=== PATIENT | male | born 1960 | race Caucasian/White ===

== ENCOUNTER 2016-07-03 12:21 | Emergency (ER) | payer OTHER ==
[~2016-07-03] VITALS: Ht 175.3 cm; Wt 82.0 kg
[~2016-07-03 12:21] MED LIST: ALBU0.08 NEB; AMLO10 PO; ASPI1TAB69 PO; LEVA750T PO; PRED20 PO; SPIRCAP INH; SYMB160A INH; TRAZ50TA12 PO; XANA1TAB2 PO
[2016-07-03 12:31] VITALS: BP 126/66; PULSE 60; RESP 16; TEMP 98.2; O2SAT 98
--- NOTE | 2016-07-03 12:59 | PD ---
HPI . Chest pain Chief Complaint: Chest Pain Time Seen by Provider: 12:42 Travel History International Travel<30 days: No Contact w/Intl Traveler<30days: No Traveled to known affect area: No History of Present Illness HPI Patient presents with chest pain for a couple days and shortness of breath for about a day. He states that he has taken his routine medications for same but nothing else. He denies fever. He denies sputum production. Respirations and movement make it worse. PFSH Past Medical History Hx Anticoagulant Therapy: Yes (81 mg asa daily) Arthritis: No Asthma: Yes Autoimmune Disease: No Blood Disorders: No Anxiety: Yes Depression: No Heart Rhythm Problems: Yes Cancer: No Cardiac Catheterization: Yes (2006) Cardiovascular Problems: Yes (htn) High Cholesterol: No Chemotherapy: No Chest Pain: Yes Congestive Heart Failure: No COPD: Yes Cerebrovascular Accident: No Diabetes: No Diminished Hearing: No Diverticulitis: Yes Endocrine: No GERD: Yes Glaucoma: No Genitourinary: No Headaches: No Hepatitis: Yes (C) Hiatal Hernia: No Hypertension: Yes Immune Disorder: No Kidney Stones: No Musculoskeletal: No Neurologic: Yes (TIA) Psychiatric: No Reproductive: No Respiratory: Yes (copd) Immunizations Current: Yes Migraines: No Myocardial Infarction: No Radiation Therapy: No Renal Failure: No Seizures: No Sickle Cell Disease: No Sleep Apnea: Yes Thyroid Disease: No Ulcer: Yes (STOMACH) ?: Not Past Surgical History Abdominal Surgery: Yes (HERNIA REPAIR, COLOSTOMY, AND COLOSTOMY REVERSAL) AICD: No Appendectomy: No Arteriovenous Shunt: No Cardiac Surgery: Yes (HEART CATH ) Cholecystectomy: No Ear Surgery: No Endocrine Surgery: No Eye Surgery: No Genitourinary Surgery: No Gynecologic Surgery: No Insulin Pump: No Joint Replacement: No Oral Surgery: Yes (ABCESS TOOTH REMOVED) Pacemaker: No Thoracic Surgery: No Other Surgery: Yes (ABSCESS RIGHT ELBOW, MOUTH) Social History Alcohol Use: Yes (occ) Tobacco Use: Yes (2 CIGARETTES PER WEEK) Substance Use: No Allergies-Medications (Allergen,Severity, Reaction): Coded Allergies: Codeine (Verified Allergy, Severe, RASH,MIGRAINE, 07/03/16) Toradol (Verified Adverse Reaction, Severe, HEADACHE, 07/03/16) *MDRO Multi-Drug Resistant Organism (Verified Adverse Reaction, Unknown, ) 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 Reported Meds & Prescriptions Reported Meds & Active Scripts Active Prednisone 20 Mg Tab 40 Mg PO DAILY 5 Days Levaquin (Levofloxacin) 750 Mg Tab 750 Mg PO DAILY Norvasc (Amlodipine Besylate) 10 Mg Tab 10 Mg PO DAILY 30 Days Reported Albuterol Neb (Albuterol Sulfate) 2.5 Mg/3 Ml Neb 2.5 Mg NEB Q4HR NEB While awake Spiriva Handihaler (Tiotropium Inh) 18 Mcg Cap 18 Mcg INH DAILY 1 capsule = 18 mcg Trazodone (Trazodone HCl) 50 Mg Tab 50 Mg PO HS Symbicort Inh (Budesonide/Formoterol Fumarate) 160-4.5 Mcg/Act Aero 2 Puff INH Q12HR Aspirin 81 Mg Tabdr 81 Mg PO DAILY Xanax (Alprazolam) 1 Mg Tab 1 Mg PO TID PRN Review of Systems Except as stated in HPI: all other systems reviewed are Neg General / Constitutional: No: Fever, Chills Cardiovascular: Positive: Chest Pain or Discomfort Respiratory: Positive: Shortness of Breath Gastrointestinal: No: Nausea Musculoskeletal: Positive: Pain (he reports leg pain.) Physical Exam Narrative GENERAL: Thin man who appears stable. SKIN: Warm and dry. HEAD: Atraumatic. Normocephalic. EYES: Pupils equal and round. ENT: No nasal bleeding or discharge. Mucous membranes pink and moist. NECK: Trachea midline. Neck is supple. CARDIOVASCULAR: Regular rate and rhythm. Heart sounds are normal. RESPIRATORY: No accessory muscle use. Lungs are clear with full air movement throughout. Chest wall is diffusely tender to palpation. GASTROINTESTINAL: Abdomen soft, non-tender, nondistended. MUSCULOSKELETAL: No obvious deformities. No edema. NEUROLOGICAL: Awake and alert. No obvious cranial nerve deficits. Motor grossly within normal limits. Normal speech. PSYCHIATRIC: Appropriate mood and affect; insight and judgment normal. Data Data Last Documented VS Vital Signs Date Time Temp Pulse Resp B/P Pulse Ox O2 Delivery O2 Flow Rate FiO2 07/03/16 12:31 98.2 60 16 126/66 98 Orders Ckmb (Isoenzyme) Profile (07/03/16 12:48) Complete Blood Count With Diff (07/03/16 12:48) Comprehensive Metabolic Panel (07/03/16 12:48) D-Dimer (07/03/16 12:48) Magnesium (Mg) (07/03/16 12:48) Troponin I (07/03/16 12:48) Chest, Single Ap (07/03/16 12:48) Ecg Monitoring (07/03/16 12:48) Bilateral Bp Monitoring (07/03/16 12:48) Iv Access Insert/Monitor (07/03/16 12:48) Oximetry (07/03/16 12:48) Oxygen Administration (07/03/16 12:48) Aspirin Chew (Aspirin Chew) (07/03/16 13:00) Morphine Inj (Morphine Inj) (07/03/16 13:00) Sodium Chloride 0.9% Flush (Ns Flush) (07/03/16 13:00) CKMB (07/03/16 13:05) CKMB% (07/03/16 13:05) Labs Laboratory Tests Test 07/03/16 13:05 White Blood Count 5.3 TH/MM3 Red Blood Count 4.32 MIL/MM3 Hemoglobin 13.3 GM/DL Hematocrit 40.1 % Mean Corpuscular Volume 92.9 FL Mean Corpuscular Hemoglobin 30.8 PG Mean Corpuscular Hemoglobin 33.1 % Concent Red Cell Distribution Width 14.8 % Platelet Count 129 TH/MM3 Mean Platelet Volume 6.8 FL Neutrophils (%) (Auto) 46.3 % Lymphocytes (%) (Auto) 33.5 % Monocytes (%) (Auto) 17.2 % Eosinophils (%) (Auto) 2.0 % Basophils (%) (Auto) 1.0 % Neutrophils # (Auto) 2.5 TH/MM3 Lymphocytes # (Auto) 1.8 TH/MM3 Monocytes # (Auto) 0.9 TH/MM3 Eosinophils # (Auto) 0.1 TH/MM3 Basophils # (Auto) 0.1 TH/MM3 CBC Comment DIFF FINAL Differential Comment D-Dimer Quantitative (PE/DVT) 0.30 MG/L FEU Sodium Level 142 MEQ/L Potassium Level 3.8 MEQ/L Chloride Level 111 MEQ/L Carbon Dioxide Level 22.8 MEQ/L Anion Gap 8 MEQ/L Blood Urea Nitrogen 22 MG/DL Creatinine 0.94 MG/DL Estimat Glomerular Filtration 83 ML/MIN Rate Random Glucose 105 MG/DL Calcium Level 8.1 MG/DL Magnesium Level 1.9 MG/DL Total Bilirubin 0.8 MG/DL Aspartate Amino Transf 171 U/L (AST/SGOT) Alanine Aminotransferase 107 U/L (ALT/SGPT) Alkaline Phosphatase 74 U/L Total Creatine Kinase 267 U/L Creatine Kinase MB 3.3 NG/ML Troponin I LESS THAN 0.02 NG/ML Total Protein 6.0 GM/DL Albumin 2.8 GM/DL MDM Medical Decision Making Medical Screen Exam Complete: Yes Emergency Medical Condition: Yes Medical Record Reviewed: Yes (records reviewed. He has a history of COPD, hypertension, respiratory failure, hepatitis C and sciatica.) Interpretation(s) EKG shows sinus bradycardia with no acute ischemic change. Differential Diagnosis Differential diagnosis of chest pain includes but is not limited to musculoskeletal pain, pulmonary embolism, acute coronary syndrome, pneumonia, pleurisy. Narrative Course This is a patient who has a history of COPD, respiratory failure, hypertension, hepatitis C and sciatica presents with at least a 2 day history of chest pain. He has chest wall pain by exam. CBC is normal. D-dimer is normal. Chemistries are remarkable for some elevated LFTs. His troponin and CK-MB are normal. Chest x-ray is negative to the radiologist's interpretation. Chest x-ray was independently viewed by me. Patient is now resting comfortably. He appears to be stable for discharge. Diagnosis Primary Impression: Atypical chest pain Patient Instructions: Chest Pain (ED), General Instructions, Narcotic given in the ED Scripts Prednisone (48) 10 mg tab Dose Pack 10 Mg Dspk10 Mg PO DIRECTED #1 DSPK Ref 0 Prov:Kira Castro MD 07/03/16 Tramadol 50 Mg Tab50 Mg PO Q4H PRN (PAIN) #15 TAB Ref 0 Prov:Kira Castro MD 07/03/16 Disposition: 01 DISCHARGE HOME Condition: Stable Kira Castro MD Jul 03, 2016 12:59
[2016-07-03] MEDS ORDERED: SODIUM CHLORIDE 0.9% FLUSH 5 ML FLUSH IVF PRN (13:00)
[2016-07-03] MEDS ORDERED: MORPHINE SULFATE 4 MG/ML INJ IV PUSH ONE (13:00)
[2016-07-03] MEDS ORDERED: ASPIRIN 81 MG CHEW TAB PO ONE (13:00)
[2016-07-03 13:17] LABS: AUTOMATED NEUTROPHIL # 2.5 TH/MM3 (1.8-7.7); BASOPHIL # 0.1 TH/MM3 (0-0.2); EOSINOPHIL # 0.1 TH/MM3 (0-0.4); HEMATOCRIT 40.1 % (39.0-51.0); HEMO FLAGS DIFF FINAL; LYMPH % 33.5 % (9.0-44.0); LYMPHOCYTE # 1.8 TH/MM3 (1.0-4.8); MEAN CELL VOLUME 92.9 FL (80.0-100.0); MEAN CORPUSCULAR HEMOGLOBIN 30.8 PG (27.0-34.0); MEAN CORPUSCULAR HGB CONC 33.1 % (32.0-36.0); MONO % 17.2 % (0.0-8.0); NEUT % 46.3 % (16.0-70.0); PLATELET COUNT 129 TH/MM3 (150-450); RED BLOOD COUNT 4.32 MIL/MM3 (4.50-5.90); RED CELL DISTRIBUTION WIDTH 14.8 % (11.6-17.2); WHITE BLOOD COUNT 5.3 TH/MM3 (4.0-11.0)
--- NOTE | 2016-07-03 13:27 | RADRPT ---
EXAM DATE/TIME: 07/03/2016 13:15 [facility] COMPARISON: CT PULMONARY ANGIOGRAM, August 08, 2015, 20:43. INDICATIONS : Chest pain. MEDICAL HISTORY : Hypertension. Chronic obstructive pulmonary disease. Emphysema. SURGICAL HISTORY : Heart cath. ENCOUNTER: Initial ACUITY: 1 day PAIN SCORE: 7/10 LOCATION: chest FINDINGS: A single view of the chest demonstrates the lungs to be symmetrically aerated without evidence of mas s, infiltrate or effusion. The cardiomediastinal contours are unremarkable. Osseous structures demo nstrate a left scapular dense exostosis. This is stable. CONCLUSION: No acute disease. Blaise Greene MD on July 03, 2016 at 13:25 Board Certified Radiologist. This report was verified electronically.
[2016-07-03 13:30] VITALS: O2SAT 97
[2016-07-03 13:39] LABS: ALT (GPT) 107 U/L (12-78); ANION GAP 8 MEQ/L (5-15); AST (GOT) 171 U/L (15-37); BICARBONATE 22.8 MEQ/L (21.0-32.0); BLOOD UREA NITROGEN 22 MG/DL (7-18); CHLORIDE 111 MEQ/L (98-107); GLOMERULAR FILTRATION RATE 83 ML/MIN (>89); MAGNESIUM 1.9 MG/DL (1.5-2.5); POTASSIUM 3.8 MEQ/L (3.5-5.1); SODIUM (NA) 142 MEQ/L (136-145)
[2016-07-03 13:43] LABS: ALKALINE PHOSPHATASE 74 U/L (45-117); CREATINE KINASE 267 U/L (39-308); TOTAL BILIRUBIN ADULT 0.8 MG/DL (0.2-1.0)
[2016-07-03 13:56] LABS: CKMB 3.3 NG/ML (0.5-3.6)
[2016-07-03] MEDS ORDERED: PRED10PA2 PO (14:06)
[2016-07-03] MEDS ORDERED: TRAM50TA PO (14:06)
--- NOTE | 2016-07-04 18:20 | EKG ---
Date Performed: 07/03/2016 Time Performed: 12:36:57 PTAGE: 55 years EKG: SINUS BRADYCARDIA SEPTAL MYOCARDIAL INFARCTION Since previous tracing, no significant sr e noted ABNORMAL ECG PREVIOUS TRACING 05/31/16 @ 05.50.42 DOCTOR: Ros Grant Interpretating Date/Time 07/04/2016 18:18:39
== END 2016-07-03 15:27 | disposition home or self-care (01) ==
LOC: NEPE 12:21
DX: R07.89 Other chest pain (principal); R00.1 Bradycardia, unspecified
CPT/HCPCS: 71010; 80053; 82550; 82552; 83735; 84484; 85025; 85379; 93005

== ENCOUNTER 2016-10-03 10:45 | Observation (INO) | payer OTHER ==
[~2016-10-03] VITALS: Ht 177.8 cm; Wt 80.0 kg
[2016-10-03] VITALS (11 sets, daily range): BP systolic 144–175; BP diastolic 80–98; PULSE 74–100; RESP 16–20; TEMP 97.8–98.1; O2SAT 92–96
[~2016-10-03 10:45] MED LIST changes: -LEVA750T PO; +PRED10PA2 PO; -PRED20 PO; +TRAM50TA PO
[2016-10-03] MEDS: RESP: ALBUTEROL 2.5 MG/IPRATROPIUM 0.5 MG NEB (SCH) INH ×2 (11:13→17:26)
[2016-10-03] MEDS ORDERED: SODIUM CHLORIDE 0.9% FLUSH 10 ML FLUSH IVF PRN (11:15)
--- NOTE | 2016-10-03 11:29 | PD ---
HPI Chief Complaint: Chest Pain Time Seen by Provider: 11:00 Travel History International Travel<30 days: No Contact w/Intl Traveler<30days: No Traveled to known affect area: No History of Present Illness HPI Patient is a 55-year-old male presenting to the emergency department for evaluation of chest pain and shortness of breath. Patient states his symptoms started 2 days ago. He states his chest pain is substernal and pressure-like in nature. He states his pain is 7 out of 10, he denies any radiation. He reports bilateral lower extremity edema, nausea, a dull headache. Patient states that he walked to the [employer] to get lunch when he called 911 due to the shortness of breath and chest pain. Reports a history of hypertension, COPD emphysema, sciatica. PFSH Past Medical History Hx Anticoagulant Therapy: Yes (81 mg asa daily) Arthritis: No Autoimmune Disease: No Blood Disorders: No Anxiety: Yes Depression: No Heart Rhythm Problems: Yes Cancer: No Cardiac Catheterization: Yes (2006) High Cholesterol: No Chemotherapy: No Chest Pain: Yes Congestive Heart Failure: No COPD: Yes (emphysema) Cerebrovascular Accident: No Diabetes: No Diminished Hearing: No Diverticulitis: Yes Endocrine: No GERD: Yes Glaucoma: No Genitourinary: No Headaches: No Hepatitis: Yes (C) Hiatal Hernia: No Heparin Induced Thrombocytopen: No Hypertension: Yes Immune Disorder: No Implanted Vascular Access Dvce: No Kidney Stones: No Musculoskeletal: No Neurologic: Yes (TIA) Psychiatric: No Reproductive: No Respiratory: Yes (copd) Immunizations Current: Yes Migraines: No Myocardial Infarction: No Radiation Therapy: No Renal Failure: No Seizures: No Sickle Cell Disease: No Sleep Apnea: Yes Thyroid Disease: No Ulcer: Yes (STOMACH) Past Surgical History Abdominal Surgery: Yes (HERNIA REPAIR, COLOSTOMY, AND COLOSTOMY REVERSAL) Cardiac Surgery: Yes (HEART CATH ) Oral Surgery: Yes (ABCESS TOOTH REMOVED) Other Surgery: Yes (ABSCESS RIGHT ELBOW, MOUTH) Family History Family Myocardial Infarction: Yes Social History Alcohol Use: Yes (occ) Tobacco Use: No Substance Use: No Allergies-Medications (Allergen,Severity, Reaction): Coded Allergies: Codeine (Verified Allergy, Severe, RASH,MIGRAINE, 10/03/16) Toradol (Verified Adverse Reaction, Severe, HEADACHE, 10/03/16) *MDRO Multi-Drug Resistant Organism (Verified Adverse Reaction, Unknown, ) 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 Reported Meds & Prescriptions Reported Meds & Active Scripts Active Norvasc (Amlodipine Besylate) 10 Mg Tab 10 Mg PO DAILY 30 Days Reported Albuterol Neb (Albuterol Sulfate) 2.5 Mg/3 Ml Neb 2.5 Mg NEB Q4HR NEB While awake Spiriva Handihaler (Tiotropium Inh) 18 Mcg Cap 18 Mcg INH DAILY 1 capsule = 18 mcg Symbicort Inh (Budesonide/Formoterol Fumarate) 160-4.5 Mcg/Act Aero 2 Puff INH Q12HR Aspirin 81 Mg Tabdr 81 Mg PO DAILY Xanax (Alprazolam) 1 Mg Tab 1 Mg PO TID PRN Review of Systems Except as stated in HPI: all other systems reviewed are Neg General / Constitutional: No: Fever, Chills HENT: Positive: Headaches, No: Lightheadedness Cardiovascular: Positive: Chest Pain or Discomfort, Tachycardia, Dyspnea on exertion, Edema Respiratory: Positive: Shortness of Breath, Wheezing, No: Cough Gastrointestinal: Positive: Nausea, No: Vomiting, Diarrhea, Abdominal Pain Genitourinary: No: Dysuria Musculoskeletal: No: Myalgias Neurologic: No: Weakness, Dizziness, Syncope, Focal Abnormalities Physical Exam Narrative GENERAL: Well-developed, well-nourished, male. Appears older than stated age, resting comfortably in no acute distress. SKIN: Focused skin assessment warm/dry. HEAD: Atraumatic. Normocephalic. EYES: Pupils equal and round. No scleral icterus. No injection or drainage. ENT: No nasal bleeding or discharge. Mucous membranes pink and moist. NECK: Trachea midline. No JVD. CARDIOVASCULAR: Tachycardiac. No murmur appreciated. RESPIRATORY: No accessory muscle use. Diminished in bases, scattered expiratory wheezing. GASTROINTESTINAL: Abdomen soft, non-tender, nondistended. Hepatic and splenic margins not palpable. MUSCULOSKELETAL: No obvious deformities. No clubbing. No cyanosis. Trace peripheral edema, positive pedal pulses, brisk less than 3 second capillary refill. NEUROLOGICAL: Awake and alert. No obvious cranial nerve deficits. Motor grossly within normal limits. Normal speech. PSYCHIATRIC: Appropriate mood and affect; insight and judgment normal. Data Data Last Documented VS Vital Signs Date Time Temp Pulse Resp B/P Pulse Ox O2 Delivery O2 Flow Rate FiO2 4/3/17 14:37 97 20 155/81 94 Nasal Cannula 2 10/03/16 11:01 98.1 Orders Complete Blood Count With Diff (10/03/16 11:04) Comprehensive Metabolic Panel (10/03/16 11:04) B-Type Natriuretic Peptide (10/03/16 11:04) Act Partial Throm Time (Ptt) (10/03/16 11:04) Prothrombin Time / Inr (Pt) (10/03/16 11:04) Magnesium (Mg) (10/03/16 11:04) Ckmb (Isoenzyme) Profile (10/03/16 11:04) Troponin I (10/03/16 11:04) Iv Access Insert/Monitor (10/03/16 11:04) Electrocardiogram (10/03/16 11:04) Ecg Monitoring (10/03/16 11:04) Oximetry (10/03/16 11:04) Oxygen Administration (10/03/16 11:04) Chest, Pa & Lat (10/03/16 11:04) Sodium Chloride 0.9% Flush (Ns Flush) (10/03/16 11:15) Albuterol-Ipratropium Neb (Duoneb Neb) (10/03/16 11:15) CKMB (10/03/16 12:35) CKMB% (10/03/16 12:35) Methylprednisolone So Succ Inj (Solumedr (10/03/16 13:45) Ct Pulmonary Angiogram (10/03/16 ) Iohexol 350 Inj (Omnipaque 350 Inj) (10/03/16 16:21) Admit Order (Ed Use Only) (10/03/16 16:30) Labs Laboratory Tests Test 10/03/16 12:35 White Blood Count 6.5 TH/MM3 Red Blood Count 4.78 MIL/MM3 Hemoglobin 14.6 GM/DL Hematocrit 42.8 % Mean Corpuscular Volume 89.4 FL Mean Corpuscular Hemoglobin 30.6 PG Mean Corpuscular Hemoglobin 34.3 % Concent Red Cell Distribution Width 14.5 % Platelet Count 146 TH/MM3 Mean Platelet Volume 7.0 FL Neutrophils (%) (Auto) 62.2 % Lymphocytes (%) (Auto) 24.0 % Monocytes (%) (Auto) 12.3 % Eosinophils (%) (Auto) 0.9 % Basophils (%) (Auto) 0.6 % Neutrophils # (Auto) 4.0 TH/MM3 Lymphocytes # (Auto) 1.6 TH/MM3 Monocytes # (Auto) 0.8 TH/MM3 Eosinophils # (Auto) 0.1 TH/MM3 Basophils # (Auto) 0.0 TH/MM3 CBC Comment DIFF FINAL Differential Comment Prothrombin Time 11.8 SEC Prothromb Time International 1.1 RATIO Ratio Activated Partial 29.3 SEC Thromboplast Time Sodium Level 141 MEQ/L Potassium Level 3.7 MEQ/L Chloride Level 107 MEQ/L Carbon Dioxide Level 24.9 MEQ/L Anion Gap 9 MEQ/L Blood Urea Nitrogen 12 MG/DL Creatinine 0.65 MG/DL Estimat Glomerular Filtration 127 ML/MIN Rate Random Glucose 89 MG/DL Calcium Level 8.6 MG/DL Magnesium Level 1.8 MG/DL Total Bilirubin 0.6 MG/DL Aspartate Amino Transf 136 U/L (AST/SGOT) Alanine Aminotransferase 92 U/L (ALT/SGPT) Alkaline Phosphatase 63 U/L Total Creatine Kinase 229 U/L Creatine Kinase MB 7.3 NG/ML Troponin I 0.02 NG/ML B-Type Natriuretic Peptide 71 PG/ML Total Protein 6.9 GM/DL Albumin 2.9 GM/DL MDM Medical Decision Making Medical Screen Exam Complete: Yes Emergency Medical Condition: Yes Interpretation(s) Laboratory Tests Test 10/03/16 12:35 White Blood Count 6.5 TH/MM3 Red Blood Count 4.78 MIL/MM3 Hemoglobin 14.6 GM/DL Hematocrit 42.8 % Mean Corpuscular Volume 89.4 FL Mean Corpuscular Hemoglobin 30.6 PG Mean Corpuscular Hemoglobin 34.3 % Concent Red Cell Distribution Width 14.5 % Platelet Count 146 TH/MM3 Mean Platelet Volume 7.0 FL Neutrophils (%) (Auto) 62.2 % Lymphocytes (%) (Auto) 24.0 % Monocytes (%) (Auto) 12.3 % Eosinophils (%) (Auto) 0.9 % Basophils (%) (Auto) 0.6 % Neutrophils # (Auto) 4.0 TH/MM3 Lymphocytes # (Auto) 1.6 TH/MM3 Monocytes # (Auto) 0.8 TH/MM3 Eosinophils # (Auto) 0.1 TH/MM3 Basophils # (Auto) 0.0 TH/MM3 CBC Comment DIFF FINAL Differential Comment Prothrombin Time 11.8 SEC Prothromb Time International 1.1 RATIO Ratio Activated Partial 29.3 SEC Thromboplast Time Sodium Level 141 MEQ/L Potassium Level 3.7 MEQ/L Chloride Level 107 MEQ/L Carbon Dioxide Level 24.9 MEQ/L Anion Gap 9 MEQ/L Blood Urea Nitrogen 12 MG/DL Creatinine 0.65 MG/DL Estimat Glomerular Filtration 127 ML/MIN Rate Random Glucose 89 MG/DL Calcium Level 8.6 MG/DL Magnesium Level 1.8 MG/DL Total Bilirubin 0.6 MG/DL Aspartate Amino Transf 136 U/L (AST/SGOT) Alanine Aminotransferase 92 U/L (ALT/SGPT) Alkaline Phosphatase 63 U/L Total Creatine Kinase 229 U/L Creatine Kinase MB 7.3 NG/ML Troponin I 0.02 NG/ML B-Type Natriuretic Peptide 71 PG/ML Total Protein 6.9 GM/DL Albumin 2.9 GM/DL Last Impressions Chest X-Ray 10/03/16 1104 Signed Impressions: Service Date/Time: Monday, October 03, 2016 12:09 - CONCLUSION: 1. No acute findings. 2. Stable calcification within the left scapula. Manuel Estrada MD CT Angiography 10/03/16 0000 Signed Impressions: Service Date/Time: Monday, October 03, 2016 15:59 - CONCLUSION: 1. No pulmonary embolus identified. 2. Emphysematous bleb in the medial aspect of the left upper lobe. 3. Single punctate atherosclerotic plaque in the LAD. 4. Small hiatal hernia. Manuel Estrada MD Vital Signs Date Time Temp Pulse Resp B/P Pulse Ox O2 Delivery O2 Flow Rate FiO2 10/03/16 11:01 98.1 95 20 144/97 95 Differential Diagnosis COPD exacerbation versus CHF versus AMI versus PE versus pneumonia versus other Narrative Course Patient is a 55-year-old male presenting to the emergency department for evaluation of 2 days of shortness of breath and chest pain. Patient placed on telemetry monitoring, continuous pulse oximetry. IV access initiated by EMS. Patient's vital signs are stable blood glucose 74, 162mg of aspirin given en route. Labs, EKG and imaging ordered and pending Duonebs x 3, solu-medrol 125mg IV X 1 dose given. EKG shows sinus rhythm, indeterminate axis. Stable when compared to prior from July 2016 CT pulmonary injury from is negative for embolus, shows emphysematous bleb in the medial aspect of the left upper lobe. CBC is unremarkable BNP 71 Chemistry with no acute issue. Coags unremarkable. Discussed with Dr. Prado who accepted admission for observation. Diagnosis Primary Impression: COPD with exacerbation Additional Impression: Atypical chest pain Admitting Information Admitting Physician Requests: Observation Condition: Stable Brianna Hays Oct 03, 2016 11:29
--- NOTE | 2016-10-03 12:24 | RADRPT ---
EXAM DATE/TIME: 10/03/2016 12:09 [facility] COMPARISON: CHEST SINGLE AP, July 03, 2016, 13:15. INDICATIONS : Short of breath. MEDICAL HISTORY : Hypertension. Chronic obstructive pulmonary disease. Emphysema. Hep C SURGICAL HISTORY : Heart Cath. ENCOUNTER: Initial ACUITY: 1 day PAIN SCORE: 0/10 LOCATION: Bilateral chest FINDINGS: The lungs are clear. The heart is normal in size. The osseous structures demonstrate a 1.7 x 1.1 cm c alcification which is within the scapula. CONCLUSION: 1. No acute findings. 2. Stable calcification within the left scapula. Manuel Estrada MD on October 03, 2016 at 12:21 Board Certified Radiologist. This report was verified electronically.
[2016-10-03 12:57] LABS: BASOPHIL % 0.6 % (0.0-2.0); EOSINOPHIL # 0.1 TH/MM3 (0-0.4); EOSINOPHIL % 0.9 % (0.0-4.0); HEMATOCRIT 42.8 % (39.0-51.0); LYMPHOCYTE # 1.6 TH/MM3 (1.0-4.8); MEAN CELL VOLUME 89.4 FL (80.0-100.0); MEAN CORPUSCULAR HEMOGLOBIN 30.6 PG (27.0-34.0); MEAN CORPUSCULAR HGB CONC 34.3 % (32.0-36.0); MONO % 12.3 % (0.0-8.0); NEUT % 62.2 % (16.0-70.0); PLATELET COUNT 146 TH/MM3 (150-450); RED BLOOD COUNT 4.78 MIL/MM3 (4.50-5.90); RED CELL DISTRIBUTION WIDTH 14.5 % (11.6-17.2); WHITE BLOOD COUNT 6.5 TH/MM3 (4.0-11.0)
[2016-10-03 12:58] LABS: HEMO FLAGS DIFF FINAL
[2016-10-03 13:07] LABS: APTT (PATIENT) 29.3 SEC (24.3-30.1); INTERNATIONAL NORMALIZED RATIO 1.1 RATIO; PROTHROMBIN TIME - PATIENT 11.8 SEC (9.8-11.6)
[2016-10-03 13:16] LABS: ANION GAP 9 MEQ/L (5-15); AST (GOT) 136 U/L (15-37); BICARBONATE 24.9 MEQ/L (21.0-32.0); BLOOD UREA NITROGEN 12 MG/DL (7-18); CHLORIDE 107 MEQ/L (98-107); GLOMERULAR FILTRATION RATE 127 ML/MIN (>89); MAGNESIUM 1.8 MG/DL (1.5-2.5); POTASSIUM 3.7 MEQ/L (3.5-5.1); SODIUM (NA) 141 MEQ/L (136-145)
[2016-10-03 13:21] LABS: ALKALINE PHOSPHATASE 63 U/L (45-117); ALT (GPT) 92 U/L (12-78); CREATINE KINASE 229 U/L (39-308); TOTAL BILIRUBIN ADULT 0.6 MG/DL (0.2-1.0)
[2016-10-03 13:33] LABS: CKMB 7.3 NG/ML (0.5-3.6)
[2016-10-03] MEDS ORDERED: methylPREDNISolone SOD SUCC 125 MG/2 ML VIAL IV PUSH ONE (13:45)
[2016-10-03] MEDS ORDERED: IOHEXOL 350 MG/ML 10 ML VIAL (for RAD DIAG) IV ONE (16:21)
--- NOTE | 2016-10-03 16:39 | RADRPT ---
EXAM DATE/TIME: 10/03/2016 15:59 [facility] COMPARISON: CT PULMONARY ANGIOGRAM, August 08, 2015, 20:43. INDICATIONS : Left sided chest pain and shortness of breath for two days. IV CONTRAST: 70 cc Omnipaque 350 (iohexol) IV RADIATION DOSE: 23.28 CTDIvol (mGy) MEDICAL HISTORY : Hypertension. Chronic obstructive pulmonary disease. SURGICAL HISTORY : cardiac catheterization ENCOUNTER: Initial ACUITY: 2 days PAIN SCALE: 7/10 LOCATION: Left chest TECHNIQUE: Volumetric scanning of the chest was performed using a pulmonary embolism protocol MIP images were re constructed. Using automated exposure control and adjustment of the mA and/or kV according to patien t size, radiation dose was kept as low as reasonably achievable to obtain optimal diagnostic quality images. FINDINGS: PULMONARY ARTERIES: No filling defects are seen in the pulmonary arteries through the segmental level. LUNGS: No pneumothorax is identified. There is a large emphysematous bleb seen medially in the left upper lo be this is unchanged from previous. PLEURAE: There is no pleural thickening or pleural effusion. MEDIASTINUM: There is good visualization of the great vessels of the middle mediastinum. No evidence of mediastin al or hilar adenopathy/mass. There is a punctate atherosclerotic plaque seen within the LAD. MUSCULOSKELETAL: Within normal limits for patient age. MISCELLANEOUS: The visualized upper abdominal organs demonstrate no acute abnormality. CONCLUSION: 1. No pulmonary embolus identified. 2. Emphysematous bleb in the medial aspect of the left upper lobe. 3. Single punctate atherosclerotic plaque in the LAD. 4. Small hiatal hernia. Manuel Estrada MD on October 03, 2016 at 16:36 Board Certified Radiologist. This report was verified electronically.
[2016-10-03] MEDS ORDERED: RESP: ALBUTEROL 2.5 MG/3 ML NEB (PRN) INH (17:00)
[2016-10-03] MEDS ORDERED: MORPHINE SULFATE 4 MG/ML INJ IV PRN ×2 (17:00→20:00)
[2016-10-03] MEDS: LEVOFLOXACIN 500 MG PREMIX INJ 100 ML IV SCH (17:30)
[2016-10-03] MEDS: HEPARIN SODIUM - SQ 10,000 UNITS/ML VIAL SQ SCH (17:30)
--- NOTE | 2016-10-03 18:25 | HHI.HP ---
[facility] Physician Unknown Admission Diagnosis ATYPICAL CHEST PAIN/COPD EXACERBATION Diagnoses: Chief Complaint: Chest pain Travel History International Travel<30 Days: No Contact w/Intl Traveler <30 Da: No Traveled to Known Affected Are: No History of Present Illness 55 years old male with history of COPD presented with chest retrosternal about 8 out of 10, accompanied with worsening short of breath, he feels little nauseous, the pain went to his left arm. He stated the last for 10 seconds but it comes and goes. He also reported worsening greenish phlegm with cough. He denied fever or chills abdominal pain diarrhea or constipation dysuria urgency frequency, in ED patient was given breathing treatment, cardiac enzymes sent, CT of the chest has been done and ruled out PE. But showed severe emphysema with apical bleb Review of Systems All 10 systems reviewed and was positive for what is mentioned in history of present illness otherwise negative Past Family Social History Past Medical History COPD HTN anxiety hepatitis C GERD TIA H/O diverticulosis status post partial colectomy and colostomy as per the patient Past Surgical History Hernia repair Colostomy placement and reversal Cardiac catheterization in 2006 Dental extractions I&D of an abscess at the right elbow Allergies: Coded Allergies: Codeine (Verified Allergy, Severe, RASH,MIGRAINE, 10/03/16) Toradol (Verified Adverse Reaction, Severe, HEADACHE, 10/03/16) *MDRO Multi-Drug Resistant Organism (Verified Adverse Reaction, Unknown, ) 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 Family History Father had cirrhosis, mother [place] in her 30 Social History Still smoke a pack a day for over 30 years, denies alcohol or illicit drug abuse however he stated he drank 4 beers yesterday while he was watching sports but he usually doesn't Physical Exam Vital Signs Vital Signs Date Time Temp Pulse Resp B/P Pulse Ox O2 Delivery O2 Flow Rate FiO2 10/03/16 17:27 87 20 153/98 92 Room Air 10/03/16 16:42 88 20 175/88 95 Room Air 10/03/16 14:37 97 20 155/81 94 Nasal Cannula 2 10/03/16 12:46 96 Room Air 10/03/16 12:37 96 20 156/85 94 Room Air 10/03/16 11:01 98.1 95 20 144/97 95 Physical Exam GENERAL: This is a well-nourished, well-developed patient, in no apparent distress. SKIN: No rashes, warm and dry HEAD: Atraumatic. Normocephalic. EYES: Pupils equal round and reactive. Extraocular motions intact. No scleral icterus. ENT: Nose without bleeding, or drainage, Airway patent. NECK: Trachea midline. Supple CARDIOVASCULAR: Regular rate and rhythm without murmurs, gallops, or rubs. RESPIRATORY: Relatively diminished air entry with bilateral wheezes GASTROINTESTINAL: Abdomen soft, non-tender, nondistended. Positive bowel sounds MUSCULOSKELETAL: Extremities without clubbing, cyanosis, or edema. Pedal pulses appreciated NEUROLOGICAL: Awake and alert. Moves all extremity. Normal speech.no focal neurological deficit Laboratory Laboratory Tests Test 10/03/16 12:35 White Blood Count 6.5 Red Blood Count 4.78 Hemoglobin 14.6 Hematocrit 42.8 Mean Corpuscular Volume 89.4 Mean Corpuscular Hemoglobin 30.6 Mean Corpuscular Hemoglobin 34.3 Concent Red Cell Distribution Width 14.5 Platelet Count 146 Mean Platelet Volume 7.0 Neutrophils (%) (Auto) 62.2 Lymphocytes (%) (Auto) 24.0 Monocytes (%) (Auto) 12.3 Eosinophils (%) (Auto) 0.9 Basophils (%) (Auto) 0.6 Neutrophils # (Auto) 4.0 Lymphocytes # (Auto) 1.6 Monocytes # (Auto) 0.8 Eosinophils # (Auto) 0.1 Basophils # (Auto) 0.0 CBC Comment DIFF FINAL Differential Comment Prothrombin Time 11.8 Prothromb Time International 1.1 Ratio Activated Partial 29.3 Thromboplast Time Sodium Level 141 Potassium Level 3.7 Chloride Level 107 Carbon Dioxide Level 24.9 Anion Gap 9 Blood Urea Nitrogen 12 Creatinine 0.65 Estimat Glomerular Filtration 127 Rate Random Glucose 89 Calcium Level 8.6 Magnesium Level 1.8 Total Bilirubin 0.6 Aspartate Amino Transf 136 (AST/SGOT) Alanine Aminotransferase 92 (ALT/SGPT) Alkaline Phosphatase 63 Total Creatine Kinase 229 Creatine Kinase MB 7.3 Troponin I 0.02 B-Type Natriuretic Peptide 71 Total Protein 6.9 Albumin 2.9 Result Diagram: 10/03/16 1235 10/03/16 1235 Imaging Last Impressions Chest X-Ray 10/03/16 1104 Signed Impressions: Service Date/Time: Monday, October 03, 2016 12:09 - CONCLUSION: 1. No acute findings. 2. Stable calcification within the left scapula. Manuel Estrada MD CT Angiography 10/03/16 0000 Signed Impressions: Service Date/Time: Monday, October 03, 2016 15:59 - CONCLUSION: 1. No pulmonary embolus identified. 2. Emphysematous bleb in the medial aspect of the left upper lobe. 3. Single punctate atherosclerotic plaque in the LAD. 4. Small hiatal hernia. Manuel Estrada MD EKG sinus rhythm no ST changes Assessment and Plan Assessment and Plan 55 years old with history of COPD came with Atypical chest pain rule out ACS EKG personally reviewed by me sinus no significant ST changes Cardiac enzymes cycled first set CK 229 CK-MB 7.3 troponin 0.02 Aspirin given and morphine iv for pain Acute respiratory distress with Worsening cough and greenish phlegm production rule out COPD exacerbation: O2, DuoNeb scheduled and when necessary, started Levaquin, Solu-Medrol Uncontrolled hypertension Resume amlodipine, Vasotec as needed Monitor blood pressure Thrombocytopenia: Mostly due to alcoholism, monitor CBC History of hepatitis C: No acute issue, follow as an outpatient H/O partial colectomy and reversed colostomy in the past DVT prophylaxis With heparin and SCD, start Lovenox full dose if troponins start to increase Discussed Condition With Patient in ED physician Abdullahi Prado MD Oct 03, 2016 18:25
[2016-10-03] MEDS: NITROGLYCERIN 0.4 MG SL 25 TABS/BTL SL PRN ×2 (18:33→18:43)
[2016-10-03 18:54] LABS: CREATINE KINASE 123 U/L (39-308)
[2016-10-03] MEDS: ENALAPRILAT 1.25 MG/ML VIAL IV PUSH PRN (19:09)
[2016-10-03] MEDS: BUDESONIDE-FORMOTEROL 160/4.5 MCG INHALER INH SCH (21:32)
[2016-10-03] MEDS: MORPHINE SULFATE 4 MG/ML INJ IV PUSH PRN (22:26)
[2016-10-03] MEDS: methylPREDNISolone SOD SUCC 125 MG/2 ML VIAL IVP SCH (22:27)
[2016-10-04] VITALS (13 sets, daily range): BP systolic 136–188; BP diastolic 76–103; PULSE 75–103; RESP 18–22; TEMP 97.6–98.1; O2SAT 95–97
[2016-10-04 00:52] LABS: CREATINE KINASE 97 U/L (39-308)
[2016-10-04] MEDS: HEPARIN SODIUM - SQ 10,000 UNITS/ML VIAL SQ SCH ×3 (01:36→18:17)
[2016-10-04] MEDS: RESP: ALBUTEROL 2.5 MG/IPRATROPIUM 0.5 MG NEB (SCH) INH ×4 (03:48→22:00)
[2016-10-04 05:36] LABS: HDL CHOLESTEROL 29.8 MG/DL (40.0-60.0)
[2016-10-04] MEDS: methylPREDNISolone SOD SUCC 125 MG/2 ML VIAL IVP SCH ×3 (06:33→22:31)
[2016-10-04] MEDS: BUDESONIDE-FORMOTEROL 160/4.5 MCG INHALER INH SCH ×2 (08:30→22:31)
[2016-10-04] MEDS: ASPIRIN 325 MG TAB PO SCH (08:30)
[2016-10-04] MEDS: TIOTROPIUM BROMIDE 18 MCG INH INH SCH (08:31)
[2016-10-04] MEDS ORDERED: ASPIRIN EC 81 MG TABEC PO SCH (09:00)
[2016-10-04] MEDS ORDERED: INFLUENZA VIRUS VACCINE (QUADRIVALENT) 0.5 ML SYR IM ONE (10:00)
[2016-10-04] MEDS: ENALAPRILAT 1.25 MG/ML VIAL IV PUSH PRN (10:22)
[2016-10-04] MEDS: MORPHINE SULFATE 4 MG/ML INJ IV PUSH PRN ×3 (10:29→22:32)
--- NOTE | 2016-10-04 10:43 | EKG ---
Date Performed: 10/03/2016 Time Performed: 18:05:33 PTAGE: 55 years EKG: Sinus rhythm BORDERLINE LEFT AXIS DEVIATION BORDERLINE ECG Compared to prior tracing no significant change PREVIOUS TRACING : 10/03/2016 11.29 DOCTOR: Ros Grant Interpretating Date/Time 10/04/2016 10:36:45
--- NOTE | 2016-10-04 10:43 | EKG ---
Date Performed: 10/03/2016 Time Performed: 11:29:50 PTAGE: 55 years EKG: Sinus rhythm INDETERMINATE AXIS ATYPICAL ECG Compared to prior tracing no significant change PREVIOUS TRACING DOCTOR: Ros Grant Interpretating Date/Time 10/04/2016 10:36:37
[2016-10-04] MEDS ORDERED: ENALAPRILAT 1.25 MG/ML VIAL IV PUSH PRN (11:30)
[2016-10-04] MEDS ORDERED: LISINOPRIL 5 MG TAB PO SCH (12:00)
[2016-10-04 12:02] LABS: ANION GAP 10 MEQ/L (5-15); AST (GOT) 90 U/L (15-37); BICARBONATE 23.7 MEQ/L (21.0-32.0); BLOOD UREA NITROGEN 17 MG/DL (7-18); CHLORIDE 108 MEQ/L (98-107); GLOMERULAR FILTRATION RATE 87 ML/MIN (>89); POTASSIUM 3.6 MEQ/L (3.5-5.1); SODIUM (NA) 142 MEQ/L (136-145)
[2016-10-04 12:09] LABS: ALKALINE PHOSPHATASE 57 U/L (45-117); ALT (GPT) 82 U/L (12-78); TOTAL BILIRUBIN ADULT 0.3 MG/DL (0.2-1.0)
--- NOTE | 2016-10-04 15:51 | HHI.PR ---
Subjective Remarks Patient still feeling some chest tightness most likely is due to the OPD exacerbation, reported still coughing some greenish phlegm His cardiac enzyme came back 3 sets negative no EKG changes Continue COPD exacerbation management Objective Vitals Vital Signs Date Time Temp Pulse Resp B/P Pulse Ox O2 Delivery O2 Flow Rate FiO2 10/04/16 15:15 97.8 103 18 153/90 96 10/04/16 13:42 166/84 10/04/16 12:05 97.6 98 18 157/88 96 10/04/16 11:46 157/76 10/04/16 10:34 16 10/04/16 10:11 188/88 10/04/16 09:41 97 Nasal Cannula 2.00 10/04/16 08:14 97.8 75 20 153/103 96 10/04/16 04:17 97.6 95 20 164/83 95 10/04/16 03:54 95 Nasal Cannula 2.00 10/04/16 00:09 98.0 99 20 156/87 95 10/03/16 23:00 98 10/03/16 20:50 97.8 92 20 173/98 96 10/03/16 20:32 74 16 151/80 96 Nasal Cannula 2 10/03/16 20:00 76 16 156/81 96 Nasal Cannula 2 10/03/16 18:33 97 20 161/90 93 Room Air 10/03/16 18:10 100 20 167/90 93 Nasal Cannula 2 10/03/16 17:27 87 20 153/98 92 Room Air 10/03/16 16:42 88 20 175/88 95 Room Air I/O 10/03/16 10/03/16 10/03/16 10/04/16 10/04/16 10/04/16 07:00 15:00 23:00 07:00 15:00 23:00 Intake Total 1200 ml Output Total 1050 ml Balance 150 ml Intake Oral 1200 ml Output Urine Total 1050 ml Result Diagram: 10/03/16 1235 10/04/16 1131 Objective Remarks GENERAL: This is a well-nourished, well-developed patient, in no apparent distress. CARDIOVASCULAR: Regular rate and rhythm without murmurs, gallops, or rubs. RESPIRATORY: Diffuse expiratory wheezes, diminish breath sounds bilaterally. GASTROINTESTINAL: Abdomen soft, non-tender,nondistended. Normal active bowel sounds MUSCULOSKELETAL: Extremities without clubbing, cyanosis, or edema. NEURO: Alert & Oriented x4 to person, place, time, situation. Moves all ext x4 A/P Assessment and Plan 55 years old with history of COPD came with Atypical chest pain unlikely ACS EKG personally reviewed by me sinus no significant ST changes Cardiac enzymes cycled 3 sets negative Aspirin given and morphine iv for pain FLP showed LDL 62 HDL 29.8, with his increased liver enzyme I don't see need to start statin at this point, consider niacin acid to improve HDL COPD exacerbation with Acute respiratory distress with Worsening cough and greenish phlegm production O2, DuoNeb scheduled and when necessary, started Levaquin, Solu-Medrol iv Uncontrolled hypertension Added lisinopril 5 mg this a.m., blood pressure improved from systolic 180- 150, I will increase it to 10 mg tomorrow Resume amlodipine, Vasotec as needed Monitor blood pressure Increased transaminases seems to be chronic mostly due to hep C +/- alcoholic hepatitis Improved since yesterday ALT over AST is 90/82 ff up as an outpatient Thrombocytopenia: Mostly due to alcoholism, monitor CBC History of hepatitis C: No acute issue, follow as an outpatient H/O partial colectomy and reversed colostomy in the past DVT prophylaxis With heparin and SCD, start Lovenox full dose if troponins start to increase Abdullahi Prado MD Oct 04, 2016 15:51
[2016-10-04] MEDS: LEVOFLOXACIN 500 MG PREMIX INJ 100 ML IV SCH (18:17)
[2016-10-05] VITALS (10 sets, daily range): BP systolic 127–149; BP diastolic 64–86; PULSE 82–97; RESP 16–18; TEMP 97.8–98.6; O2SAT 94–97
[2016-10-05] MEDS: HEPARIN SODIUM - SQ 10,000 UNITS/ML VIAL SQ SCH ×3 (02:54→16:22)
[2016-10-05 04:55] LABS: AUTOMATED NEUTROPHIL # 10.1 TH/MM3 (1.8-7.7); BASOPHIL % 0.1 % (0.0-2.0); HEMATOCRIT 42.2 % (39.0-51.0); HEMO FLAGS DIFF FINAL; LYMPHOCYTE # 0.7 TH/MM3 (1.0-4.8); MEAN CELL VOLUME 89.1 FL (80.0-100.0); MEAN CORPUSCULAR HGB CONC 32.5 % (32.0-36.0); NEUT % 89.9 % (16.0-70.0); PLATELET COUNT 149 TH/MM3 (150-450); RED BLOOD COUNT 4.73 MIL/MM3 (4.50-5.90); RED CELL DISTRIBUTION WIDTH 14.5 % (11.6-17.2); WHITE BLOOD COUNT 11.2 TH/MM3 (4.0-11.0)
[2016-10-05] MEDS: RESP: ALBUTEROL 2.5 MG/IPRATROPIUM 0.5 MG NEB (SCH) INH ×4 (05:05→20:17)
[2016-10-05] MEDS: methylPREDNISolone SOD SUCC 125 MG/2 ML VIAL IVP SCH ×3 (06:12→21:17)
[2016-10-05] MEDS: MORPHINE SULFATE 4 MG/ML INJ IV PUSH PRN ×4 (06:42→21:18)
[2016-10-05] MEDS: TIOTROPIUM BROMIDE 18 MCG INH INH SCH (09:00)
[2016-10-05] MEDS: BUDESONIDE-FORMOTEROL 160/4.5 MCG INHALER INH SCH ×2 (09:27→21:16)
[2016-10-05] MEDS: LISINOPRIL 5 MG TAB PO SCH (09:27)
[2016-10-05] MEDS: ASPIRIN 325 MG TAB PO SCH (09:27)
--- NOTE | 2016-10-05 13:24 | HHI.PR ---
Subjective Remarks Follow up on COPD exacerbation, and atypical chest pain rule out ACS Patient still feeling slightly tight in his chest, cardiac enzymes negative, he is on COPD exacerbation management Hopefully can be going home tomorrow if feeling better He is afebrile, "it is just start breaking loose now " Objective Vitals Vital Signs Date Time Temp Pulse Resp B/P Pulse Ox O2 Delivery O2 Flow Rate FiO2 10/05/16 11:41 16 10/05/16 10:56 97.8 94 16 137/81 95 10/05/16 08:55 98.1 82 16 141/86 96 10/05/16 08:48 94 10/05/16 05:35 94 10/05/16 05:07 95 Nasal Cannula 2.00 10/05/16 03:38 98.6 85 18 149/79 97 10/04/16 23:14 97.7 100 20 136/79 95 10/04/16 19:54 20 10/04/16 19:42 98.1 85 22 147/88 95 10/04/16 15:15 97.8 103 18 153/90 96 10/04/16 15:00 102 10/04/16 13:42 166/84 Result Diagram: 10/05/16 0430 10/04/16 1131 Objective Remarks GENERAL: This is a well-nourished, well-developed patient, in no apparent distress. CARDIOVASCULAR: Regular rate and rhythm without murmurs, gallops, or rubs. RESPIRATORY: Diffuse expiratory wheezes, diminish breath sounds bilaterally. GASTROINTESTINAL: Abdomen soft, non-tender,nondistended. Normal active bowel sounds MUSCULOSKELETAL: Extremities without clubbing, cyanosis, or edema. NEURO: Alert & Oriented x4 to person, place, time, situation. Moves all ext x4 A/P Assessment and Plan 55 years old with history of COPD came with Atypical chest pain unlikely ACS EKG personally reviewed by me sinus no significant ST changes Cardiac enzymes cycled 3 sets negative Aspirin given and morphine iv for pain FLP showed LDL 62 HDL 29.8, with his increased liver enzyme I don't see need to start statin at this point, consider niacin acid to improve HDL COPD exacerbation with Acute respiratory distress with Worsening cough and greenish phlegm production O2, DuoNeb scheduled and when necessary, started Levaquin, Solu-Medrol iv Uncontrolled hypertension Added lisinopril 5 mg this a.m., blood pressure improved from systolic 180- 150, I will increase it to 10 mg tomorrow Resume amlodipine, Vasotec as needed Monitor blood pressure Hyperglycemia possibly steroid induced 286 at 11 this morning, will check A1c, will initiate every before meals at bedtime Accu-Chek and ISS Increased transaminases seems to be chronic mostly due to hep C +/- alcoholic hepatitis Improved since yesterday ALT over AST is 90/82 ff up as an outpatient Thrombocytopenia: Mostly due to alcoholism, monitor CBC History of hepatitis C: No acute issue, follow as an outpatient H/O partial colectomy and reversed colostomy in the past DVT prophylaxis With heparin and SCD, start Lovenox full dose if troponins start to increase Abdullahi Prado MD Oct 05, 2016 13:24
[2016-10-05] MEDS ORDERED: GLUCAGON 1 MG/ML VIAL OTHER PRN (13:30)
[2016-10-05] MEDS ORDERED: DEXTROSE 50% IN WATER 50 ML VIAL(D50) IV PUSH PRN (13:30)
[2016-10-05] MEDS: INSULIN NovoLIN REGULAR SUPPLEMENTAL SCALE SQ SCH ×2 (16:00→21:17)
[2016-10-05] MEDS: LEVOFLOXACIN 500 MG PREMIX INJ 100 ML IV SCH (16:21)
[2016-10-05 16:47] LABS: HEMOGLOBIN A1a 0.9 %; HEMOGLOBIN A1b 1.7 %; HEMOGLOBIN Ao 84.3 %; HEMOGLOBIN LA1C 2.9 %; HEMOGLOBIN P3 4.5 %
[2016-10-06] VITALS (8 sets, daily range): BP systolic 120–171; BP diastolic 59–94; PULSE 78–101; RESP 18–22; TEMP 97.6–98.8; O2SAT 94–97
[2016-10-06] MEDS: HEPARIN SODIUM - SQ 10,000 UNITS/ML VIAL SQ SCH ×3 (02:03→17:53)
[2016-10-06] MEDS: MORPHINE SULFATE 4 MG/ML INJ IV PUSH PRN (02:03)
[2016-10-06] MEDS: RESP: ALBUTEROL 2.5 MG/IPRATROPIUM 0.5 MG NEB (SCH) INH ×4 (02:42→20:10)
[2016-10-06] MEDS: methylPREDNISolone SOD SUCC 125 MG/2 ML VIAL IVP SCH ×2 (05:54→19:18)
[2016-10-06] MEDS: INSULIN NovoLIN REGULAR SUPPLEMENTAL SCALE SQ SCH ×4 (05:54→21:00)
[2016-10-06] MEDS: ASPIRIN 325 MG TAB PO SCH (09:58)
[2016-10-06] MEDS: LISINOPRIL 5 MG TAB PO SCH (09:59)
--- NOTE | 2016-10-06 10:42 | HHI.PR ---
Subjective Remarks Follow-up for COPD exacerbation. The patient is complaining of tight breathing. He has been able to ambulate to the restroom, but states the shortness of breath is worse when he walks. He does have nebulizers and inhalers at home. He does follow with a coal tram driver, Dr. Rizo. Objective Vitals Vital Signs Date Time Temp Pulse Resp B/P Pulse Ox O2 Delivery O2 Flow Rate FiO2 10/06/16 08:39 95 21 10/06/16 07:23 97.6 91 22 138/90 94 10/06/16 04:00 98.5 90 20 131/88 97 10/06/16 03:20 20 10/06/16 00:00 98.2 90 20 137/80 95 10/05/16 20:17 96 Nasal Cannula 2.00 10/05/16 19:54 98.4 97 18 127/64 94 10/05/16 15:34 97.9 96 18 144/76 95 10/05/16 15:00 89 10/05/16 10:56 97.8 94 16 137/81 95 Result Diagram: 10/05/16 0430 10/04/16 1131 Imaging Last Impressions Chest X-Ray 10/03/16 1104 Signed Impressions: Service Date/Time: Monday, October 03, 2016 12:09 - CONCLUSION: 1. No acute findings. 2. Stable calcification within the left scapula. Manuel Estrada MD CT Angiography 10/03/16 0000 Signed Impressions: Service Date/Time: Monday, October 03, 2016 15:59 - CONCLUSION: 1. No pulmonary embolus identified. 2. Emphysematous bleb in the medial aspect of the left upper lobe. 3. Single punctate atherosclerotic plaque in the LAD. 4. Small hiatal hernia. Manuel Estrada MD Objective Remarks GENERAL: Well-developed well-nourished. In no acute distress. SKIN: Warm and dry. No lesions noted. HEENT: Normocephalic. Pupils equal and round. Mucous membranes pink and moist. CARDIOVASCULAR: Regular rate and rhythm. No murmur appreciated. RESPIRATORY: No accessory muscle use. Diffuse wheezing. GASTROINTESTINAL: Abdomen soft, non-tender, nondistended. Bowel sounds x4. MUSCULOSKELETAL: No obvious deformities. No clubbing or cyanosis. No edema. NEUROLOGICAL: Awake and alert. No focal neurological deficits. Moves upper and lower extremities spontaneously. Normal speech. PSYCHIATRIC: Appropriate mood and affect; insight and judgment normal. A/P Assessment and Plan 55 years old with history of COPD came with Atypical chest pain, ruled out ACS protocol EKG with sinus rhythm, no significant ST changes Cardiac enzymes cycled, 3 sets negative Aspirin FLP showed LDL 62 HDL 29.8. Liver enzymes are slightly elevated. However, this is not a contraindication to start statin. Niacin does improve HDL without any clinical benefits. Thus, Statin would still be preferable. Will discuss with patient. COPD exacerbation with Acute respiratory distress O2 as needed DuoNeb scheduled and when necessary Started Levaquin Solu-Medrol IV, taper to oral prednisone Hypertension - better controlled now Started on lisinopril, dose titrated to 10 mg daily Continue amlodipine Vasotec as needed Monitor blood pressure Hyperglycemia secondary to steroids Hyperglycemia on steroids, check hemoglobin A1c which is 5.4 Accu-Chek and ISS Increased transaminases, likely from chronic hep C +/- alcoholic hepatitis Trending down ff up as an outpatient H/O partial colectomy and reversed colostomy in the past DVT prophylaxis With heparin and SCD. Written by Mirza Rodriguez, acting as scribe for Dr. Aragon on 10/06/16 at 10:41. All or portions of this note were transcribed by BRITTANY Simms. I, Dr. Alonso Aragon personally performed the history, physical exam, and medical decision making; and confirmed the accuracy of the information in the transcribed note. Authenticated by Dr. Alonso Aragon on 10/06/16 at 23:37. Discharge Planning Slowly improving, hopefully discharge tomorrow Mirza Rodriguez Oct 06, 2016 10:41 Carli Aragon DO Oct 06, 2016 23:38
[2016-10-06] MEDS: BUDESONIDE-FORMOTEROL 160/4.5 MCG INHALER INH SCH ×2 (10:52→21:00)
[2016-10-06] MEDS: TIOTROPIUM BROMIDE 18 MCG INH INH SCH (10:52)
[2016-10-06] MEDS: LEVOFLOXACIN 500 MG PREMIX INJ 100 ML IV SCH ×2 (17:53→18:00)
[2016-10-06] MEDS ORDERED: OXYC-433 PO (19:47)
[2016-10-06] MEDS: oxyCODONE/ACETAMINOPHEN 10 MG/325 MG TAB PO PRN (22:46)
[2016-10-07] MEDS: oxyCODONE/ACETAMINOPHEN 10 MG/325 MG TAB PO PRN ×3 (03:11→10:38)
[2016-10-07] MEDS: HEPARIN SODIUM - SQ 10,000 UNITS/ML VIAL SQ SCH ×2 (03:11→10:00)
[2016-10-07] MEDS: RESP: ALBUTEROL 2.5 MG/IPRATROPIUM 0.5 MG NEB (SCH) INH ×2 (03:14→09:55)
[2016-10-07 03:57] VITALS: BP_SYST 161; BP_DIAS 79; BP_DIAS 99; PULSE 89; RESP 21; TEMP 98.8; O2SAT 98
[2016-10-07] MEDS: INSULIN NovoLIN REGULAR SUPPLEMENTAL SCALE SQ SCH (07:00)
[2016-10-07] MEDS: methylPREDNISolone SOD SUCC 125 MG/2 ML VIAL IVP SCH (07:12)
--- NOTE | 2016-10-07 07:57 | HHI.PR ---
Subjective Remarks Follow up for COPD exacerbation. The patient reports feeling better today, shortness of breath improving. No fevers overnight. His rn women services is Dr. Rizo, recommended outpatient f/up within a week, patient verbalizes understanding. Objective Vitals Vital Signs Date Time Temp Pulse Resp B/P Pulse Ox O2 Delivery O2 Flow Rate FiO2 10/07/16 05:33 20 10/07/16 03:57 98.8 89 21 161/79 98 10/06/16 22:59 98.4 83 18 171/94 10/06/16 20:15 96 10/06/16 19:24 98.8 78 18 156/91 10/06/16 11:47 97.6 101 20 120/59 94 10/06/16 08:39 95 21 Result Diagram: 10/05/16 0430 10/04/16 1131 Imaging Last Impressions Chest X-Ray 10/03/16 1104 Signed Impressions: Service Date/Time: Monday, October 03, 2016 12:09 - CONCLUSION: 1. No acute findings. 2. Stable calcification within the left scapula. Manuel Estrada MD CT Angiography 10/03/16 0000 Signed Impressions: Service Date/Time: Monday, October 03, 2016 15:59 - CONCLUSION: 1. No pulmonary embolus identified. 2. Emphysematous bleb in the medial aspect of the left upper lobe. 3. Single punctate atherosclerotic plaque in the LAD. 4. Small hiatal hernia. Manuel Estrada MD Objective Remarks GENERAL: Well-nourished, well-developed patient in [facility]. SKIN: Warm and dry. No rash. HEENT: Normocephalic. Atraumatic. Pupils equal and round. No scleral icterus. No injection or drainage. Mucous membranes pink and moist. NECK: Supple. Trachea midline. CARDIOVASCULAR: Regular rate and rhythm. S1, S2 noted. No murmur appreciated. RESPIRATORY: No accessory muscle use. Clear to auscultation. Breath sounds equal bilaterally. GASTROINTESTINAL: Abdomen soft, non-tender, nondistended. Normoactive bowel sounds x4. MUSCULOSKELETAL: No obvious deformities. Extremities without clubbing, cyanosis , or edema. NEUROLOGICAL: Awake and alert. No obvious cranial nerve deficits. Motor grossly within normal limits. Moves all extremities spontaneously. Normal speech. PSYCHIATRIC: Appropriate mood and affect; insight and judgment normal. Medications and IVs Current Medications Medications (Trade) Dose Ordered Sig/Sylvie Route Start Time Stop Time Status Last Admin Sodium Chloride 2 ml 2 ml UNSCH PRN IVF 10/03/16 11:15 10/03/16 12:49 (Levaquin 500 Mg Premix Inj) 100 ml @ 100 mls/hr Q24H IV 10/03/16 18:00 10/06/16 18:00 (Norvasc) 10 mg DAILY PO 10/04/16 09:00 10/06/16 09:58 (Symbicort 160-4.5 Inh) 2 puff Q12HR INH 10/03/16 21:00 10/06/16 21:00 (Spiriva Inh) 18 mcg DAILY INH 10/04/16 09:00 10/06/16 10:52 (Aspirin) 325 mg DAILY PO 10/04/16 09:00 10/06/16 09:58 (Nitrostat Sl) 0.4 mg Q5M PRN SL 10/03/16 17:00 10/03/16 18:43 (Heparin Inj) 5,000 units Q8H SQ 10/03/16 18:00 10/07/16 03:11 (Vasotec Inj) 1.25 mg Q6H PRN IV PUSH 10/04/16 11:30 (Prinivil) 10 mg DAILY PO 10/05/16 09:00 10/06/16 09:59 (D50w (Vial) Inj) 25 ml UNSCH PRN IV PUSH 10/05/16 13:30 (Glucagon Inj) 1 mg UNSCH PRN OTHER 10/05/16 13:30 (SoluMEDROL INJ) 40 mg Q12H IVP 10/06/16 19:00 10/07/16 07:12 (Percocet 10-325 Mg) 1 tab Q4H PRN PO 10/06/16 22:30 10/07/16 07:12 A/P Assessment and Plan 55 years old with history of COPD came with Atypical chest pain, ruled out ACS protocol ACS ruled out with negative serial cardiac enzymes x3 and EKG with no acute ischemic changes Continue Aspirin FLP showed LDL 62 HDL 29.8. No hx of diabetes. Hold off on statin at this time. Patient instructed to take fish oil. COPD exacerbation with Acute respiratory distress O2 as needed DuoNeb scheduled and when necessary Continue patient's Symbicort, Spiriva Started Levaquin Solu-Medrol IV, taper to oral prednisone 20mg bid x3days at discharge home O2 walk test performed, patient passed, O2 sat only dropped to 96%, no O2 needed at discharge outpatient f/up with patient's rn women services Dr. Rizo Hypertension - better controlled now Started on lisinopril, dose titrated to 10 mg daily Continue amlodipine Vasotec as needed Monitor blood pressure Hyperglycemia secondary to steroids Hyperglycemia on steroids, check hemoglobin A1c which is 5.4 Accu-Chek and ISS Increased transaminases, likely from chronic hep C +/- alcoholic hepatitis Trending down ff up as an outpatient H/O partial colectomy and reversed colostomy in the past DVT prophylaxis With heparin and SCD. Written by Grazyna Bonilla, acting as scribe for Dr. Aragon on 10/07/16 at 10:10 All or portions of this note were transcribed by scribe BRITTANY Guido. I , Dr. Alonso Aragon personally performed the history, physical exam, and medical decision making; and confirmed the accuracy of the information in the transcribed note. Authenticated by Dr. Alonso Aragon on 10/07/16 at 23:53. Discharge Planning See discharge summary. Discharge patient to home Condition on discharge: Improved Heart Healthy Diet as tolerated Ad Marly activity Rx written: Prednisone taper, Levaquin Follow-up with primary care physician and rn women services Grazyna Pal PA-C Oct 07, 2016 07:57 Carli Aragon DO Oct 07, 2016 23:54
[2016-10-07 08:24] VITALS: BP 128/85; PULSE 92; RESP 18; TEMP 96.7; O2SAT 93
[2016-10-07] MEDS: BUDESONIDE-FORMOTEROL 160/4.5 MCG INHALER INH SCH (09:00)
[2016-10-07] MEDS: TIOTROPIUM BROMIDE 18 MCG INH INH SCH (09:00)
[2016-10-07 09:56] VITALS: O2SAT 96
[2016-10-07] MEDS ORDERED: LISI-519 PO (10:16)
[2016-10-07] MEDS ORDERED: PRED20 PO (10:16)
[2016-10-07] MEDS ORDERED: LEVA750T PO (10:16)
[2016-10-07] MEDS: ASPIRIN 325 MG TAB PO SCH (10:38)
[2016-10-07] MEDS: LISINOPRIL 5 MG TAB PO SCH (10:38)
--- NOTE | 2016-10-07 10:48 | HHI.DS ---
Discharge Summary Admission Date Oct 03, 2016 at 4:32 pm Discharge Date: Oct 07, 2016 Admitting Diagnosis ATYPICAL CHEST PAIN/COPD EXACERBATION (1) Atypical chest pain ICD Code: R07.89 Diagnosis: Principal (2) Acute exacerbation of chronic obstructive pulmonary disease (COPD) ICD Code: J44.1 Diagnosis: Principal (3) HTN (hypertension) ICD Code: I10 Diagnosis: Secondary Procedures None. Brief History - From Admission 55 years old male with history of COPD presented with chest retrosternal about 8 out of 10, accompanied with worsening short of breath, he feels little nauseous, the pain went to his left arm. He stated the last for 10 seconds but it comes and goes. He also reported worsening greenish phlegm with cough. He denied fever or chills abdominal pain diarrhea or constipation dysuria urgency frequency, in ED patient was given breathing treatment, cardiac enzymes sent, CT of the chest has been done and ruled out PE. But showed severe emphysema with apical bleb CBC/BMP: 10/05/16 0430 10/04/16 1131 Significant Findings Laboratory Tests Test 10/04/16 10/05/16 11:31 04:30 Chloride Level 108 MEQ/L (98-107) Estimat Glomerular Filtration 87 ML/MIN (>89) Rate Random Glucose 286 MG/DL (74-106) Calcium Level 8.4 MG/DL (8.5-10.1) Aspartate Amino Transf 90 U/L (15-37) (AST/SGOT) Alanine Aminotransferase 82 U/L (12-78) (ALT/SGPT) Albumin 2.6 GM/DL (3.4-5.0) White Blood Count 11.2 TH/MM3 (4.0-11.0) Platelet Count 149 TH/MM3 (150-450) Neutrophils (%) (Auto) 89.9 % (16.0-70.0) Lymphocytes (%) (Auto) 6.0 % (9.0-44.0) Neutrophils # (Auto) 10.1 TH/MM3 (1.8-7.7) Lymphocytes # (Auto) 0.7 TH/MM3 (1.0-4.8) Imaging Last Impressions Chest X-Ray 10/03/16 1104 Signed Impressions: Service Date/Time: Monday, October 03, 2016 12:09 - CONCLUSION: 1. No acute findings. 2. Stable calcification within the left scapula. Manuel Estrada MD CT Angiography 10/03/16 0000 Signed Impressions: Service Date/Time: Monday, October 03, 2016 15:59 - CONCLUSION: 1. No pulmonary embolus identified. 2. Emphysematous bleb in the medial aspect of the left upper lobe. 3. Single punctate atherosclerotic plaque in the LAD. 4. Small hiatal hernia. Manuel Estrada MD PE at Discharge GENERAL: Well-nourished, well-developed patient in NAD. SKIN: Warm and dry. No rash. HEENT: Normocephalic. Atraumatic. Pupils equal and round. No scleral icterus. No injection or drainage. Mucous membranes pink and moist. NECK: Supple. Trachea midline. CARDIOVASCULAR: Regular rate and rhythm. S1, S2 noted. No murmur appreciated. RESPIRATORY: No accessory muscle use. Clear to auscultation. Breath sounds equal bilaterally. GASTROINTESTINAL: Abdomen soft, non-tender, nondistended. Normoactive bowel sounds x4. MUSCULOSKELETAL: No obvious deformities. Extremities without clubbing, cyanosis , or edema. NEUROLOGICAL: Awake and alert. No obvious cranial nerve deficits. Motor grossly within normal limits. Moves all extremities spontaneously. Normal speech. PSYCHIATRIC: Appropriate mood and affect; insight and judgment normal. Hospital Course 55 years old with history of COPD came with Atypical chest pain, ruled out ACS protocol ACS ruled out with negative serial cardiac enzymes x3 and EKG with no acute ischemic changes Continue Aspirin FLP showed LDL 62 HDL 29.8. No hx of diabetes. Hold off on statin at this time. Patient instructed to take fish oil. 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 Rizo Hypertension - better controlled now Started on lisinopril, dose titrated to 10 mg daily Continue patient's amlodipine Vasotec as needed Monitor blood pressure outpatient f/up with PCP Hyperglycemia secondary to steroids Hyperglycemia on steroids, check hemoglobin A1c which is 5.4 Accu-Chek and ISS Increased transaminases, likely from chronic hep C +/- alcoholic hepatitis Trending down ff up as an outpatient H/O partial colectomy and reversed colostomy in the past DVT prophylaxis With heparin and SCD. Written by Grazyna Bonilla, acting as scribe for Dr. Aragon on 10/07/16 at 10:10 All or portions of this note were transcribed by BRITTANY Rey. I , Dr. Alonso Aragon personally performed the history, physical exam, and medical decision making; and confirmed the accuracy of the information in the transcribed note. Authenticated by Dr. Alonso Aragon on 10/08/16 at 00:07. Pt Condition on Discharge: Stable Discharge Disposition: Discharge Home Discharge Time: <= 30 minutes Discharge Instructions DIET: Follow Instructions for: Heart Healthy Diet Activities you can perform: Regular-No Restrictions Follow up Referrals: PCP Follow-up - 2-3 Days with Elise New Medications: Aspirin DR (Ecotrin Low Strength) 81 Mg Tabdr 81 MG PO DAILY Prevent Blood Clot #30 Ref 0 TAB Levofloxacin (Levaquin) 750 Mg Tab 750 MG PO DAILY Infection #5 Ref 0 TAB Prednisone (Prednisone) 20 Mg Tab 20 MG PO BID COPD #6 Ref 0 TAB Lisinopril (Lisinopril) 5 Mg Tab 10 MG PO DAILY Blood Pressure Management #30 TAB Continued Medications: Albuterol Neb (Albuterol Neb) 2.5 Mg/3 Ml Neb 2.5 MG NEB Q4HR NEB While awake Breathing Treatment #60 Ref 0 NEBULE Alprazolam (Xanax) 1 Mg Tab 1 MG PO TID PRN ANXIETY Ref 0 TAB Amlodipine (Norvasc) 10 Mg Tab 10 MG PO DAILY Blood Pressure Management Days 30 TAB Budesonide-Formoterol Inh (Symbicort Inh) 160-4.5 Mcg/Act Aero 2 PUFF INH Q12HR #1 Ref 0 INHALER Oxycodone-Acetaminophen (Oxycodone-Acetaminophen) 10-325 mg Tab 1 TAB PO Q4H PRN PAIN Ref 0 TAB Tiotropium Inh (Spiriva Handihaler) 18 Mcg Cap 18 MCG INH DAILY 1 capsule = 18 mcg COPD #30 Ref 0 CAP Grazyna Bonilla PA-C Oct 07, 2016 10:48 Carli Aragon DO Oct 08, 2016 00:08
[2016-10-07] MEDS ORDERED: ASPI-147 PO (10:49)
== END 2016-10-07 12:25 | disposition home or self-care (01) ==
LOC: NEPA 10:45 → NEDA 16:32 → NEPGCP 20:41
PROVIDERS: ADMIT Hospitalist; ATTEND Hospitalist
DX: R07.89 Other chest pain (principal); J44.1 Chronic obstructive pulmonary disease with (acute) exacerbation; I10 Essential (primary) hypertension; F41.9 Anxiety disorder, unspecified; T38.0X5A Adverse effect of glucocorticoids and synthetic analogues, initial encounter; R73.9 Hyperglycemia, unspecified; K21.9 Gastro-esophageal reflux disease without esophagitis; R74.0 Nonspecific elevation of levels of transaminase and lactic acid dehydrogenase [LDH]; D69.6 Thrombocytopenia, unspecified; B19.20 Unspecified viral hepatitis C without hepatic coma; F10.20 Alcohol dependence, uncomplicated; F17.200 Nicotine dependence, unspecified, uncomplicated; Z90.49 Acquired absence of other specified parts of digestive tract; Z79.51 Long term (current) use of inhaled steroids; Z86.73 Personal history of transient ischemic attack (TIA), and cerebral infarction without residual deficits; Z88.5 Allergy status to narcotic agent; Z88.8 Allergy status to other drugs, medicaments and biological substances
CPT/HCPCS: 71020; 71275; 80053; 80061; 82550; 82552; 82948; 83036; 83735; 83880; 84484; 85025; 85610; 85730; 87641; 93005; 94150; 94620; 94640; 94664; 96374; 99285; G0378; J1644; J1956; J2270; J2930; Q9967

== ENCOUNTER 2016-12-18 18:21 | Emergency (ER) | payer OTHER ==
[~2016-12-18] VITALS: Ht 177.8 cm; Wt 77.0 kg
[~2016-12-18 18:21] MED LIST changes: +ASPI-147 PO; -ASPI1TAB69 PO; +LEVA750T PO; +LISI-519 PO; +OXYC-433 PO; -PRED10PA2 PO; +PRED20 PO; -TRAM50TA PO; -TRAZ50TA12 PO
[2016-12-18 18:23] VITALS: BP 157/113; PULSE 152; RESP 36; TEMP 97.5; O2SAT 95
[2016-12-18 18:41] VITALS: RESP 24; O2SAT 96
--- NOTE | 2016-12-18 18:43 | PD ---
HPI Chief Complaint: Chest Pain Time Seen by Provider: 18:29 Travel History International Travel<30 days: No Contact w/Intl Traveler<30days: No Traveled to known affect area: No History of Present Illness HPI 56-year-old male history of COPD emphysema presents to the emergency room for evaluation of shortness of breath due to COPD exacerbation. Shortness of breath is worse with exertion. Patient states the symptoms have been ongoing for 2 days. He called his billet driller, Dr. Pryor, 2 days ago who recommended he tried home remedies prior to coming but after 2 days of failed outpatient therapy, he needed to come today. He is prescribed albuterol rescue inhaler, nebulizer treatments, and Symbicort. Last use his inhaler 2 hours prior to arrival. States he has been doing his nebulizers 3 or 4 times per day without any relief in symptoms. Patient reports 5/10 chest pain in the same location that it always is when he has a COPD exacerbation. Denies productive cough, fever, and chills. PFSH Past Medical History Hx Anticoagulant Therapy: Yes (81 mg asa daily) Arthritis: No Asthma: Yes Autoimmune Disease: No Blood Disorders: No Anxiety: Yes Depression: No Heart Rhythm Problems: Yes Cancer: No Cardiac Catheterization: Yes (2006) Cardiovascular Problems: Yes (htn) High Cholesterol: No Chemotherapy: No Chest Pain: Yes Congestive Heart Failure: Yes COPD: Yes (emphysema) Cerebrovascular Accident: No Coronary Artery Disease: No Diabetes: No Diminished Hearing: No Diverticulitis: Yes Endocrine: No Gastrointestinal Disorders: Yes (HERNIA REPAIR) GERD: Yes Glaucoma: No Genitourinary: No Headaches: No Hepatitis: Yes (C) Hiatal Hernia: No Heparin Induced Thrombocytopen: No Hypertension: Yes Immune Disorder: No Implanted Vascular Access Dvce: No Kidney Stones: No Musculoskeletal: No Neurologic: Yes (TIA) Psychiatric: No Reproductive: No Respiratory: Yes (COPD) Immunizations Current: Yes Migraines: No Myocardial Infarction: No Radiation Therapy: No Renal Failure: No Seizures: No Sickle Cell Disease: No Sleep Apnea: Yes Thyroid Disease: No Ulcer: Yes (STOMACH) Past Surgical History Abdominal Surgery: Yes (HERNIA REPAIR, COLOSTOMY, AND COLOSTOMY REVERSAL) Cardiac Surgery: Yes (HEART CATH ') Oral Surgery: Yes (ABCESS TOOTH REMOVED) Other Surgery: Yes (ABSCESS RIGHT ELBOW, MOUTH) Family History Family Myocardial Infarction: Yes Social History Alcohol Use: Yes (occ) Tobacco Use: No Substance Use: No Allergies-Medications (Allergen,Severity, Reaction): Coded Allergies: Codeine (Verified Allergy, Severe, RASH,MIGRAINE, 12/18/16) Toradol (Verified Adverse Reaction, Severe, HEADACHE, 12/18/16) *MDRO Multi-Drug Resistant Organism (Verified Adverse Reaction, Unknown, ) MRSA (sputum) - 11/09/14 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 POSITIVE - 10/07/2016 Reported Meds & Prescriptions Reported Meds & Active Scripts Active Prednisone 20 Mg Tab 40 Mg PO DAILY Take 40 mg (2 tablets) daily for 5 days Ecotrin Low Strength (Aspirin) 81 Mg Tabdr 81 Mg PO DAILY Prednisone 20 Mg Tab 20 Mg PO BID Levaquin (Levofloxacin) 750 Mg Tab 750 Mg PO DAILY Lisinopril 5 Mg Tab 10 Mg PO DAILY Norvasc (Amlodipine Besylate) 10 Mg Tab 10 Mg PO DAILY 30 Days Reported Oxycodone-Acetaminophen 10-325 mg Tab 1 Tab PO Q4H PRN Albuterol Neb (Albuterol Sulfate) 2.5 Mg/3 Ml Neb 2.5 Mg NEB Q4HR NEB While awake Spiriva Handihaler (Tiotropium Inh) 18 Mcg Cap 18 Mcg INH DAILY 1 capsule = 18 mcg Symbicort Inh (Budesonide/Formoterol Fumarate) 160-4.5 Mcg/Act Aero 2 Puff INH Q12HR Xanax (Alprazolam) 1 Mg Tab 1 Mg PO TID PRN Review of Systems Except as stated in HPI: all other systems reviewed are Neg Physical Exam Narrative GENERAL: Well-nourished, thin male in no acute distress. Afebrile. Ambulatory. SKIN: Focused skin assessment warm/dry. HEAD: Normocephalic. EYES: No scleral icterus. No injection or drainage. NECK: Supple, trachea midline. No JVD or lymphadenopathy. CARDIOVASCULAR: Mildly tachycardic. Regular rhythm without murmurs, gallops, or rubs. RESPIRATORY: Barrel chest. Breath sounds equal bilaterally. Intercostal retractions and accessory muscle use. Lungs sounds are distant. Scattered wheezes throughout. NEUROLOGICAL: Awake and alert. Cranial nerves II through XII intact. Motor and sensory grossly within normal limits. Five out of 5 muscle strength in all muscle groups. Normal speech. Data Data Last Documented VS Vital Signs Date Time Temp Pulse Resp B/P Pulse Ox O2 Delivery O2 Flow Rate FiO2 12/18/16 19:15 94 Nasal Cannula 2.00 12/18/16 19:09 91 24 151/93 12/18/16 18:23 97.5 Orders Complete Blood Count With Diff (12/18/16 18:37) Basic Metabolic Panel (Bmp) (12/18/16 18:37) Iv Access Insert/Monitor (12/18/16 18:37) Chest, Single Ap (12/18/16 18:37) Sodium Chloride 0.9% Flush (Ns Flush) (12/18/16 18:45) Methylprednisolone So Succ Inj (Solumedr (12/18/16 18:45) Albuterol-Ipratropium Neb (Duoneb Neb) (12/18/16 18:45) Magnesium Sulfate 1 Gm Premix (Magnesium (12/18/16 18:45) Electrocardiogram (12/18/16 18:37) Ecg Monitoring (12/18/16 18:37) Oximetry (12/18/16 18:37) Oxygen Administration (12/18/16 18:37) Hydromorphone Pf Inj (Dilaudid Pf Inj) (12/18/16 19:30) Labs Laboratory Tests Test 12/18/16 18:40 White Blood Count 9.4 TH/MM3 Red Blood Count 5.28 MIL/MM3 Hemoglobin 15.4 GM/DL Hematocrit 47.2 % Mean Corpuscular Volume 89.5 FL Mean Corpuscular Hemoglobin 29.1 PG Mean Corpuscular Hemoglobin 32.5 % Concent Red Cell Distribution Width 15.0 % Platelet Count 289 TH/MM3 Mean Platelet Volume 6.5 FL Neutrophils (%) (Auto) 53.3 % Lymphocytes (%) (Auto) 33.1 % Monocytes (%) (Auto) 10.1 % Eosinophils (%) (Auto) 2.7 % Basophils (%) (Auto) 0.8 % Neutrophils # (Auto) 5.0 TH/MM3 Lymphocytes # (Auto) 3.1 TH/MM3 Monocytes # (Auto) 1.0 TH/MM3 Eosinophils # (Auto) 0.2 TH/MM3 Basophils # (Auto) 0.1 TH/MM3 CBC Comment DIFF FINAL Differential Comment Sodium Level 138 MEQ/L Potassium Level 4.3 MEQ/L Chloride Level 104 MEQ/L Carbon Dioxide Level 24.0 MEQ/L Anion Gap 10 MEQ/L Blood Urea Nitrogen 16 MG/DL Creatinine 0.89 MG/DL Estimat Glomerular Filtration 88 ML/MIN Rate Random Glucose 106 MG/DL Calcium Level 8.9 MG/DL [facility] Medical Decision Making Medical Screen Exam Complete: Yes Emergency Medical Condition: Yes Medical Record Reviewed: Yes Differential Diagnosis COPD exacerbation, respiratory failure, atypical chest pain Narrative Course 56-year-old male with history of COPD presents to the emergency room for evaluation of increasing shortness of breath due to COPD exacerbation for the past 2 days. He has associated chest pain that he states is typical of exacerbation. Patient's billet driller is Dr. Rizo. Upon arrival, patient is extremely tachypneic and tachycardic with accessory muscle use. EKG shows sinus tachycardia at a rate of 107, no ST changes; signed off by my attending physician. CBC and BMP are unremarkable. Chest x-ray is unremarkable. After 3 DuoNeb, 125 IV Solu-Medrol, and 1 g magnesium, patient feels moderate improvement in shortness of breath. States his tonsils anxious with his chest pain. He was given 0.5 mg Dilaudid and reports extreme improvement in symptoms. Pulse ox has stayed approximately 94% on room air throughout the visit which is normal for patient. Patient was walked around the ED and his saturation dropped to 92% but immediately came back up after sitting down. Patient feels comfortable going home. He was discharged with prednisone and refill of his albuterol inhaler. Told to follow up with his billet driller or return forcing symptoms. Patient put with his primary care physician in 2 days. Diagnosis Primary Impression: COPD with exacerbation Referrals: Primary Care Physician Patient Instructions: COPD (Chronic Obstructive Pulmonary Disease) (ED), General Instructions Additional Instructions: Rest and drink plenty of fluids. Continue using inhalers and breathing treatments as directed, as needed for symptoms. Take prednisone as directed, until gone. Follow-up with a primary care physician and billet driller. Return to the emergency room for worsening symptoms. Med/Other Pt SpecificInfo: Prescription(s) given Scripts Prednisone 20 Mg Tab40 Mg PO DAILY #10 TAB Ref 0 Take 40 mg (2 tablets) daily for 5 days Prov:Dakota Sotelo MD 12/18/16 Disposition: 01 DISCHARGE HOME Condition: Stable Georgia Espinal Dec 18, 2016 18:43
[2016-12-18] MEDS ORDERED: SODIUM CHLORIDE 0.9% FLUSH 10 ML FLUSH IVF PRN (18:45)
[2016-12-18] MEDS ORDERED: MAGNESIUM SULFATE 1 GM PREMIX 100 ML IV ONE (18:45)
[2016-12-18] MEDS ORDERED: methylPREDNISolone SOD SUCC 125 MG/2 ML VIAL IVP ONE (18:45)
[2016-12-18 19:07] LABS: BASOPHIL # 0.1 TH/MM3 (0-0.2); BASOPHIL % 0.8 % (0.0-2.0); EOSINOPHIL # 0.2 TH/MM3 (0-0.4); EOSINOPHIL % 2.7 % (0.0-4.0); HEMATOCRIT 47.2 % (39.0-51.0); HEMO FLAGS DIFF FINAL; LYMPH % 33.1 % (9.0-44.0); LYMPHOCYTE # 3.1 TH/MM3 (1.0-4.8); MEAN CELL VOLUME 89.5 FL (80.0-100.0); MEAN CORPUSCULAR HEMOGLOBIN 29.1 PG (27.0-34.0); MEAN CORPUSCULAR HGB CONC 32.5 % (32.0-36.0); MONO % 10.1 % (0.0-8.0); NEUT % 53.3 % (16.0-70.0); PLATELET COUNT 289 TH/MM3 (150-450); RED BLOOD COUNT 5.28 MIL/MM3 (4.50-5.90); WHITE BLOOD COUNT 9.4 TH/MM3 (4.0-11.0)
[2016-12-18 19:09] VITALS: BP 151/93; PULSE 91; RESP 24; O2SAT 95
--- NOTE | 2016-12-18 19:10 | RADRPT ---
EXAM DATE/TIME: 12/18/2016 18:45 [facility] COMPARISON: CT PULMONARY ANGIOGRAM, October 03, 2016, 15:59. CHEST SINGLE AP, July 03, 2016, 13:15. INDICATIONS : Short of breath. MEDICAL HISTORY : Hypertension. Chronic obstructive pulmonary disease. Emphysema. Hep C SURGICAL HISTORY : None. ENCOUNTER: Initial ACUITY: 1 day PAIN SCORE: 0/10 LOCATION: Bilateral chest FINDINGS: 2 AP views of the chest demonstrate a normal-sized cardiac silhouette. No effusion, consolidation, or pneumothorax is visualized. The there is stable there is sclerosis overlying the left scapula. Bones and soft tissues demonstrate no acute finding. CONCLUSION: No acute cardiopulmonary abnormality is identified. Shorty Novak MD on December 18, 2016 at 19:07 Board Certified Radiologist. This report was verified electronically.
[2016-12-18 19:15] VITALS: O2SAT 94
[2016-12-18 19:15] LABS: POTASSIUM 4.3 MEQ/L (3.5-5.1)
[2016-12-18] MEDS: RESP: ALBUTEROL 2.5 MG/IPRATROPIUM 0.5 MG NEB (SCH) INH (19:15)
[2016-12-18] MEDS ORDERED: HYDROmorphone HCL PF 1 MG/ML VIAL IV PUSH ONE (19:30)
[2016-12-18] MEDS ORDERED: PRED20 PO (20:38)
[2016-12-18 20:51] VITALS: BP 173/104; PULSE 103; RESP 24; O2SAT 92
[2016-12-18] MEDS ORDERED: VENTAER INH (21:04)
--- NOTE | 2016-12-19 15:34 | EKG ---
Date Performed: 12/18/2016 Time Performed: 18:35:25 PTAGE: 56 years EKG: SINUS TACHYCARDIA RIGHT ATRIAL ENLARGEMENT LEFT ATRIAL ENLARGEMENT When compared to previou s tracing, sinus rate is faster. ABNORMAL ECG PREVIOUS TRACING : 10/03/2016 18.05 DOCTOR: Lloyd Decker Interpretating Date/Time 12/19/2016 15:32:28
== END 2016-12-18 21:18 | disposition home or self-care (01) ==
LOC: NEPC 18:21
DX: J44.1 Chronic obstructive pulmonary disease with (acute) exacerbation (principal); J45.909 Unspecified asthma, uncomplicated; F41.9 Anxiety disorder, unspecified; I10 Essential (primary) hypertension; I50.9 Heart failure, unspecified; J43.9 Emphysema, unspecified; R06.82 Tachypnea, not elsewhere classified; R00.0 Tachycardia, unspecified; R07.9 Chest pain, unspecified; Z86.19 Personal history of other infectious and parasitic diseases; Z86.73 Personal history of transient ischemic attack (TIA), and cerebral infarction without residual deficits; Z79.82 Long term (current) use of aspirin
CPT/HCPCS: 71010; 80048; 85025; 93005; 94640; 94664; 96365; 96375; 99285; J1170; J2930; J3475

== ENCOUNTER 2016-12-20 18:24 | Inpatient (IN) | payer OTHER, MEDICARE ==
[~2016-12-20] VITALS: Ht 175.3 cm; Wt 72.2 kg
[~2016-12-20 18:24] MED LIST changes: +VENTAER INH
[2016-12-20] MEDS ORDERED: SODIUM CHLOR 0.9% 1000 ML INJ 1,000 ML IV ONE (19:28)
--- NOTE | 2016-12-20 19:37 | PD ---
HPI Chief Complaint: Abdominal Pain Time Seen by Provider: 19:26 Travel History International Travel<30 days: No Contact w/Intl Traveler<30days: No Traveled to known affect area: No History of Present Illness HPI 56-year-old male with history of COPD, hypertension, multiple medical issues, presents to the ER because of 3 days history of 8 out of 10 lower abdominal pains and 7 out 10 chest pains, similar to his previous complaints. He has been here recently for atypical chest pains as well. He states that he just does not feel well in general. He denies any nausea, vomiting, or any other symptoms. He has several spots on his arms and neck that are skin abrasions with surrounding cellulitis, for which she has been getting Keflex. He denies any fevers, coughing, or new symptoms. Modifying Factors: None Associated Signs & Symptoms: Chest pains, abdominal pains, not feeling well Risk Factors: Recent antibiotic for skin infection PFSH Past Medical History Hx Anticoagulant Therapy: Yes (81 mg asa daily) Arthritis: No Asthma: Yes Autoimmune Disease: No Blood Disorders: No Anxiety: Yes Depression: No Heart Rhythm Problems: Yes Cancer: No Cardiac Catheterization: Yes (2006) Cardiovascular Problems: Yes (htn) High Cholesterol: No Chemotherapy: No Chest Pain: Yes Congestive Heart Failure: Yes COPD: Yes (emphysema) Cerebrovascular Accident: No Coronary Artery Disease: No Diabetes: No Diminished Hearing: No Diverticulitis: Yes Endocrine: No Gastrointestinal Disorders: Yes (HERNIA REPAIR) GERD: Yes Glaucoma: No Genitourinary: No Headaches: No Hepatitis: Yes (C) Hiatal Hernia: No Heparin Induced Thrombocytopen: No Hypertension: Yes Immune Disorder: No Implanted Vascular Access Dvce: No Kidney Stones: No Musculoskeletal: No Neurologic: Yes (TIA) Psychiatric: No Reproductive: No Respiratory: Yes (COPD) Immunizations Current: Yes Migraines: No Myocardial Infarction: Yes (hx mini strokes per [place] "[id number]?") Radiation Therapy: No Renal Failure: No Seizures: No Sickle Cell Disease: No Sleep Apnea: Yes Thyroid Disease: No Ulcer: Yes (STOMACH) Tetanus Vaccination: > 5 Years Influenza Vaccination: Yes Past Surgical History Abdominal Surgery: Yes (HERNIA REPAIR, COLOSTOMY, AND COLOSTOMY REVERSAL) Cardiac Surgery: Yes (HEART CATH ) Neurologic Surgery: No Oral Surgery: Yes (ABCESS TOOTH REMOVED) Other Surgery: Yes (ABSCESS RIGHT ELBOW, MOUTH) Family History Family Myocardial Infarction: Yes Social History Alcohol Use: Yes (NOT FOR PAST YR) Tobacco Use: No Substance Use: No Allergies-Medications (Allergen,Severity, Reaction): Coded Allergies: Codeine (Verified Allergy, Severe, RASH,MIGRAINE, 12/18/16) Toradol (Verified Adverse Reaction, Severe, HEADACHE, 12/18/16) *MDRO Multi-Drug Resistant Organism (Verified Adverse Reaction, Unknown, ) MRSA (sputum) - 11/09/14 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 POSITIVE - 10/07/2016 Reported Meds & Prescriptions Reported Meds & Active Scripts Active Ventolin Hfa 18 GM Inh (Albuterol Sulfate) 90 Mcg/Act Aer 2 Puff INH Q6H PRN Prednisone 20 Mg Tab 40 Mg PO DAILY Take 40 mg (2 tablets) daily for 5 days Ecotrin Low Strength (Aspirin) 81 Mg Tabdr 81 Mg PO DAILY Prednisone 20 Mg Tab 20 Mg PO BID Lisinopril 5 Mg Tab 10 Mg PO DAILY Norvasc (Amlodipine Besylate) 10 Mg Tab 10 Mg PO DAILY 30 Days Reported Oxycodone-Acetaminophen 10-325 mg Tab 1 Tab PO Q4H PRN Albuterol Neb (Albuterol Sulfate) 2.5 Mg/3 Ml Neb 2.5 Mg NEB Q4HR NEB While awake Spiriva Handihaler (Tiotropium Inh) 18 Mcg Cap 18 Mcg INH DAILY 1 capsule = 18 mcg Symbicort Inh (Budesonide/Formoterol Fumarate) 160-4.5 Mcg/Act Aero 2 Puff INH Q12HR Xanax (Alprazolam) 1 Mg Tab 1 Mg PO TID PRN Review of Systems Except as stated in HPI: all other systems reviewed are Neg Physical Exam Narrative GENERAL: Well-developed middle age white male patient currently in mild distress. Awake and oriented 3. SKIN: Focused skin assessment warm/dry. HEAD: Atraumatic. Normocephalic. EYES: Pupils equal and round. No scleral icterus. No injection or drainage. ENT: No nasal bleeding or discharge. Mucous membranes pink and moist. NECK: Trachea midline. No JVD. CARDIOVASCULAR: Regular rate and rhythm. No murmur appreciated. RESPIRATORY: No accessory muscle use. Clear to auscultation. Breath sounds equal bilaterally. GASTROINTESTINAL: Abdomen soft, mild lower abdominal tenderness without guarding or rebound, nondistended. Hepatic and splenic margins not palpable. MUSCULOSKELETAL: No obvious deformities. No clubbing. No cyanosis. No edema. NEUROLOGICAL: Awake and alert. No obvious cranial nerve deficits. Motor grossly within normal limits. Normal speech. PSYCHIATRIC: Appropriate mood and affect; insight and judgment normal. Data Data Last Documented VS Vital Signs Date Time Temp Pulse Resp B/P Pulse Ox O2 Delivery O2 Flow Rate FiO2 12/20/16 20:39 96 Room Air Orders Complete Blood Count With Diff (12/20/16:28) Comprehensive Metabolic Panel (12/20/16:28) Lactic Acid Sepsis Protocol (12/20/16:28) Magnesium (Mg) (12/20/16:) Lipase (12/20/16:) Ckmb (Isoenzyme) Profile (12/20/16:28) Troponin I (12/20/16:) Urinalysis - C+S If Indicated (12/20/16:) Influenzae A/B Antigen (12/20/16:28) Blood Culture (12/20/16:28) Chest, Single Ap (12/20/16:28) Blood Glucose (12/20/16:28) Ecg Monitoring (12/20/16:28) Iv Access Insert/Monitor (12/20/16:) Oximetry (12/20/16:28) Oxygen Administration (12/20/16:28) Sodium Chlor 0.9% 1000 Ml Inj (Ns 1000 M (12/20/16 19:28) Electrocardiogram (12/20/16 19:37) CKMB (12/20/16 21:28) CKMB% (12/20/16 21:28) Ct Abd/Pel W/O Iv Contrast (12/20/16 22:39) Calcium Gluconate Inj (Calcium Gluconate (12/20/16 23:00) Dextrose 50% In [place] (Vial) Inj (D50w (Vi (12/20/16 23:00) Insulin Human Regular Inj (Novolin R Inj (12/20/16 23:00) Admit Order (Ed Use Only) (12/20/16 23:05) Labs Laboratory Tests Test 12/20/16 12/20/16 12/20/16 20:14 21:28 22:28 White Blood Count 11.6 TH/MM3 Red Blood Count 5.21 MIL/MM3 Hemoglobin 15.3 GM/DL Hematocrit 47.2 % Mean Corpuscular Volume 90.6 FL Mean Corpuscular Hemoglobin 29.4 PG Mean Corpuscular Hemoglobin 32.5 % Concent Red Cell Distribution Width 16.1 % Platelet Count 240 TH/MM3 Mean Platelet Volume 7.1 FL Neutrophils (%) (Auto) 73.8 % Lymphocytes (%) (Auto) 15.9 % Monocytes (%) (Auto) 9.5 % Eosinophils (%) (Auto) 0.2 % Basophils (%) (Auto) 0.6 % Neutrophils # (Auto) 8.6 TH/MM3 Lymphocytes # (Auto) 1.9 TH/MM3 Monocytes # (Auto) 1.1 TH/MM3 Eosinophils # (Auto) 0.0 TH/MM3 Basophils # (Auto) 0.1 TH/MM3 CBC Comment DIFF FINAL Differential Comment Sodium Level 139 MEQ/L Potassium Level 6.4 MEQ/L Chloride Level 104 MEQ/L Carbon Dioxide Level 15.8 MEQ/L Anion Gap 19 MEQ/L Blood Urea Nitrogen 63 MG/DL Creatinine 5.57 MG/DL Estimat Glomerular Filtration 11 ML/MIN Rate Random Glucose 85 MG/DL Lactic Acid Level 0.6 mmol/L Calcium Level 6.8 MG/DL Protein Corrected Calcium 7.2 MG/DL Magnesium Level 2.1 MG/DL Total Bilirubin 0.8 MG/DL Aspartate Amino Transf 64 U/L (AST/SGOT) Alanine Aminotransferase 48 U/L (ALT/SGPT) Alkaline Phosphatase 45 U/L Total Creatine Kinase 106 U/L Creatine Kinase MB 1.9 NG/ML Troponin I LESS THAN 0.02 NG/ML Total Protein 6.3 GM/DL Albumin 2.5 GM/DL Lipase 108 U/L Urine Color YELLOW Urine Turbidity CLEAR Urine pH 6.5 Urine Specific [place] 1.008 Urine Protein 300 mg/dL Urine Glucose (UA) NEG mg/dL Urine Ketones NEG mg/dL Urine Occult Blood NEG Urine Nitrite NEG Urine Bilirubin NEG Urine Urobilinogen LESS THAN 2.0 MG/DL Urine Leukocyte Esterase NEG Urine RBC 1 /hpf Urine WBC 4 /hpf Urine Hyaline Casts 1 /lpf Urine Mucus FEW /lpf Microscopic Urinalysis Comment CULT NOT INDICATED MDM Medical Decision Making Medical Screen Exam Complete: Yes Emergency Medical Condition: Yes Medical Record Reviewed: Yes Interpretation(s) Last 24 hours Impressions Abdomen/Pelvis CT 12/20/169 Signed Impressions: Service Date/Time: Tuesday, December 20, 2016 22:53 - CONCLUSION: No evidence of an acute abnormality. Sigmoid colon diverticulosis without diverticulitis and previous hernia repairs are again noted. Shorty Felder MD Chest X-Ray 12/20/161927 Signed Impressions: Service Date/Time: Tuesday, December 20, 2016 20:12 - CONCLUSION: 1. No acute findings. Stable scarring left lung base. Stefano Mansfield MD Laboratory Tests Test 12/20/16 12/20/16 12/20/16 20:14 21:28 22:28 White Blood Count 11.6 TH/MM3 (4.0-11.0) Neutrophils (%) (Auto) 73.8 % (16.0-70.0) Monocytes (%) (Auto) 9.5 % (0.0-8.0) Neutrophils # (Auto) 8.6 TH/MM3 (1.8-7.7) Monocytes # (Auto) 1.1 TH/MM3 (0-0.9) Potassium Level 6.4 MEQ/L (3.5-5.1) Carbon Dioxide Level 15.8 MEQ/L (21.0-32.0) Anion Gap 19 MEQ/L (5-15) Blood Urea Nitrogen 63 MG/DL (7-18) Creatinine 5.57 MG/DL (0.60-1.30) Estimat Glomerular Filtration 11 ML/MIN (>89) Rate Calcium Level 6.8 MG/DL (8.5-10.1) Protein Corrected Calcium 7.2 MG/DL (8.5-10.1) Aspartate Amino Transf 64 U/L (15-37) (AST/SGOT) Troponin I LESS THAN 0.02 NG/ML (0.02-0.05) Total Protein 6.3 GM/DL (6.4-8.2) Albumin 2.5 GM/DL (3.4-5.0) Urine Protein 300 mg/dL (NEG-TRACE) Urine Mucus FEW /lpf (OCC) Last 24 hours Impressions Chest X-Ray 12/20/161927 Signed Impressions: Service Date/Time: Tuesday, December 20, 2016 20:12 - CONCLUSION: 1. No acute findings. Stable scarring left lung base. Stefano Mansfield MD Differential Diagnosis Abdominal pains, chest pains, not feeling welldehydration versus antibiotic side effects versus metabolic issues versus gastroenteritis versus pancreatitis versus ACS Narrative Course Lab work shows significant acute renal failure with hypocalcemia and hyperkalemia. I do not see significant EKG changes or dysrhythmias at this point. Cardiac enzymes are negative. CAT scan did not show any signs of acute intra-abdominal processes. At this point, patient had been given IV fluids, IV calcium gluconate, and insulin and glucose for hyper kalemia. My plan would be to admit the patient for further treatment. Case was discussed with Dr. Berger for admission. Diagnosis Primary Impression: Atypical chest pain Additional Impressions: Hypocalcemia Acute renal failure Hyperkalemia Admitting Information Admitting Physician Requests: Admit Anne Marie Bellamy MD Dec 20, 2016 19:37
[2016-12-20 20:39] VITALS: O2SAT 97
--- NOTE | 2016-12-20 20:50 | RADRPT ---
EXAM DATE/TIME: 12/20/2016 20:12 [facility] COMPARISON: No previous studies available for comparison. INDICATIONS : Vomiting. Chest pain. MEDICAL HISTORY : Hypertension. Chronic obstructive pulmonary disease. Emphysema. Hep C. SURGICAL HISTORY : None. ENCOUNTER: Initial ACUITY: 1 day PAIN SCORE: 5/10 LOCATION: Bilateral chest FINDINGS: A single view of the chest demonstrates the lungs to be symmetrically aerated without evidence of mas s, infiltrate or effusion. Bony protuberance noted left scapula stable since 2013. Stable scarring le ft costophrenic angle. The cardiomediastinal contours are unremarkable. Osseous structures are intac t. CONCLUSION: 1. No acute findings. Stable scarring left lung base. Stefano Mansfield MD on December 20, 2016 at 20:46 Board Certified Radiologist. This report was verified electronically.
[2016-12-20 21:57] LABS: AUTOMATED NEUTROPHIL # 8.6 TH/MM3 (1.8-7.7); BASOPHIL # 0.1 TH/MM3 (0-0.2); BASOPHIL % 0.6 % (0.0-2.0); EOSINOPHIL % 0.2 % (0.0-4.0); HEMATOCRIT 47.2 % (39.0-51.0); HEMO FLAGS DIFF FINAL; LYMPH % 15.9 % (9.0-44.0); LYMPHOCYTE # 1.9 TH/MM3 (1.0-4.8); MEAN CELL VOLUME 90.6 FL (80.0-100.0); MEAN CORPUSCULAR HEMOGLOBIN 29.4 PG (27.0-34.0); MEAN CORPUSCULAR HGB CONC 32.5 % (32.0-36.0); MONO % 9.5 % (0.0-8.0); NEUT % 73.8 % (16.0-70.0); PLATELET COUNT 240 TH/MM3 (150-450); RED BLOOD COUNT 5.21 MIL/MM3 (4.50-5.90); RED CELL DISTRIBUTION WIDTH 16.1 % (11.6-17.2); WHITE BLOOD COUNT 11.6 TH/MM3 (4.0-11.0)
[2016-12-20 22:08] LABS: ANION GAP 19 MEQ/L (5-15); AST (GOT) 64 U/L (15-37); BICARBONATE 15.8 MEQ/L (21.0-32.0); BLOOD UREA NITROGEN 63 MG/DL (7-18); CHLORIDE 104 MEQ/L (98-107); GLOMERULAR FILTRATION RATE 11 ML/MIN (>89); MAGNESIUM 2.1 MG/DL (1.5-2.5); SODIUM (NA) 139 MEQ/L (136-145)
[2016-12-20 22:20] LABS: ALKALINE PHOSPHATASE 45 U/L (45-117); ALT (GPT) 48 U/L (12-78); CREATINE KINASE 106 U/L (39-308); TOTAL BILIRUBIN ADULT 0.8 MG/DL (0.2-1.0)
[2016-12-20 22:22] LABS: CALCIUM-PROTEIN CORRECTED 7.2 MG/DL (8.5-10.1); POTASSIUM 6.4 MEQ/L (3.5-5.1)
[2016-12-20 22:39] LABS: CKMB 1.9 NG/ML (0.5-3.6)
[2016-12-20 22:56] LABS: BLOOD, URINE NEG (NEG); GLUCOSE,URINE NEG (NEG); HYALINE CAST, URINE 1 /lpf (RARE); KETONE, URINE NEG (NEG); MUCUS URINE FEW /lpf (OCC); NITRITE,URINE NEG (NEG); PH, URINE 6.5 (5.0-8.5); URINE COLOR YELLOW (YELLW/STRAW)
[2016-12-20 22:59] LABS: COMMENT (UR) CULT NOT INDICATED; CULTURE IF INDICATED CULT NOT INDICATED
[2016-12-20] MEDS ORDERED: DEXTROSE 50% IN WATER 50 ML VIAL(D50) IV PUSH ONE (23:00)
[2016-12-20] MEDS ORDERED: CALCIUM GLUCONATE INJ 2 GM in SODIUM CHLORIDE 0.9% INJ 100 ML IV ONE (23:00)
[2016-12-20] MEDS ORDERED: INSULIN HUMAN REGULAR 1,000 UNITS/10 ML VIAL IV PUSH ONE (23:00)
[2016-12-20] MEDS ORDERED: SODIUM CHLORIDE 0.9% FLUSH 10 ML FLUSH IV FLUSH PRN (23:15)
[2016-12-20] MEDS ORDERED: NALOXONE HCL 0.4 MG/ML AMP IV PRN (23:15)
[2016-12-20] MEDS ORDERED: SODIUM POLYSTYRENE SULFONATE SUSP 15 GM/60 ML CUP PO ONE (23:15)
--- NOTE | 2016-12-20 23:16 | RADRPT ---
EXAM DATE/TIME: 12/20/2016 22:53 [facility] COMPARISON: CT ABDOMEN & PELVIS W CONTRAST, November 20, 2014, 18:09. INDICATIONS : Abdomen pain. ORAL CONTRAST: No oral contrast ingested. RADIATION DOSE: 7.20 CTDIvol (mGy) MEDICAL HISTORY : Cardiovascular disease. Hypertension. Diverticulitis.COPD GERD Hep C Diabetes SURGICAL HISTORY : Colostomy. Umbilical hernia repair. ENCOUNTER: Initial ACUITY: 1 day PAIN SCALE: 8/10 LOCATION: abdomen TECHNIQUE: Volumetric scanning of the abdomen and pelvis was performed. Using automated exposure control and ad justment of the mA and/or kV according to patient size, radiation dose was kept as low as reasonably achievable to obtain optimal diagnostic quality images. FINDINGS: LOWER LUNGS: The visualized lower lungs are clear. LIVER: Homogeneous density without lesion. There is no dilation of the biliary tree. No calcified gallston es. SPLEEN: Normal size without lesion. PANCREAS: Within normal limits. KIDNEYS: Normal in size and shape. There is no mass, stone, or hydronephrosis. ADRENAL GLANDS: Within normal limits. VASCULAR: There is no aortic aneurysm. BOWEL/MESENTERY: There is diverticulosis of the sigmoid colon without evidence of acute inflammatory changes. No obstr uction. The appendix is well-visualized, normal. ABDOMINAL WALL: Previous ventral hernia repair with mesh. No recurrent abdominal wall defect demonstrated. RETROPERITONEUM: There is no lymphadenopathy. BLADDER: No wall thickening or mass. REPRODUCTIVE: Within normal limits. INGUINAL: Mild, chronic and most likely postsurgical scarring seen at the entrance of the right inguinal canal. No acute inguinal abnormality demonstrated. MUSCULOSKELETAL: No acute bony abnormality demonstrated. CONCLUSION: No evidence of an acute abnormality. Sigmoid colon diverticulosis without diverticulitis and previous hernia repairs are again noted. Shorty Felder MD on December 20, 2016 at 23:11 Board Certified Radiologist. This report was verified electronically.
[2016-12-21] VITALS (8 sets, daily range): BP systolic 140–195; BP diastolic 75–95; PULSE 68–80; RESP 17–22; TEMP 96.7–97.5; O2SAT 95–97
[2016-12-21] MEDS: SODIUM CHLOR 0.9% 1000 ML INJ 1,000 ML IV SCH ×3 (00:06→19:04)
--- NOTE | 2016-12-21 00:35 | HHI.HP ---
HPI Service [facility] Primary [facility] Physician Devin Pryor MD Admission Diagnosis acute renal failure/hypocalcemia/hyperkalemia Diagnoses: Chief Complaint: abdominal pain, Travel History International Travel<30 Days: No Contact w/Intl Traveler <30 Da: No Traveled to Known Affected Are: No Sepsis Criteria Septic Shock Criteria: Unresponsive to 30ml/kg fluid bolus History of Present Illness Patient is somewhat of a poor historian. Patient is quite angry at the time of arrival to his room. He states that he has been in pain. He reports again because of the abdominal pain which started Monday. He states he also felt sickish which he meant his nausea. No vomiting. When asked where the pain is, he mostly pointed to his bladder area. He then goes on and talked about having had previous colon surgery with colostomy and reversal of colostomy. Stated this was a couple of years ago. It was done in our hospital. also complained of shortness of breath. He states this is because of his COPD. However denies any urinary burning or pain on urination. Denies any decreased urination or frequency in urination. Denies any blood in his stool or in his urine. Denies fever. Denies diarrhea. Next an exam patient states that he came to the hospital on Monday, about 2 days ago. Stated he was prescribed some antibiotics for his skin lesion on his lower extremity and on his forehead. He attributed this to sunburns because he was at a [employer] activity volunteering recently. He reports he has been on lisinopril for at least a year. He does not remember the name of the antibiotic. However review of medical records reveals that this is a cephalosporin. Patient also reports of not eating all day long because of nausea. He reports of cramping all over as well. Review of Systems Except as stated in HPI: all other systems reviewed are Neg Past Family Social History Past Medical History Hypertension Hyperlipidemia CAD CVA/TIA COPD Anxiety Hepatitis C GERD History of diverticulosis status post partial colectomy and colostomy as per patient Past Surgical History Per EMR: Hernia repair Colostomy placement and reversal Cardiac catheterization in 2006 Dental extractions I&D of an abscess at the right elbow Allergies: Coded Allergies: Codeine (Verified Allergy, Severe, RASH,MIGRAINE, 12/18/16) Toradol (Verified Adverse Reaction, Severe, HEADACHE, 12/18/16) *MDRO Multi-Drug Resistant Organism (Verified Adverse Reaction, Unknown, ) MRSA (sputum) - 11/09/14 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 POSITIVE - 10/07/2016 Family History brother- maybe prostate cancer Social History quit smoking about a year used to smoke about 30yrs quit drinking about a year ago drugs long time ago Physical Exam Vital Signs Vital Signs Date Time Temp Pulse Resp B/P Pulse Ox O2 Delivery O2 Flow Rate FiO2 12/20/16 20:39 96 Room Air 12/20/16 20:39 97 Room Air Physical Exam GENERAL: This is a well-nourished, well-developed patient, in no apparent distress. Is complaining of pain. Quite talkative. Poor historian. SKIN: Some old healed skin lesions are more suggestive of sun damage. HEAD: Atraumatic. Normocephalic. No temporal or scalp tenderness. EYES: No scleral icterus. No injection or drainage. ENT: Nose without bleeding, purulent drainage or septal hematoma.. Airway patent. NECK: Trachea midline. No JVD CARDIOVASCULAR: Regular rate and rhythm without murmurs, gallops, or rubs. RESPIRATORY: Clear to auscultation. Breath sounds equal bilaterally. No wheezes , rales, or rhonchi. GASTROINTESTINAL: Abdomen soft, non-tender, nondistended. No guarding. MUSCULOSKELETAL: Extremities without clubbing, cyanosis, or edema. No calf tenderness. NEUROLOGICAL: Awake and alert. Motor and sensory grossly within normal limits. Normal speech. Laboratory Laboratory Tests Test 12/20/16 12/20/16 12/20/16 20:14 21:28 22:28 White Blood Count 11.6 Red Blood Count 5.21 Hemoglobin 15.3 Hematocrit 47.2 Mean Corpuscular Volume 90.6 Mean Corpuscular Hemoglobin 29.4 Mean Corpuscular Hemoglobin 32.5 Concent Red Cell Distribution Width 16.1 Platelet Count 240 Mean Platelet Volume 7.1 Neutrophils (%) (Auto) 73.8 Lymphocytes (%) (Auto) 15.9 Monocytes (%) (Auto) 9.5 Eosinophils (%) (Auto) 0.2 Basophils (%) (Auto) 0.6 Neutrophils # (Auto) 8.6 Lymphocytes # (Auto) 1.9 Monocytes # (Auto) 1.1 Eosinophils # (Auto) 0.0 Basophils # (Auto) 0.1 CBC Comment DIFF FINAL Differential Comment Sodium Level 139 Potassium Level 6.4 Chloride Level 104 Carbon Dioxide Level 15.8 Anion Gap 19 Blood Urea Nitrogen 63 Creatinine 5.57 Estimat Glomerular Filtration 11 Rate Random Glucose 85 Lactic Acid Level 0.6 Calcium Level 6.8 Protein Corrected Calcium 7.2 Magnesium Level 2.1 Total Bilirubin 0.8 Aspartate Amino Transf 64 (AST/SGOT) Alanine Aminotransferase 48 (ALT/SGPT) Alkaline Phosphatase 45 Total Creatine Kinase 106 Creatine Kinase MB 1.9 Troponin I LESS THAN 0.02 Total Protein 6.3 Albumin 2.5 Lipase 108 Urine Color YELLOW Urine Turbidity CLEAR Urine pH 6.5 Urine Specific [place] 1.008 Urine Protein 300 Urine Glucose (UA) NEG Urine Ketones NEG Urine Occult Blood NEG Urine Nitrite NEG Urine Bilirubin NEG Urine Urobilinogen LESS THAN 2.0 Urine Leukocyte Esterase NEG Urine RBC 1 Urine WBC 4 Urine Hyaline Casts 1 Urine Mucus FEW Microscopic Urinalysis Comment CULT NOT INDICATED Date/Time Procedure Status Source Growth 12/20/16 20:21 Influenza Types A,B Antigen ([facility]) - Final Complete Nasal Washing NEGATIVE FOR FLU A AND B ANTIGEN.... 12/20/16 20:20 Aerobic Blood Culture Received Blood Peripheral Pending 12/20/16 20:20 Anaerobic Blood Culture Received Blood Peripheral Pending Result Diagram: 12/20/16201312/20/162127 Imaging Last 48 hours Impressions Abdomen/Pelvis CT 12/20/162238 Signed Impressions: Service Date/Time: Tuesday, December 20, 2016 22:53 - CONCLUSION: No evidence of an acute abnormality. Sigmoid colon diverticulosis without diverticulitis and previous hernia repairs are again noted. Shorty Felder MD Chest X-Ray 12/20/16 192 Signed Impressions: Service Date/Time: Tuesday, December 20, 2016 20:12 - CONCLUSION: 1. No acute findings. Stable scarring left lung base. Stefano Mansfield MD Assessment and Plan Assessment and Plan Impression: Abdominal painon exam, it seems to be more of suprapubic pain. Hyperkalemia Acute renal failure Hypocalcemia Plan: Serial abdominal exams. Lactate was within normal limits. However CT abdomen and pelvis was done without IV contrast due to acute renal failure. It seems to me that patient's pain is more of a cystitis/bladder pain. Therefore would obtain ultrasound of bladder/prostate. UA is negative. kayexylate/ calcium gluconate/ insulin/ dextrose repeat labs ct abdomen and pelvis reviewed personally- no acute findings though without iv contrast hold nephrotoxic meds nephrology consult DVT prophylaxis with heparin GI prophylaxis with pantoprazole Discussed Condition With patient, ER MD, nursing staff Physician Certification 2 Midnight Certification Type: Admission for Inpatient Services Order for Inpatient Services The services are ordered in accordance with Medicare regulations or non- Medicare payer requirements, as applicable. In the case of services not specified as inpatient-only, they are appropriately provided as inpatient services in accordance with the 2-midnight benchmark. Estimated LOS (days): 2 days is the estimated time the patient will need to remain in the hospital, assuming treatment plan goals are met and no additional complications. Post-Hospital Plan: Home Jackie Berger MD Dec 21, 2016 00:35
[2016-12-21] MEDS: HYDROmorphone HCL PF 1 MG/ML VIAL IV PUSH PRN ×6 (00:42→23:08)
[2016-12-21 01:28] LABS: BICARBONATE 20.1 MEQ/L (21.0-32.0); POTASSIUM 3.9 MEQ/L (3.5-5.1)
[2016-12-21] MEDS ORDERED: MISCELLANEOUS NURSING INFORMATION PRN (02:30)
[2016-12-21 03:42] LABS: AUTOMATED NEUTROPHIL # 7.6 TH/MM3 (1.8-7.7); BASOPHIL # 0.1 TH/MM3 (0-0.2); BASOPHIL % 0.6 % (0.0-2.0); EOSINOPHIL % 0.2 % (0.0-4.0); HEMATOCRIT 41.1 % (39.0-51.0); HEMO FLAGS DIFF FINAL; LYMPH % 14.2 % (9.0-44.0); LYMPHOCYTE # 1.5 TH/MM3 (1.0-4.8); MEAN CELL VOLUME 88.3 FL (80.0-100.0); MEAN CORPUSCULAR HEMOGLOBIN 29.4 PG (27.0-34.0); MEAN CORPUSCULAR HGB CONC 33.3 % (32.0-36.0); MONO % 10.6 % (0.0-8.0); NEUT % 74.4 % (16.0-70.0); PLATELET COUNT 194 TH/MM3 (150-450); RED BLOOD COUNT 4.65 MIL/MM3 (4.50-5.90); WHITE BLOOD COUNT 10.3 TH/MM3 (4.0-11.0)
[2016-12-21 04:05] LABS: ANION GAP 15 MEQ/L (5-15); BLOOD UREA NITROGEN 70 MG/DL (7-18); CHLORIDE 105 MEQ/L (98-107); GLOMERULAR FILTRATION RATE 9 ML/MIN (>89); SODIUM (NA) 140 MEQ/L (136-145)
[2016-12-21 04:14] LABS: CREATINE KINASE 52 U/L (39-308)
[2016-12-21] MEDS: HEPARIN SODIUM - SQ 10,000 UNITS/ML VIAL SQ SCH ×3 (05:18→20:52)
--- NOTE | 2016-12-21 06:44 | EKG ---
Date Performed: 12/20/2016 Time Performed: 20:28:22 PTAGE: 56 years EKG: Sinus rhythm WITH OCCASIONAL SUPRAVENTRICULAR PREMATURE COMPLEXES BORDERLINE ECG NO PREVIOUS TRACING DOCTOR: Martin Rios Interpretating Date/Time 12/21/2016 06:44:02
--- NOTE | 2016-12-21 07:39 | HHI.PR ---
Subjective Remarks resting comfortably with no acute distress. has some lower abdominal/suprapubic pain. afebrile. Objective Vitals Vital Signs Date Time Temp Pulse Resp B/P Pulse Ox O2 Delivery O2 Flow Rate FiO2 12/21/16 05:57 16 12/21/16 04:00 97.0 75 18 176/89 97 12/21/16 03:03 80 12/21/16 01:21 97.1 80 18 178/89 96 12/20/16 20:39 96 Room Air 12/20/16 20:39 97 Room Air I/O 12/20/16 12/20/16 12/20/16 12/21/16 12/21/16 12/21/16 07:00 15:00 23:00 07:00 15:00 23:00 Intake Total 1000 ml 240 ml Balance 1000 ml 240 ml Intake Oral 240 ml IV Total 1000 ml # Voids 1 # Bowel Movements 1 Result Diagram: 12/21/16 0325 12/21/16 0325 Imaging Last Impressions Abdomen/Pelvis CT 12/20/169 Signed Impressions: Service Date/Time: Tuesday, December 20, 2016 22:53 - CONCLUSION: No evidence of an acute abnormality. Sigmoid colon diverticulosis without diverticulitis and previous hernia repairs are again noted. Shorty Felder MD Chest X-Ray 12/20/168 Signed Impressions: Service Date/Time: Tuesday, December 20, 2016 20:12 - CONCLUSION: 1. No acute findings. Stable scarring left lung base. Stefano Mansfield MD Objective Remarks GENERAL: This is a well-nourished, well-developed patient, in no apparent distress. CARDIOVASCULAR: Regular rate and regular rhythm without murmurs, gallops, or rubs. RESPIRATORY: Clear to auscultation. Breath sounds equal bilaterally. No wheezes , rales, or rhonchi. GASTROINTESTINAL: Abdomen soft, mild suprapubic tenderness, nondistended. Normal, active bowel sounds MUSCULOSKELETAL: Extremities without clubbing, cyanosis, or edema. NEURO: Alert & Oriented x4 to person, place, time, situation. Moves all ext x4 Procedures none Medications and IVs Current Medications Sodium Chloride 1,000 ml @ 1,000 mls/hr Q1H ONCE IV Last administered on t 20:40; Start 12/20/16 at 19:28; Stop 12/20/16 at 20:27; Status DC Calcium Gluconate/ Sodium Chloride (Calcium Gluconate Inj/NS Inj) 120 ml @ 120 mls/hr ONCE ONCE IV Last administered on 12/21/16 00:05; Start 12/20/16 at 23 :00; Stop 12/20/16 at 23:59; Status DC Dextrose (D50w (Vial) Inj) 50 ml ONCE ONCE IV PUSH Last administered on 00:04; Start 12/20/16 at 23:00; Stop 12/20/16 at 23:01; Status DC Insulin Human Regular 4 units 4 units ONCE ONCE IV PUSH Last administered on 00:56; Start 12/20/16 at 23:00; Stop 12/20/16 at 23:01; Status DC Sodium Chloride (NS 1000 ml Inj) 1,000 ml @ 100 mls/hr Q10H IV Last administered on 12/21/16 00:06; Start 12/20/16 at 23:04 Sodium Chloride (NS Flush) 2 ml UNSCH PRN IV FLUSH FLUSH AFTER USING IV ACCESS ; Start 12/20/16 at 23:15 Sodium Chloride (NS Flush) 2 ml BID IV FLUSH ; Start 12/21/16 at 09:00 Naloxone HCl (Narcan Inj) 0.4 mg UNSCH PRN IV SEE LABEL COMMENTS; Start at 23:15 Sodium Polystyrene Sulfonate (Kayexalate Liq) 30 gm ONCE ONCE PO Last administered on 12/21/16 00:36; Start 12/20/16 at 23:15; Stop 12/20/16 at 23:16 ; Status DC Hydromorphone HCl (Dilaudid Pf Inj) 0.2 mg Q4H PRN IV PUSH pain >5 Last administered on 12/21/16 05:19; Start 12/21/16 at 00:30 Pneumococcal Polyvalent Vaccine (Pneumovax-23 Inj) 25 mcg ONCE ONCE IM ; Start 12/22/16 at 10:00; Stop 12/22/16 at 10:01 Miscellaneous Information FLU VACCINE OUT... UNSCH PRN .XX FLU SEASON OVER; Start 12/21/16 at 02:30 Heparin Sodium (Porcine) (Heparin Inj) 5,000 units Q8HR SQ Last administered on 12/21/16t 05:18; Start 12/21/16 at 06:00 Alprazolam (Xanax) 1 mg TID PRN PO ANXIETY; Start 12/21/16 at 05:00 Amlodipine Besylate (Norvasc) 10 mg DAILY PO ; Start 12/21/16 at 09:00 Aspirin (Ecotrin Ec) 81 mg DAILY PO ; Start 12/21/16 at 09:00 Budesonide/ Formoterol Fumarate (Symbicort 160-4.5 Inh) 2 puff Q12HR INH ; Start 12/21/16 at 09:00 Tiotropium Kenna (Spiriva Inh) 18 mcg DAILY INH ; Start 12/21/16 at 09:00 Albuterol/ Ipratropium (Duoneb Neb) 1 ampule Q4HR NEB PRN NEB wheezing; Start 12/21/16 at 05:00 A/P Assessment and Plan A/P - acute kidney injury continue with IV fluid and monitor the renal function closely- US of the kidneys- nephrology consulted -hyperkalemia- resolved after calcium,Kayexalate and insulin -hypocalcemia- improved -hypertension; continue amlodipine- lisinopril on hold due to kidney injury and hyperkalemia continue to monitor BP and adjust the regimen as needed -COPD with no exacerbation; continue symbicort and spiriva- neb treatment as needed DVT prophylaxis with heparin Stefani Alvares MD Dec 21, 2016 07:39
[2016-12-21] MEDS ORDERED: cloNIDine HCL 0.1 MG TAB PO PRN (08:00)
[2016-12-21] MEDS: ASPIRIN EC 81 MG TABEC PO SCH (08:38)
[2016-12-21] MEDS: SODIUM CHLORIDE 0.9% FLUSH 10 ML FLUSH IV FLUSH SCH ×2 (08:46→20:52)
[2016-12-21] MEDS: BUDESONIDE-FORMOTEROL 160/4.5 MCG INHALER INH SCH ×2 (09:00→20:52)
--- NOTE | 2016-12-21 10:21 | RADRPT ---
EXAM DATE/TIME: 12/21/2016 08:35 [facility] COMPARISON: CT ABDOMEN & PELVIS W/O CONTRAST, December 20, 2016, 22:53. INDICATIONS : Renal failure. MEDICAL HISTORY : Myocardial infarction. Congestive heart failure. Chronic obstructive pulmonary disease. Hypertension. Emphysema. Sleep apnea. Ulcer. Diverticulitis. Hepatitis C. Measles. MRSA. SURGICAL HISTORY : Cardiac cath. Hernia repair. Colostomy. Colostomy reversal. ENCOUNTER: Initial ACUITY: 1 day PAIN SCORE: 1/10 LOCATION: Bilateral flank MEASUREMENTS: RIGHT KIDNEY: 13.4 x 6.0 x 6.6 cm LEFT KIDNEY: 12.7 x 7.0 x 5.9 cm FINDINGS: RIGHT KIDNEY: Renal cortex is normal in thickness and echotexture. No hydronephrosis, stone, or mass. There is tr micah perinephric fluid seen along the inferior pole of the right kidney similar to previous CT exam. T his finding is very nonspecific. LEFT KIDNEY: Renal cortex is normal in thickness and echotexture. No hydronephrosis, stone, or mass. BLADDER: Within normal limits given the degree of distension. CONCLUSION: 1. No evidence for renal calculi or obstructive uropathy as questioned. 2. Very nonspecific trace perinephric fluid on the right. Bebo Smiley MD on December 21, 2016 at 10:16 Board Certified Radiologist. This report was verified electronically.
[2016-12-21 10:27] LABS: CREATINE KINASE 39 U/L (39-308)
--- NOTE | 2016-12-21 11:57 | EKG ---
Date Performed: 12/21/2016 Time Performed: 09:15:49 PTAGE: 56 years EKG: Sinus rhythm NORMAL ECG PREVIOUS TRACING : 12/20/2016 20.28 No significant change from previous tracing noted. DOCTOR: Martin Rios Interpretating Date/Time 12/21/2016 11:55:43
[2016-12-21] MEDS: TIOTROPIUM BROMIDE 18 MCG INH INH SCH (13:59)
[2016-12-21] MEDS: ALPRAZolam 1 MG TAB PO PRN (16:44)
--- NOTE | 2016-12-21 17:44 | PD.CONS ---
HPI Service Nephrology Consult Requested By Dr. Berger Reason for Consult [facility] Primary Care Physician Devin Pryor MD History of Present Illness The patient is a 56 yo [place] male with medical hx of HTN, COPD, CAD s/p cath in 2006, remote hx of HCV, TIA, and diverticulitis who presented to this facility today with 3 day h/o abdominal pain, nausea, and general complaint of not feeling well. Was seen in ED on 12/18 for COPD exacerbation. Has been seen within the past week by his PCP at [facility] for skin rash that he says is from bug bites. Has culture of bites taken and was given Cipro 500mg BID as well as a shot of Toradol and Decadron at their office. We were consulted for ARF. ED labs from 12/18 showed a normal SCr of 0.89, but when he arrived 12/20 SCr was 5.57 and worsened to 6.32 at consult. He was treated in ED for hyperkalemia. Reports he has had little UOP in the past few days. Denies any urological hx. Denies any NSAIDs by mouth. No recent vomiting or diarrhea. Denies any illcit drug use. (Marlene Velazquez) Review of Systems Constitutional: COMPLAINS OF: Fatigue, Weight loss, Change in appetite Gastrointestinal: COMPLAINS OF: Nausea (Marlene Velazquez) Past Family Social History Allergies: Coded Allergies: Codeine (Verified Allergy, Severe, RASH,MIGRAINE, 12/18/16) Toradol (Verified Adverse Reaction, Severe, HEADACHE, 12/18/16) *MDRO Multi-Drug Resistant Organism (Verified Adverse Reaction, Unknown, ) MRSA (sputum) - 11/09/14 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 POSITIVE - 10/07/2016 Past Medical History HTN COPD CAD HCV TIA Past Surgical History Hernia repair Hx of colostomy from what appears to be diverticulitis with subsequent reversal Reported Medications Reported Meds & Active Scripts Active Ventolin Hfa 18 GM Inh (Albuterol Sulfate) 90 Mcg/Act Aer 2 Puff INH Q6H PRN Prednisone 20 Mg Tab 40 Mg PO DAILY Take 40 mg (2 tablets) daily for 5 days Ecotrin Low Strength (Aspirin) 81 Mg Tabdr 81 Mg PO DAILY Prednisone 20 Mg Tab 20 Mg PO BID Lisinopril 5 Mg Tab 10 Mg PO DAILY Norvasc (Amlodipine Besylate) 10 Mg Tab 10 Mg PO DAILY 30 Days Reported Oxycodone-Acetaminophen 10-325 mg Tab 1 Tab PO Q4H PRN Albuterol Neb (Albuterol Sulfate) 2.5 Mg/3 Ml Neb 2.5 Mg NEB Q4HR NEB While awake Spiriva Handihaler (Tiotropium Inh) 18 Mcg Cap 18 Mcg INH DAILY 1 capsule = 18 mcg Symbicort Inh (Budesonide/Formoterol Fumarate) 160-4.5 Mcg/Act Aero 2 Puff INH Q12HR Xanax (Alprazolam) 1 Mg Tab 1 Mg PO TID PRN Active Ordered Medications Current Medications Medications (Trade) Dose Ordered Sig/Sylvie Route Start Time Stop Time Status Last Admin (NS 1000 ml Inj) 1,000 ml @ 100 mls/hr Q10H IV 12/20/16 23:04 12/21/16 15:28 (NS Flush) 2 ml UNSCH PRN IV FLUSH 12/20/16 23:15 (NS Flush) 2 ml BID IV FLUSH 12/21/16 09:00 (Narcan Inj) 0.4 mg UNSCH PRN IV 12/20/16 23:15 (Dilaudid Pf Inj) 0.2 mg Q4H PRN IV PUSH 12/21/16 00:30 12/21/16 14:00 (Pneumovax-23 Inj) 25 mcg ONCE ONCE IM 12/22/16 10:00 12/22/16 10:01 Miscellaneous Information FLU VACCINE OUT... UNSCH PRN .XX 12/21/16 02:30 (Heparin Inj) 5,000 units Q8HR SQ 12/21/16 06:00 12/21/16 13:59 (Xanax) 1 mg TID PRN PO 12/21/16 05:00 12/21/16 16:44 (Norvasc) 10 mg DAILY PO 12/21/16 09:00 12/21/16 08:38 (Ecotrin Ec) 81 mg DAILY PO 12/21/16 09:00 12/21/16 08:38 (Symbicort 160-4.5 Inh) 2 puff Q12HR INH 12/21/16 09:00 (Spiriva Inh) 18 mcg DAILY INH 12/21/16 09:00 12/21/16 13:59 (Catapres) 0.1 mg Q8HR PRN PO 12/21/16 08:00 Family History CAD Social History Lives at a facility Denies any current tobacco or EtOH use, but says he did in the past. Denies any illicits (Marlene Velazquez) Physical Exam Vital Signs Vital Signs Date Time Temp Pulse Resp B/P Pulse Ox O2 Delivery O2 Flow Rate FiO2 12/21/16 12:00 97.2 68 20 158/88 96 12/21/16 08:00 97.0 75 20 170/88 96 12/21/16 05:57 16 12/21/16 04:00 97.0 75 18 176/89 97 12/21/16 03:03 80 12/21/16 01:21 97.1 80 18 178/89 96 12/20/16 20:39 96 Room Air 12/20/16 20:39 97 Room Air Physical Exam GENERAL: NAD. SKIN: Multiple bites present on arms and legs with blood present on sheets. None noted to be discharging. Generally appears unkempt HEAD: Atraumatic. Normocephalic. EYES: Pupils equal and round. No scleral icterus. No injection or drainage. ENT: No nasal bleeding or discharge. Mucous membranes pink and moist. NECK: Trachea midline. No JVD. CARDIOVASCULAR: Regular rate and rhythm. RESPIRATORY: No accessory muscle use. Clear to auscultation. Breath sounds equal bilaterally. GASTROINTESTINAL: Abdomen soft, non-tender, nondistended. Hepatic and splenic margins not palpable. MUSCULOSKELETAL: Extremities without clubbing, cyanosis, or edema. No obvious deformities. NEUROLOGICAL: Awake and alert. No obvious cranial nerve deficits. Normal speech. PSYCHIATRIC: Appropriate mood and affect; insight and judgment normal. Laboratory Laboratory Tests Test 12/20/16 12/20/16 12/20/16 12/21/16 20:14 21:28 22:28 00:52 White Blood Count 11.6 Red Blood Count 5.21 Hemoglobin 15.3 Hematocrit 47.2 Mean Corpuscular Volume 90.6 Mean Corpuscular Hemoglobin 29.4 Mean Corpuscular Hemoglobin 32.5 Concent Red Cell Distribution Width 16.1 Platelet Count 240 Mean Platelet Volume 7.1 Neutrophils (%) (Auto) 73.8 Lymphocytes (%) (Auto) 15.9 Monocytes (%) (Auto) 9.5 Eosinophils (%) (Auto) 0.2 Basophils (%) (Auto) 0.6 Neutrophils # (Auto) 8.6 Lymphocytes # (Auto) 1.9 Monocytes # (Auto) 1.1 Eosinophils # (Auto) 0.0 Basophils # (Auto) 0.1 CBC Comment DIFF FINAL Differential Comment Sodium Level 139 138 Potassium Level 6.4 3.9 Chloride Level 104 103 Carbon Dioxide Level 15.8 20.1 Anion Gap 19 15 Blood Urea Nitrogen 63 69 Creatinine 5.57 5.86 Estimat Glomerular Filtration 11 10 Rate Random Glucose 85 167 Lactic Acid Level 0.6 Calcium Level 6.8 9.1 Protein Corrected Calcium 7.2 Magnesium Level 2.1 Total Bilirubin 0.8 Aspartate Amino Transf 64 (AST/SGOT) Alanine Aminotransferase 48 (ALT/SGPT) Alkaline Phosphatase 45 Total Creatine Kinase 106 Creatine Kinase MB 1.9 Troponin I LESS THAN 0.02 Total Protein 6.3 Albumin 2.5 Lipase 108 Urine Color YELLOW Urine Turbidity CLEAR Urine pH 6.5 Urine Specific [place] 1.008 Urine Protein 300 Urine Glucose (UA) NEG Urine Ketones NEG Urine Occult Blood NEG Urine Nitrite NEG Urine Bilirubin NEG Urine Urobilinogen LESS THAN 2.0 Urine Leukocyte Esterase NEG Urine RBC 1 Urine WBC 4 Urine Hyaline Casts 1 Urine Mucus FEW Microscopic Urinalysis Comment CULT NOT INDICATED Test 12/21/16 12/21/16 03:25 09:40 White Blood Count 10.3 Red Blood Count 4.65 Hemoglobin 13.7 Hematocrit 41.1 Mean Corpuscular Volume 88.3 Mean Corpuscular Hemoglobin 29.4 Mean Corpuscular Hemoglobin 33.3 Concent Red Cell Distribution Width 15.0 Platelet Count 194 Mean Platelet Volume 6.5 Neutrophils (%) (Auto) 74.4 Lymphocytes (%) (Auto) 14.2 Monocytes (%) (Auto) 10.6 Eosinophils (%) (Auto) 0.2 Basophils (%) (Auto) 0.6 Neutrophils # (Auto) 7.6 Lymphocytes # (Auto) 1.5 Monocytes # (Auto) 1.1 Eosinophils # (Auto) 0.0 Basophils # (Auto) 0.1 CBC Comment DIFF FINAL Differential Comment Sodium Level 140 Potassium Level 4.0 Chloride Level 105 Carbon Dioxide Level 20.0 Anion Gap 15 Blood Urea Nitrogen 70 Creatinine 6.32 Estimat Glomerular Filtration 9 Rate Random Glucose 115 Calcium Level 8.0 Total Creatine Kinase 52 39 Troponin I LESS THAN 0.02 LESS THAN 0.02 Date/Time Procedure Status Source Growth 12/20/16 20:21 Influenza Types A,B Antigen ([facility]) - Final Complete Nasal Washing NEGATIVE FOR FLU A AND B ANTIGEN.... 12/20/16 20:20 Aerobic Blood Culture - Preliminary Resulted Blood Peripheral NO GROWTH IN 1 DAY 12/20/16 20:20 Anaerobic Blood Culture - Preliminary Resulted Blood Peripheral NO GROWTH IN 1 DAY (Marlene Velazquez) Result Diagram: 12/21/16 0325 12/21/16 0325 Imaging Last Impressions Renal Ultrasound 12/21/16 0000 Signed Impressions: Service Date/Time: Wednesday, December 21, 2016 08:35 - CONCLUSION: 1. No evidence for renal calculi or obstructive uropathy as questioned. 2. Very nonspecific trace perinephric fluid on the right. Bebo Smiley MD Abdomen/Pelvis CT 12/20/169 Signed Impressions: Service Date/Time: Tuesday, December 20, 2016 22:53 - CONCLUSION: No evidence of an acute abnormality. Sigmoid colon diverticulosis without diverticulitis and previous hernia repairs are again noted. Shorty Felder MD Chest X-Ray 12/20/168 Signed Impressions: Service Date/Time: Tuesday, December 20, 2016 20:12 - CONCLUSION: 1. No acute findings. Stable scarring left lung base. Stefano Mansfield MD (Marlene Velazquez) Assessment and Plan Problem List: (1) Acute renal failure Plan: Etiology not entirely clear. Labs from 12/18 showed a SCr of 0.89 and came in on 12/21 with SCr of 5.57. Contacted his GP office who confirmed that on 12/15 he was started on Cipro 500mg BID for skin lesions and given IM Toradol and Decadron. Potentially sustained kidney injury from medication? Will screen for possible interstitial nephritis as well as other potential causes of renal failure. Renal US was unremarkable To continue on IVF, but change to 1/2 NS with bicarb added as he is mildly acidotic. Hyperkalemia corrected. Monitor I&O. Currently oliguric. Advised the patient the severity of his renal impairment. May require dialytic intervention within the next day or so if azotemia should worsen. Will follow. Medications should be adjusted for the patient's renal decline. Avoid nephrotoxic medications such as iodinated contrast and NSAIDs. Avoid gadolinium. (2) HTN (hypertension) Plan: ACEi held. Continue on Amlodipine Will adjust if needed (3) Hepatitis C Plan: UA showed proteinuria. Pt states he was treated Will repeat hepatitis panel and check cryoglobulin (4) MRSA (methicillin resistant staph aureus) culture positive Plan: As reported by GP office, skin lesions cultured as MRSA On contact precautions. Likely will need ID consultation BCx pending (Marlene Velazquez) Assessment and Plan The exam, history, and the medical decision-making described in the above note were completed with the assistance of the PAUlysses. I reviewed and agree with the findings presented. I attest that I had a [id number] encounter with the patient on the same day, and personally performed and documented my assessment and findings in the medical record. (Aldair Shields MD) Marlene Velazquez Dec 21, 2016 17:44 Aldair Shields MD Dec 21, 2016 19:02
[2016-12-21] MEDS: SODIUM BICARBONATE 8.4% INJ 75 MEQ in SODIUM CHLOR 0.45% 1000 ML INJ 1,000 ML IV SCH (20:50)
[2016-12-22] VITALS (9 sets, daily range): BP systolic 135–183; BP diastolic 67–103; PULSE 71–96; RESP 18; TEMP 96.7–97.8; O2SAT 93–98
[2016-12-22] MEDS: ALPRAZolam 1 MG TAB PO PRN ×3 (00:21→17:46)
[2016-12-22] MEDS: HYDROmorphone HCL PF 1 MG/ML VIAL IV PUSH PRN ×4 (05:02→19:26)
[2016-12-22] MEDS: SODIUM BICARBONATE 8.4% INJ 75 MEQ in SODIUM CHLOR 0.45% 1000 ML INJ 1,000 ML IV SCH ×2 (05:02→22:13)
[2016-12-22] MEDS: HEPARIN SODIUM - SQ 10,000 UNITS/ML VIAL SQ SCH ×3 (05:02→21:23)
[2016-12-22] MEDS: SODIUM CHLOR 0.9% 1000 ML INJ 1,000 ML IV SCH ×2 (05:03→15:04)
[2016-12-22 08:00] LABS: HEMATOCRIT 43.5 % (39.0-51.0); MEAN CELL VOLUME 87.6 FL (80.0-100.0); MEAN CORPUSCULAR HEMOGLOBIN 29.3 PG (27.0-34.0); MEAN CORPUSCULAR HGB CONC 33.4 % (32.0-36.0); PLATELET COUNT 194 TH/MM3 (150-450); RED BLOOD COUNT 4.97 MIL/MM3 (4.50-5.90); RED CELL DISTRIBUTION WIDTH 15.3 % (11.6-17.2); REVIEW FLAG FINAL; WHITE BLOOD COUNT 9.1 TH/MM3 (4.0-11.0)
[2016-12-22 08:34] LABS: BICARBONATE 18.3 MEQ/L (21.0-32.0); POTASSIUM 4.2 MEQ/L (3.5-5.1)
[2016-12-22 08:38] LABS: CALCIUM-PROTEIN CORRECTED 7.7 MG/DL (8.5-10.1)
[2016-12-22] MEDS: ASPIRIN EC 81 MG TABEC PO SCH (08:54)
[2016-12-22] MEDS: SODIUM CHLORIDE 0.9% FLUSH 10 ML FLUSH IV FLUSH SCH ×2 (08:55→21:00)
[2016-12-22] MEDS: BUDESONIDE-FORMOTEROL 160/4.5 MCG INHALER INH SCH ×2 (08:55→21:18)
[2016-12-22] MEDS: TIOTROPIUM BROMIDE 18 MCG INH INH SCH (08:55)
--- NOTE | 2016-12-22 09:36 | HHI.PR ---
Subjective Remarks The pt was having continued abdominal pain, but he says he's less nauseous. He says the Dilaudid is working. He said that he has been urinating less and less. He has been constipated for a couple of days. He believes he took some supplements that may have contributed to his kidney condition, including antibiotics. Objective Vitals Vital Signs Date Time Temp Pulse Resp B/P Pulse Ox O2 Delivery O2 Flow Rate FiO2 12/22/16 08:22 96.7 77 18 177/102 98 179/100 12/22/16 05:05 97.8 71 18 183/90 96 12/22/16 00:00 96.9 77 18 135/67 94 12/21/16 20:00 96.7 78 17 140/75 95 12/21/16 18:39 155/95 12/21/16 16:00 97.5 70 22 195/89 96 12/21/16 12:00 97.2 68 20 158/88 96 I/O 12/21/16 12/21/16 12/21/16 12/22/16 12/22/16 12/22/16 07:00 15:00 23:00 07:00 15:00 23:00 Intake Total 240 ml 907 ml 960 ml Output Total 175 ml 275 ml Balance 240 ml 732 ml 685 ml Intake Oral 240 ml 960 ml IV Total 907 ml Output Urine Total 175 ml 275 ml # Voids 1 2 # Bowel Movements 1 Result Diagram: 12/22/16 0618 12/22/16 0618 Imaging Last Impressions Renal Ultrasound 12/21/16 0000 Signed Impressions: Service Date/Time: Wednesday, December 21, 2016 08:35 - CONCLUSION: 1. No evidence for renal calculi or obstructive uropathy as questioned. 2. Very nonspecific trace perinephric fluid on the right. Bebo Smiley MD Abdomen/Pelvis CT 12/20/169 Signed Impressions: Service Date/Time: Tuesday, December 20, 2016 22:53 - CONCLUSION: No evidence of an acute abnormality. Sigmoid colon diverticulosis without diverticulitis and previous hernia repairs are again noted. Shorty Felder MD Chest X-Ray 12/20/16 1928 Signed Impressions: Service Date/Time: [place], December 20, 2016 20:12 - CONCLUSION: 1. No acute findings. Stable scarring left lung base. Stefano Mansfield MD Objective Remarks GENERAL: This is a well-nourished, well-developed patient, in no apparent distress. SKIN: Lesions on arms. CARDIOVASCULAR: Regular rate and regular rhythm without murmurs, gallops, or rubs. RESPIRATORY: Mild wheezing appreciated. GASTROINTESTINAL: Abdomen soft, mild diffuse tenderness, nondistended. + bowel sounds. MUSCULOSKELETAL: Extremities without clubbing, cyanosis, or edema. NEURO: Alert & Oriented x4 to person, place, time, situation. Moves all ext x4. PSYCH: Mood and affect appropriate. Procedures none Medications and IVs Current Medications Medications (Trade) Dose Ordered Sig/Sylvie Route Start Time Stop Time Status Last Admin (NS 1000 ml Inj) 1,000 ml @ 100 mls/hr Q10H IV 12/20/16 23:04 12/21/16 15:28 (NS Flush) 2 ml UNSCH PRN IV FLUSH 12/20/16 23:15 (NS Flush) 2 ml BID IV FLUSH 12/21/16 09:00 (Narcan Inj) 0.4 mg UNSCH PRN IV 12/20/16 23:15 (Pneumovax-23 Inj) 25 mcg ONCE ONCE IM 12/22/16 10:00 12/22/16 10:01 Miscellaneous Information FLU VACCINE OUT... UNSCH PRN .XX 12/21/16 02:30 (Heparin Inj) 5,000 units Q8HR SQ 12/21/16 06:00 12/22/16 05:02 (Xanax) 1 mg TID PRN PO 12/21/16 05:00 12/22/16 08:55 (Norvasc) 10 mg DAILY PO 12/21/16 09:00 12/22/16 08:55 (Ecotrin Ec) 81 mg DAILY PO 12/21/16 09:00 12/22/16 08:54 (Symbicort 160-4.5 Inh) 2 puff Q12HR INH 12/21/16 09:00 12/22/16 08:55 (Spiriva Inh) 18 mcg DAILY INH 12/21/16 09:00 12/22/16 08:55 Clonidine 0.1 mg 0.1 mg Q8HR PRN PO 12/21/16 08:00 (Sodium Bicarbonate 8.4% Inj//2 NS 1000 ml Inj) 1,075 ml @ 100 mls/hr [id number] IV 12/21/16 17:45 12/22/16 05:02 (Dilaudid Pf Inj) 0.5 mg Q4H PRN IV PUSH 12/22/16 00:30 12/22/16 05:02 A/P Assessment and Plan Acute renal failure Nephrology consult appreciated. Pt is becoming oliguric. Proteinuria noted on UA. Renal US unremarkable. Creatinine continues to get worse. - continue with IVFs. - avoid nephrotoxic agents. - further care per nephrology. Work-up in process. Hyperkalemia Resolved after calcium, Kayexalate and insulin. - continue to monitor. Hypertension Blood pressure fluctuates. - continue amlodipine. Lisinopril on hold due to kidney injury and hyperkalemia. - continue to monitor BP and adjust the regimen as needed. Clonidine as needed. COPD With no exacerbation. - continue Symbicort and Spiriva. - neb treatment as needed. Hypoglycemia Likely s/t decreased PO intake. - encourage PO intake. - follow glucose. DVT prophylaxis with heparin Discharge Planning Awaiting clinical improvement Vamsi Ferro DO Dec 22, 2016 09:36
[2016-12-22] MEDS ORDERED: cloNIDine HCL 0.1 MG TAB PO SCH (09:45)
[2016-12-22] MEDS ORDERED: PNEUMOCOCCAL POLYVALENT INJ 25 MCG/0.5 ML SYR IM ONE (10:00)
[2016-12-22] MEDS ORDERED: ALUMINUM/MAGNESIUM/SIMETH 30 ML CUP PO ONE (10:00)
[2016-12-22] MEDS: ONDANSETRON HCL 4 MG/2 ML VIAL IV PUSH PRN (10:52)
[2016-12-22 11:16] LABS: KAPPA LAMBDA RATIO 1.51 (1.57-3.93)
--- NOTE | 2016-12-22 17:17 | HHI.NPPN ---
Subjective History of Present Illness The patient is a 56 yo [place] male with medical hx of HTN, COPD, CAD s/p cath in 2006, remote hx of HCV, TIA, and diverticulitis who presented to this facility today with 3 day h/o abdominal pain, nausea, and general complaint of not feeling well. Was seen in ED on 12/18 for COPD exacerbation. Has been seen within the past week by his PCP at [facility] for skin rash that he says is from bug bites. Has culture of bites taken and was given Cipro 500mg BID as well as a shot of Toradol and Decadron at their office. We were consulted for ARF. ED labs from 12/18 showed a normal SCr of 0.89, but when he arrived 12/20 SCr was 5.57 and worsened to 6.32 at consult. He was treated in ED for hyperkalemia. Reports he has had little UOP in the past few days. Denies any urological hx. Denies any NSAIDs by mouth. No recent vomiting or diarrhea. Denies any illcit drug use. Interval History The patient presently has no verbal complaints and specifically denying any uremic symptoms. Objective Data Data 12/21/16 12/22/16 19:00 07:00 Intake Total 1867 ml Output Total 450 ml Balance 1417 ml Intake Oral 960 ml IV Total 907 ml Output Urine Total 450 ml # Voids 2 Vital Signs Date Time Temp Pulse Resp B/P Pulse Ox O2 Delivery O2 Flow Rate FiO2 12/22/16 12:43 96.9 92 18 148/90 98 12/22/16 10:48 97.2 82 18 158/88 93 12/22/16 08:35 77 12/22/16 08:22 96.7 77 18 177/102 98 179/100 12/22/16 05:05 97.8 71 18 183/90 96 12/22/16 00:00 96.9 77 18 135/67 94 12/21/16 20:00 96.7 78 17 140/75 95 12/21/16 18:39 155/95 -: 12/22/16 0618 12/22/16 0618 Medication Review Current Medications Sodium Chloride 1,000 ml @ 1,000 mls/hr Q1H ONCE IV Last administered on t 20:40; Start 12/20/16 at 19:28; Stop 12/21/16 at 17:47; Status DC Calcium Gluconate/ Sodium Chloride (Calcium Gluconate Inj/NS Inj) 120 ml @ 120 mls/hr ONCE ONCE IV Last administered on 12/21/16 00:05; Start 12/20/16 at 23 :00; Stop 12/20/16 at 23:59; Status DC Dextrose (D50w (Vial) Inj) 50 ml ONCE ONCE IV PUSH Last administered on 00:04; Start 12/20/16 at 23:00; Stop 12/20/16 at 23:01; Status DC Insulin Human Regular 4 units 4 units ONCE ONCE IV PUSH Last administered on 00:56; Start 12/20/16 at 23:00; Stop 12/20/16 at 23:01; Status DC Sodium Chloride (NS 1000 ml Inj) 1,000 ml @ 100 mls/hr Q10H IV Last administered on 12/21/16 15:28; Start 12/20/16 at 23:04 Sodium Chloride (NS Flush) 2 ml UNSCH PRN IV FLUSH FLUSH AFTER USING IV ACCESS ; Start 12/20/16 at 23:15 Sodium Chloride (NS Flush) 2 ml BID IV FLUSH ; Start 12/21/16 at 09:00 Naloxone HCl (Narcan Inj) 0.4 mg UNSCH PRN IV SEE LABEL COMMENTS; Start at 23:15 Sodium Polystyrene Sulfonate (Kayexalate Liq) 30 gm ONCE ONCE PO Last administered on 12/21/16 00:36; Start 12/20/16 at 23:15; Stop 12/20/16 at 23:16 ; Status DC Hydromorphone HCl (Dilaudid Pf Inj) 0.2 mg Q4H PRN IV PUSH pain >5 Last administered on 12/21/16 19:25; Start 12/21/16 at 00:30; Stop 12/21/16 at 22:55 ; Status DC Pneumococcal Polyvalent Vaccine (Pneumovax-23 Inj) 25 mcg ONCE ONCE IM ; Start 12/22/16 at 10:00; Stop 12/22/16 at 10:01; Status DC Miscellaneous Information FLU VACCINE OUT... UNSCH PRN .XX FLU SEASON OVER; Start 12/21/16 at 02:30 Heparin Sodium (Porcine) (Heparin Inj) 5,000 units Q8HR SQ Last administered on 12/22/16 14:58; Start 12/21/16 at 06:00 Alprazolam (Xanax) 1 mg TID PRN PO ANXIETY Last administered on 12/22/16 08:55 ; Start 12/21/16 at 05:00 Amlodipine Besylate (Norvasc) 10 mg DAILY PO Last administered on 12/22/16 08: 55; Start 12/21/16 at 09:00 Aspirin (Ecotrin Ec) 81 mg DAILY PO Last administered on 12/22/16 08:54; Start 12/21/16 at 09:00 Budesonide/ Formoterol Fumarate (Symbicort 160-4.5 Inh) 2 puff Q12HR INH Last administered on 12/22/16 08:55; Start 12/21/16 at 09:00 Tiotropium Valmora (Spiriva Inh) 18 mcg DAILY INH Last administered on 08:55; Start 12/21/16 at 09:00 Albuterol/ Ipratropium (Duoneb Neb) 1 ampule Q4HR NEB PRN NEB wheezing; Start 12/21/16 at 05:00 Clonidine 0.1 mg 0.1 mg Q8H PRN PO SBP> OR = 180, DBP> OR = 100; Start at 08:00 Sodium Bicarbonate/ Sodium Chloride (Sodium Bicarbonate 8.4% Inj/1/2 NS 1000 ml Inj) 1,075 ml @ 100 mls/hr [id number] IV Last administered on 12/22/16 05:02; Start 12/21/16 at 17:45 Hydromorphone HCl (Dilaudid Pf Inj) 0.5 mg Q4H PRN IV PUSH pain >5 Last administered on 12/22/16 14:58; Start 12/22/16 at 00:30 Clonidine (Catapres) 0.1 mg Q12HR PO ; Start 12/22/16 at 09:45; Stop 12/22/16 at 10:04; Status DC Al Hydrox/Mg Hydrox/Simethicone (Mag-Al Plus Susp Liq) 30 ml ONCE ONCE PO Last administered on 12/22/16 10:55; Start 6/22/17 at 10:00; Stop 12/22/16 at 10:01; Status DC Al Hydrox/Mg Hydrox/Simethicone (Mag-Al Plus Susp Liq) 30 ml Q6H PRN PO abdominal pain; Start 12/22/16 at 16:00 Ondansetron HCl (Zofran Inj) 4 mg Q8H PRN IV PUSH NAUSEA Last administered on t 10:52; Start 12/22/16 at 10:30 Physical Exam General Appearance: No Acute Distress, Comfortable, Pale Eyes Eye Exam: Sclera White Pulmonary Resp Exam: Clear Bilaterally, Breath Sounds Equal, No Distress Cardiology CV Exam: Regular, Normal Sinus Rhythm Gastrointestinal/Abdomen GI Exam: Soft, Non-Tender, No Hepatosplenomegaly Integumentary Skin Exam: Clear, Warm, Dry Neurologic Neuro Exam: Alert, Awake Assessment/Plan Discussed Condition With: Patient Problem List: (1) Acute renal failure Plan: Patient's azotemia continues to worsen. Etiology of acute renal insufficiency uncertain. Given the rapidity ATN is consideration although interstitial nephritis has to be considered. Patient does have a positive hepatitis C antibody but given the rapidity of renal dysfunction a glomerulonephritis related to hepatitis C is a lesser consideration presently. In view of positive hepatitis C antibody will order a hepatitis C PCR and repeat LFTs. Patient does have a slight elevation of his lambda light chain level and a slightly depressed kappa/lambda light chain ratio. We'll check serum immunofixation. Continue bicarbonate replacement. The patient was advised of the severity of his renal insufficiency and the likelihood that we may require dialytic support tomorrow. Technical aspects regarding dialysis were reviewed with him including potential benefits versus risks. Patient is agreeable if we have to proceed. Medications should be adjusted for the patient's renal decline. Avoid nephrotoxic medications such as iodinated contrast and NSAIDs. Avoid gadolinium. (2) HTN (hypertension) Plan: ACEi held. Continue on Amlodipine Will adjust if needed (3) Hepatitis C Plan: Awake regular level. Check hepatitis C PCR. (4) MRSA (methicillin resistant staph aureus) culture positive Plan: As reported by GP office, skin lesions cultured as MRSA On contact precautions. Likely will need ID consultation BCx pending Aldair Shields MD Dec 22, 2016 17:17
[2016-12-22 22:23] LABS: TOTAL PROTEIN SPE 6.5 GM/DL (6.0-7.6)
[2016-12-22 22:30] LABS: ALBUMIN SPE 2.94 GM/DL (3.50-5.00)
[2016-12-22 22:31] LABS: ALPHA 1 GLOBULIN 0.33 GM/DL (0.11-0.29); ALPHA 2 GLOBULIN 0.96 GM/DL (0.22-1.00); BETA GLOBULINS (SPE) 0.67 GM/DL (0.53-1.03)
[2016-12-23] VITALS (8 sets, daily range): BP systolic 137–166; BP diastolic 75–108; PULSE 79–104; RESP 17–18; TEMP 96.4–97.8; O2SAT 90–97
[2016-12-23] MEDS: ONDANSETRON HCL 4 MG/2 ML VIAL IV PUSH PRN (00:03)
[2016-12-23] MEDS: HYDROmorphone HCL PF 1 MG/ML VIAL IV PUSH PRN ×5 (00:04→22:21)
[2016-12-23] MEDS: SODIUM CHLOR 0.9% 1000 ML INJ 1,000 ML IV SCH ×2 (01:04→11:04)
[2016-12-23] MEDS: ALPRAZolam 1 MG TAB PO PRN ×3 (01:47→20:48)
[2016-12-23] MEDS: HEPARIN SODIUM - SQ 10,000 UNITS/ML VIAL SQ SCH ×3 (06:04→22:21)
[2016-12-23 07:03] LABS: INTERNATIONAL NORMALIZED RATIO 1.2 RATIO; PROTHROMBIN TIME - PATIENT 13.4 SEC (9.8-11.6)
[2016-12-23 07:42] LABS: INDIRECT BILIRUBIN 0.2 MG/DL (0.0-0.8); MAGNESIUM 2.2 MG/DL (1.5-2.5); POTASSIUM 4.7 MEQ/L (3.5-5.1); TOTAL BILIRUBIN ADULT 0.5 MG/DL (0.2-1.0)
[2016-12-23 08:17] LABS: CALCIUM-PROTEIN CORRECTED 8.1 MG/DL (8.5-10.1)
[2016-12-23] MEDS: SODIUM CHLORIDE 0.9% FLUSH 10 ML FLUSH IV FLUSH SCH ×2 (08:33→20:38)
[2016-12-23] MEDS: ASPIRIN EC 81 MG TABEC PO SCH (08:33)
[2016-12-23] MEDS: BUDESONIDE-FORMOTEROL 160/4.5 MCG INHALER INH SCH ×2 (08:34→20:38)
[2016-12-23] MEDS: TIOTROPIUM BROMIDE 18 MCG INH INH SCH (08:34)
[2016-12-23] MEDS: SODIUM BICARBONATE 8.4% INJ 75 MEQ in SODIUM CHLOR 0.45% 1000 ML INJ 1,000 ML IV SCH ×2 (08:37→23:30)
[2016-12-23] MEDS ORDERED: SODIUM CHLOR 0.9% 1000 ML INJ 1,000 ML IV PRN ×3 (09:27)
--- NOTE | 2016-12-23 09:27 | HHI.NPPN ---
Subjective History of Present Illness The patient is a 56 yo [place] male with medical hx of HTN, COPD, CAD s/p cath in 2006, remote hx of HCV, TIA, and diverticulitis who presented to this facility today with 3 day h/o abdominal pain, nausea, and general complaint of not feeling well. Was seen in ED on 12/18 for COPD exacerbation. Has been seen within the past week by his PCP at [facility] for skin rash that he says is from bug bites. Has culture of bites taken and was given Cipro 500mg BID as well as a shot of Toradol and Decadron at their office. We were consulted for ARF. ED labs from 12/18 showed a normal SCr of 0.89, but when he arrived 12/20 SCr was 5.57 and worsened to 6.32 at consult. He was treated in ED for hyperkalemia. Reports he has had little UOP in the past few days. Denies any urological hx. Denies any NSAIDs by mouth. No recent vomiting or diarrhea. Denies any illcit drug use. Interval History Pt resting comfortably. Says he is actually feeling somewhat better. No nausea. (Marlene Velazquez) Objective Data Data 12/22/16 12/23/16 19:00 07:00 Intake Total 1451 ml 1988 ml Output Total 450 ml 100 ml Balance 1001 ml 1888 ml Intake Oral 560 ml IV Total 891 ml 1988 ml Output Urine Total 450 ml 100 ml Vital Signs Date Time Temp Pulse Resp B/P Pulse Ox O2 Delivery O2 Flow Rate FiO2 12/23/16 08:00 96.4 80 18 166/108 92 12/23/16 04:49 20 12/23/16 04:00 97.3 87 18 152/84 97 12/23/16 00:00 97.8 95 17 137/75 93 12/22/16 21:00 88 12/22/16 20:00 97.8 89 18 146/91 93 12/22/16 16:45 97.4 96 18 166/103 96 12/22/16 12:43 96.9 92 18 148/90 98 12/22/16 10:48 97.2 82 18 158/88 93 (Marlene Velazquez) -: 12/22/16 0618 12/23/16 0557 Medication Review Current Medications Medications (Trade) Dose Ordered Sig/Sylvie Route Start Time Stop Time Status Last Admin (NS 1000 ml Inj) 1,000 ml @ 100 mls/hr Q10H IV 12/20/16 23:04 12/21/16 15:28 (NS Flush) 2 ml UNSCH PRN IV FLUSH 12/20/16 23:15 (NS Flush) 2 ml BID IV FLUSH 12/21/16 09:00 12/23/16 08:33 (Narcan Inj) 0.4 mg UNSCH PRN IV 12/20/16 23:15 Miscellaneous Information FLU VACCINE OUT... UNSCH PRN .XX 12/21/16 02:30 (Heparin Inj) 5,000 units Q8HR SQ 12/21/16 06:00 12/23/16 06:04 (Xanax) 1 mg TID PRN PO 12/21/16 05:00 12/23/16 01:47 (Norvasc) 10 mg DAILY PO 12/21/16 09:00 12/23/16 08:33 (Ecotrin Ec) 81 mg DAILY PO 12/21/16 09:00 12/23/16 08:33 (Symbicort 160-4.5 Inh) 2 puff Q12HR INH 12/21/16 09:00 12/23/16 08:34 (Spiriva Inh) 18 mcg DAILY INH 12/21/16 09:00 12/23/16 08:34 Clonidine 0.1 mg 0.1 mg Q8H PRN PO 12/21/16 08:00 (Sodium Bicarbonate 8.4% Inj/1/2 NS 1000 ml Inj) 1,075 ml @ 100 mls/hr [id number] IV 12/21/16 17:45 12/23/16 08:37 (Dilaudid Pf Inj) 0.5 mg Q4H PRN IV PUSH 12/22/16 00:30 12/23/16 08:38 (Mag-Al Plus Susp Liq) 30 ml Q6H PRN PO 12/22/16 16:00 (Zofran Inj) 4 mg Q8H PRN IV PUSH 12/22/16 10:30 12/23/16 00:03 (Marlene Velazquez) Physical Exam General Appearance: No Acute Distress, Comfortable, Pale (Marlene Velazquez) Eyes Eye Exam: Sclera White (Marlene Velazquez) Pulmonary Resp Exam: Clear Bilaterally, Breath Sounds Equal, No Distress (Marlene Velazquez) Cardiology CV Exam: Regular, Normal Sinus Rhythm (Marlene Velazquez) Gastrointestinal/Abdomen GI Exam: Soft, Non-Tender, No Hepatosplenomegaly (Marlene Velazquez) Integumentary Skin Exam: Clear, Warm, Dry (Marlene Velazquez) Extremeties Extremities Exam: No Edema (Marlene Velazquez) Neurologic Neuro Exam: Alert, Awake (Marlene Velazquez) Assessment/Plan Discussed Condition With: Patient Problem List: (1) Acute renal failure Plan: Patient's azotemia continues to worsen. Etiology of acute renal insufficiency uncertain. Given the rapidity ATN is consideration although interstitial nephritis is on the differential as well. Patient does have a positive hepatitis C antibody but given the rapidity of renal dysfunction a glomerulonephritis related to hepatitis C is a lesser consideration presently---pending PCR Patient does have a slight elevation of his lambda light chain level and a slightly depressed kappa/lambda light chain ratio. SPEP and AZALEA are pending. Given his azotemia, we will plan for dialytic intervention today. Consult placed to IR for VasCath placement. aircraft designer notified. Will plan for first session today with subsequent session tomorrow He has been counselled about the need for dialysis, VasCath placement, as well as procedure of dialysis. He has been made aware of both the benefits and the risks including infection, cardiac arrhythmia, bleeding, hypotension, and . Has verbally agreed to proceed. Hopefully, he will make renal recovery in the future, but this remains to be seen as discussed with the patient. Medications should be adjusted for the patient's renal decline. Avoid nephrotoxic medications such as iodinated contrast and NSAIDs. Avoid gadolinium. (2) HTN (hypertension) Plan: ACEi held. Continue on Amlodipine Will adjust if needed (3) Hepatitis C Plan: Awake regular level. Check hepatitis C PCR. (4) MRSA (methicillin resistant staph aureus) culture positive Plan: As reported by GP office, skin lesions cultured as MRSA On contact precautions. Likely will need ID consultation BCx pending (Marlene Velazquez) Plan The exam, history, and the medical decision-making described in the above note were completed with the assistance of the PA-Bridgett. I reviewed and agree with the findings presented. (Aldair Shields MD) Marlene Velazuqez Dec 23, 2016 09:27 Aldair Shields MD Dec 23, 2016 17:47
[2016-12-23] MEDS ORDERED: cloNIDine HCL 0.1 MG TAB PO PRN (09:30)
[2016-12-23] MEDS ORDERED: ACETAMINOPHEN 325 MG TAB PO PRN (09:30)
[2016-12-23] MEDS ORDERED: HEPARIN SODIUM - IV 10,000 UNITS/10 ML VIAL IVF PRN (09:30)
[2016-12-23] MEDS ORDERED: MANNITOL 12.5 GM/50 ML VIAL IV PRN (09:30)
[2016-12-23] MEDS ORDERED: ALBUMIN HUMAN 25% 25 GM/100 ML BAGP IV PRN (09:30)
[2016-12-23] MEDS ORDERED: NITROGLYCERIN 0.4 MG SL 25 TABS/BTL SL PRN (09:30)
[2016-12-23] MEDS ORDERED: SODIUM CHLORIDE 0.9% FLUSH 10 ML FLUSH IV FLUSH PRN (09:30)
[2016-12-23] MEDS ORDERED: GELATIN 12 MM/7 MM FOAM TOP PRN (09:30)
[2016-12-23] MEDS ORDERED: ONDANSETRON HCL 4 MG/2 ML VIAL IV PRN (09:30)
[2016-12-23] MEDS ORDERED: traMADol HCL 50 MG TAB PO PRN (10:15)
--- NOTE | 2016-12-23 10:30 | HHI.PR ---
Subjective Remarks The patient understood that he was going for dialysis today. He said he believes he is urinating more than he was yesterday. He denies any pain on urination. He does continue to complain of abdominal pain. He endorses several days of constipation. He says he is breathing at baseline. He requested increased pain medications. Objective Vitals Vital Signs Date Time Temp Pulse Resp B/P Pulse Ox O2 Delivery O2 Flow Rate FiO2 12/23/16 08:00 96.4 80 18 166/108 92 12/23/16 04:49 20 12/23/16 04:00 97.3 87 18 152/84 97 12/23/16 00:00 97.8 95 17 137/75 93 12/22/16 21:00 88 12/22/16 20:00 97.8 89 18 146/91 93 12/22/16 16:45 97.4 96 18 166/103 96 12/22/16 12:43 96.9 92 18 148/90 98 12/22/16 10:48 97.2 82 18 158/88 93 I/O 12/22/16 12/22/16 12/22/16 12/23/16 12/23/16 12/23/16 07:00 15:00 23:00 07:00 15:00 23:00 Intake Total 1451 ml 1200 ml 788 ml Output Total 450 ml 100 ml 90 ml Balance 1001 ml 1200 ml 688 ml -90 ml Intake Oral 560 ml IV Total 891 ml 1200 ml 788 ml Output Urine Total 450 ml 100 ml 90 ml Result Diagram: 12/22/16 0618 12/23/16 0557 Imaging Last Impressions Renal Ultrasound 12/21/16 0000 Signed Impressions: Service Date/Time: Wednesday, December 21, 2016 08:35 - CONCLUSION: 1. No evidence for renal calculi or obstructive uropathy as questioned. 2. Very nonspecific trace perinephric fluid on the right. Bebo Smiley MD Abdomen/Pelvis CT [id number]/20/[id number] Signed Impressions: Service Date/Time: Tuesday, December 20, 2016 22:53 - CONCLUSION: No evidence of an acute abnormality. Sigmoid colon diverticulosis without diverticulitis and previous hernia repairs are again noted. Shorty Felder MD Chest X-Ray 12/20/[id number] Signed Impressions: Service Date/Time: Tuesday, December 20, 2016 20:12 - CONCLUSION: 1. No acute findings. Stable scarring left lung base. Stefano Mansfield MD Objective Remarks GENERAL: This is a well-nourished, well-developed patient, in no apparent distress. SKIN: Lesions on arms. CARDIOVASCULAR: Regular rate and regular rhythm without murmurs, gallops, or rubs. RESPIRATORY: Moderate wheezing appreciated. GASTROINTESTINAL: Abdomen soft, mild diffuse tenderness, slightly distended. + bowel sounds. MUSCULOSKELETAL: Extremities without clubbing, cyanosis, or edema. NEURO: Alert & Oriented x4 to person, place, time, situation. Moves all ext x4. PSYCH: Mood and affect appropriate. Procedures none Medications and IVs Current Medications Medications (Trade) Dose Ordered Sig/Sylvie Route Start Time Stop Time Status Last Admin (NS 1000 ml Inj) 1,000 ml @ 100 mls/hr Q10H IV 12/20/16 23:04 12/21/16 15:28 (NS Flush) 2 ml UNSCH PRN IV FLUSH 12/20/16 23:15 (NS Flush) 2 ml BID IV FLUSH 12/21/16 09:00 12/23/16 08:33 (Narcan Inj) 0.4 mg UNSCH PRN IV 12/20/16 23:15 Miscellaneous Information FLU VACCINE OUT... UNSCH PRN .XX 12/21/16 02:30 (Heparin Inj) 5,000 units Q8HR SQ 12/21/16 06:00 12/23/16 06:04 (Xanax) 1 mg TID PRN PO 12/21/16 05:00 12/23/16 01:47 (Norvasc) 10 mg DAILY PO 12/21/16 09:00 12/23/16 08:33 (Ecotrin Ec) 81 mg DAILY PO 12/21/16 09:00 12/23/16 08:33 (Symbicort 160-4.5 Inh) 2 puff Q12HR INH 12/21/16 09:00 12/23/16 08:34 (Spiriva Inh) 18 mcg DAILY INH 12/21/16 09:00 12/23/16 08:34 Clonidine 0.1 mg 0.1 mg Q8H PRN PO 12/21/16 08:00 (Sodium Bicarbonate 8.4% Inj/1/2 NS 1000 ml Inj) 1,075 ml @ 100 mls/hr [id number] IV 12/21/16 17:45 12/23/16 08:37 (Dilaudid Pf Inj) 0.5 mg Q4H PRN IV PUSH 12/22/16 00:30 12/23/16 08:38 (Mag-Al Plus Susp Liq) 30 ml Q6H PRN PO 12/22/16 16:00 Ondansetron HCl 4 mg 4 mg Q8H PRN IV PUSH 12/22/16 10:30 12/23/16 00:03 (NS 1000 ml Inj) 1,000 ml @ 0 mls/hr Q0M PRN IV 12/23/16 09:27 Heparin Sodium (Porcine) 8000 units 8,000 units UNSCH PRN IVF 12/23/16 09:30 Sodium Chloride 1,000 ml @ 200 mls/hr Q5H PRN IV 12/23/16 09:27 (NS 1000 ml Inj) 1,000 ml @ 0 mls/hr Q0M PRN IV 12/23/16 09:27 (Mannitol Inj) 12.5 gm UNSCH PRN IV 12/23/16 09:30 (Albumin 25% Inj) 25 gm UNSCH PRN IV 12/23/16 09:30 (NS Flush) 5 ml UNSCH PRN IV FLUSH 12/23/16 09:30 (Heparin Inj) UNSCH PRN .XX 12/23/16 09:30 (Gentamicin (Dialysis) Inj) 20 mg UNSCH PRN IV 12/23/16 09:30 (Zofran Inj) 4 mg UNSCH PRN IV 12/23/16 09:30 (Tylenol) 650 mg UNSCH PRN PO 12/23/16 09:30 (Benadryl) 25 mg UNSCH PRN PO 12/23/16 09:30 (Nitrostat Sl) 0.4 mg UNSCH PRN SL 12/23/16 09:30 (Catapres) 0.1 mg UNSCH PRN PO 12/23/16 09:30 (Gelfoam 12 Mm/7 Mm Top) 1 foam UNSCH PRN TOP 12/23/16 09:30 (Ultram) 50 mg Q4H PRN PO 12/23/16 10:15 UNV A/P Assessment and Plan Acute renal failure/ Severe Uremia Nephrology consult appreciated. Pt is becoming oliguric. Proteinuria noted on UA. Renal US unremarkable. Creatinine continues to get worse. - continue with IVFs. - avoid nephrotoxic agents. - further care per nephrology. Work-up in process. Dialysis to start 12/23/16. Abdominal pain Possibly secondary to constipation. CT of the abdomen was unremarkable. AST is elevated, lipase not elevated. - Start bowel regimen. - Maalox as needed. - Pain control with IV Dilaudid and Tramadol. - Trend LFTs. - Consult GI if persists. Hyperkalemia Resolved after calcium, Kayexalate and insulin. - continue to monitor. Hypertension Blood pressure fluctuates. - continue amlodipine. Lisinopril on hold due to kidney injury and hyperkalemia. - continue to monitor BP and adjust the regimen as needed. Would add hydralazine if blood pressure remains elevated. - Clonidine as needed. COPD Breathing at baseline. - continue Symbicort and Spiriva. - neb treatment as needed. Hypoglycemia Likely s/t decreased PO intake. - encourage PO intake. - follow glucose. DVT prophylaxis with heparin Discharge Planning Awaiting clinical improvement Vamsi Ferro DO Dec 23, 2016 10:30
[2016-12-23] MEDS: SENNOSIDES 8.6 MG TAB PO SCH (11:00)
[2016-12-23] MEDS ORDERED: POLYETHYLENE GLYCOL 17 GM PKG PO ONE (11:00)
[2016-12-23] MEDS ORDERED: IODIXANOL 320 MG/ML 50 ML VIAL (for RAD SPEC) ONE (11:00)
--- NOTE | 2016-12-23 11:14 | PD.RAD ---
Post Procedure Progress Note Pre Procedure Diagnosis: (1) Acute renal failure Post Procedure Diagnosis: (1) Acute renal failure Procedure Date: Dec 23, 2016 Supervising Radiologist: Manuel Estrada Anesthesia: Local Plan of Activity Patient to Unit: ROPU Patient Condition: Fair Additional Comments: Right IJ vascath placed without difficulty Catheter in good position OK for use See PACS Report for procedural detail/treatment Manuel Estrada MD Dec 23, 2016 11:14
[2016-12-23] MEDS ORDERED: SODIUM CHLORIDE 0.9% FLUSH 10 ML FLUSH IVF PRN (11:15)
[2016-12-23] MEDS ORDERED: HEPARIN SODIUM - IV 2,000 UNITS/2 ML VIAL IV FLUSH PRN (11:15)
[2016-12-23] MEDS: diphenhydrAMINE HCL 25 MG CAP PO PRN ×2 (13:27→22:21)
[2016-12-23] MEDS: GENTAMICIN SULFATE (DIALYSIS USE ONLY) 20 MG/2 ML VIAL IV PRN (13:36)
[2016-12-23] MEDS: HEPARIN SODIUM - IV 10,000 UNITS/10 ML VIAL PRN (13:37)
--- NOTE | 2016-12-23 14:21 | RADRPT ---
EXAM DATE/TIME: 12/23/2016 10:42 [place] COMPARISON: No previous studies available for comparison. INDICATIONS : Patient with acute renal failure in need of temporary dialysis catheter placement. MEDICAL HISTORY : Hypertension Hyperlipidemia CAD CVA/TIA COPD Anxiety Hepatitis C GERD History of diverticulosis SURGICAL HISTORY : partial colectomy and colostomy Hernia repair Colostomy reversal Cardiac catheterization in 2006 Dental extractions I&D of an abscess at the right elbow ENCOUNTER: Initial ACUITY: 1 day PAIN SCORE: 8/10 LOCATION: abdomenand back of legs FLUORO TIME: 3.3 minutes IMAGE SERIES: 1 CONTRAST: 3 cc Visipaque (iodixanol) ACCESS: Right internal jugular vein DEVICE(S): 1.) 14 Mongolian dual lumen 20 cm Schon catheter PROCEDURE : 1. Ultrasound guided venipuncture. 2. Fluoroscopic guidance. 3. Central line placement. The risks, benefits and alternatives to the procedure were explained and verbal and written consent w as obtained. The site was prepped in sterile fashion. Full sterile technique was used, including ca p, mask, sterile gloves and gown and a large sterile sheet. Hand hygiene and 2% chlorhexidine prep w as utilized per protocol for cutaneous antisepsis with appropriate dry time for site. The skin and subcutaneous tissues were infiltrated with local anesthetic solution. A suitable site a carolann the right internal jugular vein was selected with ultrasound and fluoroscopic guidance. A small incision was made. The vein was accessed under direct ultrasound visualization using the micropunct ure technique. The micropuncture wire could not be advanced into the central venous system. A small injection of contrast confirmed tortuosity of the distal jugular vein. The micropuncture set was exch anged for a 0.035 Glidewire wire. This was easily advanced into the superior vena cava. The tract was dilated. The catheter was advanced into position under direct fluoroscopic visualization. The cath eter was fixed in place with suture and a sterile dressing was applied. The patient tolerated the procedure well and there were no complications. CONCLUSION: Uncomplicated vas catheter hemodialysis catheter placement. Manuel Estrada MD on December 23, 2016 at 14:18 Board Certified Radiologist. This report was verified electronically.
[2016-12-23] MEDS: ALUMINUM/MAGNESIUM/SIMETH 30 ML CUP PO PRN ×2 (14:36→22:21)
[2016-12-23] MEDS: traMADol HCL 50 MG TAB PO PRN ×2 (14:36→20:39)
[2016-12-23] MEDS: DOCUSATE SODIUM 100 MG CAP PO SCH ×2 (14:36→20:38)
[2016-12-23 15:48] LABS: ANA SCREEN NEG (NEG)
[2016-12-24] VITALS (8 sets, daily range): BP systolic 134–175; BP diastolic 74–98; PULSE 66–106; RESP 16–20; TEMP 96–98.7; O2SAT 92–97
[2016-12-24] MEDS: diphenhydrAMINE HCL 25 MG CAP PO PRN ×2 (01:16→14:03)
[2016-12-24] MEDS: SODIUM BICARBONATE 8.4% INJ 75 MEQ in SODIUM CHLOR 0.45% 1000 ML INJ 1,000 ML IV SCH (01:17)
[2016-12-24] MEDS: HYDROmorphone HCL PF 1 MG/ML VIAL IV PUSH PRN ×5 (02:19→23:23)
[2016-12-24 03:51] LABS: KAPPA/LAMBDA FREE 1.34 (0.26-1.65)
[2016-12-24] MEDS: HEPARIN SODIUM - SQ 10,000 UNITS/ML VIAL SQ SCH ×3 (05:44→22:14)
[2016-12-24 07:20] LABS: HEMATOCRIT 38.6 % (39.0-51.0); MEAN CELL VOLUME 87.6 FL (80.0-100.0); MEAN CORPUSCULAR HEMOGLOBIN 29.6 PG (27.0-34.0); MEAN CORPUSCULAR HGB CONC 33.7 % (32.0-36.0); PLATELET COUNT 170 TH/MM3 (150-450); RED BLOOD COUNT 4.41 MIL/MM3 (4.50-5.90); RED CELL DISTRIBUTION WIDTH 15.1 % (11.6-17.2); REVIEW FLAG FINAL; WHITE BLOOD COUNT 8.2 TH/MM3 (4.0-11.0)
[2016-12-24 07:52] LABS: BICARBONATE 29.7 MEQ/L (21.0-32.0); INDIRECT BILIRUBIN 0.5 MG/DL (0.0-0.8); MAGNESIUM 2.1 MG/DL (1.5-2.5); POTASSIUM 5.6 MEQ/L (3.5-5.1); TOTAL BILIRUBIN ADULT 0.6 MG/DL (0.2-1.0)
[2016-12-24] MEDS: GENTAMICIN SULFATE (DIALYSIS USE ONLY) 20 MG/2 ML VIAL IV PRN (08:41)
[2016-12-24] MEDS: HEPARIN SODIUM - IV 10,000 UNITS/10 ML VIAL PRN (08:41)
[2016-12-24] MEDS: SENNOSIDES 8.6 MG TAB PO SCH (09:00)
--- NOTE | 2016-12-24 11:15 | HHI.NPPN ---
Subjective History of Present Illness The patient is a 56 yo [place] male with medical hx of HTN, COPD, CAD s/p cath in 2006, remote hx of HCV, TIA, and diverticulitis who presented to this facility today with 3 day h/o abdominal pain, nausea, and general complaint of not feeling well. Was seen in ED on 12/18 for COPD exacerbation. Has been seen within the past week by his PCP at [facility] for skin rash that he says is from bug bites. Has culture of bites taken and was given Cipro 500mg BID as well as a shot of Toradol and Decadron at their office. We were consulted for ARF. ED labs from 12/18 showed a normal SCr of 0.89, but when he arrived 12/20 SCr was 5.57 and worsened to 6.32 at consult. He was treated in ED for hyperkalemia. Reports he has had little UOP in the past few days. Denies any urological hx. Denies any NSAIDs by mouth. No recent vomiting or diarrhea. Denies any illcit drug use. Interval History Pt seen during 2nd HD today 1st HD 12/23 Tolerating well thus far. No improvement in UOP as per patient (Marlene Velazquez) Objective Data Data 12/23/16 12/24/16 19:00 07:00 Intake Total 874 ml 1734 ml Output Total 1090 ml Balance -216 ml 1734 ml Intake Oral 480 ml 960 ml IV Total 394 ml 774 ml Output Urine Total 90 ml Hemodialysis 1000 ml # Voids 2 4 # Bowel Movements 1 Vital Signs Date Time Temp Pulse Resp B/P Pulse Ox O2 Delivery O2 Flow Rate FiO2 12/24/16 04:00 96.0 78 18 163/93 94 12/24/16 02:59 18 12/24/16 00:00 97.3 78 18 157/97 93 12/23/16 23:52 19 12/23/16 21:00 81 12/23/16 20:45 21 12/23/16 20:00 97.7 83 18 163/96 94 12/23/16 17:00 97.3 104 18 156/91 90 12/23/16 14:57 97 (Marlene Velazquez) -: 12/24/16 0616 12/24/16 0616 Imaging Last Impressions Catheter Placement X-Ray 12/23/16 0000 Signed Impressions: Service Date/Time: Friday, December 23, 2016 10:42 - CONCLUSION: Uncomplicated vas catheter hemodialysis catheter placement. Manuel Estrada MD Renal Ultrasound 12/21/16 0000 Signed Impressions: Service Date/Time: Wednesday, December 21, 2016 08:35 - CONCLUSION: 1. No evidence for renal calculi or obstructive uropathy as questioned. 2. Very nonspecific trace perinephric fluid on the right. Bebo Smiley MD Abdomen/Pelvis CT 12/20/169 Signed Impressions: Service Date/Time: Tuesday, December 20, 2016 22:53 - CONCLUSION: No evidence of an acute abnormality. Sigmoid colon diverticulosis without diverticulitis and previous hernia repairs are again noted. Shorty Felder MD Chest X-Ray 12/20/161927 Signed Impressions: Service Date/Time: Tuesday, December 20, 2016 20:12 - CONCLUSION: 1. No acute findings. Stable scarring left lung base. Stefano Mansfield MD Medication Review Current Medications Medications (Trade) Dose Ordered Sig/Sylvie Route Start Time Stop Time Status Last Admin (NS 1000 ml Inj) 1,000 ml @ 100 mls/hr Q10H IV 12/20/16 23:04 12/21/16 15:28 (NS Flush) 2 ml UNSCH PRN IV FLUSH 12/20/16 23:15 (NS Flush) 2 ml BID IV FLUSH 12/21/16 09:00 12/23/16 20:38 (Narcan Inj) 0.4 mg UNSCH PRN IV 12/20/16 23:15 Miscellaneous Information FLU VACCINE OUT... UNSCH PRN .XX 12/21/16 02:30 (Heparin Inj) 5,000 units Q8HR SQ 12/21/16 06:00 12/24/16 05:44 (Xanax) 1 mg TID PRN PO 12/21/16 05:00 12/23/16 20:48 (Norvasc) 10 mg DAILY PO 12/21/16 09:00 12/23/16 08:33 (Ecotrin Ec) 81 mg DAILY PO 12/21/16 09:00 12/23/16 08:33 (Symbicort 160-4.5 Inh) 2 puff Q12HR INH 12/21/16 09:00 12/23/16 20:38 (Spiriva Inh) 18 mcg DAILY INH 12/21/16 09:00 12/23/16 08:34 Clonidine 0.1 mg 0.1 mg Q8H PRN PO 12/21/16 08:00 (Sodium Bicarbonate 8.4% Inj//2 NS 1000 ml Inj) 1,075 ml @ 100 mls/hr [id number] IV 12/21/16 17:45 12/23/16 23:30 (Dilaudid Pf Inj) 0.5 mg Q4H PRN IV PUSH 12/22/16 00:30 12/24/16 06:56 (Mag-Al Plus Susp Liq) 30 ml Q6H PRN PO 12/22/16 16:00 12/23/16 22:21 Ondansetron HCl 4 mg 4 mg Q8H PRN IV PUSH 12/22/16 10:30 12/23/16 00:03 (NS 1000 ml Inj) 1,000 ml @ 0 mls/hr Q0M PRN IV 12/23/16 09:27 12/24/16 08:40 Heparin Sodium (Porcine) 8000 units 8,000 units UNSCH PRN IVF 12/23/16 09:30 Sodium Chloride 1,000 ml @ 200 mls/hr Q5H PRN IV 12/23/16 09:27 (NS 1000 ml Inj) 1,000 ml @ 0 mls/hr Q0M PRN IV 12/23/16 09:27 (Mannitol Inj) 12.5 gm UNSCH PRN IV 12/23/16 09:30 (Albumin 25% Inj) 25 gm UNSCH PRN IV 12/23/16 09:30 (NS Flush) 5 ml UNSCH PRN IV FLUSH 12/23/16 09:30 (Heparin Inj) UNSCH PRN .XX 12/23/16 09:30 12/24/16 08:41 (Gentamicin (Dialysis) Inj) 20 mg UNSCH PRN IV 12/23/16 09:30 12/24/16 08:41 (Zofran Inj) 4 mg UNSCH PRN IV 12/23/16 09:30 (Tylenol) 650 mg UNSCH PRN PO 12/23/16 09:30 (Benadryl) 25 mg UNSCH PRN PO 12/23/16 09:30 12/24/16 01:16 (Nitrostat Sl) 0.4 mg UNSCH PRN SL 12/23/16 09:30 (Catapres) 0.1 mg UNSCH PRN PO 12/23/16 09:30 (Gelfoam 12 Mm/7 Mm Top) 1 foam UNSCH PRN TOP 12/23/16 09:30 (Colace) 100 mg BID PO 12/23/16 11:00 12/23/16 14:36 (Senokot) 17.2 mg DAILY PO 12/23/16 11:00 (Ultram) 50 mg BID PRN PO 12/23/16 10:24 12/23/16 20:39 (NS Flush) UNSCH PRN IVF 12/23/16 11:15 (Heparin Inj) UNSCH PRN IV FLUSH 12/23/16 11:15 (Marlene Velazquez) Physical Exam General Appearance: No Acute Distress, Comfortable (Marlene Velazquez) Eyes Eye Exam: Sclera White (Marlene Velazquez) Pulmonary Resp Exam: Clear Bilaterally, Breath Sounds Equal, No Distress (Marlene Velazquez) Cardiology CV Exam: Regular, Normal Sinus Rhythm (Marlene Velazquez) Gastrointestinal/Abdomen GI Exam: Soft, Non-Tender, No Hepatosplenomegaly (Marlene Velazquez) Integumentary Skin Exam: Warm, Dry Skin Remarks Multiple bug bites on skin (Marlene Velazquez) Extremeties Extremities Exam: No Edema (Marlene Velazquez) Neurologic Neuro Exam: Alert, Awake (Marlene Velazquez) Psychiatric Psych Exam: Appropriate Responses (Marlene Velazquez) Assessment/Plan Discussed Condition With: Patient Problem List: (1) Acute renal failure Plan: Etiology of acute renal insufficiency uncertain. Given the rapidity ATN is consideration although interstitial nephritis is on the differential as well. Patient does have a positive hepatitis C antibody but given the rapidity of renal dysfunction a glomerulonephritis related to hepatitis C is a lesser consideration presently---pending PCR Patient does have a slight elevation of his lambda light chain level and a slightly depressed kappa/lambda light chain ratio. SPEP and AZALEA are pending. Seen during 2nd HD today. Access working well. Tolerating sessions. Await final results of screening tests. Will continue on HD MWF for the present monitoring for signs of renal recovery. Low K+ diet ordered. Monitor PO4 for the present and consider binder if remains elevated >5.5 Medications should be adjusted for the patient's renal decline. Avoid nephrotoxic medications such as iodinated contrast and NSAIDs. Avoid gadolinium. (2) HTN (hypertension) Plan: ACEi held. Continue on Amlodipine Add Metoprolol 25mg BID (3) Hepatitis C Plan: Awake regular level. Check hepatitis C PCR. (4) MRSA (methicillin resistant staph aureus) culture positive Plan: As reported by GP office, skin lesions cultured as MRSA On contact precautions. Likely will need ID consultation BCx pending (Marlene Velazquez) Plan The exam, history, and the medical decision-making described in the above note were completed with the assistance of the PA-Bridgett. I reviewed and agree with the findings presented. I attest that I had a [id number] encounter with the patient on the same day, and personally performed and documented my assessment and findings in the medical record. (Aldair Shields MD) Marlene Velazquez Dec 24, 2016 11:15 Aldair Shields MD Dec 24, 2016 20:25
[2016-12-24] MEDS: traMADol HCL 50 MG TAB PO PRN (12:48)
[2016-12-24] MEDS: ASPIRIN EC 81 MG TABEC PO SCH (12:48)
[2016-12-24] MEDS: TIOTROPIUM BROMIDE 18 MCG INH INH SCH (12:51)
[2016-12-24] MEDS: BUDESONIDE-FORMOTEROL 160/4.5 MCG INHALER INH SCH ×2 (12:52→21:00)
[2016-12-24] MEDS: DOCUSATE SODIUM 100 MG CAP PO SCH ×2 (12:53→22:13)
[2016-12-24] MEDS: SODIUM CHLORIDE 0.9% FLUSH 10 ML FLUSH IV FLUSH SCH ×2 (14:04→22:14)
--- NOTE | 2016-12-24 16:23 | HHI.PR ---
Subjective Remarks The patient said that his dialysis session was longer today. He said he requested Benadryl for his itchy skin. He also requested pain medications. He also mentioned that he had increased shortness of breath. No other acute concerns. Discussed with nursing. Objective Vitals Vital Signs Date Time Temp Pulse Resp B/P Pulse Ox O2 Delivery O2 Flow Rate FiO2 12/24/16 12:00 97.5 98 18 149/92 97 12/24/16 04:00 96.0 78 18 163/93 94 12/24/16 02:59 18 12/24/16 00:00 97.3 78 18 157/97 93 12/23/16 23:52 19 12/23/16 21:00 81 12/23/16 20:45 21 12/23/16 20:00 97.7 83 18 163/96 94 12/23/16 17:00 97.3 104 18 156/91 90 I/O 12/23/16 12/23/16 12/23/16 12/24/16 12/24/16 12/24/16 07:00 15:00 23:00 07:00 15:00 23:00 Intake Total 788 ml 874 ml 1254 ml 480 ml Output Total 100 ml 1090 ml 1300 ml Balance 688 ml -216 ml 1254 ml 480 ml -1300 ml Intake Oral 480 ml 480 ml 480 ml IV Total 788 ml 394 ml 774 ml Output Urine Total 100 ml 90 ml Hemodialysis 1000 ml 1300 ml # Voids 2 2 2 # Bowel Movements 1 Result Diagram: 12/24/16 0616 12/24/16 0616 Imaging Last Impressions Catheter Placement X-Ray 12/23/16 0000 Signed Impressions: Service Date/Time: Friday, December 23, 2016 10:42 - CONCLUSION: Uncomplicated vas catheter hemodialysis catheter placement. Manuel Estrada MD Renal Ultrasound 12/21/16 0000 Signed Impressions: Service Date/Time: Wednesday, December 21, 2016 08:35 - CONCLUSION: 1. No evidence for renal calculi or obstructive uropathy as questioned. 2. Very nonspecific trace perinephric fluid on the right. Bebo Smiley MD Abdomen/Pelvis CT 12/20/16 2239 Signed Impressions: Service Date/Time: Tuesday, December 20, 2016 22:53 - CONCLUSION: No evidence of an acute abnormality. Sigmoid colon diverticulosis without diverticulitis and previous hernia repairs are again noted. Shorty Felder MD Chest X-Ray 12/20/161927 Signed Impressions: Service Date/Time: Tuesday, December 20, 2016 20:12 - CONCLUSION: 1. No acute findings. Stable scarring left lung base. Stefano Mansfield MD Objective Remarks GENERAL: This is a well-nourished, well-developed patient, in no apparent distress. SKIN: Lesions on arms. CARDIOVASCULAR: Regular rate and regular rhythm without murmurs, gallops, or rubs. RESPIRATORY: Moderate wheezing appreciated. GASTROINTESTINAL: Abdomen soft, mild diffuse tenderness, slightly distended. + bowel sounds. MUSCULOSKELETAL: Extremities without clubbing, cyanosis, or edema. NEURO: Alert & Oriented x4 to person, place, time, situation. Moves all ext x4. PSYCH: Mood and affect appropriate. Procedures none Medications and IVs Current Medications Medications (Trade) Dose Ordered Sig/Sylvie Route Start Time Stop Time Status Last Admin (NS Flush) 2 ml UNSCH PRN IV FLUSH 12/20/16 23:15 (NS Flush) 2 ml BID IV FLUSH 12/21/16 09:00 12/24/16 14:04 (Narcan Inj) 0.4 mg UNSCH PRN IV 12/20/16 23:15 Miscellaneous Information FLU VACCINE OUT... UNSCH PRN .XX 12/21/16 02:30 (Heparin Inj) 5,000 units Q8HR SQ 12/21/16 06:00 12/24/16 14:03 (Xanax) 1 mg TID PRN PO 12/21/16 05:00 12/23/16 20:48 (Norvasc) 10 mg DAILY PO 12/21/16 09:00 12/24/16 12:48 (Ecotrin Ec) 81 mg DAILY PO 12/21/16 09:00 12/24/16 12:48 (Symbicort 160-4.5 Inh) 2 puff Q12HR INH 12/21/16 09:00 12/24/16 12:52 (Spiriva Inh) 18 mcg DAILY INH 12/21/16 09:00 12/24/16 12:51 (Catapres) 0.1 mg Q8H PRN PO 12/21/16 08:00 (Dilaudid Pf Inj) 0.5 mg Q4H PRN IV PUSH 12/22/16 00:30 12/24/16 14:04 (Mag-Al Plus Susp Liq) 30 ml Q6H PRN PO 12/22/16 16:00 12/23/16 22:21 Ondansetron HCl 4 mg 4 mg Q8H PRN IV PUSH 12/22/16 10:30 12/23/16 00:03 (NS 1000 ml Inj) 1,000 ml @ 0 mls/hr Q0M PRN IV 12/23/16 09:27 12/24/16 08:40 Heparin Sodium (Porcine) 8000 units 8,000 units UNSCH PRN IVF 12/23/16 09:30 Sodium Chloride 1,000 ml @ 200 mls/hr Q5H PRN IV 12/23/16 09:27 (NS 1000 ml Inj) 1,000 ml @ 0 mls/hr Q0M PRN IV 12/23/16 09:27 (Mannitol Inj) 12.5 gm UNSCH PRN IV 12/23/16 09:30 (Albumin 25% Inj) 25 gm UNSCH PRN IV 12/23/16 09:30 (NS Flush) 5 ml UNSCH PRN IV FLUSH 12/23/16 09:30 (Heparin Inj) UNSCH PRN .XX 12/23/16 09:30 12/24/16 08:41 (Gentamicin (Dialysis) Inj) 20 mg UNSCH PRN IV 12/23/16 09:30 12/24/16 08:41 (Zofran Inj) 4 mg UNSCH PRN IV 12/23/16 09:30 (Tylenol) 650 mg UNSCH PRN PO 12/23/16 09:30 (Benadryl) 25 mg UNSCH PRN PO 12/23/16 09:30 12/24/16 14:03 (Nitrostat Sl) 0.4 mg UNSCH PRN SL 12/23/16 09:30 (Catapres) 0.1 mg UNSCH PRN PO 12/23/16 09:30 (Gelfoam 12 Mm/7 Mm Top) 1 foam UNSCH PRN TOP 12/23/16 09:30 (Colace) 100 mg BID PO 12/23/16 11:00 12/24/16 12:53 (Senokot) 17.2 mg DAILY PO 12/23/16 11:00 12/24/16 09:00 (Ultram) 50 mg BID PRN PO 12/23/16 10:24 12/24/16 12:48 (NS Flush) UNSCH PRN IVF 12/23/16 11:15 (Heparin Inj) UNSCH PRN IV FLUSH 12/23/16 11:15 (Lopressor) 25 mg Q12HR PO 12/24/16 21:00 A/P Assessment and Plan Acute renal failure/ Severe Uremia Nephrology consult appreciated. Pt is becoming oliguric. Proteinuria noted on UA. Renal US unremarkable. Creatinine continues to get worse. Dialysis started per nephrology. - dialysis per nephrology. - avoid nephrotoxic agents. Abdominal pain Possibly secondary to constipation. CT of the abdomen was unremarkable. AST is elevated, lipase not elevated. Seems improved. - Started bowel regimen. - Maalox as needed. - Pain control with IV Dilaudid and Tramadol. - Trend LFTs. - Consult GI if persists. Hyperkalemia Resolved after calcium, Kayexalate and insulin. - continue to monitor. - dialysis per nephrology. Hypertension Blood pressure fluctuates. - continue amlodipine. Lisinopril on hold due to kidney injury and hyperkalemia. Lopressor added. - continue to monitor BP and adjust the regimen as needed. Would add hydralazine if blood pressure remains elevated. - Clonidine as needed. COPD Breathing more labored. - continue Symbicort and Spiriva. - neb treatment as needed. - start prednisone. - CXR. Hypoglycemia Likely s/t decreased PO intake. - encourage PO intake. - follow glucose. DVT prophylaxis with heparin Discharge Planning Awaiting clinical improvement Vamsi Ferro DO Dec 24, 2016 16:23
--- NOTE | 2016-12-24 17:11 | RADRPT ---
EXAM DATE/TIME: 12/24/2016 16:44 [place] COMPARISON: CT PULMONARY ANGIOGRAM, October 03, 2016, 15:59. CHEST SINGLE AP, December 20, 2016, 20:12. INDICATIONS : Wheezing and shortness of breath. MEDICAL HISTORY : Hepatitis C. Hypertension. Chronic obstructive pulmonary disease. Emphysema. SURGICAL HISTORY : None. ENCOUNTER: Subsequent ACUITY: 1 week PAIN SCORE: 0/10 LOCATION: chest FINDINGS: There is a right internal jugular central line in place with the tip overlying the upper right atrium . The heart size is normal. There is increased density at the right base. The left lung is clear. The re is a persistent 1.8 cm dense mass seen in the left scapula. CONCLUSION: Right base atelectasis or consolidation. Shorty Rizzo MD on December 24, 2016 at 17:07 Board Certified Radiologist. This report was verified electronically.
[2016-12-24] MEDS: predniSONE 20 MG TAB PO SCH (19:29)
[2016-12-24] MEDS: CLINDAMYCIN 150 MG CAP PO SCH ×2 (19:29→22:14)
[2016-12-24] MEDS: LACTOBACILLUS ACIDOPHILUS TAB PO SCH (19:29)
[2016-12-24] MEDS: RESP: ALBUTEROL 2.5 MG/IPRATROPIUM 0.5 MG NEB (PRN) NEB (20:46)
[2016-12-24] MEDS: RESP: ALBUTEROL 2.5 MG/3 ML NEB (SCH) NEB (22:00)
[2016-12-24] MEDS: METOPROLOL TARTRATE 25 MG TAB PO SCH (22:13)
[2016-12-24] MEDS: AZITHROMYCIN INJ 500 MG in SODIUM CHLOR 0.9% 250 ML INJ 250 ML IV SCH (22:14)
[2016-12-24] MEDS: ALPRAZolam 1 MG TAB PO PRN (22:18)
[2016-12-25] VITALS (9 sets, daily range): BP systolic 118–158; BP diastolic 73–94; PULSE 70–82; RESP 18–20; TEMP 96.3–97.7; O2SAT 93–99
[2016-12-25] MEDS: diphenhydrAMINE HCL 25 MG CAP PO PRN (03:14)
[2016-12-25] MEDS: HYDROmorphone HCL PF 1 MG/ML VIAL IV PUSH PRN ×5 (03:14→21:11)
[2016-12-25] MEDS: RESP: ALBUTEROL 2.5 MG/3 ML NEB (SCH) NEB ×4 (03:32→20:07)
[2016-12-25 03:52] LABS: MYELOPEROXIDASE LESS THAN 1.0 AI (<1.0); PROTEINASE-3 LESS THAN 1.0 AI (<1.0)
[2016-12-25 04:08] LABS: BICARBONATE 30.7 MEQ/L (21.0-32.0); POTASSIUM 5.6 MEQ/L (3.5-5.1)
[2016-12-25] MEDS ORDERED: SODIUM POLYSTYRENE SULFONATE SUSP 15 GM/60 ML CUP PO ONE (04:45)
[2016-12-25] MEDS: CLINDAMYCIN 150 MG CAP PO SCH ×4 (05:03→23:49)
[2016-12-25] MEDS: HEPARIN SODIUM - SQ 10,000 UNITS/ML VIAL SQ SCH ×3 (05:03→21:11)
[2016-12-25] MEDS: traMADol HCL 50 MG TAB PO PRN ×2 (05:04→22:36)
[2016-12-25 06:34] LABS: HEMATOCRIT 36.8 % (39.0-51.0); MEAN CELL VOLUME 87.7 FL (80.0-100.0); MEAN CORPUSCULAR HEMOGLOBIN 29.4 PG (27.0-34.0); MEAN CORPUSCULAR HGB CONC 33.5 % (32.0-36.0); PLATELET COUNT 132 TH/MM3 (150-450); REVIEW FLAG FINAL; WHITE BLOOD COUNT 5.5 TH/MM3 (4.0-11.0)
[2016-12-25 06:57] LABS: BICARBONATE 26.4 MEQ/L (21.0-32.0); POTASSIUM 5.2 MEQ/L (3.5-5.1)
[2016-12-25] MEDS: SODIUM CHLORIDE 0.9% FLUSH 10 ML FLUSH IV FLUSH SCH ×2 (08:52→21:11)
[2016-12-25] MEDS: ASPIRIN EC 81 MG TABEC PO SCH (08:53)
[2016-12-25] MEDS: LACTOBACILLUS ACIDOPHILUS TAB PO SCH ×3 (08:53→17:43)
[2016-12-25] MEDS: predniSONE 20 MG TAB PO SCH (08:53)
[2016-12-25] MEDS: DOCUSATE SODIUM 100 MG CAP PO SCH ×2 (08:53→21:09)
[2016-12-25] MEDS: SENNOSIDES 8.6 MG TAB PO SCH (08:53)
[2016-12-25] MEDS: METOPROLOL TARTRATE 25 MG TAB PO SCH ×2 (08:57→21:10)
[2016-12-25] MEDS: TIOTROPIUM BROMIDE 18 MCG INH INH SCH (09:00)
[2016-12-25] MEDS: ALPRAZolam 1 MG TAB PO PRN ×2 (12:13→21:13)
--- NOTE | 2016-12-25 14:57 | HHI.PR ---
Subjective Remarks The patient says that his elbow lesions were better today. He still complains of some abdominal pain. He wanted increased pain medications. Discussed with nursing. Objective Vitals Vital Signs Date Time Temp Pulse Resp B/P Pulse Ox O2 Delivery O2 Flow Rate FiO2 12/25/16 12:00 97.7 76 20 118/73 94 12/25/16 09:17 94 Nasal Cannula 2.00 12/25/16 08:50 Nasal Cannula 2.00 12/25/16 08:00 97.6 70 20 145/84 99 12/25/16 04:00 96.5 79 18 139/79 94 12/25/16 03:32 96 Nasal Cannula 2.00 12/25/16 00:00 97.5 82 19 158/94 93 12/24/16 22:15 Nasal Cannula 2.50 93 12/24/16 22:14 Room Air 88 12/24/16 20:25 93 21 12/24/16 20:05 106 12/24/16 20:00 98.3 88 18 147/91 93 12/24/16 16:00 97.3 88 20 175/98 92 I/O 12/24/16 12/24/16 12/24/16 12/25/16 12/25/16 12/25/16 07:00 15:00 23:00 07:00 15:00 23:00 Intake Total 480 ml 480 ml 480 ml 960 ml Output Total 1500 ml 200 ml Balance 480 ml -1020 ml 280 ml 960 ml Intake Oral 480 ml 480 ml 480 ml 960 ml Output Urine Total 200 ml 200 ml Hemodialysis 1300 ml # Voids 2 5 1 # Bowel Movements 1 1 1 Result Diagram: 12/25/16 0538 12/25/16 0535 Imaging Last Impressions Chest X-Ray 12/24/16 0000 Signed Impressions: Service Date/Time: Saturday, December 24, 2016 16:44 - CONCLUSION: Right base atelectasis or consolidation. Shorty Rizzo MD Catheter Placement X-Ray 12/23/16 0000 Signed Impressions: Service Date/Time: Friday, December 23, 2016 10:42 - CONCLUSION: Uncomplicated vas catheter hemodialysis catheter placement. Manuel Estrada MD Renal Ultrasound 12/21/16 0000 Signed Impressions: Service Date/Time: Wednesday, December 21, 2016 08:35 - CONCLUSION: 1. No evidence for renal calculi or obstructive uropathy as questioned. 2. Very nonspecific trace perinephric fluid on the right. Bebo Smiley MD Abdomen/Pelvis CT 12/20/164 Signed Impressions: Service Date/Time: Tuesday, December 20, 2016 22:53 - CONCLUSION: No evidence of an acute abnormality. Sigmoid colon diverticulosis without diverticulitis and previous hernia repairs are again noted. Shorty Felder MD Objective Remarks GENERAL: This is a well-nourished, well-developed patient, in no apparent distress. SKIN: Lesions on arms. CARDIOVASCULAR: Regular rate and regular rhythm without murmurs, gallops, or rubs. RESPIRATORY: Moderate wheezing appreciated. GASTROINTESTINAL: Abdomen soft, mild diffuse tenderness which is improved, nondistended. + bowel sounds. MUSCULOSKELETAL: Extremities without clubbing, cyanosis, or edema. NEURO: Alert & Oriented x4 to person, place, time, situation. Moves all ext x4. PSYCH: Mood and affect appropriate. Procedures none Medications and IVs Current Medications Medications (Trade) Dose Ordered Sig/Sylvie Route Start Time Stop Time Status Last Admin (NS Flush) 2 ml UNSCH PRN IV FLUSH 12/20/16 23:15 (NS Flush) 2 ml BID IV FLUSH 12/21/16 09:00 12/25/16 08:52 (Narcan Inj) 0.4 mg UNSCH PRN IV 12/20/16 23:15 Miscellaneous Information FLU VACCINE OUT... UNSCH PRN .XX 12/21/16 02:30 (Heparin Inj) 5,000 units Q8HR SQ 12/21/16 06:00 12/25/16 13:16 (Xanax) 1 mg TID PRN PO 12/21/16 05:00 12/25/16 12:13 (Norvasc) 10 mg DAILY PO 12/21/16 09:00 12/25/16 08:53 (Ecotrin Ec) 81 mg DAILY PO 12/21/16 09:00 12/25/16 08:53 (Symbicort 160-4.5 Inh) 2 puff Q12HR INH 12/21/16 09:00 Hold 12/24/16 12:52 (Spiriva Inh) 18 mcg DAILY INH 12/21/16 09:00 12/24/16 12:51 (Catapres) 0.1 mg Q8H PRN PO 12/21/16 08:00 (Dilaudid Pf Inj) 0.5 mg Q4H PRN IV PUSH 12/22/16 00:30 12/25/16 13:15 (Mag-Al Plus Susp Liq) 30 ml Q6H PRN PO 12/22/16 16:00 12/23/16 22:21 Ondansetron HCl 4 mg 4 mg Q8H PRN IV PUSH 12/22/16 10:30 12/23/16 00:03 (NS 1000 ml Inj) 1,000 ml @ 0 mls/hr Q0M PRN IV 12/23/16 09:27 12/24/16 08:40 Heparin Sodium (Porcine) 8000 units 8,000 units UNSCH PRN IVF 12/23/16 09:30 Sodium Chloride 1,000 ml @ 200 mls/hr Q5H PRN IV 12/23/16 09:27 (NS 1000 ml Inj) 1,000 ml @ 0 mls/hr Q0M PRN IV 12/23/16 09:27 (Mannitol Inj) 12.5 gm UNSCH PRN IV 12/23/16 09:30 (Albumin 25% Inj) 25 gm UNSCH PRN IV 12/23/16 09:30 (NS Flush) 5 ml UNSCH PRN IV FLUSH 12/23/16 09:30 (Heparin Inj) UNSCH PRN .XX 12/23/16 09:30 12/24/16 08:41 (Gentamicin (Dialysis) Inj) 20 mg UNSCH PRN IV 12/23/16 09:30 12/24/16 08:41 (Zofran Inj) 4 mg UNSCH PRN IV 12/23/16 09:30 (Tylenol) 650 mg UNSCH PRN PO 12/23/16 09:30 (Benadryl) 25 mg UNSCH PRN PO 12/23/16 09:30 12/25/16 03:14 (Nitrostat Sl) 0.4 mg UNSCH PRN SL 12/23/16 09:30 (Catapres) 0.1 mg UNSCH PRN PO 12/23/16 09:30 (Gelfoam 12 Mm/7 Mm Top) 1 foam UNSCH PRN TOP 12/23/16 09:30 (Colace) 100 mg BID PO 12/23/16 11:00 12/25/16 08:53 (Senokot) 17.2 mg DAILY PO 12/23/16 11:00 12/25/16 08:53 (Ultram) 50 mg BID PRN PO 12/23/16 10:24 12/25/16 05:04 (NS Flush) UNSCH PRN IVF 12/23/16 11:15 (Heparin Inj) UNSCH PRN IV FLUSH 12/23/16 11:15 (Lopressor) 25 mg Q12HR PO 12/24/16 21:00 12/25/16 08:57 (Cleocin) 450 mg Q6HR PO 12/24/16 18:00 12/25/16 12:13 (Lactinex) 1 tab TID PO 12/24/16 18:00 12/25/16 12:13 Prednisone 40 mg 40 mg DAILY PO 12/24/16 16:30 12/25/16 08:53 (Zithromax Inj/ NS 250 ml Inj) 250 ml @ 250 mls/hr Q24H IV 12/24/16 21:30 12/24/16 22:14 A/P Assessment and Plan Acute renal failure/ Severe Uremia Nephrology consult appreciated. Pt is becoming oliguric. Proteinuria noted on UA. Renal US unremarkable. Creatinine continues to get worse. Dialysis started per nephrology. - dialysis per nephrology. - avoid nephrotoxic agents. Abdominal pain Possibly secondary to constipation. CT of the abdomen was unremarkable. AST is elevated, lipase not elevated. Seems improved. - Started bowel regimen. - Maalox as needed. - Pain control with IV Dilaudid and Tramadol. - Trend LFTs. - Consult GI in AM if continues. Hyperkalemia Resolved after calcium, Kayexalate and insulin. - continue to monitor. - dialysis per nephrology. - Kayexalate as needed. Hypertension Blood pressure fluctuates. Well controlled 12/25. - continue amlodipine. Lisinopril on hold due to kidney injury and hyperkalemia. Lopressor added. - continue to monitor BP and adjust the regimen as needed. Would add hydralazine if blood pressure remains elevated. - Clonidine as needed. COPD/ PNA Breathing stable. CXR with question of right base consolidation. - continue Symbicort and Spiriva. - neb treatment as needed. - start prednisone. - course of Azithromycin IV. Hypoglycemia Likely s/t decreased PO intake. - encourage PO intake. - follow glucose. DVT prophylaxis with heparin Discharge Planning Awaiting clinical improvement Vamsi Ferro DO Dec 25, 2016 14:57
--- NOTE | 2016-12-25 16:41 | HHI.NPPN ---
Subjective History of Present Illness The patient is a 56 yo [place] male with medical hx of HTN, COPD, CAD s/p cath in 2006, remote hx of HCV, TIA, and diverticulitis who presented to this facility today with 3 day h/o abdominal pain, nausea, and general complaint of not feeling well. Was seen in ED on 12/18 for COPD exacerbation. Has been seen within the past week by his PCP at [facility] for skin rash that he says is from bug bites. Has culture of bites taken and was given Cipro 500mg BID as well as a shot of Toradol and Decadron at their office. We were consulted for ARF. ED labs from 12/18 showed a normal SCr of 0.89, but when he arrived 12/20 SCr was 5.57 and worsened to 6.32 at consult. He was treated in ED for hyperkalemia. Reports he has had little UOP in the past few days. Denies any urological hx. Denies any NSAIDs by mouth. No recent vomiting or diarrhea. Denies any illcit drug use. Interval History Patient resting comfortably. No verbal complaints. Objective Data Data 12/24/16 12/25/16 19:00 07:00 Intake Total 480 ml 1440 ml Output Total 1500 ml 200 ml Balance -1020 ml 1240 ml Intake Oral 480 ml 1440 ml Output Urine Total 200 ml 200 ml Hemodialysis 1300 ml # Voids 5 # Bowel Movements 2 Vital Signs Date Time Temp Pulse Resp B/P Pulse Ox O2 Delivery O2 Flow Rate FiO2 12/25/16 12:00 97.7 76 20 118/73 94 12/25/16 09:17 94 Nasal Cannula 2.00 12/25/16 08:50 Nasal Cannula 2.00 12/25/16 08:00 97.6 70 20 145/84 99 12/25/16 04:00 96.5 79 18 139/79 94 12/25/16 03:32 96 Nasal Cannula 2.00 12/25/16 00:00 97.5 82 19 158/94 93 12/24/16 22:15 Nasal Cannula 2.50 93 12/24/16 22:14 Room Air 88 12/24/16 20:25 93 21 12/24/16 20:05 106 12/24/16 20:00 98.3 88 18 147/91 93 -: 12/25/16 0538 12/25/16 0535 Microbiology 12/24/16 Gram Stain - Final, Resulted 12/24/16 Wound Culture, Resulted Pending Tubes & Lines: Vas-Cath Medication Review Current Medications Sodium Chloride 1,000 ml @ 1,000 mls/hr Q1H ONCE IV Last administered on 20:40; Start 12/20/16 at 19:28; Stop 12/21/16 at 17:47; Status DC Calcium Gluconate/ Sodium Chloride (Calcium Gluconate Inj/NS Inj) 120 ml @ 120 mls/hr ONCE ONCE IV Last administered on 12/21/16 00:05; Start 12/20/16 at 23 :00; Stop 12/20/16 at 23:59; Status DC Dextrose (D50w (Vial) Inj) 50 ml ONCE ONCE IV PUSH Last administered on 00:04; Start 12/20/16 at 23:00; Stop 12/20/16 at 23:01; Status DC Insulin Human Regular 4 units 4 units ONCE ONCE IV PUSH Last administered on 00:56; Start 12/20/16 at 23:00; Stop 12/20/16 at 23:01; Status DC Sodium Chloride (NS 1000 ml Inj) 1,000 ml @ 100 mls/hr Q10H IV Last administered on 12/21/16 15:28; Start 12/20/16 at 23:04; Stop 12/24/16 at 11:15 ; Status DC Sodium Chloride (NS Flush) 2 ml UNSCH PRN IV FLUSH FLUSH AFTER USING IV ACCESS ; Start 12/20/16 at 23:15 Sodium Chloride (NS Flush) 2 ml BID IV FLUSH Last administered on 12/25/16 08: 52; Start 12/21/16 at 09:00 Naloxone HCl (Narcan Inj) 0.4 mg UNSCH PRN IV SEE LABEL COMMENTS; Start at 23:15 Sodium Polystyrene Sulfonate (Kayexalate Liq) 30 gm ONCE ONCE PO Last administered on 12/21/16 00:36; Start 12/20/16 at 23:15; Stop 12/20/16 at 23:16 ; Status DC Hydromorphone HCl (Dilaudid Pf Inj) 0.2 mg Q4H PRN IV PUSH pain >5 Last administered on 12/21/16 19:25; Start 12/21/16 at 00:30; Stop 12/21/16 at 22:55 ; Status DC Pneumococcal Polyvalent Vaccine (Pneumovax-23 Inj) 25 mcg ONCE ONCE IM ; Start 12/22/16 at 10:00; Stop 12/22/16 at 10:01; Status DC Miscellaneous Information FLU VACCINE OUT... UNSCH PRN .XX FLU SEASON OVER; Start 12/21/16 at 02:30 Heparin Sodium (Porcine) (Heparin Inj) 5,000 units Q8HR SQ Last administered on 12/25/16 13:16; Start 12/21/16 at 06:00 Alprazolam (Xanax) 1 mg TID PRN PO ANXIETY Last administered on 12/25/16 12:13 ; Start 12/21/16 at 05:00 Amlodipine Besylate (Norvasc) 10 mg DAILY PO Last administered on 12/25/16 08: 53; Start 12/21/16 at 09:00 Aspirin (Ecotrin Ec) 81 mg DAILY PO Last administered on 12/25/16 08:53; Start 12/21/16 at 09:00 Budesonide/ Formoterol Fumarate (Symbicort 160-4.5 Inh) 2 puff Q12HR INH Last administered on 12/24/16 12:52; Start 12/21/16 at 09:00; Status Hold Tiotropium Galvin (Spiriva Inh) 18 mcg DAILY INH Last administered on 12:51; Start 12/21/16 at 09:00 Albuterol/ Ipratropium (Duoneb Neb) 1 ampule Q4HR NEB PRN NEB wheezing Last administered on 12/24/16 20:46; Start 12/21/16 at 05:00 Clonidine 0.1 mg 0.1 mg Q8H PRN PO SBP> OR = 180, DBP> OR = 100; Start at 08:00 Sodium Bicarbonate/ Sodium Chloride (Sodium Bicarbonate 8.4% Inj/1/2 NS 1000 ml Inj) 1,075 ml @ 100 mls/hr [id number] IV Last administered on 12/23/16 23:30; Start 12/21/16 at 17:45; Stop 12/24/16 at 11:15; Status DC Hydromorphone HCl (Dilaudid Pf Inj) 0.5 mg Q4H PRN IV PUSH Breakthrough pain Last administered on 12/25/16 13:15; Start 12/22/16 at 00:30 Clonidine (Catapres) 0.1 mg Q12HR PO ; Start 12/22/16 at 09:45; Stop 12/22/16 at 10:04; Status DC Al Hydrox/Mg Hydrox/Simethicone (Mag-Al Plus Susp Liq) 30 ml ONCE ONCE PO Last administered on 12/22/16 10:55; Start 12/22/16 at 10:00; Stop 12/22/16 at 10:01; Status DC Al Hydrox/Mg Hydrox/Simethicone (Mag-Al Plus Susp Liq) 30 ml Q6H PRN PO abdominal pain Last administered on 12/23/16 22:21; Start 12/22/16 at 16:00 Ondansetron HCl 4 mg 4 mg Q8H PRN IV PUSH NAUSEA Last administered on 00:03; Start 12/22/16 at 10:30 Sodium Chloride (NS 1000 ml Inj) 1,000 ml @ 0 mls/hr Q0M PRN IV For Prime & Rinse Back Last administered on 12/24/16 08:40; Start 12/23/16 at 09:27 Heparin Sodium (Porcine) 8000 units 8,000 units UNSCH PRN IVF WITH DIALYSIS; Start 12/23/16 at 09:30 Sodium Chloride 1,000 ml @ 200 mls/hr Q5H PRN IV WITH DIALYSIS; Start 12/23/16 at 09:27 Sodium Chloride (NS 1000 ml Inj) 1,000 ml @ 0 mls/hr Q0M PRN IV WITH DIALYSIS; Start 12/23/16 at 09:27 Mannitol (Mannitol Inj) 12.5 gm UNSCH PRN IV WITH DIALYSIS; Start 12/23/16 at 09:30 Albumin Human (Albumin 25% Inj) 25 gm UNSCH PRN IV WITH DIALYSIS; Start at 09:30 Sodium Chloride (NS Flush) 5 ml UNSCH PRN IV FLUSH WITH DIALYSIS; Start at 09:30 Heparin Sodium (Porcine) (Heparin Inj) UNSCH PRN .XX WITH DIALYSIS Last administered on 12/24/16 08:41; Start 12/23/16 at 09:30 Gentamicin Sulfate (Gentamicin (Dialysis) Inj) 20 mg UNSCH PRN IV WITH DIALYSIS Last administered on 12/24/16 08:41; Start 12/23/16 at 09:30 Ondansetron HCl (Zofran Inj) 4 mg UNSCH PRN IV WITH DIALYSIS; Start 12/23/16 at 09:30 Acetaminophen (Tylenol) 650 mg UNSCH PRN PO for headach, pain, temp > 101F; Start 12/23/16 at 09:30 Diphenhydramine HCl (Benadryl) 25 mg UNSCH PRN PO for hives/itching/ anaphylaxis Last administered on 12/25/16 03:14; Start 12/23/16 at 09:30 Nitroglycerin (Nitrostat Sl) 0.4 mg UNSCH PRN SL CHEST PAIN; Start 12/23/16 at 09:30 Clonidine (Catapres) 0.1 mg UNSCH PRN PO for BP > 180/100 X 2 readings; Start 12/23/16 at 09:30 Gelatin (Gelfoam 12 Mm/7 Mm Top) 1 foam UNSCH PRN TOP SEE LABEL COMMENTS; Start 12/23/16 at 09:30 Tramadol HCl (Ultram) 50 mg Q4H PRN PO pain 3-10; Start 12/23/16 at 10:15; Stop 12/23/16 at 10:25; Status DC Docusate Sodium (Colace) 100 mg BID PO Last administered on 12/25/16 08:53; Start 12/23/16 at 11:00 Sennosides (Senokot) 17.2 mg DAILY PO Last administered on 12/25/16 08:53; Start 12/23/16 at 11:00 Polyethylene Glycol (Miralax) 17 gm ONCE ONCE PO Last administered on 14:36; Start 12/23/16 at 11:00; Stop 12/23/16 at 11:01; Status DC Tramadol HCl (Ultram) 50 mg BID PRN PO pain 3-10 Last administered on 05:04; Start 12/23/16 at 10:24 Heparin Sodium (Porcine) (*HEPARIN INJ Periprocedural ONLY) 10,000 units STK- MED ONCE .ROUTE ; Start 12/23/16 at 10:50; Stop 12/23/16 at 10:51; Status DC Sodium Chloride (NS Flush) UNSCH PRN IVF SEE PROTOCOL; Start 12/23/16 at 11:15 Heparin Sodium (Porcine) (Heparin Inj) UNSCH PRN IV FLUSH SEE PROTOCOL; Start 12/23/16 at 11:15 Iodixanol (VISIPAQUE 320 INJ (Rad Spec)) 3 ml STK-MED ONCE .XX Last administered on 12/23/16 11:00; Start 12/23/16 at 11:00; Stop 12/23/16 at 11:22 ; Status DC Metoprolol Tartrate (Lopressor) 25 mg Q12HR PO Last administered on 12/25/16 08:57; Start 12/24/16 at 21:00 Clindamycin HCl (Cleocin) 450 mg Q6HR PO Last administered on 12/25/16 12:13; Start 12/24/16 at 18:00 Lactobacillus Acidophilus (Lactinex) 1 tab TID PO Last administered on 12:13; Start 12/24/16 at 18:00 Prednisone 40 mg 40 mg DAILY PO Last administered on 12/25/16 08:53; Start at 16:30 Azithromycin/ Sodium Chloride (Zithromax Inj/ NS 250 ml Inj) 250 ml @ 250 mls/ hr Q24H IV Last administered on 12/24/16 22:14; Start 12/24/16 at 21:30 Albuterol Sulfate (Albuterol Neb) 2.5 mg Q6HR NEB NEB Last administered on 15:37; Start 12/24/16 at 22:00 Sodium Polystyrene Sulfonate (Kayexalate Liq) 30 gm ONCE ONCE PO Last administered on 12/25/16 05:03; Start 12/25/16 at 04:45; Stop 12/25/16 at 04:54 ; Status DC Physical Exam General Appearance: No Acute Distress, Comfortable Eyes Eye Exam: Sclera White Pulmonary Resp Exam: Clear Bilaterally, Breath Sounds Equal, No Distress Cardiology CV Exam: Regular, Normal Sinus Rhythm Gastrointestinal/Abdomen GI Exam: Soft, Non-Tender, No Hepatosplenomegaly Integumentary Skin Exam: Warm, Dry Extremeties Extremities Exam: No Edema Neurologic Neuro Exam: Alert, Awake Psychiatric Psych Exam: Appropriate Responses Assessment/Plan Discussed Condition With: Patient Assessment Summary: OLLIE/Acute Renal Failure Problem List: (1) Acute renal failure Plan: Etiology of acute renal insufficiency uncertain. Given the rapidity ATN is consideration although interstitial nephritis is on the differential as well. Patient does have a positive hepatitis C antibody but given the rapidity of renal dysfunction a glomerulonephritis related to hepatitis C is a lesser consideration presently---pending PCR Patient does have a slight elevation of his lambda light chain level and a slightly depressed kappa/lambda light chain ratio. SPEP and AZALEA are pending. We'll continue to monitor renal indices with possibility of hemodialysis tomorrow or Monday depending upon laboratory results. If no improvement of significance occurs we'll consider a kidney biopsy possibly Monday or Monday. It is noted patient is on aspirin. This will have to be held if a kidney biopsy is being considered, if okay with primary M.D. Medications should be adjusted for the patient's renal decline. Avoid nephrotoxic medications such as iodinated contrast and NSAIDs. Avoid gadolinium. (2) HTN (hypertension) Plan: ACEi held. Continue on Amlodipine Add Metoprolol 25mg BID (3) Hepatitis C Plan: Awake regular level. Check hepatitis C PCR. (4) MRSA (methicillin resistant staph aureus) culture positive Plan: As reported by GP office, skin lesions cultured as MRSA On contact precautions. Likely will need ID consultation BCx pending Aldair Shields MD Dec 25, 2016 16:41
[2016-12-25] MEDS: PANTOPRAZOLE SOD 40 MG DELAYED RELEASE TAB PO SCH (17:43)
[2016-12-25 19:50] LABS: HCV RNA PCR LOGIU/ML 6.11 (())
[2016-12-25] MEDS: AZITHROMYCIN INJ 500 MG in SODIUM CHLOR 0.9% 250 ML INJ 250 ML IV SCH (21:09)
[2016-12-25] MEDS: ALUMINUM/MAGNESIUM/SIMETH 30 ML CUP PO PRN (22:36)
[2016-12-26] VITALS (9 sets, daily range): BP systolic 124–153; BP diastolic 66–87; PULSE 72–85; RESP 16–18; TEMP 96.2–98.9; O2SAT 92–97
[2016-12-26] MEDS: HYDROmorphone HCL PF 1 MG/ML VIAL IV PUSH PRN ×5 (00:51→22:39)
[2016-12-26] MEDS: RESP: ALBUTEROL 2.5 MG/3 ML NEB (SCH) NEB ×4 (03:02→21:54)
[2016-12-26] MEDS: CLINDAMYCIN 150 MG CAP PO SCH ×3 (04:55→17:59)
[2016-12-26] MEDS: HEPARIN SODIUM - SQ 10,000 UNITS/ML VIAL SQ SCH ×3 (04:58→20:32)
[2016-12-26 08:26] LABS: BICARBONATE 27.7 MEQ/L (21.0-32.0); MAGNESIUM 2.4 MG/DL (1.5-2.5)
[2016-12-26 08:28] LABS: POTASSIUM 5.2 MEQ/L (3.5-5.1)
[2016-12-26] MEDS: LACTOBACILLUS ACIDOPHILUS TAB PO SCH ×3 (08:28→17:58)
[2016-12-26] MEDS: METOPROLOL TARTRATE 25 MG TAB PO SCH ×2 (08:28→20:37)
[2016-12-26] MEDS: PANTOPRAZOLE SOD 40 MG DELAYED RELEASE TAB PO SCH (08:29)
[2016-12-26] MEDS: SENNOSIDES 8.6 MG TAB PO SCH (08:29)
[2016-12-26] MEDS: predniSONE 20 MG TAB PO SCH (08:30)
[2016-12-26] MEDS: DOCUSATE SODIUM 100 MG CAP PO SCH ×2 (08:30→20:37)
[2016-12-26] MEDS: TIOTROPIUM BROMIDE 18 MCG INH INH SCH (08:35)
[2016-12-26] MEDS: SODIUM CHLORIDE 0.9% FLUSH 10 ML FLUSH IV FLUSH SCH ×2 (08:35→20:40)
[2016-12-26] MEDS ORDERED: SODIUM CHLOR 0.9% 1000 ML INJ 1,000 ML IV PRN ×3 (10:44)
--- NOTE | 2016-12-26 10:44 | HHI.NPPN ---
Subjective History of Present Illness The patient is a 56 yo [place] male with medical hx of HTN, COPD, CAD s/p cath in 2006, remote hx of HCV, TIA, and diverticulitis who presented to this facility today with 3 day h/o abdominal pain, nausea, and general complaint of not feeling well. Was seen in ED on 12/18 for COPD exacerbation. Has been seen within the past week by his PCP at [facility] for skin rash that he says is from bug bites. Has culture of bites taken and was given Cipro 500mg BID as well as a shot of Toradol and Decadron at their office. We were consulted for ARF. ED labs from 12/18 showed a normal SCr of 0.89, but when he arrived 12/20 SCr was 5.57 and worsened to 6.32 at consult. He was treated in ED for hyperkalemia. Reports he has had little UOP in the past few days. Denies any urological hx. Denies any NSAIDs by mouth. No recent vomiting or diarrhea. Denies any illcit drug use. Interval History No new complaints today Objective Data Data 12/25/16 12/26/16 19:00 07:00 Intake Total 1560 ml 480 ml Output Total 200 ml Balance 1560 ml 280 ml Intake Oral 1560 ml 480 ml Output Urine Total 200 ml # Voids 5 # Bowel Movements 3 1 Vital Signs Date Time Temp Pulse Resp B/P Pulse Ox O2 Delivery O2 Flow Rate FiO2 12/26/16 10:26 95 12/26/16 09:26 96 Nasal Cannula 2.00 12/26/16 08:35 Room Air 12/26/16 08:00 78 18 153/87 92 12/26/16 07:41 85 12/26/16 04:00 96.8 80 18 124/78 95 12/26/16 00:00 97.2 80 18 129/77 96 12/25/16 20:08 96 Nasal Cannula 2.00 12/25/16 20:03 80 12/25/16 20:00 96.3 76 18 145/80 93 12/25/16 12:00 97.7 76 20 118/73 94 -: 12/25/16 0538 12/26/16 0650 Imaging Last Impressions Chest X-Ray 12/24/16 0000 Signed Impressions: Service Date/Time: Saturday, December 24, 2016 16:44 - CONCLUSION: Right base atelectasis or consolidation. Shorty Rizzo MD Catheter Placement X-Ray 12/23/16 0000 Signed Impressions: Service Date/Time: Friday, December 23, 2016 10:42 - CONCLUSION: Uncomplicated vas catheter hemodialysis catheter placement. Manuel Estrada MD Renal Ultrasound 12/21/16 0000 Signed Impressions: Service Date/Time: Wednesday, December 21, 2016 08:35 - CONCLUSION: 1. No evidence for renal calculi or obstructive uropathy as questioned. 2. Very nonspecific trace perinephric fluid on the right. Bebo Smiley MD Abdomen/Pelvis CT 12/20/169 Signed Impressions: Service Date/Time: Tuesday, December 20, 2016 22:53 - CONCLUSION: No evidence of an acute abnormality. Sigmoid colon diverticulosis without diverticulitis and previous hernia repairs are again noted. Shorty Felder MD Tubes & Lines: Vas-Cath Medication Review Current Medications Medications (Trade) Dose Ordered Sig/Sylvie Route Start Time Stop Time Status Last Admin (NS Flush) 2 ml UNSCH PRN IV FLUSH 12/20/16 23:15 (NS Flush) 2 ml BID IV FLUSH 12/21/16 09:00 12/26/16 08:35 (Narcan Inj) 0.4 mg UNSCH PRN IV 12/20/16 23:15 Miscellaneous Information FLU VACCINE OUT... UNSCH PRN .XX 12/21/16 02:30 (Heparin Inj) 5,000 units Q8HR SQ 12/21/16 06:00 12/26/16 04:58 (Xanax) 1 mg TID PRN PO 12/21/16 05:00 12/25/16 21:13 (Norvasc) 10 mg DAILY PO 12/21/16 09:00 12/26/16 08:29 (Ecotrin Ec) 81 mg DAILY PO 12/21/16 09:00 Hold 12/25/16 08:53 (Symbicort 160-4.5 Inh) 2 puff Q12HR INH 12/21/16 09:00 Hold 12/24/16 12:52 (Spiriva Inh) 18 mcg DAILY INH 12/21/16 09:00 12/24/16 12:51 (Catapres) 0.1 mg Q8H PRN PO 12/21/16 08:00 (Dilaudid Pf Inj) 0.5 mg Q4H PRN IV PUSH 12/22/16 00:30 12/26/16 09:04 (Mag-Al Plus Susp Liq) 30 ml Q6H PRN PO 12/22/16 16:00 12/25/16 22:36 Ondansetron HCl 4 mg 4 mg Q8H PRN IV PUSH 12/22/16 10:30 12/23/16 00:03 (NS 1000 ml Inj) 1,000 ml @ 0 mls/hr Q0M PRN IV 12/23/16 09:27 12/24/16 08:40 Heparin Sodium (Porcine) 8000 units 8,000 units UNSCH PRN IVF 12/23/16 09:30 Sodium Chloride 1,000 ml @ 200 mls/hr Q5H PRN IV 12/23/16 09:27 (NS 1000 ml Inj) 1,000 ml @ 0 mls/hr Q0M PRN IV 12/23/16 09:27 (Mannitol Inj) 12.5 gm UNSCH PRN IV 12/23/16 09:30 (Albumin 25% Inj) 25 gm UNSCH PRN IV 12/23/16 09:30 (NS Flush) 5 ml UNSCH PRN IV FLUSH 12/23/16 09:30 (Heparin Inj) UNSCH PRN .XX 12/23/16 09:30 12/24/16 08:41 (Gentamicin (Dialysis) Inj) 20 mg UNSCH PRN IV 12/23/16 09:30 12/24/16 08:41 (Zofran Inj) 4 mg UNSCH PRN IV 12/23/16 09:30 (Tylenol) 650 mg UNSCH PRN PO 12/23/16 09:30 (Benadryl) 25 mg UNSCH PRN PO 12/23/16 09:30 12/25/16 03:14 (Nitrostat Sl) 0.4 mg UNSCH PRN SL 12/23/16 09:30 (Catapres) 0.1 mg UNSCH PRN PO 12/23/16 09:30 (Gelfoam 12 Mm/7 Mm Top) 1 foam UNSCH PRN TOP 12/23/16 09:30 (Colace) 100 mg BID PO 12/23/16 11:00 12/26/16 08:30 (Senokot) 17.2 mg DAILY PO 12/23/16 11:00 12/26/16 08:29 (Ultram) 50 mg BID PRN PO 12/23/16 10:24 12/25/16 22:36 (NS Flush) UNSCH PRN IVF 12/23/16 11:15 (Heparin Inj) UNSCH PRN IV FLUSH 12/23/16 11:15 (Lopressor) 25 mg Q12HR PO 12/24/16 21:00 12/26/16 08:28 (Cleocin) 450 mg Q6HR PO 12/24/16 18:00 12/26/16 04:55 (Lactinex) 1 tab TID PO 12/24/16 18:00 12/26/16 08:28 Prednisone 40 mg 40 mg DAILY PO 12/24/16 16:30 12/26/16 08:30 (Zithromax Inj/ NS 250 ml Inj) 250 ml @ 250 mls/hr Q24H IV 12/24/16 21:30 12/25/16 21:09 (Protonix) 40 mg DAILY PO 12/25/16 17:00 12/26/16 08:29 Physical Exam General Appearance: No Acute Distress, Comfortable Eyes Eye Exam: Sclera White Pulmonary Resp Exam: Clear Bilaterally, Breath Sounds Equal, No Distress Cardiology CV Exam: Regular, Normal Sinus Rhythm Gastrointestinal/Abdomen GI Exam: Soft, Non-Tender, No Hepatosplenomegaly Integumentary Skin Exam: Warm, Dry Skin Remarks Multiple bug bites on skin Extremeties Extremities Exam: No Edema Neurologic Neuro Exam: Alert, Awake Psychiatric Psych Exam: Appropriate Responses Assessment/Plan Discussed Condition With: Patient Assessment Summary: OLLIE/Acute Renal Failure Problem List: (1) Acute renal failure Plan: Etiology of acute renal insufficiency uncertain. Given the rapidity ATN is consideration although interstitial nephritis is on the differential as well. 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 Continue to hold ASA He has been counselled about the risks and benefits of proceeding with bx including bleeding, infection, hematoma, AV fistula, and . Discussed with CT radiology as said as he was only on 81mg ASA, this only need to be held day of procedure. Will plan for bx tomorrow. Nephropath form placed in patient's paper chart on floor. Medications should be adjusted for the patient's renal decline. Avoid nephrotoxic medications such as iodinated contrast and NSAIDs. Avoid gadolinium. (2) HTN (hypertension) Plan: ACEi held. Continue on Amlodipine Continue Metoprolol 25mg BID (3) Hepatitis C Plan: HCV PCR positive. Likely needs GI consultation, but will defer to primary team (4) MRSA (methicillin resistant staph aureus) culture positive Plan: As reported by GP office, skin lesions cultured as MRSA On contact precautions. Likely will need ID consultation BCx pending Marlene Velazquez Dec 26, 2016 10:44
[2016-12-26] MEDS ORDERED: ALBUMIN HUMAN 25% 25 GM/100 ML BAGP IV PRN (10:45)
[2016-12-26] MEDS ORDERED: cloNIDine HCL 0.1 MG TAB PO PRN (10:45)
[2016-12-26] MEDS ORDERED: MANNITOL 12.5 GM/50 ML VIAL IV PRN (10:45)
[2016-12-26] MEDS ORDERED: GELATIN 12 MM/7 MM FOAM TOP PRN (10:45)
[2016-12-26] MEDS ORDERED: NITROGLYCERIN 0.4 MG SL 25 TABS/BTL SL PRN (10:45)
[2016-12-26] MEDS ORDERED: SODIUM CHLORIDE 0.9% FLUSH 10 ML FLUSH IV FLUSH PRN (10:45)
[2016-12-26] MEDS ORDERED: ONDANSETRON HCL 4 MG/2 ML VIAL IV PRN (10:45)
[2016-12-26] MEDS ORDERED: HEPARIN SODIUM - IV 10,000 UNITS/10 ML VIAL IVF PRN (10:45)
--- NOTE | 2016-12-26 11:44 | HHI.PR ---
Subjective Remarks The patient continued to complain of abdominal pain. He states that he had stomach surgery in the past. He was still requiring Dilaudid. He says his breathing is ok. He says the lesions on his arms better. Discussed with nursing. Objective Vitals Vital Signs Date Time Temp Pulse Resp B/P Pulse Ox O2 Delivery O2 Flow Rate FiO2 12/26/16 10:26 95 12/26/16 09:26 96 Nasal Cannula 2.00 12/26/16 08:35 Room Air 12/26/16 08:00 78 18 153/87 92 12/26/16 07:41 85 12/26/16 04:00 96.8 80 18 124/78 95 12/26/16 00:00 97.2 80 18 129/77 96 12/25/16 20:08 96 Nasal Cannula 2.00 12/25/16 20:03 80 12/25/16 20:00 96.3 76 18 145/80 93 12/25/16 12:00 97.7 76 20 118/73 94 I/O 12/25/16 12/25/16 12/25/16 12/26/16 12/26/16 12/26/16 07:00 15:00 23:00 07:00 15:00 23:00 Intake Total 960 ml 1560 ml 480 ml Output Total 200 ml Balance 960 ml 1560 ml 480 ml -200 ml Intake Oral 960 ml 1560 ml 480 ml Output Urine Total 200 ml # Voids 5 5 # Bowel Movements 1 3 1 Result Diagram: 12/25/16 0538 12/26/16 0650 Imaging Last Impressions Chest X-Ray 12/24/16 0000 Signed Impressions: Service Date/Time: Saturday, December 24, 2016 16:44 - CONCLUSION: Right base atelectasis or consolidation. Shorty Rizzo MD Catheter Placement X-Ray 12/23/16 0000 Signed Impressions: Service Date/Time: Friday, December 23, 2016 10:42 - CONCLUSION: Uncomplicated vas catheter hemodialysis catheter placement. Manuel Estrada MD Renal Ultrasound 12/21/16 0000 Signed Impressions: Service Date/Time: Wednesday, December 21, 2016 08:35 - CONCLUSION: 1. No evidence for renal calculi or obstructive uropathy as questioned. 2. Very nonspecific trace perinephric fluid on the right. Bebo Smiley MD Abdomen/Pelvis CT 12/20/16 4259 Signed Impressions: Service Date/Time: Tuesday, December 20, 2016 22:53 - CONCLUSION: No evidence of an acute abnormality. Sigmoid colon diverticulosis without diverticulitis and previous hernia repairs are again noted. Shorty Felder MD Objective Remarks GENERAL: This is a well-nourished, well-developed patient, in no apparent distress. SKIN: Lesions on arms, improving. CARDIOVASCULAR: Regular rate and regular rhythm without murmurs, gallops, or rubs. RESPIRATORY: Mild wheezing appreciated, crackles at the bases. GASTROINTESTINAL: Abdomen soft, mild diffuse tenderness which is improved, nondistended. + bowel sounds. MUSCULOSKELETAL: Extremities without clubbing, cyanosis, or edema. NEURO: Alert & Oriented x4 to person, place, time, situation. Moves all ext x4. PSYCH: Mood and affect appropriate. Procedures none Medications and IVs Current Medications Medications (Trade) Dose Ordered Sig/Sylvie Route Start Time Stop Time Status Last Admin (NS Flush) 2 ml UNSCH PRN IV FLUSH 12/20/16 23:15 (NS Flush) 2 ml BID IV FLUSH 12/21/16 09:00 12/26/16 08:35 (Narcan Inj) 0.4 mg UNSCH PRN IV 12/20/16 23:15 Miscellaneous Information FLU VACCINE OUT... UNSCH PRN .XX 12/21/16 02:30 (Heparin Inj) 5,000 units Q8HR SQ 12/21/16 06:00 12/26/16 04:58 (Xanax) 1 mg TID PRN PO 12/21/16 05:00 12/25/16 21:13 (Norvasc) 10 mg DAILY PO 12/21/16 09:00 12/26/16 08:29 (Ecotrin Ec) 81 mg DAILY PO 12/21/16 09:00 Hold 12/25/16 08:53 (Symbicort 160-4.5 Inh) 2 puff Q12HR INH 12/21/16 09:00 Hold 12/24/16 12:52 (Spiriva Inh) 18 mcg DAILY INH 12/21/16 09:00 12/24/16 12:51 (Catapres) 0.1 mg Q8H PRN PO 12/21/16 08:00 (Dilaudid Pf Inj) 0.5 mg Q4H PRN IV PUSH 12/22/16 00:30 12/26/16 09:04 (Mag-Al Plus Susp Liq) 30 ml Q6H PRN PO 12/22/16 16:00 12/25/16 22:36 (Zofran Inj) 4 mg Q8H PRN IV PUSH 12/22/16 10:30 12/23/16 00:03 (Colace) 100 mg BID PO 12/23/16 11:00 12/26/16 08:30 (Senokot) 17.2 mg DAILY PO 12/23/16 11:00 12/26/16 08:29 (Ultram) 50 mg BID PRN PO 12/23/16 10:24 12/25/16 22:36 (NS Flush) UNSCH PRN IVF 12/23/16 11:15 (Heparin Inj) UNSCH PRN IV FLUSH 12/23/16 11:15 (Lopressor) 25 mg Q12HR PO 12/24/16 21:00 12/26/16 08:28 (Cleocin) 450 mg Q6HR PO 12/24/16 18:00 12/26/16 04:55 (Lactinex) 1 tab TID PO 12/24/16 18:00 12/26/16 08:28 Prednisone 40 mg 40 mg DAILY PO 12/24/16 16:30 12/26/16 08:30 (Zithromax Inj/ NS 250 ml Inj) 250 ml @ 250 mls/hr Q24H IV 12/24/16 21:30 12/25/16 21:09 Pantoprazole Sodium 40 mg 40 mg DAILY PO 12/25/16 17:00 12/26/16 08:29 (NS 1000 ml Inj) 1,000 ml @ 0 mls/hr Q0M PRN IV 12/26/16 10:44 Heparin Sodium (Porcine) 8000 units 8,000 units UNSCH PRN IVF 12/26/16 10:45 Sodium Chloride 1,000 ml @ 200 mls/hr Q5H PRN IV 12/26/16 10:44 (NS 1000 ml Inj) 1,000 ml @ 0 mls/hr Q0M PRN IV 12/26/16 10:44 (Mannitol Inj) 12.5 gm UNSCH PRN IV 12/26/16 10:45 (Albumin 25% Inj) 25 gm UNSCH PRN IV 12/26/16 10:45 (NS Flush) 5 ml UNSCH PRN IV FLUSH 12/26/16 10:45 (Heparin Inj) UNSCH PRN .XX 12/26/16 10:45 (Gentamicin (Dialysis) Inj) 20 mg UNSCH PRN IV 12/26/16 10:45 (Zofran Inj) 4 mg UNSCH PRN IV 12/26/16 10:45 (Tylenol) 650 mg UNSCH PRN PO 12/26/16 10:45 (Benadryl) 25 mg UNSCH PRN PO 12/26/16 10:45 (Nitrostat Sl) 0.4 mg UNSCH PRN SL 12/26/16 10:45 (Catapres) 0.1 mg UNSCH PRN PO 12/26/16 10:45 (Gelfoam 12 Mm/7 Mm Top) 1 foam UNSCH PRN TOP 12/26/16 10:45 A/P Assessment and Plan Acute renal failure/ Severe Uremia Nephrology consult appreciated. Pt is becoming oliguric. Proteinuria noted on UA. Renal US unremarkable. Creatinine continues to get worse. Dialysis started per nephrology. - dialysis per nephrology. - avoid nephrotoxic agents. - Renal biopsy scheduled for 12/27/16. Abdominal pain Possibly secondary to constipation. CT of the abdomen was unremarkable. AST is elevated, lipase not elevated. Has a history of diverticulitis status post surgical repair, as well as ventral hernia repair. - Started bowel regimen. - Maalox as needed. - Pain control with IV Dilaudid and Tramadol. - Trend LFTs. - Consult GI for further assistance. Hyperkalemia Potassium elevated at times. - continue to monitor. - dialysis per nephrology. - Kayexalate as needed. Hypertension Blood pressure fluctuates. Relatively well controlled 12/26. - continue amlodipine. Lisinopril on hold due to kidney injury and hyperkalemia. Lopressor added. - continue to monitor BP and adjust the regimen as needed. Would add hydralazine if blood pressure remains elevated. - Clonidine as needed. COPD/ PNA Breathing stable. CXR with question of right base consolidation. - continue Symbicort and Spiriva. - neb treatment as needed. - start prednisone. - course of Azithromycin IV. Hypoglycemia Likely s/t decreased PO intake. - encourage PO intake. - follow glucose. Resolved. History of CVA/ TIA The pt is on ASA. - ASA on hold for renal biopsy per nephrology. Will resume following biopsy. - PT if needed. DVT prophylaxis with heparin Discharge Planning Awaiting clinical improvement Vamsi Ferro DO Dec 26, 2016 11:44
[2016-12-26] MEDS: ACETAMINOPHEN 325 MG TAB PO PRN ×2 (13:35→14:35)
[2016-12-26] MEDS: GENTAMICIN SULFATE (DIALYSIS USE ONLY) 20 MG/2 ML VIAL IV PRN (13:59)
[2016-12-26] MEDS: HEPARIN SODIUM - IV 10,000 UNITS/10 ML VIAL PRN (13:59)
[2016-12-26 14:19] LABS: TOTAL BILIRUBIN ADULT 0.4 MG/DL (0.2-1.0)
[2016-12-26 14:25] LABS: INDIRECT BILIRUBIN 0.3 MG/DL (0.0-0.8)
[2016-12-26] MEDS: RESP: ALBUTEROL 2.5 MG/IPRATROPIUM 0.5 MG NEB (PRN) NEB (16:09)
[2016-12-26 17:14] LABS: APTT (PATIENT) 27.1 SEC (24.3-30.1); INTERNATIONAL NORMALIZED RATIO 1.1 RATIO
--- NOTE | 2016-12-26 17:16 | PD.CONS ---
HPI History of Present Illness This is a 56 year old male who came to the ER for evaluation of abdominal pain. He reports that he began having lower abdominal pain last week. He actually states that he came to the ER for this, but was discharged home. According to the EMR, he was seen in the ER on 12/18 for shortness of breath secondary to COPD exacerbation. He was treated with duonebs, solumedrol, and his symptoms improved and he was then discharged home on Prednisone. He then returned to the ER on 11/19/16 for evaluation of abdominal pain. He describes this as a constant "pressure" like pain in his lower abdomen with intermittent sharp shooting pain that radiates to his left hip. He reports that he did have one episode of nausea/vomiting over the weekend, but no further nausea/vomiting. He does have intermittent fevers. He denies any heartburn or reflux, diarrhea, melena, or hematochezia. He denies any regular constipation, but states that he was constipated since coming to the hospital. He was started on Colace/ Senna and had a bowel movement earlier today. He has not had any improvement in his abdominal pain after his bowel movement. He has a history of bowel resection and colostomy with later reversal secondary to diverticulitis. He also had to have repair of an umbilical hernia afterwards. He reports that he was diagnosed with Hepatitis C in 2002 and treated with "Hepatitis A/B/C shots. " He has never taken Interferon. He reports that he had a series of 3 shots- likely he was vaccinated for hepatitis A and B. He was found to have acute renal failure during this hospitalization and he was started on Hemodialysis. He also has several lesions on his upper extremities. He reports that he was bit by several bugs [place] and that these have been itching. Cryoglobulins have been ordered and are pending. He has never had an EGD/Colonoscopy. PFSH Past Medical History Hypertension Hyperlipidemia CAD CVA/TIA COPD Anxiety Hepatitis C GERD Hx diverticulosis, S/P partial colectomy and colostomy as per patient Past Surgical History Hernia repair Colostomy placement and reversal Cardiac catheterization in 2006 Dental extractions I&D of an abscess at the right elbow Coded Allergies: Codeine (Verified Allergy, Severe, RASH,MIGRAINE, 12/18/16) Toradol (Verified Adverse Reaction, Severe, HEADACHE, 12/18/16) *MDRO Multi-Drug Resistant Organism (Verified Adverse Reaction, Unknown, ) MRSA (sputum) - 11/09/14 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 POSITIVE - 10/07/2016 Medications Allergies Coded Allergies Type Severity Reaction Last Updated Verified Codeine Allergy Severe RASH,MIGRAINE 12/18/16 Yes Toradol Adverse Reaction Severe HEADACHE 12/18/16 Yes *MDRO Multi-Drug Resistant Organism Adverse Reaction Unknown 12/18/16 Yes Active Scripts Medications Dose Route/Sig Days Date Category Dose Instructions Ventolin Hfa 18 GM Inh (Albuterol Sulfate) 90 Mcg/Act Aer 2 Puff INH Q6H PRN 12/18/16 Rx Prednisone 20 Mg Tab 40 Mg PO DAILY 12/18/16 Rx Take 40 mg (2 tablets) daily for 5 days Ecotrin Low Strength (Aspirin) 81 Mg Tabdr 81 Mg PO DAILY 10/07/16 Rx Prednisone 20 Mg Tab 20 Mg PO BID 10/07/16 Rx Lisinopril 5 Mg Tab 10 Mg PO DAILY 10/07/16 Rx Oxycodone-Acetaminophen 10-325 mg Tab 1 Tab PO Q4H PRN 10/06/16 Reported Norvasc (Amlodipine Besylate) 10 Mg Tab 10 Mg PO DAILY 30 06/01/16 Rx Albuterol Neb (Albuterol Sulfate) 2.5 Mg/3 Ml Neb 2.5 Mg NEB Q4HR NEB 05/30/16 Reported While awake Spiriva Handihaler (Tiotropium Inh) 18 Mcg Cap 18 Mcg INH DAILY 05/30/16 Reported 1 capsule = 18 mcg Symbicort Inh (Budesonide/Formoterol Fumarate) 160-4.5 Mcg/Act Aero 2 Puff INH Q12HR 05/30/16 Reported Xanax (Alprazolam) 1 Mg Tab 1 Mg PO TID PRN 05/30/16 Reported Family History Believes his brother may have had prostate cancer States both his mother and father young, unknown causes. Social History Quit smoking about a year ago, prior to that smoked 30 years. Quit drinking about a year ago Remote hx of drug use. Review of Systems Constitutional: COMPLAINS OF: Fatigue, Fever, Chills, DENIES: Change in appetite Respiratory: COMPLAINS OF: Wheezing, Shortness of breath, DENIES: Cough Cardiovascular: DENIES: Chest pain Gastrointestinal: COMPLAINS OF: Abdominal pain, Constipation, Nausea, Vomiting , DENIES: Black stools, Bloody stools, Diarrhea, Swelling of Abdomen, Hematemesis Musculoskeletal: COMPLAINS OF: Joint pain Integumentary: COMPLAINS OF: Pruritus, Rash Hematologic/lymphatic: DENIES: Bruising Neurologic: DENIES: Headache Psychiatric: DENIES: Confusion GI Exam Vitals I&O Vital Signs Date Time Temp Pulse Resp B/P Pulse Ox O2 Delivery O2 Flow Rate FiO2 12/26/16 16:04 96.2 72 16 147/80 97 12/26/16 10:26 95 12/26/16 09:26 96 Nasal Cannula 2.00 12/26/16 08:35 Room Air 12/26/16 08:00 78 18 153/87 92 12/26/16 07:41 85 12/26/16 04:00 96.8 80 18 124/78 95 12/26/16 00:00 97.2 80 18 129/77 96 12/25/16 20:08 96 Nasal Cannula 2.00 12/25/16 20:03 80 12/25/16 20:00 96.3 76 18 145/80 93 I/O 12/25/16 12/25/16 12/25/16 12/26/16 12/26/16 12/26/16 07:00 15:00 23:00 07:00 15:00 23:00 Intake Total 960 ml 1560 ml 480 ml Output Total 200 ml 1500 ml Balance 960 ml 1560 ml 480 ml -200 ml -1500 ml Intake Oral 960 ml 1560 ml 480 ml Output Urine Total 200 ml Hemodialysis 1500 ml # Voids 5 5 # Bowel Movements 1 3 1 Imaging Last Impressions Chest X-Ray 12/24/16 0000 Signed Impressions: Service Date/Time: Saturday, December 24, 2016 16:44 - CONCLUSION: Right base atelectasis or consolidation. Shorty Rizzo MD Catheter Placement X-Ray 12/23/16 0000 Signed Impressions: Service Date/Time: Friday, December 23, 2016 10:42 - CONCLUSION: Uncomplicated vas catheter hemodialysis catheter placement. Manuel Estrada MD Renal Ultrasound 12/21/16 0000 Signed Impressions: Service Date/Time: Wednesday, December 21, 2016 08:35 - CONCLUSION: 1. No evidence for renal calculi or obstructive uropathy as questioned. 2. Very nonspecific trace perinephric fluid on the right. Bebo Smiley MD Abdomen/Pelvis CT 12/20/16 8114 Signed Impressions: Service Date/Time: Tuesday, December 20, 2016 22:53 - CONCLUSION: No evidence of an acute abnormality. Sigmoid colon diverticulosis without diverticulitis and previous hernia repairs are again noted. Shorty Felder MD Laboratory Test 12/26/16 06:50 Sodium Level 134 MEQ/L Potassium Level 5.2 MEQ/L Chloride Level 97 MEQ/L Carbon Dioxide Level 27.7 MEQ/L Anion Gap 9 MEQ/L Blood Urea Nitrogen 90 MG/DL Creatinine 7.58 MG/DL Estimat Glomerular Filtration 7 ML/MIN Rate Random Glucose 127 MG/DL Calcium Level 7.6 MG/DL Magnesium Level 2.4 MG/DL Total Bilirubin 0.4 MG/DL Direct Bilirubin 0.1 MG/DL Indirect Bilirubin 0.3 MG/DL Aspartate Amino Transf 98 U/L (AST/SGOT) Alanine Aminotransferase 57 U/L (ALT/SGPT) Alkaline Phosphatase 67 U/L Total Protein 6.7 GM/DL Albumin 2.3 GM/DL Date/Time Procedure Status Source Growth 12/24/16 22:27 Gram Stain - Final Resulted Wound Arm 12/24/16 22:27 Wound Culture - Preliminary Resulted S. Aureus Mrsa Physical Examination HEENT: Normocephalic; atraumatic; no jaundice. CHEST: CTA CARDIAC: RRR. ABDOMEN: Soft, nondistended, mild lower abdominal tenderness; no hepatosplenomegaly; bowel sounds are present in all four quadrants. EXTREMITIES: No clubbing, cyanosis, or edema. SKIN: Normal; no rash; no jaundice. [employer]: No focal deficits; alert and oriented times three. Assessment and Plan Plan ASSESSMENT: - Abdominal pain. One week hx of lower abdominal pain, described as a constant pressure like pain with intermittent sharp pain radiating to left hip. No relation to food. Abdomen/Pelvis CT (12/20/16)----> No evidence of an acute abnormality. Sigmoid colon diverticulosis without diverticulitis and previous hernia repairs are again noted. He betancourt done episode of n/v over the weekend, no further episodes. No decreased appetite, gerd, melena, or hematochezia. Denies any diarrhea. Denies any regular issues with constipation, but did have constipation here in the hospital. He was started on colace/senna and he had a bowel movement today, but states he continues to have abdominal pain. Hx diverticulosis/diverticulitis, requiring resection, colostomy, and later reversal/hernia repair about 3 years ago. He has never had a colonoscopy. Consider colonoscopy after renal biopsy. - Anemia, normocytic. 8.1/26.2. Likely multifactorial with at least some of this related to his kidney disease. - HCV. Viral load 1,280,000. ? Genotype. Pt states he was diagnosed in 2002 and treated with Hepatitis A/B/C shots. However, upon further questioning, he states that he has never had interferon and that he received a series of 3 shots for hepatitis A/B/C once he was diagnosed. He likely received vaccination for Hep A /B. He has pruritic lesions and is in acute renal failure and has not recovered from this. Cryoglobulins are pending. He is scheduled for a renal biopsy tomorrow. If he is found to have cryoglobulins, he will need to start treatment JORDON, otherwise we will try to arrange as outpatient. - ARF with electrolyte abnormalities. Started on HD during this admission. He does have HCV and has pruritic lesions (he attributes to bug bites). Cryoglobulins are pending. Per renal. - HTN, COPD, PNA, Hx CVA/TIA per primary PLAN: - Diet as tolerated - HCV Genotype - Cont. Senna - Cont. Colace - Supportive care - Consider colonoscopy after renal biopsy - Further recommendations to follow based on results of above - Pt seen and examined by Dr. Castillo and myself and this note is written on his behalf Ryann Hernandez Dec 26, 2016 17:16
[2016-12-26] MEDS: ALPRAZolam 1 MG TAB PO PRN (17:58)
[2016-12-26] MEDS: traMADol HCL 50 MG TAB PO PRN ×2 (18:01→22:03)
[2016-12-26] MEDS: AZITHROMYCIN INJ 500 MG in SODIUM CHLOR 0.9% 250 ML INJ 250 ML IV SCH (22:02)
[2016-12-27] VITALS (15 sets, daily range): BP systolic 137–173; BP diastolic 76–100; PULSE 78–128; RESP 16–20; TEMP 95.3–98.1; O2SAT 91–98
[2016-12-27] MEDS: CLINDAMYCIN 150 MG CAP PO SCH ×2 (00:21→06:31)
[2016-12-27] MEDS: ALPRAZolam 1 MG TAB PO PRN ×3 (01:55→20:51)
[2016-12-27] MEDS: traMADol HCL 50 MG TAB PO PRN ×3 (01:57→12:37)
[2016-12-27] MEDS: RESP: ALBUTEROL 2.5 MG/3 ML NEB (SCH) NEB ×4 (03:29→20:17)
[2016-12-27] MEDS: HYDROmorphone HCL PF 1 MG/ML VIAL IV PUSH PRN ×3 (04:38→17:34)
[2016-12-27] MEDS: HEPARIN SODIUM - SQ 10,000 UNITS/ML VIAL SQ SCH ×3 (05:51→23:29)
[2016-12-27 08:08] LABS: HEMATOCRIT 39.7 % (39.0-51.0); MEAN CELL VOLUME 88.9 FL (80.0-100.0); MEAN CORPUSCULAR HEMOGLOBIN 28.8 PG (27.0-34.0); MEAN CORPUSCULAR HGB CONC 32.4 % (32.0-36.0); PLATELET COUNT 179 TH/MM3 (150-450); RED BLOOD COUNT 4.47 MIL/MM3 (4.50-5.90); RED CELL DISTRIBUTION WIDTH 15.6 % (11.6-17.2); REVIEW FLAG FINAL; WHITE BLOOD COUNT 12.1 TH/MM3 (4.0-11.0)
[2016-12-27 08:49] LABS: POTASSIUM 4.5 MEQ/L (3.5-5.1)
[2016-12-27] MEDS: LACTOBACILLUS ACIDOPHILUS TAB PO SCH ×3 (10:24→17:34)
[2016-12-27] MEDS: DOCUSATE SODIUM 100 MG CAP PO SCH ×2 (10:24→20:50)
[2016-12-27] MEDS: PANTOPRAZOLE SOD 40 MG DELAYED RELEASE TAB PO SCH (10:24)
[2016-12-27] MEDS: SENNOSIDES 8.6 MG TAB PO SCH (10:25)
[2016-12-27] MEDS: METOPROLOL TARTRATE 25 MG TAB PO SCH (10:25)
[2016-12-27] MEDS: SODIUM CHLORIDE 0.9% FLUSH 10 ML FLUSH IV FLUSH SCH ×2 (10:26→20:51)
[2016-12-27] MEDS: predniSONE 20 MG TAB PO SCH (10:26)
--- NOTE | 2016-12-27 10:32 | HHI.NPPN ---
Subjective History of Present Illness The patient is a 56 yo [place] male with medical hx of HTN, COPD, CAD s/p cath in 2006, remote hx of HCV, TIA, and diverticulitis who presented to this facility today with 3 day h/o abdominal pain, nausea, and general complaint of not feeling well. Was seen in ED on 12/18 for COPD exacerbation. Has been seen within the past week by his PCP at [facility] for skin rash that he says is from bug bites. Has culture of bites taken and was given Cipro 500mg BID as well as a shot of Toradol and Decadron at their office. We were consulted for ARF. ED labs from 12/18 showed a normal SCr of 0.89, but when he arrived 12/20 SCr was 5.57 and worsened to 6.32 at consult. He was treated in ED for hyperkalemia. Reports he has had little UOP in the past few days. Denies any urological hx. Denies any NSAIDs by mouth. No recent vomiting or diarrhea. Denies any illcit drug use. Interval History Pt feeling good today. Says he ate well for the first time in a long time yesterday. Scheduled for kidney bx today (Marlene Velazquez) Objective Data Data 12/26/16 12/27/16 19:00 07:00 Intake Total 960 ml Output Total 1800 ml 250 ml Balance -840 ml -250 ml Intake Oral 960 ml Output Urine Total 300 ml 250 ml Hemodialysis 1500 ml # Bowel Movements 1 Vital Signs Date Time Temp Pulse Resp B/P Pulse Ox O2 Delivery O2 Flow Rate FiO2 12/27/16 09:42 92 21 12/27/16 08:00 95.3 84 20 152/90 96 12/27/16 05:08 16 12/27/16 04:00 96.2 85 17 141/90 93 12/27/16 03:31 91 21 12/27/16 02:57 17 12/27/16 00:00 97.0 82 17 151/82 93 12/26/16 21:54 92 21 12/26/16 20:40 Room Air 12/26/16 20:00 98.9 81 17 133/66 94 12/26/16 20:00 85 12/26/16 19:01 16 12/26/16 16:04 96.2 72 16 147/80 97 12/26/16 16:00 97 Room Air (Marlene Velazquez) -: 12/27/16 0753 12/27/16 0753 Imaging Last Impressions Chest X-Ray 12/24/16 0000 Signed Impressions: Service Date/Time: Saturday, December 24, 2016 16:44 - CONCLUSION: Right base atelectasis or consolidation. Shorty Rizzo MD Catheter Placement X-Ray 12/23/16 0000 Signed Impressions: Service Date/Time: Friday, December 23, 2016 10:42 - CONCLUSION: Uncomplicated vas catheter hemodialysis catheter placement. Manuel Estrada MD Renal Ultrasound 12/21/16 0000 Signed Impressions: Service Date/Time: Wednesday, December 21, 2016 08:35 - CONCLUSION: 1. No evidence for renal calculi or obstructive uropathy as questioned. 2. Very nonspecific trace perinephric fluid on the right. Bebo Smiley MD Abdomen/Pelvis CT 12/20/162238 Signed Impressions: Service Date/Time: Tuesday, December 20, 2016 22:53 - CONCLUSION: No evidence of an acute abnormality. Sigmoid colon diverticulosis without diverticulitis and previous hernia repairs are again noted. Shorty Felder MD Tubes & Lines: Vas-Cath Medication Review Current Medications Medications (Trade) Dose Ordered Sig/Sylvie Route Start Time Stop Time Status Last Admin (NS Flush) 2 ml UNSCH PRN IV FLUSH 12/20/16 23:15 (NS Flush) 2 ml BID IV FLUSH 12/21/16 09:00 12/26/16 20:40 (Narcan Inj) 0.4 mg UNSCH PRN IV 12/20/16 23:15 Miscellaneous Information FLU VACCINE OUT... UNSCH PRN .XX 12/21/16 02:30 (Heparin Inj) 5,000 units Q8HR SQ 12/21/16 06:00 12/26/16 04:58 (Xanax) 1 mg TID PRN PO 12/21/16 05:00 12/27/16 01:55 (Norvasc) 10 mg DAILY PO 12/21/16 09:00 12/26/16 08:29 (Ecotrin Ec) 81 mg DAILY PO 12/21/16 09:00 Hold 12/25/16 08:53 (Symbicort 160-4.5 Inh) 2 puff Q12HR INH 12/21/16 09:00 Hold 12/24/16 12:52 (Spiriva Inh) 18 mcg DAILY INH 12/21/16 09:00 12/24/16 12:51 (Catapres) 0.1 mg Q8H PRN PO 12/21/16 08:00 (Mag-Al Plus Susp Liq) 30 ml Q6H PRN PO 12/22/16 16:00 12/25/16 22:36 (Zofran Inj) 4 mg Q8H PRN IV PUSH 12/22/16 10:30 12/23/16 00:03 (Colace) 100 mg BID PO 12/23/16 11:00 12/26/16 20:37 (Senokot) 17.2 mg DAILY PO 12/23/16 11:00 12/26/16 08:29 (Ultram) 50 mg BID PRN PO 12/23/16 10:24 12/26/16 18:01 (NS Flush) UNSCH PRN IVF 12/23/16 11:15 (Heparin Inj) UNSCH PRN IV FLUSH 12/23/16 11:15 (Lopressor) 25 mg Q12HR PO 12/24/16 21:00 12/26/16 20:37 (Cleocin) 450 mg Q6HR PO 12/24/16 18:00 12/27/16 06:31 (Lactinex) 1 tab TID PO 12/24/16 18:00 12/26/16 17:58 Prednisone 40 mg 40 mg DAILY PO 12/24/16 16:30 12/26/16 08:30 (Zithromax Inj/ NS 250 ml Inj) 250 ml @ 250 mls/hr Q24H IV 12/24/16 21:30 12/26/16 22:02 Pantoprazole Sodium 40 mg 40 mg DAILY PO 12/25/16 17:00 12/26/16 08:29 (NS 1000 ml Inj) 1,000 ml @ 0 mls/hr Q0M PRN IV 12/26/16 10:44 Heparin Sodium (Porcine) 8000 units 8,000 units UNSCH PRN IVF 12/26/16 10:45 Sodium Chloride 1,000 ml @ 200 mls/hr Q5H PRN IV 12/26/16 10:44 (NS 1000 ml Inj) 1,000 ml @ 0 mls/hr Q0M PRN IV 12/26/16 10:44 (Mannitol Inj) 12.5 gm UNSCH PRN IV 12/26/16 10:45 (Albumin 25% Inj) 25 gm UNSCH PRN IV 12/26/16 10:45 (NS Flush) 5 ml UNSCH PRN IV FLUSH 12/26/16 10:45 (Heparin Inj) UNSCH PRN .XX 12/26/16 10:45 12/26/16 13:59 (Gentamicin (Dialysis) Inj) 20 mg UNSCH PRN IV 12/26/16 10:45 12/26/16 13:59 (Zofran Inj) 4 mg UNSCH PRN IV 12/26/16 10:45 (Tylenol) 650 mg UNSCH PRN PO 12/26/16 10:45 12/26/16 14:35 (Benadryl) 25 mg UNSCH PRN PO 12/26/16 10:45 (Nitrostat Sl) 0.4 mg UNSCH PRN SL 12/26/16 10:45 (Catapres) 0.1 mg UNSCH PRN PO 12/26/16 10:45 (Gelfoam 12 Mm/7 Mm Top) 1 foam UNSCH PRN TOP 12/26/16 10:45 (Dilaudid Pf Inj) 0.5 mg Q6H PRN IV PUSH 12/26/16 13:00 12/27/16 04:38 (Ultram) 100 mg Q4H PRN PO 12/26/16 11:45 12/27/16 06:32 (Marlene Velazquez) Physical Exam General Appearance: No Acute Distress, Comfortable (Marlene Velazquez) Eyes Eye Exam: Sclera White (Marlene Velazquez) Pulmonary Resp Exam: Clear Bilaterally, Breath Sounds Equal, No Distress (Marlene Velazquez) Cardiology CV Exam: Regular, Normal Sinus Rhythm (Marlene Velazquez) Gastrointestinal/Abdomen GI Exam: Soft, Non-Tender, No Hepatosplenomegaly (Marlene Velazquez) Integumentary Skin Exam: Warm, Dry Skin Remarks Multiple bug bites on skin (Marlene Velazquez) Extremeties Extremities Exam: No Edema (Marlene Velazquez) Neurologic Neuro Exam: Alert, Awake (Marlene Velazquez) Psychiatric Psych Exam: Appropriate Responses (Marlene Velazquez) Assessment/Plan Discussed Condition With: Patient Assessment Summary: OLLIE/Acute Renal Failure Problem List: (1) Acute renal failure Plan: Etiology of acute renal insufficiency uncertain. Given the rapidity ATN is consideration although interstitial nephritis is on the differential as well. Kidney bx scheduled for this afternoon. Medications should be adjusted for the patient's renal decline. Avoid nephrotoxic medications such as iodinated contrast and NSAIDs. Avoid gadolinium. (2) HTN (hypertension) Plan: Continue on Amlodipine Increase Metoprolol to 50mg BID (3) Hepatitis C Plan: Appreciate GI input (4) MRSA (methicillin resistant staph aureus) culture positive Plan: BCx neg Repeat skin cx still positive Mgmt as per primary (Marlene Velazquez) Plan The exam, history, and the medical decision-making described in the above note were completed with the assistance of the PAUlysses. I reviewed and agree with the findings presented. (Aldair Shields MD) Marlene Velazquez Dec 27, 2016 10:32 Aldair Shields MD Dec 28, 2016 16:59
[2016-12-27] MEDS: TIOTROPIUM BROMIDE 18 MCG INH INH SCH (10:37)
[2016-12-27] MEDS ORDERED: LIDOCAINE 1%/EPINEPHrine 1:100,000 SOLN 20 ML VIAL ONE (10:57)
[2016-12-27] MEDS ORDERED: fentaNYL CITRATE 250 MCG/5 ML AMP ONE (11:10)
[2016-12-27] MEDS ORDERED: MIDAZOLAM HCL 5 MG/5 ML VIAL ONE (11:11)
--- NOTE | 2016-12-27 11:49 | HHI.GIFU ---
Subjective Remarks Resting in bed. Continues to have intense itching, states benadryl does seem to help with this. No n/v. Continues to have lower abdominal pressure-like pain- no improvement. Had a bowel movement today. Objective Vitals I&O Vital Signs Date Time Temp Pulse Resp B/P Pulse Ox O2 Delivery O2 Flow Rate FiO2 12/27/16 10:37 16 12/27/16 09:42 92 21 12/27/16 08:00 95.3 84 20 152/90 96 12/27/16 07:03 91 12/27/16 05:08 16 12/27/16 04:00 96.2 85 17 141/90 93 12/27/16 03:31 91 21 12/27/16 00:00 97.0 82 17 151/82 93 12/26/16 21:54 92 21 12/26/16 20:40 Room Air 12/26/16 20:00 98.9 81 17 133/66 94 12/26/16 20:00 85 12/26/16 19:01 16 12/26/16 16:04 96.2 72 16 147/80 97 12/26/16 16:00 97 Room Air I/O 12/26/16 12/26/16 12/26/16 12/27/16 12/27/16 12/27/16 07:00 15:00 23:00 07:00 15:00 23:00 Intake Total 960 ml Output Total 200 ml 300 ml 1500 ml 250 ml Balance -200 ml 660 ml -1500 ml -250 ml Intake Oral 960 ml Output Urine Total 200 ml 300 ml 250 ml Hemodialysis 1500 ml # Bowel Movements 1 1 Laboratory Laboratory Tests Test 12/26/16 12/27/16 16:03 07:53 Prothrombin Time 12.0 Prothromb Time International 1.1 Ratio Activated Partial 27.1 Thromboplast Time White Blood Count 12.1 Red Blood Count 4.47 Hemoglobin 12.8 Hematocrit 39.7 Mean Corpuscular Volume 88.9 Mean Corpuscular Hemoglobin 28.8 Mean Corpuscular Hemoglobin 32.4 Concent Red Cell Distribution Width 15.6 Platelet Count 179 Mean Platelet Volume 6.9 Sodium Level 139 Potassium Level 4.5 Chloride Level 99 Carbon Dioxide Level 34.0 Anion Gap 6 Blood Urea Nitrogen 61 Creatinine 5.38 Estimat Glomerular Filtration 11 Rate Random Glucose 71 Calcium Level 8.4 Phosphorus Level 4.4 Albumin 2.7 Date/Time Procedure Status Source Growth 12/24/16 22:27 Gram Stain - Final Complete Wound Arm 12/24/16 22:27 Wound Culture - Final Complete S. Aureus Mrsa Imaging Last Impressions Chest X-Ray 12/24/16 0000 Signed Impressions: Service Date/Time: Saturday, December 24, 2016 16:44 - CONCLUSION: Right base atelectasis or consolidation. Shorty Rizzo MD Catheter Placement X-Ray 12/23/16 0000 Signed Impressions: Service Date/Time: Friday, December 23, 2016 10:42 - CONCLUSION: Uncomplicated vas catheter hemodialysis catheter placement. Manuel Estrada MD Renal Ultrasound 12/21/16 0000 Signed Impressions: Service Date/Time: Wednesday, December 21, 2016 08:35 - CONCLUSION: 1. No evidence for renal calculi or obstructive uropathy as questioned. 2. Very nonspecific trace perinephric fluid on the right. Bebo Smiley MD Abdomen/Pelvis CT 12/20/169 Signed Impressions: Service Date/Time: Tuesday, December 20, 2016 22:53 - CONCLUSION: No evidence of an acute abnormality. Sigmoid colon diverticulosis without diverticulitis and previous hernia repairs are again noted. Shorty Felder MD Physical Exam HEENT: Normocephalic; atraumatic; no jaundice. CHEST: CTA CARDIAC: RRR. ABDOMEN: Soft, nondistended, mild lower abdominal tenderness; no hepatosplenomegaly; bowel sounds are present in all four quadrants. EXTREMITIES: No clubbing, cyanosis, or edema. SKIN: Multiple open lesions to bue SILO ERECTOR: No focal deficits; alert and oriented times three. Assessment and Plan Plan ASSESSMENT: - Abdominal pain. One week hx of lower abdominal pain, described as a constant pressure like pain with intermittent sharp pain radiating to left hip. No relation to food. Abdomen/Pelvis CT (12/20/16)----> No evidence of an acute abnormality. Sigmoid colon diverticulosis without diverticulitis and previous hernia repairs are again noted. He betancourt done episode of n/v over the weekend, no further episodes. No decreased appetite, gerd, melena, or hematochezia. Denies any diarrhea. Denies any regular issues with constipation, but did have constipation here in the hospital. He was started on colace/senna and he had a bowel movement today, but states he continues to have abdominal pain. Hx diverticulosis/diverticulitis, requiring resection, colostomy, and later reversal/hernia repair about 3 years ago. He has never had a colonoscopy. No change in pain. Going for renal biopsy today and states he gets HD tomorrow. Consider colonoscopy after renal biopsy. - Anemia, normocytic. 12.8/39.7. Likely multifactorial with at least some of this related to his kidney disease. - HCV. Viral load 1,280,000. ? Genotype. Pt states he was diagnosed in 2002 and treated with Hepatitis A/B/C shots. However, upon further questioning, he states that he has never had interferon and that he received a series of 3 shots for hepatitis A/B/C once he was diagnosed. He likely received vaccination for Hep A /B. He has pruritic lesions and is in acute renal failure and has not recovered from this. Cryoglobulins are pending. He is scheduled for a renal biopsy tomorrow. If he is found to have cryoglobulins, he will need to start treatment JORDON, otherwise we will try to arrange as outpatient. Genotype and cryoglobulins pending. - ARF with electrolyte abnormalities. Started on HD during this admission. He does have HCV and has pruritic lesions (he attributes to bug bites). Cryoglobulins are pending. Going for renal biopsy today. - HTN, COPD, PNA, Hx CVA/TIA per primary PLAN: - NPO for renal bx- okay for diet from GI standpoint after bx - Await HCV Genotype - Await Cryoglobulins - Cont. Senna/Colace - Cont. Colace - Supportive care - Consider colonoscopy after renal biopsy- biopsy today, states HD tomorrow - Further recommendations to follow based on results of above - Pt seen and examined by Dr. Castillo and myself and this note is written on his behalf Ryann Hernandez Dec 27, 2016 11:49
[2016-12-27] MEDS ORDERED: DOXYCYCLINE HYCLATE 100 MG CAP PO SCH ×2 (12:15→21:00)
--- NOTE | 2016-12-27 12:43 | RADRPT ---
EXAM DATE/TIME: 12/27/2016 11:35 [facility] COMPARISON: No previous studies available for comparison. INDICATIONS : Acute renal failure. SEDATION TIME: 30 minutes BIOPSY SITE: Left MEDICATION(S): 1.) 4 mg midazolam (Versed) IV 2.) 200 mcg fentanyl (Sublimaze) IV DEVICE(S): 1.) 18 gauge Temno core biopsy needle MEDICAL HISTORY : Cardiovascular disease. Hypertension. SURGICAL HISTORY : None. ENCOUNTER: Initial ACUITY: 1 day PAIN SCORE: 0/10 LOCATION: Left renal A total of two core specimen(s) were obtained and sent to the laboratory for pathologic evaluation. PROCEDURE: 1. CT guided renal biopsy. 2. Conscious sedation with continuous EKG and oximetry monitoring. 3. EKG and oximetry remained stable throughout the procedure. Prior to the procedure informed consent was obtained. Any appropriate prior imaging studies were rev iewed. Using automated exposure control and adjustment of the mA and/or kV according to patient size, radiat ion dose was kept as low as reasonably achievable to obtain optimal diagnostic quality images. DICOM format image data is available electronically for review and comparison. The site was prepped in a sterile fashion. Full sterile technique was used, including cap, mask, sylvia rile gloves and gown and a large sterile sheet. Hand hygiene and 2% chlorhexidine and/or betadine/al cohol prep was utilized per protocol for cutaneous antisepsis. The skin and subcutaneous tissues wer e infiltrated with local anesthetic solution. With CT guidance the previously identified target was localized. Biopsy was performed using the presc ribed needle as above. Adequate hemostasis was obtained with compression at the puncture site. Follow-up CT scan reveals no hemorrhage. The patient tolerated the procedure well and there were no complications. The patient was returned to the Radiology Outpatient Unit in stable condition. CONCLUSION: Uncomplicated CT guided biopsy. Thee Wang MD on December 27, 2016 at 12:41 Board Certified Radiologist. This report was verified electronically.
[2016-12-27 12:56] LABS: AUTOMATED NEUTROPHIL # 7.5 TH/MM3 (1.8-7.7); BASOPHIL % 0.5 % (0.0-2.0); EOSINOPHIL # 0.1 TH/MM3 (0-0.4); EOSINOPHIL % 0.6 % (0.0-4.0); HEMATOCRIT 36.1 % (39.0-51.0); HEMO FLAGS DIFF FINAL; LYMPHOCYTE # 0.8 TH/MM3 (1.0-4.8); MEAN CELL VOLUME 87.8 FL (80.0-100.0); MONO % 9.9 % (0.0-8.0); PLATELET COUNT 171 TH/MM3 (150-450); RED BLOOD COUNT 4.11 MIL/MM3 (4.50-5.90); RED CELL DISTRIBUTION WIDTH 15.4 % (11.6-17.2); WHITE BLOOD COUNT 9.4 TH/MM3 (4.0-11.0)
--- NOTE | 2016-12-27 13:24 | PD.ID.CON ---
History of Present Illness Service ID Consult Requested By Dr Ferro Reason for Consult arm lesions with MRSA, leukocytosis PNA Primary Care Physician Devin Pryor MD Diagnoses: History of Present Illness 56 yo with extensive past med history He is a very poor historian. He tells me that he has generalysed itching, and according to admission note he prewsented with abdominal pain and was found to have ARF hIS abdominal pain started Monday, he also had nausea He developped scattered lesions on his upper lower extremeties and thighs, which are now scabbed He apparently had colon surgery with colostomy and reversal of colostomy a couple of years ago. He feels similar abdominal pain now Denies disuria He has oliguric renal failure . He was not started on HD and his creatinine slightly improved. He just had renal bx, results are pending He is on doxycyline for suspected MRSA infection since he grew MRSA from culture one of his lesions No fever, no elukocytiosis, except 1 day his WBC were 12 K CXR has consolidation R base, he has dry cough Pt was treated with azithromycin and clindamycin x 4 days, switched to doxycyline today Review of Systems Respiratory: COMPLAINS OF: Cough Cardiovascular: COMPLAINS OF: Chest pain, Dyspnea on Exertion Gastrointestinal: COMPLAINS OF: Abdominal pain Integumentary: COMPLAINS OF: Pruritus, Rash Except as stated in HPI: all other systems reviewed are Neg Past Family Social History Allergies: Coded Allergies: Codeine (Verified Allergy, Severe, RASH,MIGRAINE, 12/18/16) Toradol (Verified Adverse Reaction, Severe, HEADACHE, 12/18/16) *MDRO Multi-Drug Resistant Organism (Verified Adverse Reaction, Unknown, MRSA, 12/27/16) MRSA (sputum) - 11/09/14 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 POSITIVE - 10/07/2016 MRSA (arm) - 12/24/16 Past Medical History Hypertension Hyperlipidemia CAD CVA/TIA COPD Anxiety Hepatitis C GERD History of diverticulosis status post partial colectomy and colostomy as per patient Past Surgical History Hernia repair Colostomy placement and reversal Cardiac catheterization in 2006 Dental extractions I&D of an abscess at the right elbow Active Ordered Medications doxycycline Family History brother- ? prostate cancer Social History quit smoking about a year used to smoke about 30yrs quit drinking about a year ago drugs long time ago Physical Exam Vital Signs Vital Signs Date Time Temp Pulse Resp B/P Pulse Ox O2 Delivery O2 Flow Rate FiO2 12/27/16 10:37 16 12/27/16 09:42 92 21 12/27/16 08:00 95.3 84 20 152/90 96 12/27/16 07:03 91 12/27/16 05:08 16 12/27/16 04:00 96.2 85 17 141/90 93 12/27/16 03:31 91 21 12/27/16 00:00 97.0 82 17 151/82 93 12/26/16 21:54 92 21 12/26/16 20:40 Room Air 12/26/16 20:00 98.9 81 17 133/66 94 12/26/16 20:00 85 12/26/16 19:01 16 12/26/16 16:04 96.2 72 16 147/80 97 12/26/16 16:00 97 Room Air Physical Exam CONSTITUTIONAL/GENERAL: This is an adequately nourished patient, in no apparent distress. TUBES/LINES/DRAINS: SKIN: ? very subtle jaundice, He has diffuse excoriated lesions on scalp, b/l upper and lower extremeties None of the lesions have purulence or surrounding erythema; no e/o active infx Skin temperature appropriate. Not diaphoretic. HEAD: Atraumatic. Normocephalic. EYES: Pupils equal and round and reactive. Extraocular motions intact. Mild scleral icterus. No injection or drainage. Fundi not examined. ENT: Hearing grossly normal. Nose without bleeding or purulent drainage. Oral mucosae without visible erythema, exudates, masses, or lesions. Very poor dentition NECK: Trachea midline. Supple, nontender. CARDIOVASCULAR: Regular rate and rhythm without murmurs, gallops, or rubs. No JVD. Peripheral pulses symmetric. RESPIRATORY/CHEST: Symmetric, unlabored respirations. Clear to auscultation. Breath sounds equal bilaterally. No wheezes, rales, or rhonchi. GASTROINTESTINAL: Abdomen soft, mildly tender to palkpation wo guarding or rebound, + quite distended. No hepato-splenomegaly, or palpable masses. No guarding. Bowel sounds present. GENITOURINARY: Without palpable bladder distension. MUSCULOSKELETAL: Extremities without clubbing, cyanosis, or edema. No joint tenderness or effusion noted. No calf tenderness. No mottling or clubbing. LYMPHATICS: No palpable cervical or supraclavicular adenopathy. NEUROLOGICAL: Awake and alert. Motor and sensory grossly within normal limits. Follows commands. Clear speech, though pt Moves all extremities. PSYCHIATRIC: No obvious anxiety/depression. no apparent hallucinations or other psychotic thought process. Tangential and irritable Laboratory Laboratory Tests Test 12/26/16 12/27/16 12/27/16 16:03 07:53 12:30 Prothrombin Time 12.0 Prothromb Time International 1.1 Ratio Activated Partial 27.1 Thromboplast Time White Blood Count 12.1 9.4 Red Blood Count 4.47 4.11 Hemoglobin 12.8 11.9 Hematocrit 39.7 36.1 Mean Corpuscular Volume 88.9 87.8 Mean Corpuscular Hemoglobin 28.8 29.0 Mean Corpuscular Hemoglobin 32.4 33.0 Concent Red Cell Distribution Width 15.6 15.4 Platelet Count 179 171 Mean Platelet Volume 6.9 7.0 Sodium Level 139 Potassium Level 4.5 Chloride Level 99 Carbon Dioxide Level 34.0 Anion Gap 6 Blood Urea Nitrogen 61 Creatinine 5.38 Estimat Glomerular Filtration 11 Rate Random Glucose 71 Calcium Level 8.4 Phosphorus Level 4.4 Albumin 2.7 Neutrophils (%) (Auto) 80.0 Lymphocytes (%) (Auto) 9.0 Monocytes (%) (Auto) 9.9 Eosinophils (%) (Auto) 0.6 Basophils (%) (Auto) 0.5 Neutrophils # (Auto) 7.5 Lymphocytes # (Auto) 0.8 Monocytes # (Auto) 0.9 Eosinophils # (Auto) 0.1 Basophils # (Auto) 0.0 CBC Comment DIFF FINAL Differential Comment Date/Time Procedure Status Source Growth 12/24/16 22:27 Gram Stain - Final Complete Wound Arm 12/24/16 22:27 Wound Culture - Final Complete S. Aureus Mrsa Result Diagram: 12/27/16 1230 12/27/16 0753 Imaging Last Impressions Renal Biopsy CT 12/27/16 0000 Signed Impressions: Service Date/Time: Tuesday, December 27, 2016 11:35 - CONCLUSION: Uncomplicated CT guided biopsy. Thee Wang MD Chest X-Ray 12/24/16 0000 Signed Impressions: Service Date/Time: Saturday, December 24, 2016 16:44 - CONCLUSION: Right base atelectasis or consolidation. Shorty Rizzo MD Catheter Placement X-Ray 12/23/16 0000 Signed Impressions: Service Date/Time: Friday, December 23, 2016 10:42 - CONCLUSION: Uncomplicated vas catheter hemodialysis catheter placement. Manuel Estrada MD Renal Ultrasound 12/21/16 0000 Signed Impressions: Service Date/Time: Wednesday, December 21, 2016 08:35 - CONCLUSION: 1. No evidence for renal calculi or obstructive uropathy as questioned. 2. Very nonspecific trace perinephric fluid on the right. Bebo Smiley MD Abdomen/Pelvis CT 12/20/16 2239 Signed Impressions: Service Date/Time: Tuesday, December 20, 2016 22:53 - CONCLUSION: No evidence of an acute abnormality. Sigmoid colon diverticulosis without diverticulitis and previous hernia repairs are again noted. Shorty Felder MD Assessment and Plan Assessment and Plan Acute oliguric renal failure, creainint with small improvement wo dyalisys - edwards in progress Generalysed pruritis , likley 2/2 ARF Multiple excoriations, no active infection. Previously treated for MRSA infection with clindamycin - clx + MRSA Pulmonary consoldation, suspected PNA vs atelectasis in the settings of COPD; received 5 days of abx REC'S: - dc abx - will observe off abx Ruthann Foster MD Dec 27, 2016 13:24
[2016-12-27] MEDS ORDERED: DOXYCYCLINE INJ 100 MG in SODIUM CHLORIDE 0.9% INJ 100 ML IV SCH (14:00)
[2016-12-27 14:46] LABS: AUTOMATED NEUTROPHIL # 6.8 TH/MM3 (1.8-7.7); EOSINOPHIL % 0.2 % (0.0-4.0); HEMATOCRIT 35.2 % (39.0-51.0); HEMO FLAGS DIFF FINAL; LYMPH % 5.4 % (9.0-44.0); LYMPHOCYTE # 0.4 TH/MM3 (1.0-4.8); MEAN CELL VOLUME 87.7 FL (80.0-100.0); MEAN CORPUSCULAR HEMOGLOBIN 28.8 PG (27.0-34.0); MEAN CORPUSCULAR HGB CONC 32.9 % (32.0-36.0); MONO % 4.9 % (0.0-8.0); NEUT % 89.5 % (16.0-70.0); PLATELET COUNT 158 TH/MM3 (150-450); RED BLOOD COUNT 4.02 MIL/MM3 (4.50-5.90); RED CELL DISTRIBUTION WIDTH 15.7 % (11.6-17.2); WHITE BLOOD COUNT 7.7 TH/MM3 (4.0-11.0)
--- NOTE | 2016-12-27 16:59 | HHI.PR ---
Subjective Remarks The patient stated that he had the kidney biopsy. He said he was told he would have the endoscopies on . He wanted pain medication. Discussed with nursing. Objective Vitals Vital Signs Date Time Temp Pulse Resp B/P Pulse Ox O2 Delivery O2 Flow Rate FiO2 12/27/16 16:00 97.0 80 20 141/89 95 12/27/16 14:20 80 18 140/78 92 12/27/16 13:50 78 18 137/76 97 12/27/16 13:20 78 18 137/83 98 12/27/16 12:50 85 16 148/92 97 12/27/16 12:20 124 16 173/100 96 12/27/16 12:05 97.7 128 16 153/97 93 12/27/16 10:37 16 12/27/16 10:30 Room Air 12/27/16 09:42 92 21 12/27/16 08:00 95.3 84 20 152/90 96 12/27/16 07:03 91 12/27/16 05:08 16 12/27/16 04:00 96.2 85 17 141/90 93 12/27/16 03:31 91 21 12/27/16 00:00 97.0 82 17 151/82 93 12/26/16 21:54 92 21 12/26/16 20:40 Room Air 12/26/16 20:00 98.9 81 17 133/66 94 12/26/16 20:00 85 12/26/16 19:01 16 I/O 12/26/16 12/26/16 12/26/16 12/27/16 12/27/16 12/27/16 07:00 15:00 23:00 07:00 15:00 23:00 Intake Total 960 ml 780 ml 500 ml Output Total 200 ml 300 ml 1500 ml 250 ml 500 ml Balance -200 ml 660 ml -1500 ml -250 ml 280 ml 500 ml Intake Oral 960 ml 780 ml IV Total 500 ml Output Urine Total 200 ml 300 ml 250 ml 500 ml Hemodialysis 1500 ml # Bowel Movements 1 1 Result Diagram: 12/27/16 1430 12/27/16 0753 Imaging Last Impressions Renal Biopsy CT 12/27/16 0000 Signed Impressions: Service Date/Time: Tuesday, December 27, 2016 11:35 - CONCLUSION: Uncomplicated CT guided biopsy. Thee Wang MD Chest X-Ray 12/24/16 0000 Signed Impressions: Service Date/Time: Saturday, December 24, 2016 16:44 - CONCLUSION: Right base atelectasis or consolidation. Shorty Rizzo MD Catheter Placement X-Ray 12/23/16 0000 Signed Impressions: Service Date/Time: Friday, December 23, 2016 10:42 - CONCLUSION: Uncomplicated vas catheter hemodialysis catheter placement. Manuel Estrada MD Renal Ultrasound 12/21/16 0000 Signed Impressions: Service Date/Time: Wednesday, December 21, 2016 08:35 - CONCLUSION: 1. No evidence for renal calculi or obstructive uropathy as questioned. 2. Very nonspecific trace perinephric fluid on the right. Bebo Smiley MD Abdomen/Pelvis CT 12/20/169 Signed Impressions: Service Date/Time: Tuesday, December 20, 2016 22:53 - CONCLUSION: No evidence of an acute abnormality. Sigmoid colon diverticulosis without diverticulitis and previous hernia repairs are again noted. Shorty Felder MD Objective Remarks GENERAL: This is a well-nourished, well-developed patient, in no apparent distress. SKIN: Lesions on arms, legs, scalp. CARDIOVASCULAR: Regular rate and regular rhythm without murmurs, gallops, or rubs. RESPIRATORY: Mild wheezing appreciated, crackles at the bases. GASTROINTESTINAL: Abdomen soft, mild diffuse tenderness which is improved, nondistended. + bowel sounds. MUSCULOSKELETAL: Extremities without clubbing, cyanosis, or edema. NEURO: Alert & Oriented x4 to person, place, time, situation. Moves all ext x4. PSYCH: Mood and affect appropriate. Procedures Renal biopsy 12/27 Medications and IVs Current Medications Medications (Trade) Dose Ordered Sig/Sylvie Route Start Time Stop Time Status Last Admin (NS Flush) 2 ml UNSCH PRN IV FLUSH 12/20/16 23:15 (NS Flush) 2 ml BID IV FLUSH 12/21/16 09:00 12/27/16 10:26 (Narcan Inj) 0.4 mg UNSCH PRN IV 12/20/16 23:15 Miscellaneous Information FLU VACCINE OUT... UNSCH PRN .XX 12/21/16 02:30 (Heparin Inj) 5,000 units Q8HR SQ 12/21/16 06:00 12/26/16 04:58 (Xanax) 1 mg TID PRN PO 12/21/16 05:00 12/27/16 12:37 (Norvasc) 10 mg DAILY PO 12/21/16 09:00 12/27/16 10:25 (Ecotrin Ec) 81 mg DAILY PO 12/21/16 09:00 Hold 12/25/16 08:53 (Symbicort 160-4.5 Inh) 2 puff Q12HR INH 12/21/16 09:00 Hold 12/24/16 12:52 (Spiriva Inh) 18 mcg DAILY INH 12/21/16 09:00 12/24/16 12:51 (Catapres) 0.1 mg Q8H PRN PO 12/21/16 08:00 (Zofran Inj) 4 mg Q8H PRN IV PUSH 12/22/16 10:30 12/23/16 00:03 (Colace) 100 mg BID PO 12/23/16 11:00 12/27/16 10:24 (Senokot) 17.2 mg DAILY PO 12/23/16 11:00 12/27/16 10:25 (Ultram) 50 mg BID PRN PO 12/23/16 10:24 12/26/16 18:01 (NS Flush) UNSCH PRN IVF 12/23/16 11:15 (Heparin Inj) UNSCH PRN IV FLUSH 12/23/16 11:15 (Lactinex) 1 tab TID PO 12/24/16 18:00 12/27/16 10:24 (Deltasone) 40 mg DAILY PO 12/24/16 16:30 12/27/16 10:26 Pantoprazole Sodium 40 mg 40 mg DAILY PO 12/25/16 17:00 12/27/16 10:24 (NS 1000 ml Inj) 1,000 ml @ 0 mls/hr Q0M PRN IV 12/26/16 10:44 Heparin Sodium (Porcine) 8000 units 8,000 units UNSCH PRN IVF 12/26/16 10:45 Sodium Chloride 1,000 ml @ 200 mls/hr Q5H PRN IV 12/26/16 10:44 (NS 1000 ml Inj) 1,000 ml @ 0 mls/hr Q0M PRN IV 12/26/16 10:44 (Mannitol Inj) 12.5 gm UNSCH PRN IV 12/26/16 10:45 (Albumin 25% Inj) 25 gm UNSCH PRN IV 12/26/16 10:45 (NS Flush) 5 ml UNSCH PRN IV FLUSH 12/26/16 10:45 (Heparin Inj) UNSCH PRN .XX 12/26/16 10:45 12/26/16 13:59 (Gentamicin (Dialysis) Inj) 20 mg UNSCH PRN IV 12/26/16 10:45 12/26/16 13:59 (Zofran Inj) 4 mg UNSCH PRN IV 12/26/16 10:45 (Tylenol) 650 mg UNSCH PRN PO 12/26/16 10:45 12/26/16 14:35 (Benadryl) 25 mg UNSCH PRN PO 12/26/16 10:45 (Nitrostat Sl) 0.4 mg UNSCH PRN SL 12/26/16 10:45 (Catapres) 0.1 mg UNSCH PRN PO 12/26/16 10:45 (Gelfoam 12 Mm/7 Mm Top) 1 foam UNSCH PRN TOP 12/26/16 10:45 (Dilaudid Pf Inj) 0.5 mg Q6H PRN IV PUSH 12/26/16 13:00 12/27/16 10:24 (Ultram) 100 mg Q4H PRN PO 12/26/16 11:45 12/27/16 12:37 Metoprolol Tartrate 50 mg 50 mg Q12HR PO 12/27/16 21:00 (Vibramycin Inj/ NS Inj) 100 ml @ 100 mls/hr Q12H IV 12/27/16 14:00 A/P Assessment and Plan Acute renal failure/ Severe Uremia Nephrology consult appreciated. Pt is becoming oliguric. Proteinuria noted on UA. Renal US unremarkable. Creatinine continues to get worse. Dialysis started per nephrology. S/p renal biopsy 12/27. - dialysis per nephrology. - avoid nephrotoxic agents. - follow pathology. Abdominal pain Possibly secondary to constipation. CT of the abdomen was unremarkable. AST is elevated, lipase not elevated. Has a history of diverticulitis status post surgical repair, as well as ventral hernia repair. GI consult appreciated. - Started bowel regimen. - Pain control. - Trend LFTs. - endoscopies per GI scheduled for . MRSA lesions The pt has lesions on his arms, legs and scalp. Wound culture growing MRSA. Pt with leukocytosis and PNA. - ID consult requested. - change clindamycin to doxycycline IV. Hyperkalemia Potassium elevated at times. - continue to monitor. - dialysis per nephrology. - Kayexalate as needed. Hypertension Blood pressure fluctuates. Relatively well controlled 12/27. - continue amlodipine. Lisinopril on hold due to kidney injury and hyperkalemia. Lopressor added. - continue to monitor BP and adjust the regimen as needed. Would add hydralazine if blood pressure remains elevated. - Clonidine as needed. COPD/ PNA Breathing stable. CXR with question of right base consolidation. - continue Symbicort and Spiriva. - neb treatment as needed. - start prednisone. - antibiotics. Hypoglycemia Likely s/t decreased PO intake. - encourage PO intake. - follow glucose. Resolved. History of CVA/ TIA The pt is on ASA. - ASA on hold for renal biopsy per nephrology. Will resume following biopsy. - PT if needed. DVT prophylaxis with heparin Discharge Planning Awaiting clinical improvement Vamsi Ferro DO Dec 27, 2016 16:59
[2016-12-27] MEDS ORDERED: HYDROmorphone HCL PF 1 MG/ML VIAL IV PUSH ONE (20:45)
[2016-12-27] MEDS: oxyCODONE/ACETAMINOPHEN 10 MG/325 MG TAB PO PRN (20:51)
[2016-12-27] MEDS: METOPROLOL TARTRATE 50 MG TAB PO SCH (20:51)
[2016-12-27] MEDS: diphenhydrAMINE HCL 25 MG CAP PO PRN (23:28)
[2016-12-28] VITALS (8 sets, daily range): BP systolic 141–160; BP diastolic 75–90; PULSE 72–87; RESP 17–20; TEMP 96.2–97.6; O2SAT 92–94
[2016-12-28] MEDS: oxyCODONE/ACETAMINOPHEN 10 MG/325 MG TAB PO PRN ×5 (00:49→22:49)
[2016-12-28] MEDS: RESP: ALBUTEROL 2.5 MG/3 ML NEB (SCH) NEB ×2 (03:26→07:50)
[2016-12-28] MEDS ORDERED: HYDROmorphone HCL PF 1 MG/ML VIAL IV PUSH ONE (04:30)
[2016-12-28] MEDS: diphenhydrAMINE HCL 25 MG CAP PO PRN ×3 (04:36→19:55)
[2016-12-28] MEDS: HEPARIN SODIUM - SQ 10,000 UNITS/ML VIAL SQ SCH ×3 (05:32→22:53)
--- NOTE | 2016-12-28 05:34 | RADRPT ---
EXAM DATE/TIME: 12/28/2016 04:48 [facility] COMPARISON: CHEST SINGLE AP, December 24, 2016, 16:44. INDICATIONS : Shortness of breath. MEDICAL HISTORY : Hepatitis C. Hypertension. Chronic obstructive pulmonary disease. SURGICAL HISTORY : None. ENCOUNTER: Initial ACUITY: 1 day PAIN SCORE: 0/10 LOCATION: Bilateral chest FINDINGS: Right central line tip takes at the cavoatrial junction. The lungs are symmetrically aerated and richar ar. Interval resolution of partially consolidative infiltrate in the right lower lung. Both hemidia phragms are well delineated. The heart is normal size. CONCLUSION: The lungs are clear. Binh Moreno MD on December 28, 2016 at 5:31 Board Certified Radiologist. This report was verified electronically.
[2016-12-28 07:17] LABS: HEMATOCRIT 36.8 % (39.0-51.0); MEAN CELL VOLUME 88.9 FL (80.0-100.0); MEAN CORPUSCULAR HEMOGLOBIN 28.7 PG (27.0-34.0); MEAN CORPUSCULAR HGB CONC 32.3 % (32.0-36.0); PLATELET COUNT 152 TH/MM3 (150-450); RED BLOOD COUNT 4.14 MIL/MM3 (4.50-5.90); RED CELL DISTRIBUTION WIDTH 15.5 % (11.6-17.2); REVIEW FLAG FINAL; WHITE BLOOD COUNT 9.8 TH/MM3 (4.0-11.0)
[2016-12-28] MEDS: SODIUM CHLORIDE 0.9% FLUSH 10 ML FLUSH IV FLUSH SCH ×2 (09:00→19:58)
--- NOTE | 2016-12-28 09:19 | HHI.GIFU ---
Subjective Remarks Resting in bed. Tolerating diet. States he gets his dialysis today. Does complain of worsening abdominal distention/fluid. Continues to have intermittent lower abdominal pain, which she describes as a constant ache. Discussed with patient need for hepatitis C treatment, states that he has been wanting to start treatment. Will order labs and start process to get approval- counselled on HIV testing- patient is agreeable. Objective Vitals I&O Vital Signs Date Time Temp Pulse Resp B/P Pulse Ox O2 Delivery O2 Flow Rate FiO2 12/28/16 07:52 93 Nasal Cannula 2.00 12/28/16 06:16 16 12/28/16 05:33 17 12/28/16 04:00 97.1 77 18 145/75 93 12/28/16 00:00 97.6 79 18 141/83 93 12/27/16 23:59 16 12/27/16 20:18 93 Nasal Cannula 2.00 12/27/16 20:17 Room Air 2.00 21 12/27/16 20:00 82 12/27/16 20:00 98.1 84 17 150/92 92 12/27/16 18:03 16 12/27/16 16:00 97.0 80 20 141/89 95 12/27/16 14:20 80 18 140/78 92 12/27/16 13:50 78 18 137/76 97 12/27/16 13:20 78 18 137/83 98 12/27/16 12:50 85 16 148/92 97 12/27/16 12:20 124 16 173/100 96 12/27/16 12:05 97.7 128 16 153/97 93 12/27/16 10:37 16 12/27/16 10:30 Room Air 12/27/16 09:42 92 21 I/O 12/27/16 12/27/16 12/27/16 12/28/16 12/28/16 12/28/16 07:00 15:00 23:00 07:00 15:00 23:00 Intake Total 780 ml 500 ml 240 ml Output Total 250 ml 500 ml Balance -250 ml 280 ml 500 ml 240 ml Intake Oral 780 ml 240 ml IV Total 500 ml Output Urine Total 250 ml 500 ml # Voids 2 Laboratory Laboratory Tests Test 12/27/16 12/27/16 12/28/16 12:30 14:30 05:53 White Blood Count 9.4 7.7 9.8 Red Blood Count 4.11 4.02 4.14 Hemoglobin 11.9 11.6 11.9 Hematocrit 36.1 35.2 36.8 Mean Corpuscular Volume 87.8 87.7 88.9 Mean Corpuscular Hemoglobin 29.0 28.8 28.7 Mean Corpuscular Hemoglobin 33.0 32.9 32.3 Concent Red Cell Distribution Width 15.4 15.7 15.5 Platelet Count 171 158 152 Mean Platelet Volume 7.0 6.9 7.0 Neutrophils (%) (Auto) 80.0 89.5 Lymphocytes (%) (Auto) 9.0 5.4 Monocytes (%) (Auto) 9.9 4.9 Eosinophils (%) (Auto) 0.6 0.2 Basophils (%) (Auto) 0.5 0.0 Neutrophils # (Auto) 7.5 6.8 Lymphocytes # (Auto) 0.8 0.4 Monocytes # (Auto) 0.9 0.4 Eosinophils # (Auto) 0.1 0.0 Basophils # (Auto) 0.0 0.0 CBC Comment DIFF FINAL DIFF FINAL Differential Comment Date/Time Procedure Status Source Growth 12/24/16 22:27 Gram Stain - Final Complete Wound Arm 12/24/16 22:27 Wound Culture - Final Complete S. Aureus [facility] Imaging Last Impressions Chest X-Ray 12/28/16 0600 Signed Impressions: Service Date/Time: Wednesday, December 28, 2016 04:48 - CONCLUSION: The lungs are clear. Binh Moreno MD Renal Biopsy CT 12/27/16 0000 Signed Impressions: Service Date/Time: Tuesday, December 27, 2016 11:35 - CONCLUSION: Uncomplicated CT guided biopsy. Thee Wang MD Catheter Placement X-Ray 12/23/16 0000 Signed Impressions: Service Date/Time: Friday, December 23, 2016 10:42 - CONCLUSION: Uncomplicated vas catheter hemodialysis catheter placement. Manuel Estrada MD Renal Ultrasound 12/21/16 0000 Signed Impressions: Service Date/Time: Wednesday, December 21, 2016 08:35 - CONCLUSION: 1. No evidence for renal calculi or obstructive uropathy as questioned. 2. Very nonspecific trace perinephric fluid on the right. Bebo Smiley MD Abdomen/Pelvis CT 12/20/16 3456 Signed Impressions: Service Date/Time: Tuesday, December 20, 2016 22:53 - CONCLUSION: No evidence of an acute abnormality. Sigmoid colon diverticulosis without diverticulitis and previous hernia repairs are again noted. Shorty Felder MD Physical Exam HEENT: Normocephalic; atraumatic; no jaundice. CHEST: CTA CARDIAC: RRR. ABDOMEN: Soft, nondistended, mild lower abdominal tenderness; moderate amount ascites, bruising to lower abdomen, no hepatosplenomegaly; bowel sounds are present in all four quadrants. EXTREMITIES: No clubbing, cyanosis, or edema. SKIN: Multiple open lesions to bue INSPECTOR GOLF BALL: No focal deficits; alert and oriented times three. Assessment and Plan Plan ASSESSMENT: - Abdominal pain. One week hx of lower abdominal pain, described as a constant pressure like pain with intermittent sharp pain radiating to left hip. No relation to food. Abdomen/Pelvis CT (12/20/16)----> No evidence of an acute abnormality. Sigmoid colon diverticulosis without diverticulitis and previous hernia repairs are again noted. He betancourt done episode of n/v over the weekend, no further episodes. No decreased appetite, gerd, melena, or hematochezia. Denies any diarrhea. Denies any regular issues with constipation, but did have constipation here in the hospital. He was started on colace/senna and he had a bowel movement today, but states he continues to have abdominal pain. Hx diverticulosis/diverticulitis, requiring resection, colostomy, and later reversal/hernia repair about 3 years ago. He has never had a colonoscopy. No change in pain. Of note, he does have increasing ascites and he has significant ecchymosis in his lower abdomen. Will get a right upper quadrant and lower limited Ultrasound to evaluate liver and ascites - Anemia, normocytic. 12.8/39.7. Likely multifactorial with at least some of this related to his kidney disease. - HCV. Viral load 1,280,000 ? Genotype. Treatment ariela. Pt states he was diagnosed in 2002 and treated with Hepatitis A/B/C shots. However, upon further questioning, he states that he has never had interferon and that he received a series of 3 shots for hepatitis A/B/C once he was diagnosed. He likely received vaccination for Hep A/B. He has pruritic lesions on both upper extremities and he was started on hemodialysis for acute renal failure. Cryoglobulins positive, With low cryocrit less than 1.0%. Renal biopsy pending. Patient will need treatment for his hepatitis C. Labs ordered (psych drug screen, EtOH screening , HIV Patient counseled and agreeable, GGT, fibrosure, TSH) to start process to get this approved. Once these labs are resulted, we will submit a request to insurance company to obtain approval for krista. Genotype pending. - ARF with electrolyte abnormalities. Started on HD during this admission. He does have HCV and has pruritic lesions (he attributes to bug bites). Cryoglobulins positive, With low cryocrit less than 1.0%. Renal biopsy pending. Renal following. Plan will be to start tx for HCV, once approved. - HTN, COPD, PNA, Hx CVA/TIA per primary PLAN: - Plan for EGD/colonoscopy in a.m. - Obtain consents - Clear liquids - Nothing by mouth after midnight - GoLYTELY prep - Psych drug screen - EtOH level - HIV testing, patient counseled and agreeable - Gtt - TSH - Fibrosure - Await HCV genotype - Total hepatitis A/B antibody - Of note patient reports that he was previously vaccinated for hepatitis A/B - Await renal biopsy - Cont. Senna/Colace - Cont. Colace - Right upper quadrant/lower limited ultrasound to evaluate liver and ascites - Supportive care - Further recommendations to follow based on results of above - Pt seen and examined by Dr. Castillo and myself and this note is written on his behalf Ryann Hernandez Dec 28, 2016 09:19
[2016-12-28] MEDS: PANTOPRAZOLE SOD 40 MG DELAYED RELEASE TAB PO SCH (09:40)
[2016-12-28] MEDS: METOPROLOL TARTRATE 50 MG TAB PO SCH ×2 (09:40→20:01)
[2016-12-28] MEDS: LACTOBACILLUS ACIDOPHILUS TAB PO SCH ×3 (09:40→18:31)
[2016-12-28] MEDS: DOCUSATE SODIUM 100 MG CAP PO SCH ×2 (09:40→20:03)
[2016-12-28] MEDS: predniSONE 20 MG TAB PO SCH (09:40)
[2016-12-28] MEDS: ALPRAZolam 1 MG TAB PO PRN ×2 (09:40→22:49)
[2016-12-28] MEDS: SENNOSIDES 8.6 MG TAB PO SCH (09:40)
[2016-12-28] MEDS: TIOTROPIUM BROMIDE 18 MCG INH INH SCH (09:45)
--- NOTE | 2016-12-28 10:11 | HHI.PR ---
Subjective Remarks The patient says his abdominal pain is slightly better. He says his breathing is okay. He is anticipating the procedures for tomorrow. He continues to itch all over his body. He says the Percocet is taking care of his pain. Objective Vitals Vital Signs Date Time Temp Pulse Resp B/P Pulse Ox O2 Delivery O2 Flow Rate FiO2 12/28/16 08:00 97.0 84 18 160/88 94 12/28/16 07:52 93 Nasal Cannula 2.00 12/28/16 06:16 16 12/28/16 05:33 17 12/28/16 04:00 97.1 77 18 145/75 93 12/28/16 00:00 97.6 79 18 141/83 93 12/27/16 23:59 16 12/27/16 20:18 93 Nasal Cannula 2.00 12/27/16 20:17 Room Air 2.00 21 12/27/16 20:00 82 12/27/16 20:00 98.1 84 17 150/92 92 12/27/16 18:03 16 12/27/16 16:00 97.0 80 20 141/89 95 12/27/16 14:20 80 18 140/78 92 12/27/16 13:50 78 18 137/76 97 12/27/16 13:20 78 18 137/83 98 12/27/16 12:50 85 16 148/92 97 12/27/16 12:20 124 16 173/100 96 12/27/16 12:05 97.7 128 16 153/97 93 12/27/16 10:37 16 12/27/16 10:30 Room Air I/O 12/27/16 12/27/16 12/27/16 12/28/16 12/28/16 12/28/16 07:00 15:00 23:00 07:00 15:00 23:00 Intake Total 780 ml 500 ml 240 ml Output Total 250 ml 500 ml Balance -250 ml 280 ml 500 ml 240 ml Intake Oral 780 ml 240 ml IV Total 500 ml Output Urine Total 250 ml 500 ml # Voids 2 Result Diagram: 12/28/16 0553 12/27/16 0753 Imaging Last Impressions Chest X-Ray 12/28/16 0600 Signed Impressions: Service Date/Time: Wednesday, December 28, 2016 04:48 - CONCLUSION: The lungs are clear. Binh Moreno MD Renal Biopsy CT 12/27/16 0000 Signed Impressions: Service Date/Time: Tuesday, December 27, 2016 11:35 - CONCLUSION: Uncomplicated CT guided biopsy. Thee Wang MD Catheter Placement X-Ray 12/23/16 0000 Signed Impressions: Service Date/Time: Friday, December 23, 2016 10:42 - CONCLUSION: Uncomplicated vas catheter hemodialysis catheter placement. Manuel Estrada MD Renal Ultrasound 12/21/16 0000 Signed Impressions: Service Date/Time: Wednesday, December 21, 2016 08:35 - CONCLUSION: 1. No evidence for renal calculi or obstructive uropathy as questioned. 2. Very nonspecific trace perinephric fluid on the right. Bebo Smiley MD Abdomen/Pelvis CT 12/20/162238 Signed Impressions: Service Date/Time: Tuesday, December 20, 2016 22:53 - CONCLUSION: No evidence of an acute abnormality. Sigmoid colon diverticulosis without diverticulitis and previous hernia repairs are again noted. Shorty Felder MD Objective Remarks GENERAL: This is a well-nourished, well-developed patient, in no apparent distress. SKIN: Lesions on arms, legs and scalp. CARDIOVASCULAR: Regular rate and regular rhythm without murmurs, gallops, or rubs. RESPIRATORY: Mild wheezing appreciated. GASTROINTESTINAL: Abdomen soft, nontender, nondistended. + bowel sounds. MUSCULOSKELETAL: Extremities without clubbing, cyanosis, or edema. NEURO: Alert & Oriented x4 to person, place, time, situation. Moves all ext x4. PSYCH: Mood and affect appropriate. Procedures Renal biopsy 12/27 Medications and IVs Current Medications Medications (Trade) Dose Ordered Sig/Sylvie Route Start Time Stop Time Status Last Admin (NS Flush) 2 ml UNSCH PRN IV FLUSH 12/20/16 23:15 (NS Flush) 2 ml BID IV FLUSH 12/21/16 09:00 12/27/16 20:51 (Narcan Inj) 0.4 mg UNSCH PRN IV 12/20/16 23:15 Miscellaneous Information FLU VACCINE OUT... UNSCH PRN .XX 12/21/16 02:30 (Heparin Inj) 5,000 units Q8HR SQ 12/21/16 06:00 12/28/16 05:32 (Xanax) 1 mg TID PRN PO 12/21/16 05:00 12/28/16 09:40 (Norvasc) 10 mg DAILY PO 12/21/16 09:00 12/28/16 09:40 (Ecotrin Ec) 81 mg DAILY PO 12/21/16 09:00 Hold 12/25/16 08:53 (Symbicort 160-4.5 Inh) 2 puff Q12HR INH 12/21/16 09:00 Hold 12/24/16 12:52 (Spiriva Inh) 18 mcg DAILY INH 12/21/16 09:00 12/28/16 09:45 (Catapres) 0.1 mg Q8H PRN PO 12/21/16 08:00 (Zofran Inj) 4 mg Q8H PRN IV PUSH 12/22/16 10:30 12/23/16 00:03 (Colace) 100 mg BID PO 12/23/16 11:00 12/28/16 09:40 (Senokot) 17.2 mg DAILY PO 12/23/16 11:00 12/28/16 09:40 (NS Flush) UNSCH PRN IVF 12/23/16 11:15 (Heparin Inj) UNSCH PRN IV FLUSH 12/23/16 11:15 (Lactinex) 1 tab TID PO 12/24/16 18:00 12/28/16 09:40 (Deltasone) 40 mg DAILY PO 12/24/16 16:30 12/28/16 09:40 Pantoprazole Sodium 40 mg 40 mg DAILY PO 12/25/16 17:00 12/28/16 09:40 (NS 1000 ml Inj) 1,000 ml @ 0 mls/hr Q0M PRN IV 12/26/16 10:44 Heparin Sodium (Porcine) 8000 units 8,000 units UNSCH PRN IVF 12/26/16 10:45 Sodium Chloride 1,000 ml @ 200 mls/hr Q5H PRN IV 12/26/16 10:44 (NS 1000 ml Inj) 1,000 ml @ 0 mls/hr Q0M PRN IV 12/26/16 10:44 (Mannitol Inj) 12.5 gm UNSCH PRN IV 12/26/16 10:45 (Albumin 25% Inj) 25 gm UNSCH PRN IV 12/26/16 10:45 (NS Flush) 5 ml UNSCH PRN IV FLUSH 12/26/16 10:45 (Heparin Inj) UNSCH PRN .XX 12/26/16 10:45 12/26/16 13:59 (Gentamicin (Dialysis) Inj) 20 mg UNSCH PRN IV 12/26/16 10:45 12/26/16 13:59 (Zofran Inj) 4 mg UNSCH PRN IV 12/26/16 10:45 (Tylenol) 650 mg UNSCH PRN PO 12/26/16 10:45 12/26/16 14:35 (Benadryl) 25 mg UNSCH PRN PO 12/26/16 10:45 12/28/16 04:36 (Nitrostat Sl) 0.4 mg UNSCH PRN SL 12/26/16 10:45 (Catapres) 0.1 mg UNSCH PRN PO 12/26/16 10:45 (Gelfoam 12 Mm/7 Mm Top) 1 foam UNSCH PRN TOP 12/26/16 10:45 (Lopressor) 50 mg Q12HR PO 12/27/16 21:00 12/28/16 09:40 (Percocet 5-325 Mg) 1 tab Q4H PRN PO 12/27/16 17:00 (Percocet 10-325 Mg) 1 tab Q4H PRN PO 12/27/16 17:00 12/28/16 09:43 (Colyte Liq) 4,000 ml ONCE ONCE PO 12/28/16 16:00 12/28/16 16:01 A/P Assessment and Plan Acute renal failure/ Severe Uremia Nephrology consult appreciated. Pt is becoming oliguric. Proteinuria noted on UA. Renal US unremarkable. Creatinine continues to get worse. Dialysis started per nephrology. S/p renal biopsy 12/27. - dialysis per nephrology. - avoid nephrotoxic agents. - follow pathology. Abdominal pain Possibly secondary to constipation. CT of the abdomen was unremarkable. AST is elevated, lipase not elevated. Has a history of diverticulitis status post surgical repair, as well as ventral hernia repair. GI consult appreciated. Pain is improved. - Started bowel regimen. - Pain control. - Trend LFTs. - endoscopies per GI scheduled for . MRSA lesions The pt has lesions on his arms, legs and scalp. Wound culture growing MRSA. Pt with leukocytosis and PNA. ID consult appreciated. - d/c antibiotics per ID and monitor. - Benadryl as needed. Hyperkalemia Potassium elevated at times. - continue to monitor. - dialysis per nephrology. - Kayexalate as needed. Hypertension Blood pressure fluctuates. Relatively well controlled 12/28. - continue amlodipine. Lisinopril on hold due to kidney injury and hyperkalemia. Lopressor added. - continue to monitor BP and adjust the regimen as needed. - Clonidine as needed. COPD/ PNA Breathing stable. CXR with question of right base consolidation. Repeat CXR clear. - continue Symbicort and Spiriva. - neb treatment as needed. - start prednisone. Taper. Hypoglycemia Likely s/t decreased PO intake. - encourage PO intake. - follow glucose. Resolved. History of CVA/ TIA The pt is on ASA. - ASA on hold for renal biopsy per nephrology. Will resume following biopsy. - PT if needed. DVT prophylaxis with heparin Discharge Planning Awaiting clinical improvement Vamsi Ferro DO Dec 28, 2016 10:10
--- NOTE | 2016-12-28 12:40 | RADRPT ---
EXAM DATE/TIME: 12/28/2016 11:45 [facility] COMPARISON: No previous studies available for comparison. INDICATIONS : Ascites. MEDICAL HISTORY : Congestive heart failure. Emphysema. Diverticulitis. Blurred vision. TIA. Numbness. HTN. Chest pain. Irregular heartbeat. Asthma. Sleep apnea. Dsypena. COPD. Ulcer. Hep C. Diabetes. Anxiety. Anticoagula nt therapy, Aspirin 81mg. MRSA. SURGICAL HISTORY : Abscess tooth removed. Cardiac cath. Hernia repair. Colostomy and reversal. Right elbow I&D. ENCOUNTER: Initial ACUITY: 1 day PAIN SCORE: 2/10 LOCATION: Abdomen. AREA EVALUATED: Abdominal quadrants. FINDINGS: Imaging of the abdomen and pelvis was performed to evaluate for ascites for possible paracentesis. CONCLUSION: There is no significant ascites. Hermann Estrada MD FACR on December 28, 2016 at 12:37 Board Certified Radiologist. This report was verified electronically.
[2016-12-28 13:58] LABS: BICARBONATE 31.4 MEQ/L (21.0-32.0); POTASSIUM 5.2 MEQ/L (3.5-5.1)
[2016-12-28 14:36] LABS: GAMMA GT 409 U/L (15-85)
[2016-12-28] MEDS ORDERED: PEG (High)/E-LYTE SOLN 4000 ML BTL PO ONE (16:00)
--- NOTE | 2016-12-28 16:41 | HHI.NPPN ---
Subjective History of Present Illness The patient is a 56 yo [place] male with medical hx of HTN, COPD, CAD s/p cath in 2006, remote hx of HCV, TIA, and diverticulitis who presented to this facility today with 3 day h/o abdominal pain, nausea, and general complaint of not feeling well. Was seen in ED on 12/18 for COPD exacerbation. Has been seen within the past week by his PCP at [facility] for skin rash that he says is from bug bites. Has culture of bites taken and was given Cipro 500mg BID as well as a shot of Toradol and Decadron at their office. We were consulted for ARF. ED labs from 12/18 showed a normal SCr of 0.89, but when he arrived 12/20 SCr was 5.57 and worsened to 6.32 at consult. He was treated in ED for hyperkalemia. Reports he has had little UOP in the past few days. Denies any urological hx. Denies any NSAIDs by mouth. No recent vomiting or diarrhea. Denies any illcit drug use. Interval History Pt seen during HD. s/p kidney bx 12/27 Scheduled for EGD/colonoscopy 12/29 (Marlene Velazquez) Objective Data Data 12/27/16 12/28/16 19:00 07:00 Intake Total 1280 ml 240 ml Output Total 500 ml Balance 780 ml 240 ml Intake Oral 780 ml 240 ml IV Total 500 ml Output Urine Total 500 ml # Voids 2 Vital Signs Date Time Temp Pulse Resp B/P Pulse Ox O2 Delivery O2 Flow Rate FiO2 12/28/16 12:00 96.2 72 20 151/90 92 12/28/16 10:04 93 Room Air 12/28/16 08:03 87 12/28/16 08:00 97.0 84 18 160/88 94 12/28/16 07:52 93 Nasal Cannula 2.00 12/28/16 06:16 16 12/28/16 05:33 17 12/28/16 04:00 97.1 77 18 145/75 93 12/28/16 00:00 97.6 79 18 141/83 93 12/27/16 23:59 16 12/27/16 20:18 93 Nasal Cannula 2.00 12/27/16 20:17 Room Air 2.00 21 12/27/16 20:00 82 12/27/16 20:00 98.1 84 17 150/92 92 12/27/16 18:03 16 (Marlene Velazquez) -: 12/28/16 0553 12/28/16 1318 Tubes & Lines: Vas-Cath Medication Review Current Medications Medications (Trade) Dose Ordered Sig/Sylvie Route Start Time Stop Time Status Last Admin (NS Flush) 2 ml UNSCH PRN IV FLUSH 12/20/16 23:15 (NS Flush) 2 ml BID IV FLUSH 12/21/16 09:00 12/27/16 20:51 (Narcan Inj) 0.4 mg UNSCH PRN IV 12/20/16 23:15 Miscellaneous Information FLU VACCINE OUT... UNSCH PRN .XX 12/21/16 02:30 (Heparin Inj) 5,000 units Q8HR SQ 12/21/16 06:00 Future hold 12/28/16 13:31 (Xanax) 1 mg TID PRN PO 12/21/16 05:00 12/28/16 09:40 (Norvasc) 10 mg DAILY PO 12/21/16 09:00 12/28/16 09:40 (Ecotrin Ec) 81 mg DAILY PO 12/21/16 09:00 Hold 12/25/16 08:53 (Symbicort 160-4.5 Inh) 2 puff Q12HR INH 12/21/16 09:00 Hold 12/24/16 12:52 (Spiriva Inh) 18 mcg DAILY INH 12/21/16 09:00 12/28/16 09:45 (Catapres) 0.1 mg Q8H PRN PO 12/21/16 08:00 (Zofran Inj) 4 mg Q8H PRN IV PUSH 12/22/16 10:30 12/23/16 00:03 (Colace) 100 mg BID PO 12/23/16 11:00 12/28/16 09:40 (Senokot) 17.2 mg DAILY PO 12/23/16 11:00 12/28/16 09:40 (NS Flush) UNSCH PRN IVF 12/23/16 11:15 (Heparin Inj) UNSCH PRN IV FLUSH 12/23/16 11:15 (Lactinex) 1 tab TID PO 12/24/16 18:00 12/28/16 13:32 Pantoprazole Sodium 40 mg 40 mg DAILY PO 12/25/16 17:00 12/28/16 09:40 (NS 1000 ml Inj) 1,000 ml @ 0 mls/hr Q0M PRN IV 12/26/16 10:44 Heparin Sodium (Porcine) 8000 units 8,000 units UNSCH PRN IVF 12/26/16 10:45 Sodium Chloride 1,000 ml @ 200 mls/hr Q5H PRN IV 12/26/16 10:44 (NS 1000 ml Inj) 1,000 ml @ 0 mls/hr Q0M PRN IV 12/26/16 10:44 (Mannitol Inj) 12.5 gm UNSCH PRN IV 12/26/16 10:45 (Albumin 25% Inj) 25 gm UNSCH PRN IV 12/26/16 10:45 (NS Flush) 5 ml UNSCH PRN IV FLUSH 12/26/16 10:45 (Heparin Inj) UNSCH PRN .XX 12/26/16 10:45 12/26/16 13:59 (Gentamicin (Dialysis) Inj) 20 mg UNSCH PRN IV 12/26/16 10:45 12/26/16 13:59 (Zofran Inj) 4 mg UNSCH PRN IV 12/26/16 10:45 (Tylenol) 650 mg UNSCH PRN PO 12/26/16 10:45 12/26/16 14:35 (Benadryl) 25 mg UNSCH PRN PO 12/26/16 10:45 12/28/16 10:54 (Nitrostat Sl) 0.4 mg UNSCH PRN SL 12/26/16 10:45 (Catapres) 0.1 mg UNSCH PRN PO 12/26/16 10:45 (Gelfoam 12 Mm/7 Mm Top) 1 foam UNSCH PRN TOP 12/26/16 10:45 (Lopressor) 50 mg Q12HR PO 12/27/16 21:00 12/28/16 09:40 (Percocet 5-325 Mg) 1 tab Q4H PRN PO 12/27/16 17:00 (Percocet 10-325 Mg) 1 tab Q4H PRN PO 12/27/16 17:00 12/28/16 09:43 (Deltasone) 20 mg DAILY PO 12/29/16 09:00 12/31/16 09:01 (Marlene Velazquez) Physical Exam General Appearance: No Acute Distress, Comfortable (Marlene Velazquez) Eyes Eye Exam: Sclera White (Marlene Velazquez) Pulmonary Resp Exam: Clear Bilaterally, Breath Sounds Equal, No Distress (Marlene Velazquez) Cardiology CV Exam: Regular, Normal Sinus Rhythm (Marlene Velazquez) Gastrointestinal/Abdomen GI Exam: Soft, Non-Tender, No Hepatosplenomegaly (Marlene Velazquez) Integumentary Skin Exam: Warm, Dry Skin Remarks Multiple bug bites on skin (Marlene Velazquez) Extremeties Extremities Exam: Trace Edema (bilat ankles) (Marlene Velazquez) Neurologic Neuro Exam: Alert, Awake (Marlene Velazquez) Psychiatric Psych Exam: Appropriate Responses (Marlene Velazquez) Assessment/Plan Discussed Condition With: Patient Assessment Summary: OLLIE/Acute Renal Failure Problem List: (1) Acute renal failure Plan: Etiology of acute renal insufficiency uncertain. Given the rapidity ATN is consideration although interstitial nephritis is on the differential as well. Kidney bx results pending. Seen during HD today. Will continue on MWF schedule Noted he is complaining of generalized pruritus. Sometimes associated with hyperphosphatemia and levels mildly elevated. Start PhosLo for phosphate binding TID with meals. Medications should be adjusted for the patient's renal decline. Avoid nephrotoxic medications such as iodinated contrast and NSAIDs. Avoid gadolinium. (2) HTN (hypertension) Plan: Continue on Amlodipine Increase Metoprolol to 50mg BID (3) Hepatitis C Plan: PCR positive as well as Cryo. GI attempting to get Victor Manuel covered on insurance Uncertain if he developed a GN related to HCV, but given rapid deterioration this is not likely. Await kidney bx results. (4) MRSA (methicillin resistant staph aureus) culture positive (Marlene Velazquez) Plan Patient seen during dialysis. GI records reviewed. Patient appears to be a candidate for treatment of hepatitis C. Given rapidity of acute renal insufficiency glomerulonephritis secondary to his hepatitis C is not currently a primary consideration however await result of kidney biopsy. The exam, history, and the medical decision-making described in the above note were completed with the assistance of the PA-C. I reviewed and agree with the findings presented. I attest that I had a [id number] encounter with the patient on the same day, and personally performed and documented my assessment and findings in the medical record. (Aldair Shields MD) Marlene Velazquez Dec 28, 2016 16:41 Aldair Shields MD Dec 28, 2016 17:00
[2016-12-28] MEDS: CALCIUM ACETATE 667 MG CAP PO SCH (18:30)
--- NOTE | 2016-12-28 20:04 | RADRPT ---
EXAM DATE/TIME: 12/28/2016 17:58 [facility] COMPARISON: CT ABDOMEN & PELVIS W/O CONTRAST, December 20, 2016, 22:53. INDICATIONS : Hepatitis C. MEDICAL HISTORY : Congestive heart failure. Emphysema. Diverticulitis. Blurred vision. TIA. Numbness. HTN. Chest pain. Irregular heartbeat. Asthma. Sleep apnea. Dsypena. COPD. Ulcer. Hep C. Diabetes. Anxiety. Anticoagula nt therapy, Aspirin 81mg. MRSA. SURGICAL HISTORY : Abscess tooth removed. Cardiac cath. Hernia repair. Colostomy and reversal. Right elbow I&D. ENCOUNTER: Initial ACUITY: 1 day PAIN SCORE: 3/10 LOCATION: Bilateral upper quadrant MEASUREMENTS: LIVER: 20.9 cm length COMMON DUCT: 6 mm RIGHT KIDNEY: 13.3 x 6.3 x 5.4 cm SPLEEN: 12.6 cm length FINDINGS: LIVER: The liver is enlarged measuring up to 20 cm with no focal mass. There is a small amount of adjacent a scitic fluid small right pleural effusion. There is normal hepatopedal blood flow in the portal vein. There is no intrahepatic biliary ductal dilatation. COMMON DUCT: No intraluminal mass or stone visualized. GALLBLADDER: Normal in size and shape. There is a questionable area of wall thickening versus pericholecystic flui d along a portion of the gallbladder with no evidence of cholelithiasis. PANCREAS: The visualized portion of the pancreas appeared hyperechoic. There was a hypoechoic structure along t he tail measuring up to 2.4 cm in diameter with no color flow. This is not well visualized due to adj acent bowel loops. RIGHT KIDNEY: No hydronephrosis, stone or mass. SPLEEN: No focal lesion. CONCLUSION: 1. Hypoechoic masslike structure along the tail of the pancreas of unclear significance. This could r epresent potential pseudocyst or even possible loop of bowel. The pancreas appeared echogenic and is only partially visualized. 2. Hepatomegaly with no solid mass. There is a small amount of ascitic fluid and small right effusion . 3. Questionable small focal area of gallbladder wall thickening versus pericholecystic prominence wit h no evidence of cholelithiasis or biliary obstruction. Vamsi Diaz MD on December 28, 2016 at 19:56 Board Certified Radiologist. This report was verified electronically.
[2016-12-28] MEDS: RESP: ALBUTEROL 2.5 MG/3 ML NEB (PRN) NEB (23:07)
[2016-12-29] VITALS (10 sets, daily range): BP systolic 135–146; BP diastolic 70–89; PULSE 73–84; RESP 16–18; TEMP 97–98; O2SAT 91–99
[2016-12-29] MEDS: ALPRAZolam 1 MG TAB PO PRN ×2 (05:21→21:23)
[2016-12-29] MEDS: diphenhydrAMINE HCL 25 MG CAP PO PRN ×2 (05:21→21:23)
[2016-12-29] MEDS: RESP: ALBUTEROL 2.5 MG/3 ML NEB (PRN) NEB (05:50)
[2016-12-29 06:47] LABS: HEMATOCRIT 37.3 % (39.0-51.0); MEAN CELL VOLUME 88.4 FL (80.0-100.0); MEAN CORPUSCULAR HEMOGLOBIN 28.6 PG (27.0-34.0); MEAN CORPUSCULAR HGB CONC 32.4 % (32.0-36.0); PLATELET COUNT 164 TH/MM3 (150-450); RED BLOOD COUNT 4.22 MIL/MM3 (4.50-5.90); RED CELL DISTRIBUTION WIDTH 15.3 % (11.6-17.2); REVIEW FLAG FINAL; WHITE BLOOD COUNT 9.9 TH/MM3 (4.0-11.0)
[2016-12-29 07:17] LABS: ALKALINE PHOSPHATASE 75 U/L (45-117); ALT (GPT) 58 U/L (12-78); ANION GAP 4 MEQ/L (5-15); AST (GOT) 77 U/L (15-37); BICARBONATE 33.9 MEQ/L (21.0-32.0); BLOOD UREA NITROGEN 50 MG/DL (7-18); CHLORIDE 104 MEQ/L (98-107); GLOMERULAR FILTRATION RATE 16 ML/MIN (>89); MAGNESIUM 1.9 MG/DL (1.5-2.5); SODIUM (NA) 142 MEQ/L (136-145); TOTAL BILIRUBIN ADULT 0.6 MG/DL (0.2-1.0)
[2016-12-29 07:18] LABS: BICARBONATE 34.1 MEQ/L (21.0-32.0); POTASSIUM 3.9 MEQ/L (3.5-5.1)
[2016-12-29] MEDS: CALCIUM ACETATE 667 MG CAP PO SCH ×3 (08:26→18:05)
[2016-12-29] MEDS: LACTOBACILLUS ACIDOPHILUS TAB PO SCH ×3 (08:26→18:05)
[2016-12-29] MEDS: METOPROLOL TARTRATE 50 MG TAB PO SCH ×2 (08:26→21:15)
[2016-12-29] MEDS: PANTOPRAZOLE SOD 40 MG DELAYED RELEASE TAB PO SCH (08:26)
[2016-12-29] MEDS: DOCUSATE SODIUM 100 MG CAP PO SCH ×2 (08:26→21:15)
[2016-12-29] MEDS: SENNOSIDES 8.6 MG TAB PO SCH (08:26)
[2016-12-29] MEDS: SODIUM CHLORIDE 0.9% FLUSH 10 ML FLUSH IV FLUSH SCH ×2 (08:27→21:25)
[2016-12-29] MEDS: predniSONE 20 MG TAB PO SCH (08:29)
[2016-12-29] MEDS ORDERED: DEXTROSE 50% IN WATER 50 ML VIAL(D50) IV PUSH ONE (08:45)
--- NOTE | 2016-12-29 09:31 | HHI.PR ---
Subjective Remarks The patient had no acute complaints. He was receiving glucose from the nurse. He said the Benadryl is helping. He was anticipating the endoscopies. No acute complaints. Discussed with nursing at the bedside. Objective Vitals Vital Signs Date Time Temp Pulse Resp B/P Pulse Ox O2 Delivery O2 Flow Rate FiO2 12/29/16 08:48 96 Nasal Cannula 2.00 12/29/16 08:00 97.6 76 18 146/81 96 12/29/16 05:52 99 Nasal Cannula 2.00 12/29/16 04:00 97.7 73 17 139/74 91 12/29/16 00:00 97.0 80 17 145/89 94 12/28/16 21:00 75 12/28/16 21:00 94 Nasal Cannula 2.00 12/28/16 20:36 Nasal Cannula 2.00 12/28/16 20:00 96.5 78 17 156/90 93 12/28/16 20:00 19 12/28/16 12:00 96.2 72 20 151/90 92 12/28/16 10:04 93 Room Air I/O 12/28/16 12/28/16 12/28/16 12/29/16 12/29/16 12/29/16 07:00 15:00 23:00 07:00 15:00 23:00 Intake Total 240 ml 0 ml Output Total 3000 ml Balance 240 ml 0 ml -3000 ml Intake Oral 240 ml 0 ml Hemodialysis 3000 ml # Voids 2 2 3 # Bowel Movements 5 Result Diagram: 12/29/16 0625 12/29/16 0625 Imaging Last Impressions Chest X-Ray 12/28/16 0600 Signed Impressions: Service Date/Time: Wednesday, December 28, 2016 04:48 - CONCLUSION: The lungs are clear. Binh Moreno MD Liver Ultrasound 12/28/16 0000 Signed Impressions: Service Date/Time: Wednesday, December 28, 2016 17:58 - CONCLUSION: 1. Hypoechoic masslike structure along the tail of the pancreas of unclear significance. This could represent potential pseudocyst or even possible loop of bowel. The pancreas appeared echogenic and is only partially visualized. 2. Hepatomegaly with no solid mass. There is a small amount of ascitic fluid and small right effusion. 3. Questionable small focal area of gallbladder wall thickening versus pericholecystic prominence with no evidence of cholelithiasis or biliary obstruction. Vamsi Diaz MD Abdomen Ultrasound 12/28/16 0000 Signed Impressions: Service Date/Time: Wednesday, December 28, 2016 11:45 - CONCLUSION: There is no significant ascites. Hermann Estrada MD FACR Renal Biopsy CT 12/27/16 0000 Signed Impressions: Service Date/Time: Tuesday, December 27, 2016 11:35 - CONCLUSION: Uncomplicated CT guided biopsy. Thee Wang MD Catheter Placement X-Ray 12/23/16 0000 Signed Impressions: Service Date/Time: Friday, December 23, 2016 10:42 - CONCLUSION: Uncomplicated vas catheter hemodialysis catheter placement. Manuel Estrada MD Renal Ultrasound 12/21/16 0000 Signed Impressions: Service Date/Time: Wednesday, December 21, 2016 08:35 - CONCLUSION: 1. No evidence for renal calculi or obstructive uropathy as questioned. 2. Very nonspecific trace perinephric fluid on the right. Bebo Smiley MD Abdomen/Pelvis CT 12/20/162238 Signed Impressions: Service Date/Time: Tuesday, December 20, 2016 22:53 - CONCLUSION: No evidence of an acute abnormality. Sigmoid colon diverticulosis without diverticulitis and previous hernia repairs are again noted. Shorty Felder MD Objective Remarks GENERAL: This is a well-nourished, well-developed patient, in no apparent distress. SKIN: Lesions on arms, legs and scalp. CARDIOVASCULAR: Regular rate and regular rhythm without murmurs, gallops, or rubs. RESPIRATORY: Mild wheezing appreciated. GASTROINTESTINAL: Abdomen soft, nontender, nondistended. + bowel sounds. MUSCULOSKELETAL: Extremities without clubbing, cyanosis, or edema. NEURO: Alert & Oriented x4 to person, place, time, situation. Moves all ext x4. PSYCH: Mood and affect appropriate. Procedures Renal biopsy 12/27 Medications and IVs Current Medications Medications (Trade) Dose Ordered Sig/Sylvie Route Start Time Stop Time Status Last Admin (NS Flush) 2 ml UNSCH PRN IV FLUSH 12/20/16 23:15 (NS Flush) 2 ml BID IV FLUSH 12/21/16 09:00 12/29/16 08:27 (Narcan Inj) 0.4 mg UNSCH PRN IV 12/20/16 23:15 Miscellaneous Information FLU VACCINE OUT... UNSCH PRN .XX 12/21/16 02:30 (Heparin Inj) 5,000 units Q8HR SQ 12/21/16 06:00 12/28/16 22:53 (Xanax) 1 mg TID PRN PO 12/21/16 05:00 12/29/16 05:21 (Norvasc) 10 mg DAILY PO 12/21/16 09:00 12/29/16 08:26 (Ecotrin Ec) 81 mg DAILY PO 12/21/16 09:00 12/25/16 08:53 (Symbicort 160-4.5 Inh) 2 puff Q12HR INH 12/21/16 09:00 Hold 12/24/16 12:52 (Spiriva Inh) 18 mcg DAILY INH 12/21/16 09:00 12/28/16 09:45 (Catapres) 0.1 mg Q8H PRN PO 12/21/16 08:00 (Zofran Inj) 4 mg Q8H PRN IV PUSH 12/22/16 10:30 12/23/16 00:03 (Colace) 100 mg BID PO 12/23/16 11:00 12/29/16 08:26 (Senokot) 17.2 mg DAILY PO 12/23/16 11:00 12/29/16 08:26 (NS Flush) UNSCH PRN IVF 12/23/16 11:15 (Heparin Inj) UNSCH PRN IV FLUSH 12/23/16 11:15 (Lactinex) 1 tab TID PO 12/24/16 18:00 12/29/16 08:26 Pantoprazole Sodium 40 mg 40 mg DAILY PO 12/25/16 17:00 12/29/16 08:26 (NS 1000 ml Inj) 1,000 ml @ 0 mls/hr Q0M PRN IV 12/26/16 10:44 Heparin Sodium (Porcine) 8000 units 8,000 units UNSCH PRN IVF 12/26/16 10:45 Sodium Chloride 1,000 ml @ 200 mls/hr Q5H PRN IV 12/26/16 10:44 (NS 1000 ml Inj) 1,000 ml @ 0 mls/hr Q0M PRN IV 12/26/16 10:44 (Mannitol Inj) 12.5 gm UNSCH PRN IV 12/26/16 10:45 (Albumin 25% Inj) 25 gm UNSCH PRN IV 12/26/16 10:45 (NS Flush) 5 ml UNSCH PRN IV FLUSH 12/26/16 10:45 (Heparin Inj) UNSCH PRN .XX 12/26/16 10:45 12/26/16 13:59 (Gentamicin (Dialysis) Inj) 20 mg UNSCH PRN IV 12/26/16 10:45 12/26/16 13:59 (Zofran Inj) 4 mg UNSCH PRN IV 12/26/16 10:45 (Tylenol) 650 mg UNSCH PRN PO 12/26/16 10:45 12/26/16 14:35 (Benadryl) 25 mg UNSCH PRN PO 12/26/16 10:45 12/29/16 05:21 (Nitrostat Sl) 0.4 mg UNSCH PRN SL 12/26/16 10:45 (Catapres) 0.1 mg UNSCH PRN PO 12/26/16 10:45 (Gelfoam 12 Mm/7 Mm Top) 1 foam UNSCH PRN TOP 12/26/16 10:45 (Lopressor) 50 mg Q12HR PO 12/27/16 21:00 12/29/16 08:26 (Percocet 5-325 Mg) 1 tab Q4H PRN PO 12/27/16 17:00 (Percocet 10-325 Mg) 1 tab Q4H PRN PO 12/27/16 17:00 12/28/16 22:49 (Deltasone) 20 mg DAILY PO 12/29/16 09:00 12/31/16 09:01 12/29/16 08:29 (Phoslo) 667 mg TID PO 12/28/16 18:00 12/29/16 08:26 A/P Assessment and Plan Acute renal failure/ Severe Uremia Nephrology consult appreciated. Pt is becoming oliguric. Proteinuria noted on UA. Renal US unremarkable. Creatinine continues to get worse. Dialysis started per nephrology. S/p renal biopsy 12/27. - dialysis per nephrology. - avoid nephrotoxic agents. - follow pathology. Abdominal pain/ HCV CT of the abdomen was unremarkable. AST is elevated, lipase not elevated. The pt has HCV. Has a history of diverticulitis status post surgical repair, as well as ventral hernia repair. GI consult appreciated. Liver US: Hypoechoic masslike structure along the tail of the pancreas of unclear significance; This could represent potential pseudocyst or even possible loop of bowel; The pancreas appeared echogenic and is only partially visualized; Questionable small focal area of gallbladder wall thickening versus pericholecystic prominence with no evidence of cholelithiasis or biliary obstruction. - Started bowel regimen. - Pain control. IV Dilaudid has been discontinued. - endoscopies per GI scheduled for today. MRSA lesions The pt has lesions on his arms, legs and scalp. Wound culture growing MRSA. Pt with leukocytosis and PNA. ID consult appreciated. - d/c antibiotics per ID and monitor. - Benadryl as needed. Hyperkalemia Potassium elevated at times. - continue to monitor. - dialysis per nephrology. - Kayexalate as needed. Hypertension Blood pressure fluctuates. Relatively well controlled 12/29. - continue amlodipine. Lisinopril on hold due to kidney injury and hyperkalemia. Lopressor added. - continue to monitor BP and adjust the regimen as needed. - Clonidine as needed. COPD/ PNA Breathing stable. CXR with question of right base consolidation. Repeat CXR clear. - continue Symbicort and Spiriva. - neb treatment as needed. - started prednisone. Continue taper. Hypoglycemia Likely s/t decreased PO intake. - encourage PO intake. - follow glucose. D50 if needed. History of CVA/ TIA The pt is on ASA. - ASA. - PT if needed. DVT prophylaxis with heparin Discharge Planning Awaiting clinical improvement Vamsi Ferro DO Dec 29, 2016 09:31
[2016-12-29] MEDS: HEPARIN SODIUM - SQ 10,000 UNITS/ML VIAL SQ SCH ×2 (14:00→21:25)
[2016-12-29] MEDS ORDERED: KETAMINE HCL 500 MG/5 ML VIAL ONE (14:34)
[2016-12-29 14:41] LABS: BLOOD GAS BASE EXCESS 4.5 mmol/L (-2-2); BLOOD GAS CARBOXYHEMOGLOBIN 1.4 % (0-4); BLOOD GAS HCO3 28 mmol/L (22-26); BLOOD GAS METHEMOGLOBIN 1.3 % (0-2); BLOOD GAS O2 HGB SATURATION 95 % (90-100); BLOOD GAS OXYGEN CONTENT 15.8 Vol % (12.0-20.0); BLOOD GAS PCO2 41 mmHg (38-42); BLOOD GAS PO2 95 mmHg (61-120); BLOOD GAS TOTAL HGB 11.8 G/DL (12.0-16.0); CRITICAL VALUE NO; OXYGEN DEVICE VENTILATOR; TEMP CORR TO 98.6
[2016-12-29 14:42] LABS: DRAW SITE ART LINE; FIO2 21 %; STAT YES; ULNAR PULSE PRESENT; VENT SETTINGS SEE OR
[2016-12-29] MEDS ORDERED: PROPOFOL 200 MG/20 ML AMP IV ONE (15:03)
[2016-12-29] MEDS ORDERED: MIDAZOLAM HCL 2 MG/2 ML VIAL ONE (15:21)
--- NOTE | 2016-12-29 15:38 | HHI.GIFU ---
Subjective Remarks Immediate post procedure note: EGD with biopsy and incomplete colonoscopy Indication: Abdominal pain, blood in stool Meds: MAC Findings: Esophagus: normal Stomach: mild gastritis. Biopsy taken. Moderate size hiatal hernia Duodenum: normal Rectum: 1.5cm polyp could not be removed because of much semi solid stool present. Stool present up to 45cm could not go further due to the inadequate prep. Objective Vitals I&O Vital Signs Date Time Temp Pulse Resp B/P Pulse Ox O2 Delivery O2 Flow Rate FiO2 12/29/16 12:00 97.9 84 18 139/76 95 12/29/16 10:27 Room Air 12/29/16 08:48 96 Nasal Cannula 2.00 12/29/16 08:00 97.6 76 18 146/81 96 12/29/16 05:52 99 Nasal Cannula 2.00 12/29/16 04:00 97.7 73 17 139/74 91 12/29/16 00:00 97.0 80 17 145/89 94 12/28/16 21:00 75 12/28/16 21:00 94 Nasal Cannula 2.00 12/28/16 20:36 Nasal Cannula 2.00 12/28/16 20:00 96.5 78 17 156/90 93 12/28/16 20:00 19 I/O 12/28/16 12/28/16 12/28/16 12/29/16 12/29/16 12/29/16 06:59 14:59 22:59 06:59 14:59 22:59 Intake Total 240 ml 0 ml Output Total 3000 ml Balance 240 ml -3000 ml Intake Oral 240 ml 0 ml Hemodialysis 3000 ml # Voids 2 2 3 # Bowel Movements 5 Laboratory Laboratory Tests Test 12/29/16 12/29/16 06:25 14:20 White Blood Count 9.9 Red Blood Count 4.22 Hemoglobin 12.1 Hematocrit 37.3 Mean Corpuscular Volume 88.4 Mean Corpuscular Hemoglobin 28.6 Mean Corpuscular Hemoglobin 32.4 Concent Red Cell Distribution Width 15.3 Platelet Count 164 Mean Platelet Volume 6.9 Sodium Level 142 Potassium Level 4.0 Chloride Level 104 Carbon Dioxide Level 33.9 Anion Gap 4 Blood Urea Nitrogen 50 Creatinine 3.86 Estimat Glomerular Filtration 16 Rate Random Glucose 88 Calcium Level 8.1 Phosphorus Level 3.9 Magnesium Level 1.9 Total Bilirubin 0.6 Aspartate Amino Transf 77 (AST/SGOT) Alanine Aminotransferase 58 (ALT/SGPT) Alkaline Phosphatase 75 Total Protein 6.5 Albumin 2.5 Blood Gas Puncture Site ART LINE Blood Gas Patient Temperature 98.6 Blood Gas HCO3 28 Blood Gas Base Excess 4.5 Blood Gas Oxygen Saturation 95 Arterial Blood pH 7.46 Arterial Blood Partial 41 Pressure CO2 Arterial Blood Partial 95 Pressure O2 Arterial Blood Oxygen Content 15.8 Arterial Blood 1.4 Carboxyhemoglobin Arterial Blood Methemoglobin 1.3 Blood Gas Hemoglobin 11.8 Oxygen Delivery Device VENTILATOR Blood Gas Ventilator Setting SEE OR Blood Gas Inspired Oxygen 21 Date/Time Procedure Status Source Growth 12/24/16 22:27 Gram Stain - Final Complete Wound Arm 12/24/16 22:27 Wound Culture - Final Complete S. Aureus Mrsa Physical Exam HEENT: Normocephalic; atraumatic; no jaundice. CHEST: CTA CARDIAC: RRR. ABDOMEN: Soft, nondistended, mild lower abdominal tenderness; moderate amount ascites, bruising to lower abdomen, no hepatosplenomegaly; bowel sounds are present in all four quadrants. EXTREMITIES: No clubbing, cyanosis, or edema. SKIN: Multiple open lesions to bue DIRECTOR OF LOSS PREVENTION: No focal deficits; alert and oriented times three. Assessment and Plan Plan ASSESSMENT: - Abdominal pain. One week hx of lower abdominal pain, described as a constant pressure like pain with intermittent sharp pain radiating to left hip. No relation to food. Abdomen/Pelvis CT (12/20/16)----> No evidence of an acute abnormality. Sigmoid colon diverticulosis without diverticulitis and previous hernia repairs are again noted. He betancourt done episode of n/v over the weekend, no further episodes. No decreased appetite, gerd, melena, or hematochezia. Denies any diarrhea. Denies any regular issues with constipation, but did have constipation here in the hospital. He was started on colace/senna and he had a bowel movement today, but states he continues to have abdominal pain. Hx diverticulosis/diverticulitis, requiring resection, colostomy, and later reversal/hernia repair about 3 years ago. He has never had a colonoscopy. No change in pain. Of note, he does have increasing ascites and he has significant ecchymosis in his lower abdomen. Will get a right upper quadrant and lower limited Ultrasound to evaluate liver and ascites - Anemia, normocytic. 12.8/39.7. Likely multifactorial with at least some of this related to his kidney disease. - HCV. Viral load 1,280,000 ? Genotype. Treatment ariela. Pt states he was diagnosed in 2002 and treated with Hepatitis A/B/C shots. However, upon further questioning, he states that he has never had interferon and that he received a series of 3 shots for hepatitis A/B/C once he was diagnosed. He likely received vaccination for Hep A/B. He has pruritic lesions on both upper extremities and he was started on hemodialysis for acute renal failure. Cryoglobulins positive, With low cryocrit less than 1.0%. Renal biopsy pending. Patient will need treatment for his hepatitis C. Labs ordered (psych drug screen, EtOH screening , HIV Patient counseled and agreeable, GGT, fibrosure, TSH) to start process to get this approved. Once these labs are resulted, we will submit a request to insurance company to obtain approval for krista. Genotype pending. - ARF with electrolyte abnormalities. Started on HD during this admission. He does have HCV and has pruritic lesions (he attributes to bug bites). Cryoglobulins positive, With low cryocrit less than 1.0%. Renal biopsy pending. Renal following. Plan will be to start tx for HCV, once approved. - HTN, COPD, PNA, Hx CVA/TIA per primary - EGD and colonoscopy done today 12/29 and showed gastritis and HH and the colon was inadequately prepped to do the colonoscopy. there was a polyp seen that should come out but could not take out today. PLAN: - Repeat prep for tomorrow colonoscopy, have patient sign new consent for colo only. - EtOH level - HIV testing, patient counseled and agreeable - Gtt - TSH - Fibrosure - Await HCV genotype - Total hepatitis A/B antibody - Of note patient reports that he was previously vaccinated for hepatitis A/B - Await renal biopsy - Cont. Senna/Colace - Cont. Colace - Right upper quadrant/lower limited ultrasound to evaluate liver and ascites - Supportive care - Further recommendations to follow based on results of above - Pt seen and examined by Dr. Castillo and myself and this note is written on his behalf Miky Castillo MD Dec 29, 2016 15:38
[2016-12-29] MEDS ORDERED: DO NOT ADM ANY ANTICOAGULANT DRUGS PRN (16:00)
[2016-12-29] MEDS: TIOTROPIUM BROMIDE 18 MCG INH INH SCH (16:19)
[2016-12-29] MEDS: oxyCODONE/ACETAMINOPHEN 10 MG/325 MG TAB PO PRN (16:20)
[2016-12-29] MEDS: ASPIRIN EC 81 MG TABEC PO SCH (18:05)
--- NOTE | 2016-12-29 18:29 | HHI.NPPN ---
Subjective History of Present Illness The patient is a 56 yo [place] male with medical hx of HTN, COPD, CAD s/p cath in 2006, remote hx of HCV, TIA, and diverticulitis who presented to this facility today with 3 day h/o abdominal pain, nausea, and general complaint of not feeling well. Was seen in ED on 12/18 for COPD exacerbation. Has been seen within the past week by his PCP at [facility] for skin rash that he says is from bug bites. Has culture of bites taken and was given Cipro 500mg BID as well as a shot of Toradol and Decadron at their office. We were consulted for ARF. ED labs from 12/18 showed a normal SCr of 0.89, but when he arrived 12/20 SCr was 5.57 and worsened to 6.32 at consult. He was treated in ED for hyperkalemia. Reports he has had little UOP in the past few days. Denies any urological hx. Denies any NSAIDs by mouth. No recent vomiting or diarrhea. Denies any illcit drug use. Interval History Patient had no verbal complaints. Objective Data Data 12/28/16 12/29/16 19:00 07:00 Intake Total 0 ml Output Total 3000 ml Balance -3000 ml Intake Oral 0 ml Hemodialysis 3000 ml # Voids 2 3 # Bowel Movements 5 Vital Signs Date Time Temp Pulse Resp B/P Pulse Ox O2 Delivery O2 Flow Rate FiO2 12/29/16 18:10 95 Nasal Cannula 2.00 12/29/16 16:00 98.0 74 16 135/70 95 12/29/16 15:50 97.9 66 15 127/72 100 12/29/16 15:30 70 16 125/66 96 12/29/16 15:15 98.0 76 15 130/67 95 12/29/16 12:00 97.9 84 18 139/76 95 12/29/16 10:27 Room Air 12/29/16 08:48 96 Nasal Cannula 2.00 12/29/16 08:00 97.6 76 18 146/81 96 12/29/16 05:52 99 Nasal Cannula 2.00 12/29/16 04:00 97.7 73 17 139/74 91 12/29/16 00:00 97.0 80 17 145/89 94 12/28/16 21:00 75 12/28/16 21:00 94 Nasal Cannula 2.00 12/28/16 20:36 Nasal Cannula 2.00 12/28/16 20:00 96.5 78 17 156/90 93 12/28/16 20:00 19 -: 12/29/16 0625 12/29/16 0625 Tubes & Lines: Vas-Cath Physical Exam General Appearance: No Acute Distress, Comfortable Eyes Eye Exam: Sclera White Pulmonary Resp Exam: Clear Bilaterally, Breath Sounds Equal, No Distress Cardiology CV Exam: Regular, Normal Sinus Rhythm Gastrointestinal/Abdomen GI Exam: Soft, Non-Tender, No Hepatosplenomegaly Integumentary Skin Exam: Warm, Dry Extremeties Extremities Exam: Trace Edema (bilat ankles) Neurologic Neuro Exam: Alert, Awake Psychiatric Psych Exam: Appropriate Responses Assessment/Plan Discussed Condition With: Patient Assessment Summary: OLLIE/Acute Renal Failure Problem List: (1) Acute renal failure Plan: Renal biopsy result reported as showing evidence of acute kidney injury with superimposed changes of arteriolosclerosis and mild interstitial fibrosis but no evidence of an acute interstitial nephritis or an immune complex glomerulonephritis that might be associated with his hepatitis C. I believe that the patient sustained some sort of acute kidney injury possibly related to an unknown substance. Patient's history of substance use prior to presentation is very vague and I'm not sure if the patient is being totally forthcoming regarding this matter. Regardless I advised him not to expose himself in the future to any unprescribed substances that he may have used prior to presentation such as NSAIDs, synthetic drugs or illicit drugs. Creatinine appears to be trending downward. Continue dialysis as clinically indicated. If his creatinine trends down further we'll hold dialysis and monitor. Medications should be adjusted for the patient's renal decline. Avoid nephrotoxic medications such as iodinated contrast and NSAIDs. Avoid gadolinium. (2) HTN (hypertension) Plan: Continue on Amlodipine Increase Metoprolol to 50mg BID (3) Hepatitis C Plan: PCR positive as well as Cryo. GI attempting to get Victor Manuel covered on insurance Uncertain if he developed a GN related to HCV, but given rapid deterioration this is not likely. Await kidney bx results. (4) MRSA (methicillin resistant staph aureus) culture positive Aldair Shields MD Dec 29, 2016 18:28
[2016-12-30] VITALS (8 sets, daily range): BP systolic 116–156; BP diastolic 66–91; PULSE 52–65; RESP 16–19; TEMP 96.9–98.4; O2SAT 92–100
[2016-12-30] MEDS: HEPARIN SODIUM - SQ 10,000 UNITS/ML VIAL SQ SCH ×3 (06:10→20:55)
[2016-12-30] MEDS: PANTOPRAZOLE SOD 40 MG DELAYED RELEASE TAB PO SCH (09:25)
[2016-12-30] MEDS: ALPRAZolam 1 MG TAB PO PRN ×3 (09:25→20:53)
[2016-12-30] MEDS: SENNOSIDES 8.6 MG TAB PO SCH (09:25)
[2016-12-30] MEDS: predniSONE 20 MG TAB PO SCH (09:25)
[2016-12-30] MEDS: DOCUSATE SODIUM 100 MG CAP PO SCH ×2 (09:25→20:53)
[2016-12-30] MEDS: ASPIRIN EC 81 MG TABEC PO SCH (09:25)
[2016-12-30] MEDS: CALCIUM ACETATE 667 MG CAP PO SCH ×3 (09:25→17:09)
[2016-12-30] MEDS: LACTOBACILLUS ACIDOPHILUS TAB PO SCH ×3 (09:25→17:08)
[2016-12-30] MEDS: METOPROLOL TARTRATE 50 MG TAB PO SCH ×2 (09:25→20:53)
[2016-12-30] MEDS: SODIUM CHLORIDE 0.9% FLUSH 10 ML FLUSH IV FLUSH SCH ×2 (09:26→20:55)
[2016-12-30] MEDS: TIOTROPIUM BROMIDE 18 MCG INH INH SCH (09:29)
[2016-12-30 09:30] LABS: BICARBONATE 28.7 MEQ/L (21.0-32.0); POTASSIUM 3.6 MEQ/L (3.5-5.1)
[2016-12-30] MEDS: diphenhydrAMINE HCL 25 MG CAP PO PRN ×2 (09:30→20:53)
--- NOTE | 2016-12-30 10:53 | HHI.PR ---
Subjective Remarks The patient said his abdominal pain was improved. He said his breathing was okay but at times he gets rough. He said he'll have to do the colonoscopy as an outpatient. He had no acute complaints. Objective Vitals Vital Signs Date Time Temp Pulse Resp B/P Pulse Ox O2 Delivery O2 Flow Rate FiO2 12/30/16 09:20 Nasal Cannula 2.00 12/30/16 09:18 96 Nasal Cannula 2.00 12/30/16 08:00 96.9 52 18 156/73 100 12/30/16 04:18 98.4 65 19 134/67 92 12/30/16 00:00 97.6 61 16 116/66 95 12/29/16 21:00 97 Nasal Cannula 2.00 21 12/29/16 21:00 77 12/29/16 20:00 97.4 76 16 142/77 97 12/29/16 18:10 95 Nasal Cannula 2.00 12/29/16 16:00 98.0 74 16 135/70 95 12/29/16 15:50 97.9 66 15 127/72 100 12/29/16 15:30 70 16 125/66 96 12/29/16 15:15 98.0 76 15 130/67 95 12/29/16 12:00 97.9 84 18 139/76 95 I/O 12/29/16 12/29/16 12/29/16 12/30/16 12/30/16 12/30/16 06:59 14:59 22:59 06:59 14:59 22:59 Intake Total 0 ml 240 ml Balance 0 ml 240 ml Intake Oral 0 ml 240 ml # Voids 3 1 1 # Bowel Movements 5 1 Result Diagram: 12/29/16 0625 12/30/16 0855 Imaging Last Impressions Chest X-Ray 12/28/16 0600 Signed Impressions: Service Date/Time: Wednesday, December 28, 2016 04:48 - CONCLUSION: The lungs are clear. Binh Moreno MD Liver Ultrasound 12/28/16 0000 Signed Impressions: Service Date/Time: Wednesday, December 28, 2016 17:58 - CONCLUSION: 1. Hypoechoic masslike structure along the tail of the pancreas of unclear significance. This could represent potential pseudocyst or even possible loop of bowel. The pancreas appeared echogenic and is only partially visualized. 2. Hepatomegaly with no solid mass. There is a small amount of ascitic fluid and small right effusion. 3. Questionable small focal area of gallbladder wall thickening versus pericholecystic prominence with no evidence of cholelithiasis or biliary obstruction. Vamsi Diaz MD Abdomen Ultrasound 12/28/16 0000 Signed Impressions: Service Date/Time: Wednesday, December 28, 2016 11:45 - CONCLUSION: There is no significant ascites. Hermann Estrada MD FACR Renal Biopsy CT 12/27/16 0000 Signed Impressions: Service Date/Time: Tuesday, December 27, 2016 11:35 - CONCLUSION: Uncomplicated CT guided biopsy. Thee Wang MD Catheter Placement X-Ray 12/23/16 0000 Signed Impressions: Service Date/Time: Friday, December 23, 2016 10:42 - CONCLUSION: Uncomplicated vas catheter hemodialysis catheter placement. Manuel Estrada MD Renal Ultrasound 12/21/16 0000 Signed Impressions: Service Date/Time: Wednesday, December 21, 2016 08:35 - CONCLUSION: 1. No evidence for renal calculi or obstructive uropathy as questioned. 2. Very nonspecific trace perinephric fluid on the right. Bebo Smiley MD Abdomen/Pelvis CT 12/20/16 2239 Signed Impressions: Service Date/Time: Tuesday, December 20, 2016 22:53 - CONCLUSION: No evidence of an acute abnormality. Sigmoid colon diverticulosis without diverticulitis and previous hernia repairs are again noted. Shorty Felder MD Objective Remarks GENERAL: This is a well-nourished, well-developed patient, in no apparent distress. SKIN: Lesions on arms, legs and scalp. CARDIOVASCULAR: Regular rate and regular rhythm without murmurs, gallops, or rubs. RESPIRATORY: Mild wheezing appreciated. GASTROINTESTINAL: Abdomen soft, nontender, nondistended. + bowel sounds. MUSCULOSKELETAL: Extremities without clubbing, cyanosis, or edema. NEURO: Alert & Oriented x4 to person, place, time, situation. Moves all ext x4. PSYCH: Mood and affect appropriate. Procedures Renal biopsy 12/27 Medications and IVs Current Medications Medications (Trade) Dose Ordered Sig/Sylvie Route Start Time Stop Time Status Last Admin (NS Flush) 2 ml UNSCH PRN IV FLUSH 12/20/16 23:15 (NS Flush) 2 ml BID IV FLUSH 12/21/16 09:00 12/30/16 09:26 (Narcan Inj) 0.4 mg UNSCH PRN IV 12/20/16 23:15 Miscellaneous Information FLU VACCINE OUT... UNSCH PRN .XX 12/21/16 02:30 (Heparin Inj) 5,000 units Q8HR SQ 12/21/16 06:00 12/30/16 06:10 (Xanax) 1 mg TID PRN PO 12/21/16 05:00 12/30/16 09:25 (Norvasc) 10 mg DAILY PO 12/21/16 09:00 12/30/16 09:25 (Ecotrin Ec) 81 mg DAILY PO 12/21/16 09:00 12/30/16 09:25 (Symbicort 160-4.5 Inh) 2 puff Q12HR INH 12/21/16 09:00 Hold 12/24/16 12:52 (Spiriva Inh) 18 mcg DAILY INH 12/21/16 09:00 12/30/16 09:29 (Catapres) 0.1 mg Q8H PRN PO 12/21/16 08:00 (Zofran Inj) 4 mg Q8H PRN IV PUSH 12/22/16 10:30 12/23/16 00:03 (Colace) 100 mg BID PO 12/23/16 11:00 12/30/16 09:25 (Senokot) 17.2 mg DAILY PO 12/23/16 11:00 12/30/16 09:25 (NS Flush) UNSCH PRN IVF 12/23/16 11:15 (Heparin Inj) UNSCH PRN IV FLUSH 12/23/16 11:15 (Lactinex) 1 tab TID PO 12/24/16 18:00 12/30/16 09:25 Pantoprazole Sodium 40 mg 40 mg DAILY PO 12/25/16 17:00 12/30/16 09:25 (NS 1000 ml Inj) 1,000 ml @ 0 mls/hr Q0M PRN IV 12/26/16 10:44 Heparin Sodium (Porcine) 8000 units 8,000 units UNSCH PRN IVF 12/26/16 10:45 Sodium Chloride 1,000 ml @ 200 mls/hr Q5H PRN IV 12/26/16 10:44 (NS 1000 ml Inj) 1,000 ml @ 0 mls/hr Q0M PRN IV 12/26/16 10:44 (Mannitol Inj) 12.5 gm UNSCH PRN IV 12/26/16 10:45 (Albumin 25% Inj) 25 gm UNSCH PRN IV 12/26/16 10:45 (NS Flush) 5 ml UNSCH PRN IV FLUSH 12/26/16 10:45 (Heparin Inj) UNSCH PRN .XX 12/26/16 10:45 12/26/16 13:59 (Gentamicin (Dialysis) Inj) 20 mg UNSCH PRN IV 12/26/16 10:45 12/26/16 13:59 (Zofran Inj) 4 mg UNSCH PRN IV 12/26/16 10:45 (Tylenol) 650 mg UNSCH PRN PO 12/26/16 10:45 12/26/16 14:35 (Benadryl) 25 mg UNSCH PRN PO 12/26/16 10:45 12/30/16 09:30 (Nitrostat Sl) 0.4 mg UNSCH PRN SL 12/26/16 10:45 (Catapres) 0.1 mg UNSCH PRN PO 12/26/16 10:45 (Gelfoam 12 Mm/7 Mm Top) 1 foam UNSCH PRN TOP 12/26/16 10:45 (Lopressor) 50 mg Q12HR PO 12/27/16 21:00 12/30/16 09:25 (Percocet 5-325 Mg) 1 tab Q4H PRN PO 12/27/16 17:00 (Percocet 10-325 Mg) 1 tab Q4H PRN PO 12/27/16 17:00 12/29/16 16:20 (Deltasone) 20 mg DAILY PO 12/29/16 09:00 12/31/16 09:01 12/30/16 09:25 (Phoslo) 667 mg TID PO 12/28/16 18:00 12/30/16 09:25 Miscellaneous Information ALL NURSING DEPARTME... UNSCH PRN .XX 12/29/16 16:00 12/30/16 15:59 A/P Assessment and Plan Acute renal failure/ Severe Uremia Nephrology consult appreciated. Pt is becoming oliguric. Proteinuria noted on UA. Renal US unremarkable. Creatinine continues to get worse. Dialysis started per nephrology. S/p renal biopsy 12/27. Creatinine increasing. Renal biopsy consistent with acute renal injury. - dialysis per nephrology. - avoid nephrotoxic agents. Abdominal pain/ HCV CT of the abdomen was unremarkable. AST is elevated, lipase not elevated. The pt has HCV. Has a history of diverticulitis status post surgical repair, as well as ventral hernia repair. GI consult appreciated. Liver US: Hypoechoic masslike structure along the tail of the pancreas of unclear significance; This could represent potential pseudocyst or even possible loop of bowel; The pancreas appeared echogenic and is only partially visualized; Questionable small focal area of gallbladder wall thickening versus pericholecystic prominence with no evidence of cholelithiasis or biliary obstruction. EGD with gastritis. Colonoscopy with poor prep. - Started bowel regimen. - Pain control. IV Dilaudid has been discontinued. - colonoscopy as an outpt. MRSA lesions The pt has lesions on his arms, legs and scalp. Wound culture growing MRSA. Pt with leukocytosis and PNA. ID consult appreciated. - d/c antibiotics per ID and monitor. - Benadryl as needed. - consider treating for scabies. Will follow with ID. Hyperkalemia Potassium elevated at times. - continue to monitor. - dialysis per nephrology. - Kayexalate as needed. Hypertension Blood pressure fluctuates. Relatively well controlled 12/30. - continue amlodipine. Lisinopril on hold due to kidney injury and hyperkalemia. Lopressor added. - continue to monitor BP and adjust the regimen as needed. - Clonidine as needed. COPD/ PNA Breathing stable. CXR with question of right base consolidation. Repeat CXR clear. - continue Symbicort and Spiriva. - neb treatment as needed. - started prednisone. Continue taper. Hypoglycemia Likely s/t decreased PO intake. - encourage PO intake. - follow glucose. D50 if needed. History of CVA/ TIA The pt is on ASA. - ASA. - PT if needed. DVT prophylaxis with heparin Discharge Planning Awaiting nephrology clearance Vamsi Ferro DO Dec 30, 2016 10:53
[2016-12-30] MEDS: GENTAMICIN SULFATE (DIALYSIS USE ONLY) 20 MG/2 ML VIAL IV PRN (14:23)
[2016-12-30] MEDS: HEPARIN SODIUM - IV 10,000 UNITS/10 ML VIAL PRN (14:23)
--- NOTE | 2016-12-30 14:39 | HHI.GIFU ---
Subjective Remarks Seen in HD-in no distress. No n/v. No abdominal pain. Objective Vitals I&O Vital Signs Date Time Temp Pulse Resp B/P Pulse Ox O2 Delivery O2 Flow Rate FiO2 12/30/16 09:20 Nasal Cannula 2.00 12/30/16 09:18 96 Nasal Cannula 2.00 12/30/16 08:00 96.9 52 18 156/73 100 12/30/16 07:49 58 12/30/16 04:18 98.4 65 19 134/67 92 12/30/16 00:00 97.6 61 16 116/66 95 12/29/16 21:00 97 Nasal Cannula 2.00 21 12/29/16 21:00 77 12/29/16 20:00 97.4 76 16 142/77 97 12/29/16 18:10 95 Nasal Cannula 2.00 12/29/16 16:00 98.0 74 16 135/70 95 12/29/16 15:50 97.9 66 15 127/72 100 12/29/16 15:30 70 16 125/66 96 12/29/16 15:15 98.0 76 15 130/67 95 I/O 12/29/16 12/29/16 12/29/16 12/30/16 12/30/16 12/30/16 07:00 15:00 23:00 07:00 15:00 23:00 Intake Total 0 ml 240 ml Output Total 2000 ml Balance 0 ml 240 ml -2000 ml Intake Oral 0 ml 240 ml Hemodialysis 2000 ml # Voids 3 1 1 # Bowel Movements 5 1 Laboratory Laboratory Tests Test 12/30/16 12/30/16 08:55 13:15 Sodium Level 142 Potassium Level 3.6 Chloride Level 106 Carbon Dioxide Level 28.7 Anion Gap 7 Blood Urea Nitrogen 56 Creatinine 4.26 Estimat Glomerular Filtration 14 Rate Random Glucose 89 Calcium Level 8.1 Phosphorus Level 3.2 Albumin 2.3 Urine Eosinophils NONE SEEN Imaging Last Impressions Chest X-Ray 12/28/16 0600 Signed Impressions: Service Date/Time: Wednesday, December 28, 2016 04:48 - CONCLUSION: The lungs are clear. Binh Moreno MD Liver Ultrasound 12/28/16 0000 Signed Impressions: Service Date/Time: Wednesday, December 28, 2016 17:58 - CONCLUSION: 1. Hypoechoic masslike structure along the tail of the pancreas of unclear significance. This could represent potential pseudocyst or even possible loop of bowel. The pancreas appeared echogenic and is only partially visualized. 2. Hepatomegaly with no solid mass. There is a small amount of ascitic fluid and small right effusion. 3. Questionable small focal area of gallbladder wall thickening versus pericholecystic prominence with no evidence of cholelithiasis or biliary obstruction. Vamsi Diaz MD Abdomen Ultrasound 12/28/16 0000 Signed Impressions: Service Date/Time: Wednesday, December 28, 2016 11:45 - CONCLUSION: There is no significant ascites. Hermann Estrada MD FACR Renal Biopsy CT 12/27/16 0000 Signed Impressions: Service Date/Time: Tuesday, December 27, 2016 11:35 - CONCLUSION: Uncomplicated CT guided biopsy. Thee Wang MD Catheter Placement X-Ray 12/23/16 0000 Signed Impressions: Service Date/Time: Friday, December 23, 2016 10:42 - CONCLUSION: Uncomplicated vas catheter hemodialysis catheter placement. Manuel Estrada MD Renal Ultrasound 12/21/16 0000 Signed Impressions: Service Date/Time: Wednesday, December 21, 2016 08:35 - CONCLUSION: 1. No evidence for renal calculi or obstructive uropathy as questioned. 2. Very nonspecific trace perinephric fluid on the right. Bebo Smiley MD Abdomen/Pelvis CT 12/20/16 2239 Signed Impressions: Service Date/Time: Tuesday, December 20, 2016 22:53 - CONCLUSION: No evidence of an acute abnormality. Sigmoid colon diverticulosis without diverticulitis and previous hernia repairs are again noted. Shorty Felder MD Physical Exam HEENT: Normocephalic; atraumatic; no jaundice. CHEST: CTA CARDIAC: RRR. ABDOMEN: Soft, nondistended, mild lower abdominal tenderness; moderate amount ascites, bruising to lower abdomen, no hepatosplenomegaly; bowel sounds are present in all four quadrants. EXTREMITIES: No clubbing, cyanosis, or edema. SKIN: Multiple open lesions to bue SENIOR MECHANICAL DEVELOPMENT ENGINEER: No focal deficits; alert and oriented times three. Assessment and Plan Plan ASSESSMENT: - Abdominal pain. One week hx of lower abdominal pain, described as a constant pressure like pain with intermittent sharp pain radiating to left hip. No relation to food. Abdomen/Pelvis CT (12/20/16)----> No evidence of an acute abnormality. Sigmoid colon diverticulosis without diverticulitis and previous hernia repairs are again noted. He betancourt done episode of n/v over the weekend, no further episodes. No decreased appetite, gerd, melena, or hematochezia. Denies any diarrhea. Denies any regular issues with constipation, but did have constipation here in the hospital. He was started on colace/senna and he had a bowel movement today, but states he continues to have abdominal pain. Hx diverticulosis/diverticulitis, requiring resection, colostomy, and later reversal/hernia repair about 3 years ago. He has never had a colonoscopy. No change in pain. Of note, he does have increasing ascites and he has significant ecchymosis in his lower abdomen. Liver Ultrasound (12/28/16)----> 1. Hypoechoic masslike structure along the tail of the pancreas of unclear significance. This could represent potential pseudocyst or even possible loop of bowel. The pancreas appeared echogenic and is only partially visualized. 2. Hepatomegaly with no solid mass. There is a small amount of ascitic fluid and small right effusion. 3. Questionable small focal area of gallbladder wall thickening versus pericholecystic prominence with no evidence of cholelithiasis or biliary obstruction. Abdomen Ultrasound ()----> There is no significant ascites. S/P EGD/Incomplete colonoscopy (12/29/16)--- --> showed gastritis and HH and the colon was inadequately prepped to do the colonoscopy. there was a polyp seen that should come out but could not take out today. Pt did not want to have repeat bowel prep and colonoscopy at this time. - Anemia, normocytic. 12.1/37.3. Likely multifactorial with at least some of this related to his kidney disease. - HCV. Viral load 1,280,000 Genotype 1B. Treatment ariela. Pt states he was diagnosed in 2002 and treated with Hepatitis A/B/C shots. However, upon further questioning, he states that he has never had interferon and that he received a series of 3 shots for hepatitis A/B/C once he was diagnosed. He likely received vaccination for Hep A/B. He has pruritic lesions on both upper extremities and he was started on hemodialysis for acute renal failure. Cryoglobulins positive, With low cryocrit less than 1.0%. Renal biopsy acute tubular injury, global glomerulosclerosis with mild mesangiosclerosis, tubular atrophy and interstitial fibrosis, mild, arterisclerosis, moderate to severe. Labs ordered to start the approval process for Harvoni (psych drug screen, EtOH screening, HIV Patient counseled and agreeable, GGT, fibrosure, TSH). Once these labs are resulted, we will submit a request to insurance company to obtain approval for harvoni. - ARF with electrolyte abnormalities. Started on HD during this admission. He does have HCV and has pruritic lesions (he attributes to bug bites). Cryoglobulins positive, With low cryocrit less than 1.0%. Renal biopsy Renal biopsy acute tubular injury, global glomerulosclerosis with mild mesangiosclerosis, tubular atrophy and interstitial fibrosis, mild, arterisclerosis, moderate to severe. Renal following. - HTN, COPD, PNA, Hx CVA/TIA per primary PLAN: - MARYAN, renal diet - Await Fibrosure - Cont. Senna/Colace - Cont. Colace - Supportive care - Of note patient reports that he was previously vaccinated for hepatitis A/B - Will need repeat colonoscopy, patient refused repeat bowel prep/colonoscopy as inpatient - Further recommendations to follow based on results of above - Pt seen and examined by Dr. Castillo and myself and this note is written on his behalf Ryann Hernandez Dec 30, 2016 14:39
[2016-12-30 14:52] LABS: AMPHETAMINE, URINE NEG (NEG); BARBITURATES, URINE NEG (NEG); COCAINE, URINE NEG (NEG)
[2016-12-30] MEDS: oxyCODONE/ACETAMINOPHEN 10 MG/325 MG TAB PO PRN ×2 (15:06→20:54)
--- NOTE | 2016-12-30 15:30 | HHI.NPPN ---
Subjective History of Present Illness The patient is a 56 yo [place] male with medical hx of HTN, COPD, CAD s/p cath in 2006, remote hx of HCV, TIA, and diverticulitis who presented to this facility today with 3 day h/o abdominal pain, nausea, and general complaint of not feeling well. Was seen in ED on 12/18 for COPD exacerbation. Has been seen within the past week by his PCP at [facility] for skin rash that he says is from bug bites. Has culture of bites taken and was given Cipro 500mg BID as well as a shot of Toradol and Decadron at their office. We were consulted for ARF. ED labs from 12/18 showed a normal SCr of 0.89, but when he arrived 12/20 SCr was 5.57 and worsened to 6.32 at consult. He was treated in ED for hyperkalemia. Reports he has had little UOP in the past few days. Denies any urological hx. Denies any NSAIDs by mouth. No recent vomiting or diarrhea. Denies any illcit drug use. Interval History Pt seen during HD. Tolerating tx well. UOP has picked up with 600mL in urinal since this AM. (Marlene Velazquez) Objective Data Data 12/29/16 12/30/16 19:00 07:00 Intake Total 0 ml 240 ml Balance 0 ml 240 ml Intake Oral 0 ml 240 ml # Voids 1 1 # Bowel Movements 1 Vital Signs Date Time Temp Pulse Resp B/P Pulse Ox O2 Delivery O2 Flow Rate FiO2 12/30/16 09:20 Nasal Cannula 2.00 12/30/16 09:18 96 Nasal Cannula 2.00 12/30/16 08:00 96.9 52 18 156/73 100 12/30/16 07:49 58 12/30/16 04:18 98.4 65 19 134/67 92 12/30/16 00:00 97.6 61 16 116/66 95 12/29/16 21:00 97 Nasal Cannula 2.00 21 12/29/16 21:00 77 12/29/16 20:00 97.4 76 16 142/77 97 12/29/16 18:10 95 Nasal Cannula 2.00 12/29/16 16:00 98.0 74 16 135/70 95 12/29/16 15:50 97.9 66 15 127/72 100 12/29/16 15:30 70 16 125/66 96 (Marlene Velazquez) -: 12/29/16 0625 12/30/16 0855 Tubes & Lines: Vas-Cath Medication Review Reported Meds & Active Scripts Active Ventolin Hfa 18 GM Inh (Albuterol Sulfate) 90 Mcg/Act Aer 2 Puff INH Q6H PRN Prednisone 20 Mg Tab 40 Mg PO DAILY Take 40 mg (2 tablets) daily for 5 days Ecotrin Low Strength (Aspirin) 81 Mg Tabdr 81 Mg PO DAILY Prednisone 20 Mg Tab 20 Mg PO BID Lisinopril 5 Mg Tab 10 Mg PO DAILY Norvasc (Amlodipine Besylate) 10 Mg Tab 10 Mg PO DAILY 30 Days Reported Oxycodone-Acetaminophen 10-325 mg Tab 1 Tab PO Q4H PRN Albuterol Neb (Albuterol Sulfate) 2.5 Mg/3 Ml Neb 2.5 Mg NEB Q4HR NEB While awake Spiriva Handihaler (Tiotropium Inh) 18 Mcg Cap 18 Mcg INH DAILY 1 capsule = 18 mcg Symbicort Inh (Budesonide/Formoterol Fumarate) 160-4.5 Mcg/Act Aero 2 Puff INH Q12HR Xanax (Alprazolam) 1 Mg Tab 1 Mg PO TID PRN (Marlene Velazquez) Physical Exam General Appearance: No Acute Distress, Comfortable (Marlene Velazquez) Eyes Eye Exam: Sclera White (Marlene Velazquez) Pulmonary Resp Exam: Clear Bilaterally, Breath Sounds Equal, No Distress (Marlene Velazquez) Cardiology CV Exam: Regular, Normal Sinus Rhythm (Marlene Velazquez) Gastrointestinal/Abdomen GI Exam: Soft, Non-Tender, No Hepatosplenomegaly (Marlene Velazquez) Integumentary Skin Exam: Warm, Dry Skin Remarks Multiple bug bites on skin (Marlene Velazquez) Extremeties Extremities Exam: No Edema (Marlene Velazquez) Neurologic Neuro Exam: Alert, Awake (Marlene Velazquez) Psychiatric Psych Exam: Appropriate Responses (Marlene Velazquez) Assessment/Plan Discussed Condition With: Patient Assessment Summary: OLLIE/Acute Renal Failure Problem List: (1) Acute renal failure Plan: Renal biopsy result reported as showing evidence of acute kidney injury with superimposed changes of arteriolosclerosis and mild interstitial fibrosis but no evidence of an acute interstitial nephritis or an immune complex glomerulonephritis that might be associated with his hepatitis C. I believe that the patient sustained some sort of acute kidney injury possibly related to an unknown substance. Patient's history of substance use prior to presentation is very vague and I'm not sure if the patient is being totally forthcoming regarding this matter. Regardless I advised him not to expose himself in the future to any unprescribed substances that he may have used prior to presentation such as NSAIDs, synthetic drugs or illicit drugs. Seen during HD today. Monitor thru the weekend. Continue to chart UOP HD to continue as needed. Medications should be adjusted for the patient's renal decline. Avoid nephrotoxic medications such as iodinated contrast and NSAIDs. Avoid gadolinium. (2) HTN (hypertension) Plan: Improved. Continue on current regimen (3) Hepatitis C Plan: PCR positive as well as Cryo. GI attempting to get Harvoni covered on insurance No evidence of HCV GN on renal biopsy (4) MRSA (methicillin resistant staph aureus) culture positive (Marlene Velazquez) Plan The exam, history, and the medical decision-making described in the above note were completed with the assistance of the PA-C. I reviewed and agree with the findings presented. (Aldair Shields MD) Marlene Velazquez Dec 30, 2016 15:30 Aldair Shields MD Dec 30, 2016 17:48
[2016-12-30 19:52] LABS: (LFP)ALT 50 U/L (9-46); A2 MACROGLOBULIN 334 mg/dL (106-279); FIBROSIS STAGE F4 (()); GGT(LFP) 313 U/L (3-85); HAPTOGLOBIN (LFP) 32 mg/dL (43-212); NECROINFLAMM ACT GRADE A1-A2 (()); REFERENCE ID 1564356 (()); TOTAL BILIRUBIN (LFP) 0.5 mg/dL (0.2-1.2)
--- NOTE | 2016-12-30 21:28 | MR ---
cc: ARLINE FERRO HAROLD H. MD DATE OF SURGERY 12/29/16 PROCEDURE Esophagogastroduodenoscopy with biopsy and incomplete colonoscopy. INDICATIONS FOR PROCEDURE Abdominal pain, blood in the stool. REFERRING PHYSICIAN Dr. Ferro. PROCEDURE IN DETAIL After informed consent was obtained, the patient was placed in a left side down position, he was sedated by the anesthesia service. After adequate sedation was achieved the Pentax video gastroscope was inserted into the oropharynx and advanced to the esophagus, stomach and duodenum. It was then slowly withdrawn examining the mucosal surfaces carefully. Retroflexed examination was performed in the fundus and cardia. The scope was then straightened and a biopsy was obtained from the gastric antrum. The scope was then withdrawn out the mouth and the procedure was terminated. A colonoscopy was then preformed. A digital rectal examination was performed. The Pentax video scope was inserted into the anal canal and advanced up to the colon as well as possible given the presence of much semi solid stool. The scope could be advanced up to 45 cm but could not be advanced further due to the inadequate prep and the presence of solid stool. The scope was then withdrawn examining the mucosal surfaces as carefully as possible. In the rectum there appeared to be a 1.5 to 2 cm polyp on a short stalk. It was not removed because of the poor prep. Retroflexed examination was not performed. The scope was withdrawn and the procedure was terminated. He tolerated the procedures well and was returned to the recovery area in good condition. FINDINGS 1. The esophagus was normal. 2. In the stomach there was mild gastritis, a biopsy was taken to evaluate. 3. There is a moderate sized hiatal hernia. 4. The duodenum was normal. 5. The colon was inadequately prepped. There was semi solid stool located through the entire lower part of the colon up to 45 cm. The scope could not be advanced further. 6. There is a 1.5 cm polyp in the rectum that should be removed with colonoscopy in the near future. It could not be removed today. IMPRESSION 1. Gastritis. 2. Hiatal hernia. 3. Rectal polyp. 4. Inadequately prepared colon for colonoscopy. RECOMMENDATIONS The patient was advised to remain on a clear liquid diet and have a colon prep so that we can remove his polyp tomorrow. However, he would prefer to eat regular diet and have the procedure as an outpatient. Miky Castillo MD HHS/EO /4:35 PM /9:15 PM
[2016-12-31] VITALS (8 sets, daily range): BP systolic 130–174; BP diastolic 74–87; PULSE 57–70; RESP 16–18; TEMP 97.4–98.4; O2SAT 91–97
[2016-12-31] MEDS: HEPARIN SODIUM - SQ 10,000 UNITS/ML VIAL SQ SCH ×3 (06:32→21:49)
[2016-12-31 07:26] LABS: MEAN CELL VOLUME 88.1 FL (80.0-100.0); MEAN CORPUSCULAR HEMOGLOBIN 28.8 PG (27.0-34.0); MEAN CORPUSCULAR HGB CONC 32.7 % (32.0-36.0); PLATELET COUNT 160 TH/MM3 (150-450); RED BLOOD COUNT 4.31 MIL/MM3 (4.50-5.90); RED CELL DISTRIBUTION WIDTH 15.2 % (11.6-17.2); REVIEW FLAG FINAL; WHITE BLOOD COUNT 10.6 TH/MM3 (4.0-11.0)
[2016-12-31 07:58] LABS: BICARBONATE 31.2 MEQ/L (21.0-32.0); MAGNESIUM 1.6 MG/DL (1.5-2.5); POTASSIUM 3.4 MEQ/L (3.5-5.1)
[2016-12-31] MEDS: PANTOPRAZOLE SOD 40 MG DELAYED RELEASE TAB PO SCH (09:38)
[2016-12-31] MEDS: METOPROLOL TARTRATE 50 MG TAB PO SCH ×2 (09:38→20:39)
[2016-12-31] MEDS: LACTOBACILLUS ACIDOPHILUS TAB PO SCH ×3 (09:38→17:03)
[2016-12-31] MEDS: CALCIUM ACETATE 667 MG CAP PO SCH ×3 (09:39→17:03)
[2016-12-31] MEDS: DOCUSATE SODIUM 100 MG CAP PO SCH ×2 (09:39→20:39)
[2016-12-31] MEDS: predniSONE 20 MG TAB PO SCH (09:39)
[2016-12-31] MEDS: SENNOSIDES 8.6 MG TAB PO SCH (09:39)
[2016-12-31] MEDS: ASPIRIN EC 81 MG TABEC PO SCH (09:39)
[2016-12-31] MEDS: SODIUM CHLORIDE 0.9% FLUSH 10 ML FLUSH IV FLUSH SCH ×2 (09:39→20:39)
[2016-12-31] MEDS: oxyCODONE/ACETAMINOPHEN 5 MG/325 MG TAB PO PRN (09:43)
[2016-12-31] MEDS: TIOTROPIUM BROMIDE 18 MCG INH INH SCH (09:46)
--- NOTE | 2016-12-31 11:53 | HHI.PR ---
Subjective Remarks f/u ARF no shortness of breath, good UO, dark yellow, no fever Objective Vitals Vital Signs Date Time Temp Pulse Resp B/P Pulse Ox O2 Delivery O2 Flow Rate FiO2 12/31/16 10:10 94 21 12/31/16 08:57 98.0 63 18 156/75 94 12/31/16 04:00 97.7 59 16 130/76 94 12/31/16 00:00 97.6 57 16 130/74 95 12/30/16 21:50 18 12/30/16 20:55 Room Air 12/30/16 20:20 98 Nasal Cannula 2.00 12/30/16 20:00 97.8 65 16 134/85 96 12/30/16 16:00 97.6 58 18 154/91 98 I/O 12/30/16 12/30/16 12/30/16 12/31/16 12/31/16 12/31/16 07:00 15:00 23:00 07:00 15:00 23:00 Intake Total 360 ml 480 ml 840 ml Output Total 2450 ml Balance -2090 ml 480 ml 840 ml Intake Oral 360 ml 480 ml 840 ml Output Urine Total 450 ml Hemodialysis 2000 ml # Voids 2 1 # Bowel Movements 0 Result Diagram: 12/31/16 0612/31/16 0605 Objective Remarks GENERAL: Not in distress. CARDIOVASCULAR: Regular rate and regular rhythm without murmurs, gallops, or rubs. RESPIRATORY: Mild wheezing appreciated. GASTROINTESTINAL: Abdomen soft, nontender, nondistended. + bowel sounds. MUSCULOSKELETAL: Extremities without clubbing, cyanosis, or edema. NEURO: Alert & Oriented x4 to person, place, time, situation. Moves all ext x4. 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 Further workup pending. Continue hemodialysis per nephrology. Monitor BMP. Hepatitis C CT of the abdomen was unremarkable. AST is elevated, lipase not elevated. The pt has HCV. Has a history of diverticulitis status post surgical repair, as well as ventral hernia repair. GI consult appreciated. Liver US: Hypoechoic masslike structure along the tail of the pancreas of unclear significance; This could represent potential pseudocyst or even possible loop of bowel; The pancreas appeared echogenic and is only partially visualized; Questionable small focal area of gallbladder wall thickening versus pericholecystic prominence with no evidence of cholelithiasis or biliary obstruction. EGD with gastritis. Colonoscopy with poor prep. Patient refuses further colonoscopy as inpatient. Continue bowel regimen, awaiting further input per GI. Treatment na ve. MRSA lesions The pt has lesions on his arms, legs and scalp. Wound culture growing MRSA. Pt with leukocytosis and PNA. ID consult appreciated. - d/c antibiotics per ID and monitor. Hyperkalemia-, continue dialysis per nephrology Hypertension-controlled, continue Norvasc, metoprolol, lisinopril on hold. COPD/ PNA Breathing stable. CXR with question of right base consolidation. Repeat CXR clear. - continue Symbicort and Spiriva. - neb treatment as needed. Continue to taper prednisone. Hypoglycemia Likely s/t decreased PO intake. - encourage PO intake. - follow glucose. D50 if needed. History of CVA/ TIA The pt is on ASA. - ASA. - PT if needed. DVT prophylaxis with heparin Bk Muse MD Dec 31, 2016 11:53
[2016-12-31] MEDS: ALPRAZolam 1 MG TAB PO PRN (17:03)
[2017-01-01] VITALS (7 sets, daily range): BP systolic 134–181; BP diastolic 68–89; PULSE 55–71; RESP 16–18; TEMP 96.5–98.1; O2SAT 93–98
[2017-01-01] MEDS: ALPRAZolam 1 MG TAB PO PRN ×4 (00:27→22:30)
[2017-01-01] MEDS: oxyCODONE/ACETAMINOPHEN 10 MG/325 MG TAB PO PRN ×4 (00:29→22:30)
[2017-01-01] MEDS: HEPARIN SODIUM - SQ 10,000 UNITS/ML VIAL SQ SCH ×3 (05:48→22:32)
[2017-01-01 07:18] LABS: BICARBONATE 29.7 MEQ/L (21.0-32.0); POTASSIUM 3.7 MEQ/L (3.5-5.1)
--- NOTE | 2017-01-01 10:12 | HHI.PR ---
Subjective Remarks Follow-up for acute renal failure Still with good urine output, yellowish urine, no headache, chest pain or shortness of breath, blood pressure still elevated in the 160s to 180s. Objective Vitals Vital Signs Date Time Temp Pulse Resp B/P Pulse Ox O2 Delivery O2 Flow Rate FiO2 01/01/17 08:00 97.5 55 18 181/81 95 01/01/17 04:00 98.1 65 16 149/80 97 01/01/17 00:00 97.6 57 16 163/85 95 01/01/17 00:00 93 21 12/31/16 20:00 70 12/31/16 20:00 97.4 68 16 148/87 97 12/31/16 19:00 97 Room Air 12/31/16 16:51 98.2 67 18 144/87 96 12/31/16 13:04 67 12/31/16 12:00 98.4 57 18 174/80 91 I/O 12/31/16 12/31/16 12/31/16 01/01/17 01/01/17 01/01/17 07:00 15:00 23:00 07:00 15:00 23:00 Intake Total 840 ml 720 ml 240 ml 720 ml Balance 840 ml 720 ml 240 ml 720 ml Intake Oral 840 ml 720 ml 240 ml 720 ml # Voids 1 3 1 # Bowel Movements 2 Result Diagram: 12/31/16 0605 01/01/17 0620 Objective Remarks GENERAL: Not in distress. CARDIOVASCULAR: Regular rate and regular rhythm without murmurs, gallops, or rubs. RESPIRATORY: Mild wheezing appreciated. GASTROINTESTINAL: Abdomen soft, nontender, nondistended. + bowel sounds. MUSCULOSKELETAL: Extremities without clubbing, cyanosis, or edema. NEURO: Alert & Oriented x4 to person, place, time, situation. Moves all ext x4. 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 Further workup pending. Continue hemodialysis per nephrology. Monitor BMP. Good urine output, creatinine 3.11. Hepatitis C -CT of the abdomen was unremarkable. AST is elevated, lipase not elevated. The pt has HCV. Has a history of diverticulitis status post surgical repair, as well as ventral hernia repair. GI consult appreciated. Liver US: Hypoechoic masslike structure along the tail of the pancreas of unclear significance; This could represent potential pseudocyst or even possible loop of bowel; The pancreas appeared echogenic and is only partially visualized; Questionable small focal area of gallbladder wall thickening versus pericholecystic prominence with no evidence of cholelithiasis or biliary obstruction. EGD with gastritis. Colonoscopy with poor prep. Patient refuses further colonoscopy as inpatient. Continue bowel regimen, awaiting further input per GI. Treatment na ve. Workup for Harvoni treatment on the way. MRSA lesions The pt has lesions on his arms, legs and scalp. Wound culture growing MRSA. Pt with leukocytosis and PNA. ID consult appreciated. - d/c antibiotics per ID and monitor. Hyperkalemia-, continue dialysis per nephrology Hypertension-uncontrolled, continue Norvasc, metoprolol, this interval stopped because of renal failure, start hydralazine, blood pressure still uncontrolled COPD/ PNA Breathing stable. CXR with question of right base consolidation. Repeat CXR clear. - continue Symbicort and Spiriva. - neb treatment as needed. Continue to taper prednisone. Hypoglycemia Likely s/t decreased PO intake. - encourage PO intake. - follow glucose. D50 if needed. History of CVA/ TIA The pt is on ASA. - ASA. - PT if needed. DVT prophylaxis with heparin Discharge Planning Discharged once cleared by nephrology to home Bk Muse MD Jan 01, 2017 10:12
[2017-01-01] MEDS: hydrALAZINE HCL 25 MG TAB PO SCH ×2 (10:40→18:44)
[2017-01-01] MEDS: LACTOBACILLUS ACIDOPHILUS TAB PO SCH ×3 (10:40→18:44)
[2017-01-01] MEDS: METOPROLOL TARTRATE 50 MG TAB PO SCH ×2 (10:41→20:24)
[2017-01-01] MEDS: PANTOPRAZOLE SOD 40 MG DELAYED RELEASE TAB PO SCH (10:41)
[2017-01-01] MEDS: SENNOSIDES 8.6 MG TAB PO SCH (10:41)
[2017-01-01] MEDS: ASPIRIN EC 81 MG TABEC PO SCH (10:41)
[2017-01-01] MEDS: CALCIUM ACETATE 667 MG CAP PO SCH ×3 (10:41→18:44)
[2017-01-01] MEDS: DOCUSATE SODIUM 100 MG CAP PO SCH ×2 (10:41→20:24)
[2017-01-01] MEDS: SODIUM CHLORIDE 0.9% FLUSH 10 ML FLUSH IV FLUSH SCH ×2 (10:41→20:25)
[2017-01-01] MEDS: TIOTROPIUM BROMIDE 18 MCG INH INH SCH (10:49)
--- NOTE | 2017-01-01 15:29 | HHI.NPPN ---
Subjective History of Present Illness The patient is a 56 yo [place] male with medical hx of HTN, COPD, CAD s/p cath in 2006, remote hx of HCV, TIA, and diverticulitis who presented to this facility today with 3 day h/o abdominal pain, nausea, and general complaint of not feeling well. Was seen in ED on 12/18 for COPD exacerbation. Has been seen within the past week by his PCP at [facility] for skin rash that he says is from bug bites. Has culture of bites taken and was given Cipro 500mg BID as well as a shot of Toradol and Decadron at their office. We were consulted for ARF. ED labs from 12/18 showed a normal SCr of 0.89, but when he arrived 12/20 SCr was 5.57 and worsened to 6.32 at consult. He was treated in ED for hyperkalemia. Reports he has had little UOP in the past few days. Denies any urological hx. Denies any NSAIDs by mouth. No recent vomiting or diarrhea. Denies any illcit drug use. Interval History No verbal complaints. Objective Data Data 12/31/16 01/01/17 19:00 07:00 Intake Total 720 ml 960 ml Balance 720 ml 960 ml Intake Oral 720 ml 960 ml # Voids 3 1 # Bowel Movements 2 Vital Signs Date Time Temp Pulse Resp B/P Pulse Ox O2 Delivery O2 Flow Rate FiO2 01/01/17 12:00 97.9 64 18 139/68 94 01/01/17 10:38 Room Air 01/01/17 08:00 97.5 55 18 181/81 95 01/01/17 04:00 98.1 65 16 149/80 97 01/01/17 00:00 97.6 57 16 163/85 95 01/01/17 00:00 93 21 12/31/16 20:00 70 12/31/16 20:00 97.4 68 16 148/87 97 12/31/16 19:00 97 Room Air 12/31/16 16:51 98.2 67 18 144/87 96 -: 12/31/16 0605 01/01/17 0620 Tubes & Lines: Vas-Cath Physical Exam General Appearance: No Acute Distress, Comfortable Eyes Eye Exam: Sclera White Pulmonary Resp Exam: Clear Bilaterally, Breath Sounds Equal, No Distress Cardiology CV Exam: Regular, Normal Sinus Rhythm Gastrointestinal/Abdomen GI Exam: Soft, Non-Tender, No Hepatosplenomegaly Integumentary Skin Exam: Warm, Dry Extremeties Extremities Exam: No Edema Neurologic Neuro Exam: Alert, Awake Psychiatric Psych Exam: Appropriate Responses Assessment/Plan Discussed Condition With: Patient Assessment Summary: OLLIE/Acute Renal Failure Problem List: (1) Acute renal failure Plan: Renal biopsy result reported as showing evidence of acute kidney injury with superimposed changes of arteriolosclerosis and mild interstitial fibrosis but no evidence of an acute interstitial nephritis or an immune complex glomerulonephritis that might be associated with his hepatitis C. I believe that the patient sustained some sort of acute kidney injury possibly related to an unknown substance. Patient's history of substance use prior to presentation is very vague and I'm not sure if the patient is being totally forthcoming regarding this matter. Regardless I advised him again not to expose himself in the future to any unprescribed substances that he may have used prior to presentation such as NSAIDs, synthetic drugs or illicit drugs. His creatinine level appears to be stabilizing. If his creatinine level remains below 4.0 tomorrow we'll defer dialysis and continue to monitor renal function. Medications should be adjusted for the patient's renal decline. Avoid nephrotoxic medications such as iodinated contrast and NSAIDs. Avoid gadolinium. (2) HTN (hypertension) Plan: Improved. Continue on current regimen (3) Hepatitis C Plan: PCR positive as well as Cryo. GI attempting to get Harvoni covered on insurance No evidence of HCV GN on renal biopsy (4) MRSA (methicillin resistant staph aureus) culture positive Plan The exam, history, and the medical decision-making described in the above note were completed with the assistance of the MILO. I reviewed and agree with the findings presented. Aldair Shields MD Jan 01, 2017 15:29
[2017-01-01] MEDS: diphenhydrAMINE HCL 25 MG CAP PO PRN (22:30)
[2017-01-02] VITALS (7 sets, daily range): BP systolic 120–163; BP diastolic 80–107; PULSE 60–90; RESP 16–18; TEMP 96–97.7; O2SAT 95–99
[2017-01-02] MEDS: oxyCODONE/ACETAMINOPHEN 10 MG/325 MG TAB PO PRN ×3 (02:44→21:37)
[2017-01-02] MEDS: hydrALAZINE HCL 25 MG TAB PO SCH ×3 (02:44→18:55)
[2017-01-02 06:11] LABS: POTASSIUM 3.4 MEQ/L (3.5-5.1)
[2017-01-02] MEDS: diphenhydrAMINE HCL 25 MG CAP PO PRN ×3 (06:42→21:36)
[2017-01-02] MEDS: HEPARIN SODIUM - SQ 10,000 UNITS/ML VIAL SQ SCH ×3 (06:42→21:38)
[2017-01-02] MEDS: ALPRAZolam 1 MG TAB PO PRN ×3 (06:45→21:36)
--- NOTE | 2017-01-02 08:23 | HHI.PR ---
Subjective Remarks Went for HD. seen while in HD Feels tired. No n/v/d/c. Denies headache or change in vision. Eating well. No abdominal pain. No fever or chills. Objective Vitals Vital Signs Date Time Temp Pulse Resp B/P Pulse Ox O2 Delivery O2 Flow Rate FiO2 01/02/17 07:43 18 01/02/17 04:00 97.7 64 16 147/84 95 01/02/17 00:00 97.3 60 16 163/88 96 01/01/17 20:30 Room Air 01/01/17 20:05 71 01/01/17 20:00 96.7 69 16 164/89 98 01/01/17 16:00 96.5 66 18 134/72 96 01/01/17 12:00 97.9 64 18 139/68 94 01/01/17 10:38 Room Air I/O 01/01/17 01/01/17 01/01/17 01/02/17 01/02/17 01/02/17 07:00 15:00 23:00 07:00 15:00 23:00 Intake Total 720 ml 760 ml 480 ml 720 ml Balance 720 ml 760 ml 480 ml 720 ml Intake Oral 720 ml 760 ml 480 ml 720 ml # Voids 1 3 1 3 # Bowel Movements 2 Result Diagram: 12/31/16 0605 01/02/17 0432 Imaging Last Impressions Chest X-Ray 12/28/16 0600 Signed Impressions: Service Date/Time: Wednesday, December 28, 2016 04:48 - CONCLUSION: The lungs are clear. Binh Moreno MD Liver Ultrasound 12/28/16 0000 Signed Impressions: Service Date/Time: Wednesday, December 28, 2016 17:58 - CONCLUSION: 1. Hypoechoic masslike structure along the tail of the pancreas of unclear significance. This could represent potential pseudocyst or even possible loop of bowel. The pancreas appeared echogenic and is only partially visualized. 2. Hepatomegaly with no solid mass. There is a small amount of ascitic fluid and small right effusion. 3. Questionable small focal area of gallbladder wall thickening versus pericholecystic prominence with no evidence of cholelithiasis or biliary obstruction. Vamsi Diaz MD Abdomen Ultrasound 12/28/16 0000 Signed Impressions: Service Date/Time: Wednesday, December 28, 2016 11:45 - CONCLUSION: There is no significant ascites. Hermann Estrada MD FACR Renal Biopsy CT 12/27/16 0000 Signed Impressions: Service Date/Time: Tuesday, December 27, 2016 11:35 - CONCLUSION: Uncomplicated CT guided biopsy. Thee Wang MD Catheter Placement X-Ray 12/23/16 0000 Signed Impressions: Service Date/Time: Friday, December 23, 2016 10:42 - CONCLUSION: Uncomplicated vas catheter hemodialysis catheter placement. Manuel Estrada MD Renal Ultrasound 12/21/16 0000 Signed Impressions: Service Date/Time: Wednesday, December 21, 2016 08:35 - CONCLUSION: 1. No evidence for renal calculi or obstructive uropathy as questioned. 2. Very nonspecific trace perinephric fluid on the right. Bebo Smiley MD Abdomen/Pelvis CT 12/20/16 2239 Signed Impressions: Service Date/Time: Tuesday, December 20, 2016 22:53 - CONCLUSION: No evidence of an acute abnormality. Sigmoid colon diverticulosis without diverticulitis and previous hernia repairs are again noted. Shorty Felder MD Objective Remarks GENERAL: Thin 56 yo male, well nourished, well developed patient, not in distress. CARDIOVASCULAR: Regular rate and regular rhythm without murmurs, gallops, or rubs. RESPIRATORY: Mild wheezing appreciated. GASTROINTESTINAL: Abdomen soft, nontender, nondistended. + bowel sounds. MUSCULOSKELETAL: Extremities without clubbing, cyanosis, or edema. NEURO: Alert & Oriented x4 to person, place, time, situation. Moves all ext x4. 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 Further workup pending. Continue hemodialysis per nephrology. Monitor BMP. Good urine output, creatinine 3.11. Hepatitis C -CT of the abdomen was unremarkable. AST is elevated, lipase not elevated. The pt has HCV. Has a history of diverticulitis status post surgical repair, as well as ventral hernia repair. GI consult appreciated. Liver US: Hypoechoic masslike structure along the tail of the pancreas of unclear significance; This could represent potential pseudocyst or even possible loop of bowel; The pancreas appeared echogenic and is only partially visualized; Questionable small focal area of gallbladder wall thickening versus pericholecystic prominence with no evidence of cholelithiasis or biliary obstruction. EGD with gastritis. Colonoscopy with poor prep. Patient refuses further colonoscopy as inpatient. Continue bowel regimen, awaiting further input per GI. Treatment na ve. Workup for Harvoni treatment on the way. MRSA lesions The pt has lesions on his arms, legs and scalp. Wound culture growing MRSA. Pt with leukocytosis and PNA. ID consult appreciated. DC antibiotics per ID and monitor. Hyperkalemia, continue dialysis per nephrology Hypertension-uncontrolled, continue Norvasc, metoprolol, this interval stopped because of renal failure, start hydralazine, blood pressure still uncontrolled COPD/ PNA Breathing stable. CXR with question of right base consolidation. Repeat CXR clear. Continue Symbicort and Spiriva. Neb treatment as needed. Continue to taper prednisone. Hypoglycemia Likely s/t decreased PO intake. Encourage PO intake. Follow glucose. D50 if needed. History of CVA/ TIA The pt is on ASA. Continue ASA. PT if needed. DVT prophylaxis with heparin Discharge Planning Discharged home when improved and once cleared by nephrology. Poss DC today Sia Goldstein MD Jan 02, 2017 08:23
[2017-01-02] MEDS ORDERED: CALC667C PO (08:27)
[2017-01-02] MEDS ORDERED: METO-309 PO (08:27)
[2017-01-02] MEDS ORDERED: HYDR-3799 PO (08:27)
--- NOTE | 2017-01-02 08:29 | HHI.DS ---
Discharge Summary Admission Date Dec 20, 2016 at 23:07 Discharge Date: Jan 04, 2017 Admitting Diagnosis acute renal failure/hypocalcemia/hyperkalemia (1) Acute renal failure ICD Code: N17.9 Diagnosis: Principal (2) COPD (chronic obstructive pulmonary disease) ICD Code: J44.9 Diagnosis: Secondary (3) H/O tobacco use, presenting hazards to health ICD Code: Z87.891 Diagnosis: Secondary Procedures Renal biopsy 12/27 Brief History - From Admission Patient is somewhat of a poor historian. Patient is quite angry at the time of arrival to his room. He states that he has been in pain. He reports again because of the abdominal pain which started Monday. He states he also felt sickish which he meant his nausea. No vomiting. When asked where the pain is, he mostly pointed to his bladder area. He then goes on and talked about having had previous colon surgery with colostomy and reversal of colostomy. Stated this was a couple of years ago. It was done in our hospital. also complained of shortness of breath. He states this is because of his COPD. However denies any urinary burning or pain on urination. Denies any decreased urination or frequency in urination. Denies any blood in his stool or in his urine. Denies fever. Denies diarrhea. Next an exam patient states that he came to the hospital on Monday, about 2 days ago. Stated he was prescribed some antibiotics for his skin lesion on his lower extremity and on his forehead. He attributed this to sunburns because he was at a [employer] activity volunteering recently. He reports he has been on lisinopril for at least a year. He does not remember the name of the antibiotic. However review of medical records reveals that this is a cephalosporin. Patient also reports of not eating all day long because of nausea. He reports of cramping all over as well. CBC/BMP: 12/31/16 0605 01/02/17 0432 Significant Findings Laboratory Tests Test 12/30/16 12/30/16 12/31/16 01/01/17 08:55 13:15 06:05 06:20 Blood Urea Nitrogen 56 MG/DL (7-18) 41 MG/DL (7-18) 50 MG/DL (7-18) Creatinine 4.26 MG/DL 3.05 MG/DL 3.11 MG/DL (0.60-1.30) (0.60-1.30) (0.60-1.30) Estimat Glomerular Filtration 14 ML/MIN (>89) 21 ML/MIN (>89) 21 ML/MIN (>89) Rate Calcium Level 8.1 MG/DL 8.3 MG/DL 8.2 MG/DL (8.5-10.1) (8.5-10.1) (8.5-10.1) Albumin 2.3 GM/DL 2.5 GM/DL (3.4-5.0) (3.4-5.0) Urine Benzodiazepines Screen POS (NEG) Red Blood Count 4.31 MIL/MM3 (4.50-5.90) Hemoglobin 12.4 GM/DL (13.0-17.0) Hematocrit 38.0 % (39.0-51.0) Mean Platelet Volume 6.9 FL (7.0-11.0) Potassium Level 3.4 MEQ/L (3.5-5.1) Test 01/02/17 04:32 Potassium Level 3.4 MEQ/L (3.5-5.1) Blood Urea Nitrogen 48 MG/DL (7-18) Creatinine 3.02 MG/DL (0.60-1.30) Estimat Glomerular Filtration 21 ML/MIN (>89) Rate Imaging Last Impressions Chest X-Ray 12/28/16 0600 Signed Impressions: Service Date/Time: Wednesday, December 28, 2016 04:48 - CONCLUSION: The lungs are clear. Binh Moreno MD Liver Ultrasound 12/28/16 0000 Signed Impressions: Service Date/Time: Wednesday, December 28, 2016 17:58 - CONCLUSION: 1. Hypoechoic masslike structure along the tail of the pancreas of unclear significance. This could represent potential pseudocyst or even possible loop of bowel. The pancreas appeared echogenic and is only partially visualized. 2. Hepatomegaly with no solid mass. There is a small amount of ascitic fluid and small right effusion. 3. Questionable small focal area of gallbladder wall thickening versus pericholecystic prominence with no evidence of cholelithiasis or biliary obstruction. Vamsi Diaz MD Abdomen Ultrasound 12/28/16 0000 Signed Impressions: Service Date/Time: Wednesday, December 28, 2016 11:45 - CONCLUSION: There is no significant ascites. Hermann Estrada MD FACR Renal Biopsy CT 12/27/16 0000 Signed Impressions: Service Date/Time: Tuesday, December 27, 2016 11:35 - CONCLUSION: Uncomplicated CT guided biopsy. Thee Wang MD Catheter Placement X-Ray 12/23/16 0000 Signed Impressions: Service Date/Time: Friday, December 23, 2016 10:42 - CONCLUSION: Uncomplicated vas catheter hemodialysis catheter placement. Manuel Estrada MD Renal Ultrasound 12/21/16 0000 Signed Impressions: Service Date/Time: Wednesday, December 21, 2016 08:35 - CONCLUSION: 1. No evidence for renal calculi or obstructive uropathy as questioned. 2. Very nonspecific trace perinephric fluid on the right. Bebo Smiley MD Abdomen/Pelvis CT 12/20/[id number] Signed Impressions: Service Date/Time: Tuesday, December 20, 2016 22:53 - CONCLUSION: No evidence of an acute abnormality. Sigmoid colon diverticulosis without diverticulitis and previous hernia repairs are again noted. Shorty Felder MD PE at Discharge GENERAL: Thin 56 yo male, well nourished, well developed patient, not in distress. CARDIOVASCULAR: Regular rate and regular rhythm without murmurs, gallops, or rubs. RESPIRATORY: Mild wheezing appreciated. GASTROINTESTINAL: Abdomen soft, nontender, nondistended. + bowel sounds. MUSCULOSKELETAL: Extremities without clubbing, cyanosis, or edema. NEURO: Alert & Oriented x4 to person, place, time, situation. Moves all ext x4. 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 Further workup pending. Continue hemodialysis per nephrology. Monitor BMP. Good urine output, creatinine 3.11. Hepatitis C -CT of the abdomen was unremarkable. AST is elevated, lipase not elevated. The pt has HCV. Has a history of diverticulitis status post surgical repair, as well as ventral hernia repair. GI consult appreciated. Liver US: Hypoechoic masslike structure along the tail of the pancreas of unclear significance; This could represent potential pseudocyst or even possible loop of bowel; The pancreas appeared echogenic and is only partially visualized; Questionable small focal area of gallbladder wall thickening versus pericholecystic prominence with no evidence of cholelithiasis or biliary obstruction. EGD with gastritis. Colonoscopy with poor prep. Patient refuses further colonoscopy as inpatient. Continue bowel regimen, awaiting further input per GI. Treatment na ve. Workup for Harvoni treatment on the way. MRSA lesions The pt has lesions on his arms, legs and scalp. Wound culture growing MRSA. Pt with leukocytosis and PNA. ID consult appreciated. DC antibiotics per ID and monitor. Hyperkalemia, continue dialysis per nephrology Hypertension-uncontrolled, continue Norvasc, metoprolol, this interval stopped because of renal failure, start hydralazine, blood pressure still uncontrolled COPD/ PNA Breathing stable. CXR with question of right base consolidation. Repeat CXR clear. Continue Symbicort and Spiriva. Neb treatment as needed. Continue to taper prednisone. Hypoglycemia Likely s/t decreased PO intake. Encourage PO intake. Follow glucose. D50 if needed. History of CVA/ TIA The pt is on ASA. Continue ASA. PT if needed. DVT prophylaxis with heparin Discharge Planning Discharged home. To follow up as OP with PCP and consultants. Kidney function improving , off HD. Pt Condition on Discharge: Stable Discharge Disposition: Discharge Home Discharge Time: > 30 minutes Discharge Instructions DIET: Follow Instructions for: Renal Failure Diet Activities you can perform: Regular-No Restrictions Follow up Referrals: Nephrology - 1 Week with Aldair Shields MD PCP Follow-up - 3-5 Days New Medications: Calcium Acetate (Phosphate Bin (Calcium Acetate) 667 Mg Cap 667 MG PO TID mvt renal #30 CAP Hydralazine HCl (Hydralazine HCl) 25 Mg Tablet 25 MG PO Q8H Blood Pressure Management #90 TAB Metoprolol Tartrate (Lopressor) 50 Mg Tab 50 MG PO Q12HR Blood Pressure Management #60 TAB Continued Medications: Albuterol 18 GM Inh (Ventolin Hfa 18 GM Inh) 90 Mcg/Act Aer 2 PUFF INH Q6H PRN SHORTNESS OF BREATH #1 Ref 0 INHALER Albuterol Neb (Albuterol Neb) 2.5 Mg/3 Ml Neb 2.5 MG NEB Q4HR NEB While awake Breathing Treatment #60 Ref 0 NEBULE Alprazolam (Xanax) 1 Mg Tab 1 MG PO TID PRN ANXIETY Ref 0 TAB Amlodipine (Norvasc) 10 Mg Tab 10 MG PO DAILY Blood Pressure Management Days [address] (Ecotrin Low Strength) 81 Mg Tabdr 81 MG PO DAILY Prevent Blood Clot #30 Ref 0 TAB Budesonide-Formoterol Inh (Symbicort Inh) 160-4.5 Mcg/Act Aero 2 PUFF INH Q12HR #1 Ref 0 INHALER Oxycodone-Acetaminophen (Oxycodone-Acetaminophen) 10-325 mg Tab 1 TAB PO Q4H PRN PAIN Ref 0 TAB Prednisone (Prednisone) 20 Mg Tab 20 MG PO BID COPD #6 Ref 0 TAB Tiotropium Inh (Spiriva Handihaler) 18 Mcg Cap 18 MCG INH DAILY 1 capsule = 18 mcg COPD #30 Ref 0 CAP Discontinued Medications: Lisinopril (Lisinopril) 5 Mg Tab 10 MG PO DAILY Blood Pressure Management #30 TAB Prednisone (Prednisone) 20 Mg Tab 40 MG PO DAILY Take 40 mg (2 tablets) daily for 5 days #10 Ref 0 TAB Sia Goldstein MD Jan 02, 2017 08:29
[2017-01-02] MEDS: METOPROLOL TARTRATE 50 MG TAB PO SCH ×2 (09:00→21:36)
[2017-01-02] MEDS: DOCUSATE SODIUM 100 MG CAP PO SCH ×2 (09:00→21:36)
[2017-01-02] MEDS: SODIUM CHLORIDE 0.9% FLUSH 10 ML FLUSH IV FLUSH SCH ×2 (09:00→21:37)
[2017-01-02] MEDS: LACTOBACILLUS ACIDOPHILUS TAB PO SCH ×3 (09:00→18:55)
[2017-01-02] MEDS: ASPIRIN EC 81 MG TABEC PO SCH (09:00)
[2017-01-02] MEDS: CALCIUM ACETATE 667 MG CAP PO SCH ×3 (09:00→18:55)
[2017-01-02] MEDS: HEPARIN SODIUM - IV 10,000 UNITS/10 ML VIAL PRN (09:40)
[2017-01-02] MEDS: GENTAMICIN SULFATE (DIALYSIS USE ONLY) 20 MG/2 ML VIAL IV PRN (09:41)
[2017-01-02] MEDS: SENNOSIDES 8.6 MG TAB PO SCH (15:12)
[2017-01-02] MEDS: PANTOPRAZOLE SOD 40 MG DELAYED RELEASE TAB PO SCH (15:12)
[2017-01-02] MEDS: TIOTROPIUM BROMIDE 18 MCG INH INH SCH (15:14)
--- NOTE | 2017-01-02 16:23 | HHI.NPPN ---
Subjective History of Present Illness The patient is a 56 yo [place] male with medical hx of HTN, COPD, CAD s/p cath in 2006, remote hx of HCV, TIA, and diverticulitis who presented to this facility today with 3 day h/o abdominal pain, nausea, and general complaint of not feeling well. Was seen in ED on 12/18 for COPD exacerbation. Has been seen within the past week by his PCP at [facility] for skin rash that he says is from bug bites. Has culture of bites taken and was given Cipro 500mg BID as well as a shot of Toradol and Decadron at their office. We were consulted for ARF. ED labs from 12/18 showed a normal SCr of 0.89, but when he arrived 12/20 SCr was 5.57 and worsened to 6.32 at consult. He was treated in ED for hyperkalemia. Reports he has had little UOP in the past few days. Denies any urological hx. Denies any NSAIDs by mouth. No recent vomiting or diarrhea. Denies any illcit drug use. Interval History Pt feeling OK today. s/p HD this AM. UOP not being documented, however, the patient says his UOP has picked up. ( Marlene Velazquez) Review of Systems General Constitutional: Fatigue (Marlene Velazquez) Objective Data Data 01/01/17 01/02/17 19:00 07:00 Intake Total 760 ml 1200 ml Balance 760 ml 1200 ml Intake Oral 760 ml 1200 ml # Voids 3 4 # Bowel Movements 2 Vital Signs Date Time Temp Pulse Resp B/P Pulse Ox O2 Delivery O2 Flow Rate FiO2 01/02/17 14:50 96.0 79 16 120/80 99 01/02/17 08:28 Room Air 01/02/17 08:00 96.2 80 18 129/107 97 01/02/17 07:43 18 01/02/17 04:00 97.7 64 16 147/84 95 01/02/17 00:00 97.3 60 16 163/88 96 01/01/17 20:30 Room Air 01/01/17 20:05 71 01/01/17 20:00 96.7 69 16 164/89 98 (Marlene Velazquez) -: 12/31/16 0605 01/02/17 0432 Imaging Last Impressions Chest X-Ray 12/28/16 0600 Signed Impressions: Service Date/Time: Wednesday, December 28, 2016 04:48 - CONCLUSION: The lungs are clear. Binh Moreno MD Liver Ultrasound 12/28/16 0000 Signed Impressions: Service Date/Time: Wednesday, December 28, 2016 17:58 - CONCLUSION: 1. Hypoechoic masslike structure along the tail of the pancreas of unclear significance. This could represent potential pseudocyst or even possible loop of bowel. The pancreas appeared echogenic and is only partially visualized. 2. Hepatomegaly with no solid mass. There is a small amount of ascitic fluid and small right effusion. 3. Questionable small focal area of gallbladder wall thickening versus pericholecystic prominence with no evidence of cholelithiasis or biliary obstruction. Vamsi Diaz MD Abdomen Ultrasound 12/28/16 0000 Signed Impressions: Service Date/Time: Wednesday, December 28, 2016 11:45 - CONCLUSION: There is no significant ascites. Hermann Estrada MD FACR Renal Biopsy CT 12/27/16 0000 Signed Impressions: Service Date/Time: Tuesday, December 27, 2016 11:35 - CONCLUSION: Uncomplicated CT guided biopsy. Thee Wang MD Catheter Placement X-Ray 12/23/16 0000 Signed Impressions: Service Date/Time: Friday, December 23, 2016 10:42 - CONCLUSION: Uncomplicated vas catheter hemodialysis catheter placement. Manuel Estrada MD Renal Ultrasound 12/21/16 0000 Signed Impressions: Service Date/Time: Wednesday, December 21, 2016 08:35 - CONCLUSION: 1. No evidence for renal calculi or obstructive uropathy as questioned. 2. Very nonspecific trace perinephric fluid on the right. Bebo Smiley MD Abdomen/Pelvis CT 12/20/16 1389 Signed Impressions: Service Date/Time: Tuesday, December 20, 2016 22:53 - CONCLUSION: No evidence of an acute abnormality. Sigmoid colon diverticulosis without diverticulitis and previous hernia repairs are again noted. Shorty Felder MD Tubes & Lines: Vas-Cath Medication Review Current Medications Medications (Trade) Dose Ordered Sig/Sylvie Route Start Time Stop Time Status Last Admin (NS Flush) 2 ml UNSCH PRN IV FLUSH 12/20/16 23:15 (NS Flush) 2 ml BID IV FLUSH 12/21/16 09:00 01/01/17 20:25 (Narcan Inj) 0.4 mg UNSCH PRN IV 12/20/16 23:15 Miscellaneous Information FLU VACCINE OUT... UNSCH PRN .XX 12/21/16 02:30 (Heparin Inj) 5,000 units Q8HR SQ 12/21/16 06:00 01/02/17 06:42 (Xanax) 1 mg TID PRN PO 12/21/16 05:00 01/02/17 15:12 (Norvasc) 10 mg DAILY PO 12/21/16 09:00 01/01/17 10:40 (Ecotrin Ec) 81 mg DAILY PO 12/21/16 09:00 01/01/17 10:41 (Symbicort 160-4.5 Inh) 2 puff Q12HR INH 12/21/16 09:00 Hold 12/24/16 12:52 (Spiriva Inh) 18 mcg DAILY INH 12/21/16 09:00 01/02/17 15:14 (Catapres) 0.1 mg Q8H PRN PO 12/21/16 08:00 (Zofran Inj) 4 mg Q8H PRN IV PUSH 12/22/16 10:30 12/23/16 00:03 (Colace) 100 mg BID PO 12/23/16 11:00 01/01/17 20:24 (Senokot) 17.2 mg DAILY PO 12/23/16 11:00 01/02/17 15:12 (NS Flush) UNSCH PRN IVF 12/23/16 11:15 (Heparin Inj) UNSCH PRN IV FLUSH 12/23/16 11:15 (Lactinex) 1 tab TID PO 12/24/16 18:00 01/02/17 15:12 Pantoprazole Sodium 40 mg 40 mg DAILY PO 12/25/16 17:00 01/02/17 15:12 (NS 1000 ml Inj) 1,000 ml @ 0 mls/hr Q0M PRN IV 12/26/16 10:44 01/02/17 09:40 Heparin Sodium (Porcine) 8000 units 8,000 units UNSCH PRN IVF 12/26/16 10:45 Sodium Chloride 1,000 ml @ 200 mls/hr Q5H PRN IV 12/26/16 10:44 (NS 1000 ml Inj) 1,000 ml @ 0 mls/hr Q0M PRN IV 12/26/16 10:44 (Mannitol Inj) 12.5 gm UNSCH PRN IV 12/26/16 10:45 (Albumin 25% Inj) 25 gm UNSCH PRN IV 12/26/16 10:45 (NS Flush) 5 ml UNSCH PRN IV FLUSH 12/26/16 10:45 (Heparin Inj) UNSCH PRN .XX 12/26/16 10:45 01/02/17 09:40 (Gentamicin (Dialysis) Inj) 20 mg UNSCH PRN IV 12/26/16 10:45 01/02/17 09:41 (Zofran Inj) 4 mg UNSCH PRN IV 12/26/16 10:45 (Tylenol) 650 mg UNSCH PRN PO 12/26/16 10:45 12/26/16 14:35 (Benadryl) 25 mg UNSCH PRN PO 12/26/16 10:45 01/02/17 15:12 (Nitrostat Sl) 0.4 mg UNSCH PRN SL 12/26/16 10:45 (Catapres) 0.1 mg UNSCH PRN PO 12/26/16 10:45 (Gelfoam 12 Mm/7 Mm Top) 1 foam UNSCH PRN TOP 12/26/16 10:45 (Lopressor) 50 mg Q12HR PO 12/27/16 21:00 01/01/17 20:24 (Percocet 5-325 Mg) 1 tab Q4H PRN PO 12/27/16 17:00 12/31/16 09:43 (Percocet 10-325 Mg) 1 tab Q4H PRN PO 12/27/16 17:00 01/02/17 06:43 (Phoslo) 667 mg TID PO 12/28/16 18:00 01/02/17 15:12 (Apresoline) 25 mg Q8H PO 01/01/17 10:00 01/02/17 02:44 (Marlene Velazquez) Physical Exam General Appearance: No Acute Distress, Comfortable (Marlene Velazquez) Eyes Eye Exam: Sclera White (Marlene Velazquez) Pulmonary Resp Exam: Clear Bilaterally, Breath Sounds Equal, No Distress (Marlene Velazquez) Cardiology CV Exam: Regular, Normal Sinus Rhythm (Marlene Velazquez) Gastrointestinal/Abdomen GI Exam: Soft, Non-Tender, No Hepatosplenomegaly (Marlene Velazquez) Integumentary Skin Exam: Warm, Dry (Marlene Velazquez) Extremeties Extremities Exam: No Edema (Marlene Velazquez) Neurologic Neuro Exam: Alert, Awake (Marlene Velazquez) Psychiatric Psych Exam: Appropriate Responses (Marlene Velazquez) Assessment/Plan Discussed Condition With: Patient Assessment Summary: OLLIE/Acute Renal Failure Problem List: (1) Acute renal failure Plan: Renal biopsy result reported as showing evidence of acute kidney injury with superimposed changes of arteriolosclerosis and mild interstitial fibrosis but no evidence of an acute interstitial nephritis or an immune complex glomerulonephritis that might be associated with his hepatitis C. I believe that the patient sustained some sort of acute kidney injury possibly related to an unknown substance. Patient's history of substance use prior to presentation is very vague and I'm not sure if the patient is being totally forthcoming regarding this matter. Regardless I advised him again not to expose himself in the future to any unprescribed substances that he may have used prior to presentation such as NSAIDs, synthetic drugs or illicit drugs. Will monitor renal functions. Hold dialysis until further notice. Medications should be adjusted for the patient's renal decline. Avoid nephrotoxic medications such as iodinated contrast and NSAIDs. Avoid gadolinium. (2) HTN (hypertension) Plan: Improved. Continue on current regimen (3) Hepatitis C Plan: PCR positive as well as Cryo. GI attempting to get Harvoni covered on insurance No evidence of HCV GN on renal biopsy (4) MRSA (methicillin resistant staph aureus) culture positive (Marlene Velazquez) Plan The exam, history, and the medical decision-making described in the above note were completed with the assistance of the PA-C. I reviewed and agree with the findings presented. (Aldair Shields MD) Marlene Velazquez Jan 02, 2017 16:23 Aldair Shields MD Jan 03, 2017 13:00
[2017-01-03] VITALS (10 sets, daily range): BP systolic 121–159; BP diastolic 71–90; PULSE 63–78; RESP 16–18; TEMP 95.7–99.2; O2SAT 94–95
[2017-01-03] MEDS: hydrALAZINE HCL 25 MG TAB PO SCH ×3 (01:19→18:14)
[2017-01-03] MEDS: diphenhydrAMINE HCL 25 MG CAP PO PRN (01:19)
[2017-01-03] MEDS: oxyCODONE/ACETAMINOPHEN 10 MG/325 MG TAB PO PRN ×2 (01:20→21:05)
[2017-01-03] MEDS: HEPARIN SODIUM - SQ 10,000 UNITS/ML VIAL SQ SCH ×3 (06:06→21:04)
[2017-01-03 06:10] LABS: AUTOMATED NEUTROPHIL # 3.9 TH/MM3 (1.8-7.7); BASOPHIL % 0.4 % (0.0-2.0); EOSINOPHIL # 0.1 TH/MM3 (0-0.4); EOSINOPHIL % 1.7 % (0.0-4.0); HEMATOCRIT 39.6 % (39.0-51.0); HEMO FLAGS DIFF FINAL; LYMPHOCYTE # 2.4 TH/MM3 (1.0-4.8); MEAN CORPUSCULAR HEMOGLOBIN 29.2 PG (27.0-34.0); MEAN CORPUSCULAR HGB CONC 33.5 % (32.0-36.0); MONO % 12.5 % (0.0-8.0); NEUT % 52.4 % (16.0-70.0); PLATELET COUNT 186 TH/MM3 (150-450); RED BLOOD COUNT 4.56 MIL/MM3 (4.50-5.90); RED CELL DISTRIBUTION WIDTH 15.4 % (11.6-17.2); WHITE BLOOD COUNT 7.4 TH/MM3 (4.0-11.0)
[2017-01-03 06:25] LABS: BICARBONATE 33.9 MEQ/L (21.0-32.0)
[2017-01-03] MEDS: SENNOSIDES 8.6 MG TAB PO SCH (10:23)
[2017-01-03] MEDS: LACTOBACILLUS ACIDOPHILUS TAB PO SCH ×3 (10:24→18:13)
[2017-01-03] MEDS: PANTOPRAZOLE SOD 40 MG DELAYED RELEASE TAB PO SCH (10:24)
[2017-01-03] MEDS: METOPROLOL TARTRATE 50 MG TAB PO SCH ×2 (10:24→21:04)
[2017-01-03] MEDS: DOCUSATE SODIUM 100 MG CAP PO SCH ×2 (10:24→21:04)
[2017-01-03] MEDS: ASPIRIN EC 81 MG TABEC PO SCH (10:25)
[2017-01-03] MEDS: CALCIUM ACETATE 667 MG CAP PO SCH ×3 (10:25→18:14)
[2017-01-03] MEDS: ALPRAZolam 1 MG TAB PO PRN ×2 (10:28→18:15)
[2017-01-03] MEDS: SODIUM CHLORIDE 0.9% FLUSH 10 ML FLUSH IV FLUSH SCH ×2 (10:28→21:00)
[2017-01-03] MEDS: TIOTROPIUM BROMIDE 18 MCG INH INH SCH (10:28)
--- NOTE | 2017-01-03 11:07 | HHI.PR ---
Subjective Remarks In bed, doesn't appear in acute distress. No n/v/d/c. Denies chest pain or sob. Feels tired. Discussed with Dr Shields , plan to DC in 1-2 days if kidney function remained stable while of HD. Objective Vitals Vital Signs Date Time Temp Pulse Resp B/P Pulse Ox O2 Delivery O2 Flow Rate FiO2 01/03/17 10:25 94 Room Air 21 01/03/17 08:00 98.4 75 18 146/90 94 01/03/17 06:21 73 01/03/17 04:00 96.5 68 16 159/84 94 01/03/17 02:20 18 01/03/17 00:32 99.2 75 16 131/82 94 01/03/17 00:11 67 01/02/17 21:35 Room Air 01/02/17 21:14 97.2 84 16 155/86 97 01/02/17 20:07 90 01/02/17 18:30 97.6 88 18 142/91 96 01/02/17 14:50 96.0 79 16 120/80 99 I/O 01/02/17 01/02/17 01/02/17 01/03/17 01/03/17 01/03/17 07:00 15:00 23:00 07:00 15:00 23:00 Intake Total 720 ml 720 ml 360 ml 260 ml Output Total 1500 ml Balance 720 ml -780 ml 360 ml 260 ml Intake Oral 720 ml 720 ml 360 ml 260 ml Hemodialysis 1500 ml # Voids 3 1 1 2 # Bowel Movements 2 0 0 Result Diagram: 01/03/17 0535 01/03/17 0535 Imaging Last Impressions Chest X-Ray 12/28/16 0600 Signed Impressions: Service Date/Time: Wednesday, December 28, 2016 04:48 - CONCLUSION: The lungs are clear. Binh Moreno MD Liver Ultrasound 12/28/16 0000 Signed Impressions: Service Date/Time: Wednesday, December 28, 2016 17:58 - CONCLUSION: 1. Hypoechoic masslike structure along the tail of the pancreas of unclear significance. This could represent potential pseudocyst or even possible loop of bowel. The pancreas appeared echogenic and is only partially visualized. 2. Hepatomegaly with no solid mass. There is a small amount of ascitic fluid and small right effusion. 3. Questionable small focal area of gallbladder wall thickening versus pericholecystic prominence with no evidence of cholelithiasis or biliary obstruction. Vamsi Diaz MD Abdomen Ultrasound 12/28/16 0000 Signed Impressions: Service Date/Time: Wednesday, December 28, 2016 11:45 - CONCLUSION: There is no significant ascites. Hermann Estrada MD FACR Renal Biopsy CT 12/27/16 0000 Signed Impressions: Service Date/Time: Tuesday, December 27, 2016 11:35 - CONCLUSION: Uncomplicated CT guided biopsy. Thee Wang MD Catheter Placement X-Ray 12/23/16 0000 Signed Impressions: Service Date/Time: Friday, December 23, 2016 10:42 - CONCLUSION: Uncomplicated vas catheter hemodialysis catheter placement. Manuel Estrada MD Renal Ultrasound 12/21/16 0000 Signed Impressions: Service Date/Time: Wednesday, December 21, 2016 08:35 - CONCLUSION: 1. No evidence for renal calculi or obstructive uropathy as questioned. 2. Very nonspecific trace perinephric fluid on the right. Bebo Smiley MD Abdomen/Pelvis CT 12/20/16 2239 Signed Impressions: Service Date/Time: Tuesday, December 20, 2016 22:53 - CONCLUSION: No evidence of an acute abnormality. Sigmoid colon diverticulosis without diverticulitis and previous hernia repairs are again noted. Shorty Felder MD Objective Remarks GENERAL: Thin 56 yo male, well nourished, well developed patient, not in distress. CARDIOVASCULAR: Regular rate and regular rhythm without murmurs, gallops, or rubs. RESPIRATORY: Mild wheezing appreciated. GASTROINTESTINAL: Abdomen soft, nontender, nondistended. + bowel sounds. MUSCULOSKELETAL: Extremities without clubbing, cyanosis, or edema. NEURO: Alert & Oriented x4 to person, place, time, situation. Moves all ext x4. 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 Further workup pending. Continue hemodialysis per nephrology. Monitor BMP. Good urine output, creatinine 3.11. Hepatitis C -CT of the abdomen was unremarkable. AST is elevated, lipase not elevated. The pt has HCV. Has a history of diverticulitis status post surgical repair, as well as ventral hernia repair. GI consult appreciated. Liver US: Hypoechoic masslike structure along the tail of the pancreas of unclear significance; This could represent potential pseudocyst or even possible loop of bowel; The pancreas appeared echogenic and is only partially visualized; Questionable small focal area of gallbladder wall thickening versus pericholecystic prominence with no evidence of cholelithiasis or biliary obstruction. EGD with gastritis. Colonoscopy with poor prep. Patient refuses further colonoscopy as inpatient. Continue bowel regimen, awaiting further input per GI. Treatment na ve. Workup for Harvoni treatment on the way. MRSA lesions The pt has lesions on his arms, legs and scalp. Wound culture growing MRSA. Pt with leukocytosis and PNA. ID consult appreciated. DC antibiotics per ID and monitor. Hyperkalemia, continue dialysis per nephrology Hypertension-uncontrolled, continue Norvasc, metoprolol, this interval stopped because of renal failure, start hydralazine, blood pressure still uncontrolled COPD/ PNA Breathing stable. CXR with question of right base consolidation. Repeat CXR clear. Continue Symbicort and Spiriva. Neb treatment as needed. Continue to taper prednisone. Hypoglycemia Likely s/t decreased PO intake. Encourage PO intake. Follow glucose. D50 if needed. History of CVA/ TIA The pt is on ASA. Continue ASA. PT if needed. DVT prophylaxis with heparin Discharge Planning Discharged home when improved and once cleared by nephrology. Discussed with Dr Shields , plan to DC in 1-2 days if kidney function remained stable while of HD. Sia Goldstein MD Jan 03, 2017 11:07
--- NOTE | 2017-01-03 13:10 | HHI.NPPN ---
Subjective History of Present Illness The patient is a 56 yo [place] male with medical hx of HTN, COPD, CAD s/p cath in 2006, remote hx of HCV, TIA, and diverticulitis who presented to this facility today with 3 day h/o abdominal pain, nausea, and general complaint of not feeling well. Was seen in ED on 12/18 for COPD exacerbation. Has been seen within the past week by his PCP at [facility] for skin rash that he says is from bug bites. Has culture of bites taken and was given Cipro 500mg BID as well as a shot of Toradol and Decadron at their office. We were consulted for ARF. ED labs from 12/18 showed a normal SCr of 0.89, but when he arrived 12/20 SCr was 5.57 and worsened to 6.32 at consult. He was treated in ED for hyperkalemia. Reports he has had little UOP in the past few days. Denies any urological hx. Denies any NSAIDs by mouth. No recent vomiting or diarrhea. Denies any illcit drug use. Interval History Patient has no verbal complaints. Review of Systems General Constitutional: Fatigue Objective Data Data 01/02/17 01/03/17 19:00 07:00 Intake Total 720 ml 620 ml Output Total 1500 ml Balance -780 ml 620 ml Intake Oral 720 ml 620 ml Hemodialysis 1500 ml # Voids 1 3 # Bowel Movements 0 Vital Signs Date Time Temp Pulse Resp B/P Pulse Ox O2 Delivery O2 Flow Rate FiO2 01/03/17 12:06 68 01/03/17 10:25 94 Room Air 21 01/03/17 08:01 76 01/03/17 08:00 98.4 75 18 146/90 94 01/03/17 06:21 73 01/03/17 04:00 96.5 68 16 159/84 94 01/03/17 02:20 18 01/03/17 00:32 99.2 75 16 131/82 94 01/03/17 00:11 67 01/02/17 21:35 Room Air 01/02/17 21:14 97.2 84 16 155/86 97 01/02/17 20:07 90 01/02/17 18:30 97.6 88 18 142/91 96 01/02/17 14:50 96.0 79 16 120/80 99 -: 01/03/17 0535 01/03/17 0535 Tubes & Lines: Vas-Cath Physical Exam General Appearance: No Acute Distress, Comfortable Eyes Eye Exam: Sclera White Pulmonary Resp Exam: Clear Bilaterally, Breath Sounds Equal, No Distress Cardiology CV Exam: Regular, Normal Sinus Rhythm Gastrointestinal/Abdomen GI Exam: Soft, Non-Tender, No Hepatosplenomegaly Integumentary Skin Exam: Warm, Dry Extremeties Extremities Exam: No Edema Neurologic Neuro Exam: Alert, Awake Psychiatric Psych Exam: Appropriate Responses Assessment/Plan Discussed Condition With: Patient Assessment Summary: OLLIE/Acute Renal Failure Problem List: (1) Acute renal failure Plan: Renal biopsy result reported as showing evidence of acute kidney injury with superimposed changes of arteriolosclerosis and mild interstitial fibrosis but no evidence of an acute interstitial nephritis or an immune complex glomerulonephritis that might be associated with his hepatitis C. I believe that the patient sustained some sort of acute kidney injury possibly related to an unknown substance. Patient's history of substance use prior to presentation is very vague and I'm not sure if the patient is being totally forthcoming regarding this matter. Regardless I advised him again not to expose himself in the future to any unprescribed substances that he may have used prior to presentation such as NSAIDs, synthetic drugs or illicit drugs. Dialysis on hold. Repeat renal indices over next 1 to 2 days. If it appears that the patient's renal function is improving significantly will remove Vas-Cath with subsequent follow-up in the office. This was discussed with the patient. Medications should be adjusted for the patient's renal decline. Avoid nephrotoxic medications such as iodinated contrast and NSAIDs. Avoid gadolinium. (2) HTN (hypertension) Plan: Improved. Continue on current regimen (3) Hepatitis C Plan: PCR positive as well as Cryo. GI attempting to get Harvoni covered on insurance No evidence of HCV GN on renal biopsy (4) MRSA (methicillin resistant staph aureus) culture positive Plan The exam, history, and the medical decision-making described in the above note were completed with the assistance of the MILO. I reviewed and agree with the findings presented. Aldair Shields MD Jan 03, 2017 13:10
[2017-01-04] VITALS: BP 102/61; PULSE 119; RESP 18; TEMP 96.7; O2SAT 93
[2017-01-04] MEDS: hydrALAZINE HCL 25 MG TAB PO SCH ×2 (02:16→09:08)
[2017-01-04] MEDS: ALPRAZolam 1 MG TAB PO PRN ×2 (02:16→12:31)
[2017-01-04 04:00] VITALS: BP 150/80; PULSE 67; RESP 16; TEMP 98.2; O2SAT 94
[2017-01-04] MEDS: HEPARIN SODIUM - SQ 10,000 UNITS/ML VIAL SQ SCH ×2 (05:10→12:31)
[2017-01-04 07:36] LABS: BICARBONATE 28.1 MEQ/L (21.0-32.0); POTASSIUM 3.7 MEQ/L (3.5-5.1)
[2017-01-04 08:00] VITALS: BP 145/79; PULSE 70; RESP 20; TEMP 97.7; O2SAT 97
[2017-01-04] MEDS: PANTOPRAZOLE SOD 40 MG DELAYED RELEASE TAB PO SCH (09:00)
[2017-01-04] MEDS: SODIUM CHLORIDE 0.9% FLUSH 10 ML FLUSH IV FLUSH SCH (09:00)
[2017-01-04] MEDS: TIOTROPIUM BROMIDE 18 MCG INH INH SCH (09:00)
[2017-01-04] MEDS: DOCUSATE SODIUM 100 MG CAP PO SCH (09:09)
[2017-01-04] MEDS: CALCIUM ACETATE 667 MG CAP PO SCH ×2 (09:09→12:31)
[2017-01-04] MEDS: SENNOSIDES 8.6 MG TAB PO SCH (09:09)
[2017-01-04] MEDS: LACTOBACILLUS ACIDOPHILUS TAB PO SCH ×2 (09:09→12:31)
[2017-01-04] MEDS: METOPROLOL TARTRATE 50 MG TAB PO SCH (09:09)
[2017-01-04] MEDS: ASPIRIN EC 81 MG TABEC PO SCH (09:09)
--- NOTE | 2017-01-04 09:10 | HHI.PR ---
Objective Vitals Vital Signs Date Time Temp Pulse Resp B/P Pulse Ox O2 Delivery O2 Flow Rate FiO2 01/04/17 08:00 97.7 70 20 145/79 97 01/04/17 04:00 98.2 67 16 150/80 94 01/04/17 00:00 96.7 119 18 102/61 93 01/03/17 20:00 98.9 78 16 133/81 94 01/03/17 16:00 95.7 76 16 121/71 94 01/03/17 12:06 68 01/03/17 12:00 96.9 63 16 134/84 95 01/03/17 10:25 94 Room Air 21 I/O 01/03/17 01/03/17 01/03/17 01/04/17 01/04/17 01/04/17 07:00 15:00 23:00 07:00 15:00 23:00 Intake Total 260 ml 720 ml 300 ml 0 ml Balance 260 ml 720 ml 300 ml 0 ml Intake Oral 260 ml 720 ml 300 ml IV Total 0 ml 0 ml # Voids 2 3 # Bowel Movements 0 3 Result Diagram: 01/03/17 0535 01/04/17 0656 Procedures Renal biopsy 12/27 A/P Problem List: (1) Acute renal failure ICD Code: N17.9 Status: Acute (2) COPD (chronic obstructive pulmonary disease) ICD Code: J44.9 Status: Chronic (3) H/O tobacco use, presenting hazards to health ICD Code: Z87.891 Status: Acute Carli Aragon DO Jan 04, 2017 09:10
[2017-01-04] MEDS: oxyCODONE/ACETAMINOPHEN 5 MG/325 MG TAB PO PRN (09:18)
--- NOTE | 2017-01-04 10:30 | HHI.NPPN ---
Subjective History of Present Illness The patient is a 56 yo [place] male with medical hx of HTN, COPD, CAD s/p cath in 2006, remote hx of HCV, TIA, and diverticulitis who presented to this facility today with 3 day h/o abdominal pain, nausea, and general complaint of not feeling well. Was seen in ED on 12/18 for COPD exacerbation. Has been seen within the past week by his PCP at [facility] for skin rash that he says is from bug bites. Has culture of bites taken and was given Cipro 500mg BID as well as a shot of Toradol and Decadron at their office. We were consulted for ARF. ED labs from 12/18 showed a normal SCr of 0.89, but when he arrived 12/20 SCr was 5.57 and worsened to 6.32 at consult. He was treated in ED for hyperkalemia. Reports he has had little UOP in the past few days. Denies any urological hx. Denies any NSAIDs by mouth. No recent vomiting or diarrhea. Denies any illcit drug use. Interval History Pt feeling well today Last HD Monday Review of Systems General Constitutional: Fatigue Objective Data Data 01/03/17 01/04/17 19:00 07:00 Intake Total 720 ml 300 ml Balance 720 ml 300 ml Intake Oral 720 ml 300 ml IV Total 0 ml # Voids 3 # Bowel Movements 3 Vital Signs Date Time Temp Pulse Resp B/P Pulse Ox O2 Delivery O2 Flow Rate FiO2 01/04/17 10:27 97 Room Air 01/04/17 10:27 Room Air 01/04/17 08:00 97.7 70 20 145/79 97 01/04/17 04:00 98.2 67 16 150/80 94 01/04/17 00:00 96.7 119 18 102/61 93 01/03/17 20:00 98.9 78 16 133/81 94 01/03/17 16:00 95.7 76 16 121/71 94 01/03/17 12:06 68 01/03/17 12:00 96.9 63 16 134/84 95 -: 01/03/17 0535 01/04/17 0656 Imaging Last Impressions Chest X-Ray 12/28/16 0600 Signed Impressions: Service Date/Time: Wednesday, December 28, 2016 04:48 - CONCLUSION: The lungs are clear. Binh Moreno MD Liver Ultrasound 12/28/16 0000 Signed Impressions: Service Date/Time: Wednesday, December 28, 2016 17:58 - CONCLUSION: 1. Hypoechoic masslike structure along the tail of the pancreas of unclear significance. This could represent potential pseudocyst or even possible loop of bowel. The pancreas appeared echogenic and is only partially visualized. 2. Hepatomegaly with no solid mass. There is a small amount of ascitic fluid and small right effusion. 3. Questionable small focal area of gallbladder wall thickening versus pericholecystic prominence with no evidence of cholelithiasis or biliary obstruction. Vamsi Diaz MD Abdomen Ultrasound 12/28/16 0000 Signed Impressions: Service Date/Time: Wednesday, December 28, 2016 11:45 - CONCLUSION: There is no significant ascites. Hermann Estrada MD FACR Renal Biopsy CT 12/27/16 0000 Signed Impressions: Service Date/Time: Tuesday, December 27, 2016 11:35 - CONCLUSION: Uncomplicated CT guided biopsy. Thee Wang MD Catheter Placement X-Ray 12/23/16 0000 Signed Impressions: Service Date/Time: Friday, December 23, 2016 10:42 - CONCLUSION: Uncomplicated vas catheter hemodialysis catheter placement. Manuel Estrada MD Renal Ultrasound 12/21/16 0000 Signed Impressions: Service Date/Time: Wednesday, December 21, 2016 08:35 - CONCLUSION: 1. No evidence for renal calculi or obstructive uropathy as questioned. 2. Very nonspecific trace perinephric fluid on the right. Bebo Smiley MD Abdomen/Pelvis CT 12/20/16 2239 Signed Impressions: Service Date/Time: Tuesday, December 20, 2016 22:53 - CONCLUSION: No evidence of an acute abnormality. Sigmoid colon diverticulosis without diverticulitis and previous hernia repairs are again noted. Shorty Felder MD Tubes & Lines: Vas-Cath Medication Review Current Medications Medications (Trade) Dose Ordered Sig/Sylvie Route Start Time Stop Time Status Last Admin (NS Flush) 2 ml UNSCH PRN IV FLUSH 12/20/16 23:15 (NS Flush) 2 ml BID IV FLUSH 12/21/16 09:00 01/03/17 10:28 (Narcan Inj) 0.4 mg UNSCH PRN IV 12/20/16 23:15 Miscellaneous Information FLU VACCINE OUT... UNSCH PRN .XX 12/21/16 02:30 (Heparin Inj) 5,000 units Q8HR SQ 12/21/16 06:00 01/04/17 05:10 (Xanax) 1 mg TID PRN PO 12/21/16 05:00 01/04/17 02:16 (Norvasc) 10 mg DAILY PO 12/21/16 09:00 01/04/17 09:09 (Ecotrin Ec) 81 mg DAILY PO 12/21/16 09:00 01/04/17 09:09 (Symbicort 160-4.5 Inh) 2 puff Q12HR INH 12/21/16 09:00 Hold 12/24/16 12:52 (Spiriva Inh) 18 mcg DAILY INH 12/21/16 09:00 01/03/17 10:28 (Catapres) 0.1 mg Q8H PRN PO 12/21/16 08:00 (Zofran Inj) 4 mg Q8H PRN IV PUSH 12/22/16 10:30 12/23/16 00:03 (Colace) 100 mg BID PO 12/23/16 11:00 01/04/17 09:09 (Senokot) 17.2 mg DAILY PO 12/23/16 11:00 01/04/17 09:09 (Lactinex) 1 tab TID PO 12/24/16 18:00 01/04/17 09:09 (Protonix) 40 mg DAILY PO 12/25/16 17:00 01/04/17 09:00 (Lopressor) 50 mg Q12HR PO 12/27/16 21:00 01/04/17 09:09 (Percocet 5-325 Mg) 1 tab Q4H PRN PO 12/27/16 17:00 01/04/17 09:18 (Percocet 10-325 Mg) 1 tab Q4H PRN PO 12/27/16 17:00 01/03/17 21:05 (Phoslo) 667 mg TID PO 12/28/16 18:00 01/04/17 09:09 (Apresoline) 25 mg Q8H PO 01/01/17 10:00 01/04/17 09:08 Physical Exam General Appearance: No Acute Distress, Comfortable Eyes Eye Exam: Sclera White Pulmonary Resp Exam: Clear Bilaterally, Breath Sounds Equal, No Distress Cardiology CV Exam: Regular, Normal Sinus Rhythm Gastrointestinal/Abdomen GI Exam: Soft, Non-Tender, No Hepatosplenomegaly Integumentary Skin Exam: Warm, Dry Extremeties Extremities Exam: No Edema Neurologic Neuro Exam: Alert, Awake Psychiatric Psych Exam: Appropriate Responses Assessment/Plan Discussed Condition With: Patient Assessment Summary: OLLIE/Acute Renal Failure Problem List: (1) Acute renal failure Plan: Renal biopsy result reported as showing evidence of acute kidney injury with superimposed changes of arteriolosclerosis and mild interstitial fibrosis but no evidence of an acute interstitial nephritis or an immune complex glomerulonephritis that might be associated with his hepatitis C. I believe that the patient sustained some sort of acute kidney injury possibly related to an unknown substance. Patient's history of substance use prior to presentation is very vague and I'm not sure if the patient is being totally forthcoming regarding this matter. Regardless I advised him again not to expose himself in the future to any unprescribed substances that he may have used prior to presentation such as NSAIDs, synthetic drugs or illicit drugs. Renal functions improving daily. At this time, will discontinue iHD. Discussed with RN who will remove VasCath today. OK to be discharged from renal standpoint with BMP to be done in 1 week and f/u in office in 2 weeks. Medications should be adjusted for the patient's renal decline. Avoid nephrotoxic medications such as iodinated contrast and NSAIDs. Avoid gadolinium. (2) HTN (hypertension) Plan: Continue on current regimen (3) Hepatitis C Plan: PCR positive as well as Cryo. GI attempting to get Harvoni covered on insurance No evidence of HCV GN on renal biopsy (4) MRSA (methicillin resistant staph aureus) culture positive Marlene Velazquez Jan 04, 2017 10:30
--- NOTE | 2017-01-04 10:49 | HHI.DS ---
Discharge Summary Admission Date Dec 20, 2016 at 23:07 Discharge Date: Jan 04, 2017 Admitting Diagnosis acute renal failure/hypocalcemia/hyperkalemia (1) Acute renal failure ICD Code: N17.9 Diagnosis: Principal (2) COPD (chronic obstructive pulmonary disease) ICD Code: J44.9 Diagnosis: Secondary (3) H/O tobacco use, presenting hazards to health ICD Code: Z87.891 Diagnosis: Secondary Procedures Renal biopsy 12/27 Brief History - From Admission Patient is somewhat of a poor historian. Patient is quite angry at the time of arrival to his room. He states that he has been in pain. He reports again because of the abdominal pain which started Monday. He states he also felt sickish which he meant his nausea. No vomiting. When asked where the pain is, he mostly pointed to his bladder area. He then goes on and talked about having had previous colon surgery with colostomy and reversal of colostomy. Stated this was a couple of years ago. It was done in our hospital. also complained of shortness of breath. He states this is because of his COPD. However denies any urinary burning or pain on urination. Denies any decreased urination or frequency in urination. Denies any blood in his stool or in his urine. Denies fever. Denies diarrhea. Next an exam patient states that he came to the hospital on Monday, about 2 days ago. Stated he was prescribed some antibiotics for his skin lesion on his lower extremity and on his forehead. He attributed this to sunburns because he was at a yazdanism activity volunteering recently. He reports he has been on lisinopril for at least a year. He does not remember the name of the antibiotic. However review of medical records reveals that this is a cephalosporin. Patient also reports of not eating all day long because of nausea. He reports of cramping all over as well. CBC/BMP: 01/03/17 0535 01/04/17 0656 Significant Findings Laboratory Tests Test 01/02/17 01/03/17 01/04/17 04:32 05:35 06:56 Potassium Level 3.4 MEQ/L (3.5-5.1) Blood Urea Nitrogen 48 MG/DL (7-18) 39 MG/DL (7-18) 40 MG/DL (7-18) Creatinine 3.02 MG/DL 2.95 MG/DL 2.52 MG/DL (0.60-1.30) (0.60-1.30) (0.60-1.30) Estimat Glomerular Filtration 21 ML/MIN (>89) 22 ML/MIN (>89) 26 ML/MIN (>89) Rate Mean Platelet Volume 6.4 FL (7.0-11.0) Monocytes (%) (Auto) 12.5 % (0.0-8.0) Carbon Dioxide Level 33.9 MEQ/L (21.0-32.0) Calcium Level 8.4 MG/DL (8.5-10.1) Random Glucose 124 MG/DL (74-106) Albumin 2.6 GM/DL (3.4-5.0) Imaging Last Impressions Chest X-Ray 12/28/16 0600 Signed Impressions: Service Date/Time: Wednesday, December 28, 2016 04:48 - CONCLUSION: The lungs are clear. Binh Moreno MD Liver Ultrasound 12/28/16 0000 Signed Impressions: Service Date/Time: Wednesday, December 28, 2016 17:58 - CONCLUSION: 1. Hypoechoic masslike structure along the tail of the pancreas of unclear significance. This could represent potential pseudocyst or even possible loop of bowel. The pancreas appeared echogenic and is only partially visualized. 2. Hepatomegaly with no solid mass. There is a small amount of ascitic fluid and small right effusion. 3. Questionable small focal area of gallbladder wall thickening versus pericholecystic prominence with no evidence of cholelithiasis or biliary obstruction. Vamsi Diaz MD Abdomen Ultrasound 12/28/16 0000 Signed Impressions: Service Date/Time: Wednesday, December 28, 2016 11:45 - CONCLUSION: There is no significant ascites. Hermann Estrada MD FACR Renal Biopsy CT 12/27/16 0000 Signed Impressions: Service Date/Time: Tuesday, December 27, 2016 11:35 - CONCLUSION: Uncomplicated CT guided biopsy. Thee Wang MD Catheter Placement X-Ray 12/23/16 0000 Signed Impressions: Service Date/Time: Friday, December 23, 2016 10:42 - CONCLUSION: Uncomplicated vas catheter hemodialysis catheter placement. Manuel Estrada MD Renal Ultrasound 12/21/16 0000 Signed Impressions: Service Date/Time: Wednesday, December 21, 2016 08:35 - CONCLUSION: 1. No evidence for renal calculi or obstructive uropathy as questioned. 2. Very nonspecific trace perinephric fluid on the right. Bebo Smiley MD Abdomen/Pelvis CT 12/20/16 2239 Signed Impressions: Service Date/Time: Tuesday, December 20, 2016 22:53 - CONCLUSION: No evidence of an acute abnormality. Sigmoid colon diverticulosis without diverticulitis and previous hernia repairs are again noted. Shorty Felder MD PE at Discharge GENERAL: Thin 56 yo male, well nourished, well developed patient, not in distress. CARDIOVASCULAR: Regular rate and regular rhythm without murmurs, gallops, or rubs. RESPIRATORY: Mild wheezing appreciated. GASTROINTESTINAL: Abdomen soft, nontender, nondistended. + bowel sounds. MUSCULOSKELETAL: Extremities without clubbing, cyanosis, or edema. NEURO: Alert & Oriented x4 to person, place, time, situation. Moves all ext x4. Pt update on day of discharge Mr. Adams is doing well. No acute concerns. Denies any fever, chills. Nephrology cleared for discharge. 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 Good urine output, creatinine is improved to 2.52. Patient is not receiving any further dialysis. Vascath will be removed today. Nephrology cleared for discharge with one week BMP and two week follow up with Dr. Shields. Hepatitis C -CT of the abdomen was unremarkable. AST is elevated, lipase not elevated. The pt has HCV. Has a history of diverticulitis status post surgical repair, as well as ventral hernia repair. GI consult appreciated. Liver US: Hypoechoic masslike structure along the tail of the pancreas of unclear significance; This could represent potential pseudocyst or even possible loop of bowel; The pancreas appeared echogenic and is only partially visualized; Questionable small focal area of gallbladder wall thickening versus pericholecystic prominence with no evidence of cholelithiasis or biliary obstruction. EGD with gastritis. Colonoscopy with poor prep. Patient refuses further colonoscopy as inpatient. Continue bowel regimen, awaiting further input per GI. Treatment na ve. Workup for Harvoni treatment on the way. MRSA lesions The pt has lesions on his arms, legs and scalp. Wound culture growing MRSA. Pt with leukocytosis and PNA. Discontinued antibiotics per ID. Patient is doing well off abx. Hyperkalemia, continue dialysis per nephrology Hypertension-uncontrolled, continue Norvasc, metoprolol, Continue hydralazine COPD/ PNA Breathing stable. CXR with question of right base consolidation. Repeat CXR clear. Continue Symbicort and Spiriva. Neb treatment as needed. Continue 3 more days prednisone on discharge. Hypoglycemia Likely s/t decreased PO intake. Encourage PO intake. Follow glucose. D50 if needed. History of CVA/ TIA Continue ASA Pt Condition on Discharge: Stable Discharge Disposition: Discharge Home Discharge Instructions DIET: Follow Instructions for: Heart Healthy Diet Activities you can perform: Regular-No Restrictions Carli Aragon DO Jan 04, 2017 10:48 am
[2017-01-04 12:00] VITALS: BP 140/85; PULSE 66; RESP 20; TEMP 97; O2SAT 97
[2017-01-05 16:56] LABS: BATH SALTS (MDPV) UR NEG (NEG); ECSTASY (MDMA) UR NEG (NEG); HEROIN (6-ACETYLMORPHINE) UR NEG (NEG); K2 SPICE UR NEG (NEG); OBMETHADONE UR NEG (NEG); PHENCYCLIDINE URINE NEG (NEG)
[2017-01-05 16:57] LABS: GABAPENTIN UR NEG (NEG)
[2017-01-05 16:59] LABS: HYDROMORPHONE U POS (NEG)
== END 2017-01-04 14:40 | disposition home or self-care (01) | DRG 682 ==
LOC: NEPC 18:24 → NEDA 23:07 → HOCA 12-21 01:09
PROVIDERS: ADMIT Hospitalist; ATTEND Hospitalist
PROC: 05HM33Z Insertion of Infusion Device into Right Internal Jugular Vein, Percutaneous Approach (ICD-10-PCS; principal; 2016-12-23)
PROC: 5A1D60Z (ICD-10-PCS; 2016-12-24)
PROC: 0TB13ZX Excision of Left Kidney, Percutaneous Approach, Diagnostic (ICD-10-PCS; 2016-12-27)
PROC: 0DB68ZX Excision of Stomach, Via Natural or Artificial Opening Endoscopic, Diagnostic (ICD-10-PCS; 2016-12-27)
PROC: 0DJD8ZZ Inspection of Lower Intestinal Tract, Via Natural or Artificial Opening Endoscopic (ICD-10-PCS; 2016-12-27)
DX: N17.9 Acute kidney failure, unspecified (principal); J18.9 Pneumonia, unspecified organism; E87.2 Acidosis; I13.0 Hypertensive heart and chronic kidney disease with heart failure and stage 1 through stage 4 chronic kidney disease, or unspecified chronic kidney disease; R18.8 Other ascites; J44.0 Chronic obstructive pulmonary disease with (acute) lower respiratory infection; I50.9 Heart failure, unspecified; J44.1 Chronic obstructive pulmonary disease with (acute) exacerbation; E83.51 Hypocalcemia; N18.9 Chronic kidney disease, unspecified; E87.5 Hyperkalemia; G47.30 Sleep apnea, unspecified; Z86.73 Personal history of transient ischemic attack (TIA), and cerebral infarction without residual deficits; F41.9 Anxiety disorder, unspecified; K21.9 Gastro-esophageal reflux disease without esophagitis; B19.20 Unspecified viral hepatitis C without hepatic coma; E78.5 Hyperlipidemia, unspecified; I25.10 Atherosclerotic heart disease of native coronary artery without angina pectoris; Z87.891 Personal history of nicotine dependence; N30.90 Cystitis, unspecified without hematuria; R21 Rash and other nonspecific skin eruption; B95.62 Methicillin resistant Staphylococcus aureus infection as the cause of diseases classified elsewhere; K59.00 Constipation, unspecified; K57.30 Diverticulosis of large intestine without perforation or abscess without bleeding; E16.2 Hypoglycemia, unspecified; W57.XXXA Bitten or stung by nonvenomous insect and other nonvenomous arthropods, initial encounter; K29.70 Gastritis, unspecified, without bleeding; K44.9 Diaphragmatic hernia without obstruction or gangrene; K62.1 Rectal polyp; D64.9 Anemia, unspecified; J45.909 Unspecified asthma, uncomplicated; R07.9 Chest pain, unspecified
CPT/HCPCS: 36556; 50200; 71010; 74176; 76705; 76775; 76937; 77001; 77012; 80048; 80053; 80069; 80076; 80307; 81001; 82172; 82247; 82306; 82550; 82552; 82595; 82784; 82805; 82948; 82977; 83010; 83605; 83690; 83735; 83883; 84100; 84155; 84157; 84165; 84443; 84460; 84484; 85025; 85027; 85610; 85730; 86021; 86038; 86160; 86317; 86334; 86335; 86403; 86703; 86704; 86708; 86803; 87040; 87070; 87147; 87186; 87205; 87340; 87522; 87804; 87902; 88305; 88312; 90935; 93005; 94640; 94664; 96360; 96361; 96374; C1752; C1769; G0481; J0456; J0610; J1170; J1580; J1644; J1815; J2250; J2405; J3010; J7030; J7050; J7512; J7613; Q9967

== ENCOUNTER 2017-07-14 13:40 | Emergency (ER) | payer OTHER, MEDICAID ==
[~2017-07-14] VITALS: Ht 175.3 cm; Wt 75.0 kg
[~2017-07-14 13:40] MED LIST changes: +CALC667C PO; +HYDR-3799 PO; -LEVA750T PO; -LISI-519 PO; +METO-309 PO
[2017-07-14 13:41] VITALS: BP 160/88; PULSE 80; RESP 16; TEMP 99; O2SAT 94
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
[2017-07-14] MEDS ORDERED: methylPREDNISolone SOD SUCC 125 MG/2 ML VIAL IV PUSH ONE (19:45)
[2017-07-14] MEDS ORDERED: LORazepam 2 MG/ML VIAL IV PUSH ONE (19:45)
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
[2017-07-14] MEDS: RESP: ALBUTEROL 2.5 MG/IPRATROPIUM 0.5 MG NEB (SCH) INH ×2 (20:21→20:22)
[2017-07-14 20:40] LABS: AUTOMATED NEUTROPHIL # 2.8 TH/MM3 (1.8-7.7); BASOPHIL # 0.1 TH/MM3 (0-0.2); BASOPHIL % 1.4 % (0.0-2.0); EOSINOPHIL # 0.3 TH/MM3 (0-0.4); EOSINOPHIL % 3.9 % (0.0-4.0); HEMATOCRIT 45.3 % (39.0-51.0); HEMOGLOBIN 15.5 GM/DL (13.0-17.0); LYMPH % 40.7 % (9.0-44.0); LYMPHOCYTE # 2.7 TH/MM3 (1.0-4.8); MEAN CORPUSCULAR HEMOGLOBIN 31.4 PG (27.0-34.0); MEAN CORPUSCULAR HGB CONC 34.1 % (32.0-36.0); MEAN PLATELET VOLUME 7.2 FL (7.0-11.0); MONO % 10.6 % (0.0-8.0); MONOCYTE # 0.7 TH/MM3 (0-0.9); NEUT % 43.4 % (16.0-70.0); PLATELET COUNT 191 TH/MM3 (150-450); RED BLOOD COUNT 4.93 MIL/MM3 (4.50-5.90); RED CELL DISTRIBUTION WIDTH 14.2 % (11.6-17.2); WHITE BLOOD COUNT 6.6 TH/MM3 (4.0-11.0)
[2017-07-14 20:53] LABS: INTERNATIONAL NORMALIZED RATIO 1.1 RATIO; PROTHROMBIN TIME - PATIENT 11.4 SEC (9.8-11.6)
[2017-07-14 21:06] LABS: TROPONIN I LESS THAN 0.02 NG/ML (0.02-0.05)
[2017-07-14 22:12] LABS: BICARBONATE 23.1 MEQ/L (21.0-32.0); BLOOD UREA NITROGEN 15 MG/DL (7-18); CALCIUM 8.3 MG/DL (8.5-10.1); CHLORIDE 108 MEQ/L (98-107); CREATININE 0.87 MG/DL (0.60-1.30); GLOMERULAR FILTRATION RATE 90 ML/MIN (>89); GLUCOSE,RANDOM 144 MG/DL (74-106); MAGNESIUM 1.8 MG/DL (1.5-2.5); SODIUM (NA) 140 MEQ/L (136-145)
[2017-07-14] MEDS ORDERED: RESP: ALBUTEROL 2.5 MG/3 ML NEB (SCH) NEB ONE (22:15)
[2017-07-14] MEDS ORDERED: ACETAMINOPHEN 325 MG TAB PO ONE (22:15)
[2017-07-14] MEDS ORDERED: IOHEXOL 350 MG/ML 10 ML VIAL (for RAD DIAG) IVCONTRAST ONE (22:54)
[2017-07-14 23:20] VITALS: BP 165/78; PULSE 82; RESP 16; O2SAT 97
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
[2017-07-15] MEDS ORDERED: PRED-503 PO (00:14)
[2017-07-15] MEDS ORDERED: VENTAER INH (00:14)
[2017-07-15] MEDS ORDERED: TYLE325T PO (00:14)
--- NOTE | 2017-07-15 16:00 | EKG ---
Date Performed: 07/14/2017 Time Performed: 21:56:05 PTAGE: 56 years EKG: Sinus rhythm WITH OCCASIONAL VENTRICULAR PREMATURE COMPLEXES MODERATE INTRAVENTRICULAR CONDUCTION DELAY Since pre vious tracing, no significant change noted BORDERLINE ECG PREVIOUS TRACING : 12/21/2016 09.15 DOCTOR: Wilmar Delaney Interpretating Date/Time 07/15/2017 15:59:31
== END 2017-07-15 00:56 | disposition home or self-care (01) ==
LOC: NEPD 13:40
DX: J44.1 Chronic obstructive pulmonary disease with (acute) exacerbation (principal); I11.0 Hypertensive heart disease with heart failure; I50.9 Heart failure, unspecified; K21.9 Gastro-esophageal reflux disease without esophagitis; V13.4XXA Pedal cycle driver injured in collision with car, pick-up truck or van in traffic accident, initial encounter; Z86.73 Personal history of transient ischemic attack (TIA), and cerebral infarction without residual deficits; Z79.82 Long term (current) use of aspirin
CPT/HCPCS: 70450; 71046; 72125; 73502; 73700; 74177; 80048; 83735; 84484; 85025; 85610; 85730; 93005; 94640; 94664; 96374; 96375; 99285; J2060; J2930; J7613; Q9967

== ENCOUNTER 2017-08-10 11:36 | Emergency (ER) | payer OTHER ==
[~2017-08-10] VITALS: Ht 175.3 cm; Wt 75.0 kg
[~2017-08-10 11:36] MED LIST changes: +PRED-503 PO; +TYLE325T PO
[2017-08-10 11:50] VITALS: BP 148/84; PULSE 80; RESP 22; TEMP 98.7; O2SAT 95
--- NOTE | 2017-08-10 11:53 | PD ---
HPI Chief Complaint: Respiratory Symptoms Time Seen by Provider: 11:43 Travel History International Travel<30 days: No Contact w/Intl Traveler<30days: No Traveled to known affect area: No History of Present Illness HPI This 56-year-old male is complaining of shortness of breath. He has a history of asthma. He believes this exacerbation is due to the fact that he did this for yesterday and the chemicals may have triggered his asthma. He has had a colon surgery in the past because of diverticulitis. He is not having abdominal pain. He has no history of heart disease. He had a cardiac catheterization 2 years ago. He believes the exacerbation is due to chemicals from cleaning his floor. PFSH Past Medical History Hx Anticoagulant Therapy: Yes (81 mg asa daily) Arthritis: No Asthma: Yes Autoimmune Disease: No Blood Disorders: No Anxiety: Yes Depression: No Heart Rhythm Problems: Yes Cancer: No Cardiac Catheterization: Yes (2006) Cardiovascular Problems: Yes (HTN) High Cholesterol: No Chemotherapy: No Chest Pain: Yes Congestive Heart Failure: Yes COPD: Yes (emphysema) Cerebrovascular Accident: No Coronary Artery Disease: No Diabetes: No Diminished Hearing: No Diverticulitis: Yes Endocrine: No Gastrointestinal Disorders: Yes (HERNIA REPAIR) GERD: Yes Glaucoma: No Genitourinary: No Headaches: No Hepatitis: Yes (C) Hiatal Hernia: No Heparin Induced Thrombocytopen: No Hypertension: Yes Immune Disorder: No Implanted Vascular Access Dvce: No Kidney Stones: No Musculoskeletal: No Neurologic: Yes (TIA) Psychiatric: No Reproductive: No Respiratory: Yes (COPD) Immunizations Current: Yes Migraines: No Myocardial Infarction: Yes (hx mini strokes per pt "[id number]?") Radiation Therapy: No Renal Failure: No Seizures: No Sickle Cell Disease: No Sleep Apnea: Yes Thyroid Disease: No Ulcer: Yes (STOMACH) Past Surgical History Abdominal Surgery: Yes (HERNIA REPAIR, COLOSTOMY, AND COLOSTOMY REVERSAL) AICD: No Appendectomy: No Arteriovenous Shunt: No Cardiac Surgery: Yes (HEART CATH ) Cholecystectomy: No Coronary Artery Bypass Graft: No Ear Surgery: No Endocrine Surgery: No Eye Surgery: No Genitourinary Surgery: No Gynecologic Surgery: No Insulin Pump: No Joint Replacement: No Neurologic Surgery: No Oral Surgery: Yes (ABCESS TOOTH REMOVED) Pacemaker: No Thoracic Surgery: No Other Surgery: Yes (ABSCESS RIGHT ELBOW, MOUTH) Social History Alcohol Use: Yes (NOT FOR PAST YR) Tobacco Use: Yes (occu 2 a week) Substance Use: No Allergies-Medications (Allergen,Severity, Reaction): Coded Allergies: codeine (Unverified Allergy, Severe, RASH,MIGRAINE, 08/10/17) ketorolac (Unverified Adverse Reaction, Severe, HEADACHE, 08/10/17) *MDRO Multi-Drug Resistant Organism (Verified Adverse Reaction, Unknown, MRSA, 08/10/17) MRSA (sputum) - 11/09/14 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 POSITIVE - 10/07/2016 MRSA (arm) - 12/24/16 Reported Meds & Prescriptions Reported Meds & Active Scripts Active Deltasone (Prednisone) 20 Mg Tab 20 Mg PO BID 5 Days Lopressor (Metoprolol Tartrate) 50 Mg Tab 50 Mg PO Q12HR Ventolin Hfa 18 GM Inh (Albuterol Sulfate) 90 Mcg/Act Aer 2 Puff INH Q6H PRN Ecotrin Low Strength (Aspirin) 81 Mg Tabdr 81 Mg PO DAILY Prednisone 20 Mg Tab 20 Mg PO BID Norvasc (Amlodipine Besylate) 10 Mg Tab 10 Mg PO DAILY 30 Days Reported Albuterol Neb (Albuterol Sulfate) 2.5 Mg/3 Ml Neb 2.5 Mg NEB Q4HR NEB While awake Spiriva Handihaler (Tiotropium Inh) 18 Mcg Cap 18 Mcg INH DAILY 1 capsule = 18 mcg Symbicort Inh (Budesonide/Formoterol Fumarate) 160-4.5 Mcg/Act Aero 2 Puff INH Q12HR Xanax (Alprazolam) 1 Mg Tab 1 Mg PO TID PRN Review of Systems General / Constitutional: No: Fever, Chills Eyes: No: Diploplia, Blurred Vision HENT: No: Headaches Cardiovascular: No: Chest Pain or Discomfort Respiratory: Positive: Cough, Shortness of Breath, Wheezing Gastrointestinal: No: Nausea, Vomiting Genitourinary: No: Urgency, Frequency Musculoskeletal: No: Myalgias Skin: No Rash Neurologic: No: Weakness, Dizziness Psychiatric: Positive: Anxiety Endocrine: No: Heat Intolerance Hematologic/Lymphatic: No: Easy Bruising Physical Exam Narrative GENERAL: Well-developed male SKIN: Focused skin assessment warm/dry. HEAD: Atraumatic. Normocephalic. EYES: Pupils equal and round. No scleral icterus. No injection or drainage. ENT: No nasal bleeding or discharge. Mucous membranes pink and moist. NECK: Trachea midline. No JVD. CARDIOVASCULAR: Regular rate and rhythm. No murmur appreciated. RESPIRATORY: . Breath sounds equal bilaterally. GASTROINTESTINAL: Abdomen soft, non-tender, nondistended. Hepatic and splenic margins not palpable. MUSCULOSKELETAL: No obvious deformities. No clubbing. No cyanosis. No edema. NEUROLOGICAL: Awake and alert. No obvious cranial nerve deficits. Motor grossly within normal limits. Normal speech. PSYCHIATRIC: Appropriate mood and affect; insight and judgment normal. Data Data Last Documented VS Vital Signs Date Time Temp Pulse Resp B/P (MAP) Pulse Ox O2 Delivery O2 Flow Rate FiO2 08/10/17 12:35 86 20 150/91 (110) 96 Room Air 08/10/17 11:50 98.7 Orders Orders Complete Blood Count With Diff (08/10/17 11:48) Comprehensive Metabolic Panel (08/10/17 11:48) B-Type Natriuretic Peptide (08/10/17 11:48) Troponin I (08/10/17 11:48) Influenzae A/B Antigen (08/10/17 11:48) Iv Access Insert/Monitor (08/10/17 11:48) Electrocardiogram (08/10/17 11:48) Ecg Monitoring (08/10/17 11:48) Oximetry (08/10/17 11:48) Oxygen Administration (08/10/17 11:48) Chest, Single Ap (08/10/17 11:48) Sodium Chloride 0.9% Flush (Ns Flush) (08/10/17 12:00) Methylprednisolone So Succ Inj (Solumedr (08/10/17 12:00) Albuterol-Ipratropium Neb (Duoneb Neb) (08/10/17 12:00) Acetaminophen (Tylenol) (08/10/17 12:45) Labs Laboratory Tests Test 08/10/17 11:50 White Blood Count 6.2 TH/MM3 Red Blood Count 5.04 MIL/MM3 Hemoglobin 15.1 GM/DL Hematocrit 45.7 % Mean Corpuscular Volume 90.6 FL Mean Corpuscular Hemoglobin 29.9 PG Mean Corpuscular Hemoglobin Concent 33.0 % Red Cell Distribution Width 14.1 % Platelet Count 207 TH/MM3 Mean Platelet Volume 7.1 FL Neutrophils (%) (Auto) 45.5 % Lymphocytes (%) (Auto) 28.3 % Monocytes (%) (Auto) 12.6 % Eosinophils (%) (Auto) 9.7 % Basophils (%) (Auto) 3.9 % Neutrophils # (Auto) 2.8 TH/MM3 Lymphocytes # (Auto) 1.8 TH/MM3 Monocytes # (Auto) 0.8 TH/MM3 Eosinophils # (Auto) 0.6 TH/MM3 Basophils # (Auto) 0.2 TH/MM3 CBC Comment DIFF FINAL Differential Comment Blood Urea Nitrogen 16 MG/DL Creatinine 0.84 MG/DL Random Glucose 110 MG/DL Total Protein 7.3 GM/DL Albumin 3.1 GM/DL Calcium Level 8.3 MG/DL Alkaline Phosphatase 108 U/L Aspartate Amino Transf (AST/SGOT) 161 U/L Alanine Aminotransferase (ALT/SGPT) 142 U/L Total Bilirubin 0.6 MG/DL Sodium Level 138 MEQ/L Potassium Level 4.4 MEQ/L Chloride Level 107 MEQ/L Carbon Dioxide Level 25.8 MEQ/L Anion Gap 5 MEQ/L Estimat Glomerular Filtration Rate 94 ML/MIN Troponin I LESS THAN 0.02 NG/ML B-Type Natriuretic Peptide 63 PG/ML MDM Medical Decision Making Medical Screen Exam Complete: Yes Emergency Medical Condition: Yes Medical Record Reviewed: Yes Differential Diagnosis Differential includes pneumonia, COPD exacerbation, asthma exacerbation Narrative Course Patient was given nebulizer treatments and Solu-Medrol with improvement. He is stable for discharge. X-rays negative. Troponin and normal EKG sinus rhythm Diagnosis Primary Impression: COPD with exacerbation Scripts Prednisone (Prednisone) 20 Mg Tab 20 MG PO DIRECTED, #24 TAB 0 Refills Take 60 MG daily x 4 days, then 40 MG x 4 days, then 20 MG daily x 4 days. Prov: Torsten Chanel MD 08/10/17 Disposition: 01 DISCHARGE HOME Condition: Stable Torsten Chanel MD Aug 10, 2017 11:53
[2017-08-10] MEDS ORDERED: SODIUM CHLORIDE 0.9% FLUSH 10 ML FLUSH IVF PRN (12:00)
[2017-08-10] MEDS ORDERED: methylPREDNISolone SOD SUCC 125 MG/2 ML VIAL IV PUSH ONE (12:00)
[2017-08-10] MEDS: RESP: ALBUTEROL 2.5 MG/IPRATROPIUM 0.5 MG NEB (SCH) INH (12:10)
[2017-08-10 12:15] LABS: AUTOMATED NEUTROPHIL # 2.8 TH/MM3 (1.8-7.7); BASOPHIL # 0.2 TH/MM3 (0-0.2); BASOPHIL % 3.9 % (0.0-2.0); EOSINOPHIL # 0.6 TH/MM3 (0-0.4); EOSINOPHIL % 9.7 % (0.0-4.0); HEMATOCRIT 45.7 % (39.0-51.0); HEMOGLOBIN 15.1 GM/DL (13.0-17.0); LYMPH % 28.3 % (9.0-44.0); LYMPHOCYTE # 1.8 TH/MM3 (1.0-4.8); MEAN CELL VOLUME 90.6 FL (80.0-100.0); MEAN CORPUSCULAR HEMOGLOBIN 29.9 PG (27.0-34.0); MEAN PLATELET VOLUME 7.1 FL (7.0-11.0); MONO % 12.6 % (0.0-8.0); MONOCYTE # 0.8 TH/MM3 (0-0.9); NEUT % 45.5 % (16.0-70.0); PLATELET COUNT 207 TH/MM3 (150-450); RED BLOOD COUNT 5.04 MIL/MM3 (4.50-5.90); RED CELL DISTRIBUTION WIDTH 14.1 % (11.6-17.2); WHITE BLOOD COUNT 6.2 TH/MM3 (4.0-11.0)
[2017-08-10 12:22] LABS: CHLORIDE 107 MEQ/L (98-107); SODIUM (NA) 138 MEQ/L (136-145)
[2017-08-10 12:25] LABS: CALCIUM 8.3 MG/DL (8.5-10.1)
[2017-08-10 12:26] LABS: ALBUMIN 3.1 GM/DL (3.4-5.0); BICARBONATE 25.8 MEQ/L (21.0-32.0); BLOOD UREA NITROGEN 16 MG/DL (7-18); GLUCOSE,RANDOM 110 MG/DL (74-106)
[2017-08-10 12:29] LABS: ALT (GPT) 142 U/L (12-78); AST (GOT) 161 U/L (15-37); CREATININE 0.84 MG/DL (0.60-1.30); GLOMERULAR FILTRATION RATE 94 ML/MIN (>89)
[2017-08-10 12:30] LABS: TOTAL BILIRUBIN ADULT 0.6 MG/DL (0.2-1.0); TOTAL PROTEIN 7.3 GM/DL (6.4-8.2)
[2017-08-10 12:32] LABS: ALKALINE PHOSPHATASE 108 U/L (45-117)
[2017-08-10 12:34] LABS: TROPONIN I LESS THAN 0.02 NG/ML (0.02-0.05)
[2017-08-10 12:35] VITALS: BP 150/91; PULSE 86; RESP 20; O2SAT 96
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
[2017-08-10] MEDS ORDERED: ACETAMINOPHEN 325 MG TAB PO ONE (12:45)
[2017-08-10 13:47] VITALS: RESP 18
[2017-08-10] MEDS ORDERED: PRED20 PO (14:11)
[2017-08-10 14:17] VITALS: BP 144/91
--- NOTE | 2017-08-11 15:06 | EKG ---
Date Performed: 08/10/2017 Time Performed: 11:37:38 PTAGE: 56 years EKG: Sinus rhythm INDETERMINATE AXIS Since previous tracing, no significant change noted ATYPICAL ECG PREVIOUS TRACING : 07/14/2017 21.56.05 DOCTOR: Sue Shrestha Interpretating Date/Time 08/11/2017 15:04:54
== END 2017-08-10 14:18 | disposition home or self-care (01) ==
LOC: PHED 11:36
DX: J44.1 Chronic obstructive pulmonary disease with (acute) exacerbation (principal); B19.20 Unspecified viral hepatitis C without hepatic coma; I50.9 Heart failure, unspecified; I10 Essential (primary) hypertension; I25.2 Old myocardial infarction; F17.200 Nicotine dependence, unspecified, uncomplicated; Z86.73 Personal history of transient ischemic attack (TIA), and cerebral infarction without residual deficits; Z79.82 Long term (current) use of aspirin; Z88.8 Allergy status to other drugs, medicaments and biological substances; Z88.5 Allergy status to narcotic agent
CPT/HCPCS: 71045; 80053; 83880; 84484; 85025; 87804; 93005; 94640; 94664; 96374; 99285; J2930

== ENCOUNTER 2017-09-21 21:36 | Observation (INO) | payer OTHER, MEDICAID ==
[~2017-09-21] VITALS: Ht 175.3 cm; Wt 81.5 kg
[~2017-09-21 21:36] MED LIST changes: -CALC667C PO; -HYDR-3799 PO; -OXYC-433 PO; -TYLE325T PO
[2017-09-21 21:44] VITALS: BP 169/85; PULSE 113; RESP 32; TEMP 101.3; O2SAT 94
[2017-09-21] MEDS ORDERED: cefTRIAXone INJ 2,000 MG in SODIUM CHLORIDE 0.9% INJ 100 ML IV ONE (21:45)
[2017-09-21] MEDS ORDERED: SODIUM CHLOR 0.9% 1000 ML INJ 1,000 ML IV ONE (21:45)
[2017-09-21] MEDS ORDERED: AZITHROMYCIN INJ 500 MG in SODIUM CHLOR 0.9% 250 ML INJ 250 ML IV ONE (21:45)
[2017-09-21] MEDS ORDERED: ACETAMINOPHEN 325 MG TAB PO ONE (21:45)
[2017-09-21 21:56] VITALS: O2SAT 95
--- NOTE | 2017-09-21 22:02 | PD ---
HPI Chief Complaint: Respiratory Symptoms Time Seen by Provider: 21:44 Travel History International Travel<30 days: No Contact w/Intl Traveler<30days: No Traveled to known affect area: No History of Present Illness HPI 56-year-old male presents to the emergency department by EMS transport from home for evaluation of progressively worsening shortness of breath. To chemicals precipitating exacerbation of his COPD. Patient states subsequently his shortness of breath has worsened and more recently he has developed cough productive of thick green phlegm over the last 2 days. Patient has had subjective fever and chills. Patient denies nausea or vomiting. Patient had chest pain associated with cough. Patient also complains of abdominal pain. Patient has had multiple abdominal surgeries. Patient rates his pain as 4-6/10. PFSH Past Medical History Narrative Medical Asthma/COPD anxiety hypertension NM cardiac catheterization without stenting CHF TIA herniorrhaphy colostomy colostomy reversal Hx Anticoagulant Therapy: Yes (81 mg asa daily) Arthritis: No Asthma: Yes Autoimmune Disease: No Blood Disorders: No Anxiety: Yes Depression: No Heart Rhythm Problems: Yes Cancer: No Cardiac Catheterization: Yes (2006) Cardiovascular Problems: Yes (HTN) High Cholesterol: No Chemotherapy: No Chest Pain: Yes Congestive Heart Failure: Yes COPD: Yes (emphysema) Cerebrovascular Accident: No Coronary Artery Disease: No Diabetes: No Diminished Hearing: No Diverticulitis: Yes Endocrine: No Gastrointestinal Disorders: Yes (HERNIA REPAIR) GERD: Yes Glaucoma: No Genitourinary: No Headaches: No Hepatitis: Yes (C) Hiatal Hernia: No Heparin Induced Thrombocytopen: No Hypertension: Yes Immune Disorder: No Implanted Vascular Access Dvce: No Kidney Stones: No Musculoskeletal: No Neurologic: Yes (TIA) Psychiatric: No Reproductive: No Respiratory: Yes Immunizations Current: Yes Migraines: No Myocardial Infarction: Yes (hx mini strokes per pt "[id number]?") Radiation Therapy: No Renal Failure: No Seizures: No Sickle Cell Disease: No Sleep Apnea: Yes Thyroid Disease: No Ulcer: Yes (STOMACH) Tetanus Vaccination: > 5 Years Influenza Vaccination: No Past Surgical History Abdominal Surgery: Yes (HERNIA REPAIR, COLOSTOMY, AND COLOSTOMY REVERSAL) AICD: No Appendectomy: No Arteriovenous Shunt: No Cardiac Surgery: Yes (HEART CATH ') Cholecystectomy: No Coronary Artery Bypass Graft: No Ear Surgery: No Endocrine Surgery: No Eye Surgery: No Genitourinary Surgery: No Gynecologic Surgery: No Insulin Pump: No Joint Replacement: No Neurologic Surgery: No Oral Surgery: Yes (ABCESS TOOTH REMOVED) Pacemaker: No Thoracic Surgery: No Other Surgery: Yes (ABSCESS RIGHT ELBOW, MOUTH) Family History Family Myocardial Infarction: Yes Social History Alcohol Use: Yes (NOT FOR PAST YR) Tobacco Use: Yes (occu 2 a week) Substance Use: No Allergies-Medications (Allergen,Severity, Reaction): Coded Allergies: codeine (Unverified Allergy, Severe, RASH,MIGRAINE, 08/10/17) ketorolac (Unverified Adverse Reaction, Severe, HEADACHE, 08/10/17) *MDRO Multi-Drug Resistant Organism (Verified Adverse Reaction, Unknown, MRSA, 08/10/17) MRSA (sputum) - 11/09/14 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 POSITIVE - 10/07/2016 MRSA (arm) - 12/24/16 Reported Meds & Prescriptions Reported Meds & Active Scripts Active Prednisone 20 Mg Tab 20 Mg PO DIRECTED Take 60 MG daily x 4 days, then 40 MG x 4 days, then 20 MG daily x 4 days. Deltasone (Prednisone) 20 Mg Tab 20 Mg PO BID 5 Days Lopressor (Metoprolol Tartrate) 50 Mg Tab 50 Mg PO Q12HR Ventolin Hfa 18 GM Inh (Albuterol Sulfate) 90 Mcg/Act Aer 2 Puff INH Q6H PRN Ecotrin Low Strength (Aspirin) 81 Mg Tabdr 81 Mg PO DAILY Prednisone 20 Mg Tab 20 Mg PO BID Norvasc (Amlodipine Besylate) 10 Mg Tab 10 Mg PO DAILY 30 Days Reported Albuterol Neb (Albuterol Sulfate) 2.5 Mg/3 Ml Neb 2.5 Mg NEB Q4HR NEB While awake Spiriva Handihaler (Tiotropium Inh) 18 Mcg Cap 18 Mcg INH DAILY 1 capsule = 18 mcg Symbicort Inh (Budesonide/Formoterol Fumarate) 160-4.5 Mcg/Act Aero 2 Puff INH Q12HR Xanax (Alprazolam) 1 Mg Tab 1 Mg PO TID PRN Review of Systems Except as stated in HPI: all other systems reviewed are Neg General / Constitutional: Positive: Fever, Chills HENT: Positive: Congestion Cardiovascular: No: Chest Pain or Discomfort Respiratory: Positive: Cough, Shortness of Breath, Wheezing Gastrointestinal: Positive: Abdominal Pain, No: Nausea, Vomiting Genitourinary: No: Dysuria Musculoskeletal: No: Myalgias, Arthralgias, Edema, Pain Skin: No Rash Neurologic: No: Weakness Psychiatric: No: Anxiety Hematologic/Lymphatic: No: Lymph Node Enlargement Physical Exam Narrative GENERAL: Well-developed well-nourished male in obvious respiratory distress SKIN: Warm and dry. HEAD: Normocephalic. EYES: No scleral icterus. No injection or drainage. NECK: Supple, trachea midline. No JVD or lymphadenopathy. CARDIOVASCULAR: Regular rate and rhythm without murmurs, gallops, or rubs. RESPIRATORY: Breath sounds equal bilaterally diminished with diffuse bilateral expiratory wheezing no rales. No accessory muscle use. GASTROINTESTINAL: Abdomen soft, non-tender, nondistended. MUSCULOSKELETAL: No cyanosis, or edema. BACK: Nontender without obvious deformity. No CVA tenderness. Data Data Last Documented VS Vital Signs Date Time Temp Pulse Resp B/P (MAP) Pulse Ox O2 Delivery O2 Flow Rate FiO2 09/21/17 23:31 98.4 106 22 158/95 (116) 97 Nasal Cannula 2.00 Orders Orders Sepsis Workup Initiated (09/21/17 ) Electrocardiogram (09/21/17 21:44) Complete Blood Count With Diff (09/21/17 21:44) Comprehensive Metabolic Panel (09/21/17 21:44) Prothrombin Time / Inr (Pt) (09/21/17 21:44) Act Partial Throm Time (Ptt) (09/21/17 21:44) Lactic Acid Sepsis Protocol (09/21/17 21:44) Magnesium (Mg) (09/21/17 21:44) Lipase (09/21/17 21:44) Ckmb (Isoenzyme) Profile (09/21/17 21:44) Troponin I (09/21/17 21:44) Urinalysis - C+S If Indicated (09/21/17 21:44) Influenzae A/B Antigen (09/21/17 21:44) Blood Culture (09/21/17 21:44) Sputum Culture And Gram Stain (09/21/17 21:44) Chest, Single Ap (09/21/17 21:44) Blood Glucose (09/21/17 21:44) Ecg Monitoring (09/21/17 21:44) Iv Access Insert/Monitor (09/21/17 21:44) Oximetry (09/21/17 21:44) Oxygen Administration (09/21/17 21:44) Acetaminophen (Tylenol) (09/21/17 21:45) Ceftriaxone Inj (Rocephin Inj) (09/21/17 21:45) Azithromycin Inj (Zithromax Inj) (09/21/17 21:45) Albuterol-Ipratropium Neb (Duoneb Neb) (09/21/17 21:45) Sodium Chlor 0.9% 1000 Ml Inj (Ns 1000 M (09/21/17 21:45) CKMB (09/21/17 22:10) CKMB% (09/21/17 22:10) Ct Abd/Pel W Iv Contrast(Rout) (09/22/17 ) Alprazolam (Xanax) (09/22/17 00:45) Ct Pulmonary Angiogram (09/22/17 ) Place In Observation (09/22/17 ) Vital Signs (Adult) Q4H (09/22/17 00:59) Activity Oob With Assistance (09/22/17 00:59) Belt Molder / Telemetry .CONTINUOUS (09/22/17 00:59) Diet Heart Healthy (09/22/17 Breakfast) Sodium Chloride 0.9% Flush (Ns Flush) (09/22/17 01:00) Sodium Chloride 0.9% Flush (Ns Flush) (09/22/17 09:00) Basic Metabolic Panel (Bmp) (09/23/17 06:00) Complete Blood Count With Diff (09/23/17 06:00) Resp Oxygen Clay C Titrat 1-4 L (09/22/17 ) Case Management Consult (09/22/17 00:59) Naloxone Inj (Narcan Inj) (09/22/17 01:00) Albuterol-Ipratropium Neb (Duoneb Neb) (09/22/17 04:00) Albuterol-Ipratropium Neb (Duoneb Neb) (09/22/17 01:00) Methylprednisolone So Succ Inj (Solumedr (09/22/17 06:00) Pantoprazole (Protonix) (09/22/17 09:00) Admit Order (Ed Use Only) (09/22/17 ) Belt Molder / Telemetry DELANO.Q8H (09/22/17 01:00) Activity Oob With Assistance (09/22/17 01:00) Notify Dr: Other (09/22/17 01:00) Levofloxacin (Levaquin) (09/22/17 09:00) Labs Laboratory Tests Test 09/21/17 22:10 09/22/17 00:22 White Blood Count 16.0 TH/MM3 Red Blood Count 5.15 MIL/MM3 Hemoglobin 15.9 GM/DL Hematocrit 47.5 % Mean Corpuscular Volume 92.1 FL Mean Corpuscular Hemoglobin 30.8 PG Mean Corpuscular Hemoglobin Concent 33.4 % Red Cell Distribution Width 14.1 % Platelet Count 137 TH/MM3 Mean Platelet Volume 6.6 FL Neutrophils (%) (Auto) 74.9 % Lymphocytes (%) (Auto) 15.0 % Monocytes (%) (Auto) 8.3 % Eosinophils (%) (Auto) 0.3 % Basophils (%) (Auto) 1.5 % Neutrophils # (Auto) 12.1 TH/MM3 Lymphocytes # (Auto) 2.4 TH/MM3 Monocytes # (Auto) 1.3 TH/MM3 Eosinophils # (Auto) 0.0 TH/MM3 Basophils # (Auto) 0.2 TH/MM3 CBC Comment DIFF FINAL Differential Comment Prothrombin Time 11.5 SEC Prothromb Time International Ratio 1.1 RATIO Activated Partial Thromboplast Time 22.4 SEC Blood Urea Nitrogen 15 MG/DL Creatinine 0.81 MG/DL Random Glucose 111 MG/DL Total Protein 7.5 GM/DL Albumin 3.0 GM/DL Calcium Level 8.3 MG/DL Magnesium Level 1.9 MG/DL Alkaline Phosphatase 73 U/L Aspartate Amino Transf (AST/SGOT) 159 U/L Alanine Aminotransferase (ALT/SGPT) 172 U/L Total Bilirubin 0.5 MG/DL Sodium Level 134 MEQ/L Potassium Level 4.4 MEQ/L Chloride Level 102 MEQ/L Carbon Dioxide Level 23.4 MEQ/L Anion Gap 9 MEQ/L Estimat Glomerular Filtration Rate 98 ML/MIN Lactic Acid Level 1.1 mmol/L Total Creatine Kinase 195 U/L Creatine Kinase MB 1.9 NG/ML Troponin I LESS THAN 0.02 NG/ML Lipase 227 U/L Urine Color YELLOW Urine Turbidity CLEAR Urine pH 5.5 Urine Specific [place] LESS/EQUAL 1.005 Urine Protein NEG mg/dL Urine Glucose (UA) NEG mg/dL Urine Ketones NEG mg/dL Urine Occult Blood NEG Urine Nitrite NEG Urine Bilirubin NEG Urine Urobilinogen 0.2 MG/DL Urine Leukocyte Esterase NEG Urine RBC 0-2 /hpf Urine WBC 0-2 /hpf Urine Squamous Epithelial Cells 0-5 /hpf Urine Bacteria NONE /hpf Microscopic Urinalysis Comment CULT NOT INDICATED MDM Medical Decision Making Medical Screen Exam Complete: Yes Emergency Medical Condition: Yes Medical Record Reviewed: Yes Interpretation(s) EKG sinus tachycardia rate 110 right atrial enlargement no acute ST elevation or injury pattern change occasional PVC Last Impressions CT Angiography 09/22/17 0000 Signed Impressions: Service Date/Time: Friday, September 22, 2017 00:59 - CONCLUSION: 1. No evidence of pulmonary embolism. 2. Hyperinflation. 3. New faint reticular nodule opacities in both lower lobes which could represent atypical mycobacterium infection. Vamsi Diaz MD Abdomen/Pelvis CT 09/22/17 0000 Signed Impressions: Service Date/Time: Friday, September 22, 2017 00:59 - CONCLUSION: 1. Mild diverticulosis with no inflammatory change. 2. Status post anterior abdominal wall hernia repair no recurrent hernia. 3. 5 reticulonodular opacities in the lung bases. Please see chest CT for further details. Vamsi Diaz MD Chest X-Ray [id number]/[id number] Signed Impressions: Service Date/Time: August 21:57 - CONCLUSION: 1. No acute findings. Calcified granuloma upper left lung. Stefano Mansfield MD CBC & BMP Diagram 09/21/17 22:10 Total Protein 7.5, Albumin 3.0 L, Calcium Level 8.3 L, Magnesium Level 1.9, Alkaline Phosphatase 73, Aspartate Amino Transf (AST/SGOT) 159 H, Alanine Aminotransferase (ALT/SGPT) 172 H, Total Bilirubin 0.5 Vital Signs Date Time Temp Pulse Resp B/P (MAP) Pulse Ox O2 Delivery O2 Flow Rate FiO2 09/21/17 23:31 98.4 106 22 158/95 (116) 97 Nasal Cannula 2.00 09/21/17 22:05 94 Nasal Cannula 2.00 09/21/17 21:56 95 Nasal Cannula 2.00 09/21/17 21:56 95 Nasal Cannula 2.00 09/21/17 21:49 113 32 94 Nasal Cannula 2.00 09/21/17 21:44 101.3 113 32 169/85 (260) 94 trop I: Less than 0.02, not elevated; ck: 195, not elevated CK-MB 1.9, elevated Lactic acid 1.1, not elevated Urinalysis: Grossly within normal limits Differential Diagnosis Dyspnea, pneumonia, exacerbation COPD, PE, CHF Narrative Course Patient placed on fine patcher with continuous pulse oximetry IV access obtained by EMS specimens collected and sent for resulting patient identified to have fever 101.6F sepsis protocol initiated and DuoNeb updrafts ordered patient had received Solu-Medrol in route to the hospital. Patient administered fluid bolus Vital signs improving Updraft treatments with improved symptoms of shortness of breath mild persistent wheezing Patient aware of lab results and plan for admission Patient's case discussed with on-call medicine for admission for exacerbation COPD and meets sepsis criteria and chest x-ray reveals no lobar infiltrate patient has received community-based pneumonia antibiotic coverage Due to complaint of abdominal pain and multiple surgeries imaging study ordered Physician Communication Physician Communication discussed with [facility] Diagnosis Primary Impression: Acute exacerbation of chronic obstructive pulmonary disease (COPD) Additional Impressions: Bronchitis Sepsis Jenise Mcfadden MD Sep 21, 2017 22:02
[2017-09-21] MEDS: RESP: ALBUTEROL 2.5 MG/IPRATROPIUM 0.5 MG NEB (SCH) INH ×2 (22:03→22:04)
[2017-09-21 22:05] VITALS: O2SAT 94
[2017-09-21 22:30] LABS: AUTOMATED NEUTROPHIL # 12.1 TH/MM3 (1.8-7.7); BASOPHIL # 0.2 TH/MM3 (0-0.2); BASOPHIL % 1.5 % (0.0-2.0); EOSINOPHIL % 0.3 % (0.0-4.0); HEMATOCRIT 47.5 % (39.0-51.0); HEMOGLOBIN 15.9 GM/DL (13.0-17.0); LYMPHOCYTE # 2.4 TH/MM3 (1.0-4.8); MEAN CELL VOLUME 92.1 FL (80.0-100.0); MEAN CORPUSCULAR HEMOGLOBIN 30.8 PG (27.0-34.0); MEAN CORPUSCULAR HGB CONC 33.4 % (32.0-36.0); MEAN PLATELET VOLUME 6.6 FL (7.0-11.0); MONO % 8.3 % (0.0-8.0); MONOCYTE # 1.3 TH/MM3 (0-0.9); NEUT % 74.9 % (16.0-70.0); PLATELET COUNT 137 TH/MM3 (150-450); RED BLOOD COUNT 5.15 MIL/MM3 (4.50-5.90); RED CELL DISTRIBUTION WIDTH 14.1 % (11.6-17.2)
--- NOTE | 2017-09-21 22:31 | RADRPT ---
EXAM DATE/TIME: 09/21/2017 21:57 [facility] COMPARISON: No previous studies available for comparison. INDICATIONS : Shortness of breath; Fever. MEDICAL HISTORY : Hypertension. Emphysema. Myocardial infarction. COPD. Congestive heart failure. Asthma. TIA. SURGICAL HISTORY : Cardiac cath. ENCOUNTER: Initial ACUITY: 1 day PAIN SCORE: 0/10 LOCATION: Bilateral chest FINDINGS: A single view of the chest demonstrates the lungs to be symmetrically aerated without evidence of mas s, infiltrate or effusion. The cardiomediastinal contours are unremarkable. Osseous structures are intact. CONCLUSION: 1. No acute findings. Calcified granuloma upper left lung. Stefano Mansfield MD on September 21, 2017 at 22:28 Board Certified Radiologist. This report was verified electronically.
[2017-09-21 22:34] LABS: CHLORIDE 102 MEQ/L (98-107); SODIUM (NA) 134 MEQ/L (136-145)
[2017-09-21 22:38] LABS: BICARBONATE 23.4 MEQ/L (21.0-32.0); BLOOD UREA NITROGEN 15 MG/DL (7-18); CALCIUM 8.3 MG/DL (8.5-10.1); GLUCOSE,RANDOM 111 MG/DL (74-106); MAGNESIUM 1.9 MG/DL (1.5-2.5)
[2017-09-21 22:41] LABS: ALT (GPT) 172 U/L (12-78); AST (GOT) 159 U/L (15-37); CREATININE 0.81 MG/DL (0.60-1.30); GLOMERULAR FILTRATION RATE 98 ML/MIN (>89); INTERNATIONAL NORMALIZED RATIO 1.1 RATIO; PROTHROMBIN TIME - PATIENT 11.5 SEC (9.8-11.6)
[2017-09-21 22:43] LABS: TOTAL BILIRUBIN ADULT 0.5 MG/DL (0.2-1.0); TOTAL PROTEIN 7.5 GM/DL (6.4-8.2)
[2017-09-21 22:44] LABS: ALKALINE PHOSPHATASE 73 U/L (45-117)
[2017-09-21 22:46] LABS: TROPONIN I LESS THAN 0.02 NG/ML (0.02-0.05)
[2017-09-21 23:31] VITALS: BP 158/95; PULSE 106; RESP 22; TEMP 98.4; O2SAT 97
[2017-09-22 00:44] LABS: BILIRUBIN, URINE NEG (NEG); BLOOD, URINE NEG (NEG); GLUCOSE,URINE NEG (NEG); KETONE, URINE NEG (NEG); NITRITE,URINE NEG (NEG); PH, URINE 5.5 (5.0-8.5); URINE COLOR YELLOW (YELLW/STRAW); URINE LEUKOCYTE ESTERASE NEG (NEG)
[2017-09-22] MEDS ORDERED: ALPRAZolam 1 MG TAB PO ONE (00:45)
[2017-09-22] MEDS ORDERED: ALPRAZolam 0.5 MG TAB PO ONE (00:45)
[2017-09-22] MEDS ORDERED: SODIUM CHLORIDE 0.9% FLUSH 10 ML FLUSH IV FLUSH PRN (01:00)
[2017-09-22] MEDS ORDERED: RESP: ALBUTEROL 2.5 MG/IPRATROPIUM 0.5 MG NEB (PRN) NEB ×2 (01:00→12:30)
[2017-09-22] MEDS ORDERED: NALOXONE HCL 0.4 MG/ML AMP IV PUSH PRN ×2 (01:00→13:00)
[2017-09-22 01:06] LABS: RBC, URINE 0-2 /hpf (0-3); SQUAMOUS EPITHELIAL CELL URINE 0-5 /hpf (0-5); WBC, URINE 0-2 /hpf (0-5)
[2017-09-22 01:40] VITALS: BP 143/85; PULSE 86; RESP 18; TEMP 98.6; O2SAT 95
[2017-09-22] MEDS ORDERED: IOHEXOL 350 MG/ML 10 ML VIAL (for RAD DIAG) IVCONTRAST ONE (01:40)
--- NOTE | 2017-09-22 01:47 | RADRPT ---
EXAM DATE/TIME: 09/22/2017 00:59 [facility] COMPARISON: CT PULMONARY ANGIOGRAM, October 03, 2016, 15:59. INDICATIONS : Shortness of breath. IV CONTRAST: 100 cc Omnipaque 350 (iohexol) IV ; Cumulative dose for multiple exams. RADIATION DOSE: 18.34 CTDIvol (mGy) MEDICAL HISTORY : Emphysema. Cardiovascular disease SURGICAL HISTORY : Umbilical hernia repair. ENCOUNTER: Initial ACUITY: 1 day PAIN SCALE: 6/10 LOCATION: Bilateral chest TECHNIQUE: Volumetric scanning of the chest was performed using a pulmonary embolism protocol MIP images were re constructed. Using automated exposure control and adjustment of the mA and/or kV according to patien t size, radiation dose was kept as low as reasonably achievable to obtain optimal diagnostic quality images. DICOM format image data is available electronically for review and comparison. Follow-up recommendations for detected pulmonary nodules are based at a minimum on nodule size and pa tient risk factors according to Fleischner Society Guidelines. FINDINGS: PULMONARY ARTERIES: No filling defects are seen in the pulmonary arteries through the segmental level. LUNGS: There is no consolidation or pneumothorax . Underlying emphysema is again noted and there are multipl e stable blebs. No concerning pulmonary nodule is visualized. New subtle reticulonodular opacities ar e present in both lower lobes. PLEURAE: There is no pleural thickening or pleural effusion. MEDIASTINUM: There is good visualization of the great vessels of the middle mediastinum. No evidence of mediastin al or hilar adenopathy/mass. MUSCULOSKELETAL: Within normal limits for patient age. MISCELLANEOUS: The visualized upper abdominal organs demonstrate no acute abnormality. CONCLUSION: 1. No evidence of pulmonary embolism. 2. Hyperinflation. 3. New faint reticular nodule opacities in both lower lobes which could represent atypical mycobacter ium infection. Vamsi Diaz MD on September 22, 2017 at 1:42 Board Certified Radiologist. This report was verified electronically.
--- NOTE | 2017-09-22 01:50 | RADRPT ---
EXAM DATE/TIME: 09/22/2017 00:59 [facility] COMPARISON: CT ABDOMEN & PELVIS W CONTRAST, July 14, 2017, 22:49. INDICATIONS : Abdominal pain. IV CONTRAST: 100 cc Omnipaque 350 (iohexol) IV ; Cumulative dose for multiple exams. ORAL CONTRAST: No oral contrast ingested. RADIATION DOSE: 18.99 CTDIvol (mGy) MEDICAL HISTORY : Diverticulitis. Gastroesophageal reflux disease. Emphysema. SURGICAL HISTORY : Umbilical hernia repair. Colostomy and reversal. ENCOUNTER: Initial ACUITY: 1 day PAIN SCALE: 6/10 LOCATION: Bilateral abdomen TECHNIQUE: Volumetric scanning of the abdomen and pelvis was performed. Using automated exposure control and ad justment of the mA and/or kV according to patient size, radiation dose was kept as low as reasonably achievable to obtain optimal diagnostic quality images. DICOM format image data is available electro nically for review and comparison. FINDINGS: LOWER LUNGS: Fine reticulonodular opacities are noted in both lower lobes left greater than right. LIVER: Homogeneous density without lesion. There is no dilation of the biliary tree. No calcified gallston es. SPLEEN: Normal size without lesion. There are calcified splenic granulomas again noted. PANCREAS: Within normal limits. KIDNEYS: Normal in size and shape. There is no mass, stone or hydronephrosis. ADRENAL GLANDS: Within normal limits. VASCULAR: There is no aortic aneurysm. BOWEL/MESENTERY: Surgical changes are noted in the distal colon anastomotic [place]. The stomach, small bowel, and col on demonstrate no acute abnormality. There is no free intraperitoneal air or fluid. Scattered divert iculi are present. ABDOMINAL WALL: Postsurgical changes are again noted status post hernia repair with mesh again noted along the intra- abdominal wall musculature. There is no recurrent hernia. RETROPERITONEUM: There is no lymphadenopathy. BLADDER: No wall thickening or mass. REPRODUCTIVE: Within normal limits. INGUINAL: There is no lymphadenopathy or hernia. MUSCULOSKELETAL: Within normal limits for patient age. CONCLUSION: 1. Mild diverticulosis with no inflammatory change. 2. Status post anterior abdominal wall hernia repair no recurrent hernia. 3. 5 reticulonodular opacities in the lung bases. Please see chest CT for further details. Vamsi Diaz MD on September 22, 2017 at 1:45 Board Certified Radiologist. This report was verified electronically.
[2017-09-22] MEDS: RESP: ALBUTEROL 2.5 MG/IPRATROPIUM 0.5 MG NEB (SCH) NEB ×2 (03:21→10:40)
[2017-09-22 05:41] VITALS: BP 115/77; PULSE 75; RESP 18; O2SAT 95
[2017-09-22] MEDS ORDERED: methylPREDNISolone SOD SUCC 40 MG/1 ML VIAL IV PUSH SCH (06:00)
[2017-09-22 07:50] VITALS: BP 164/93; PULSE 76; RESP 22; O2SAT 97
[2017-09-22 08:00] VITALS: BP 167/81; PULSE 82; RESP 20; TEMP 97.2; O2SAT 95
[2017-09-22 08:04] VITALS: O2SAT 94
[2017-09-22] MEDS ORDERED: PANTOPRAZOLE SOD 40 MG DELAYED RELEASE TAB PO SCH (09:00)
[2017-09-22] MEDS ORDERED: LEVOFLOXACIN 750 MG TAB PO SCH (09:00)
[2017-09-22] MEDS ORDERED: SODIUM CHLORIDE 0.9% FLUSH 10 ML FLUSH IV FLUSH SCH (09:00)
[2017-09-22] MEDS ORDERED: predniSONE 20 MG TAB PO SCH (12:30)
--- NOTE | 2017-09-22 12:43 | HHI.HP ---
HPI Service [facility] Primary Care Physician Devin Pryor MD Admission Diagnosis exacerbation COPD; bronchitis; chronic abdominal pain Diagnoses: Chief Complaint: sob fever cough Travel History International Travel<30 Days: No Contact w/Intl Traveler <30 Da: No Traveled to Known Affected Are: No History of Present Illness 56-year-old male past medical history of COPD follows with Dr. Pryor, hypertension, history of SD with cardiac cath, CHF, TIA, presents to the emergency department by EMS transport from home for evaluation of progressively worsening shortness of breath for 2 days. Says he had sprayed his house recently and thinks chemicals has precipitating exacerbation of his COPD. Patient states subsequently his shortness of breath has worsened and more recently he has developed cough productive of thick green phlegm over the last 2 days. Patient has had subjective fever and chills. Patient denies nausea or vomiting. Patient had chest pain associated with cough. Patient also complains of abdominal pain. Patient has had multiple abdominal surgeries. Patient rates his pain as 4-6/10 nonradiating. no n/v//d/c. Review of Systems Except as stated in HPI: all other systems reviewed are Neg Past Family Social History Past Medical History Asthma/COPD, anxiety, hypertension, SD cardiac catheterization 2006 without stenting, CHF, TIA, herniorrhaphy colostomy colostomy reversal Past Surgical History Hernia repair, colostomy with reversal, cardiac cath 2006 Reported Medications Reported Meds & Active Scripts Active Prednisone 20 Mg Tab 20 Mg PO DIRECTED Take 60 MG daily x 4 days, then 40 MG x 4 days, then 20 MG daily x 4 days. Deltasone (Prednisone) 20 Mg Tab 20 Mg PO BID 5 Days Lopressor (Metoprolol Tartrate) 50 Mg Tab 50 Mg PO Q12HR Ventolin Hfa 18 GM Inh (Albuterol Sulfate) 90 Mcg/Act Aer 2 Puff INH Q6H PRN Ecotrin Low Strength (Aspirin) 81 Mg Tabdr 81 Mg PO DAILY Prednisone 20 Mg Tab 20 Mg PO BID Norvasc (Amlodipine Besylate) 10 Mg Tab 10 Mg PO DAILY 30 Days Reported Albuterol Neb (Albuterol Sulfate) 2.5 Mg/3 Ml Neb 2.5 Mg NEB Q4HR NEB While awake Spiriva Handihaler (Tiotropium Inh) 18 Mcg Cap 18 Mcg INH DAILY 1 capsule = 18 mcg Symbicort Inh (Budesonide/Formoterol Fumarate) 160-4.5 Mcg/Act Aero 2 Puff INH Q12HR Xanax (Alprazolam) 1 Mg Tab 1 Mg PO TID PRN Allergies: Coded Allergies: codeine (Unverified Allergy, Severe, RASH,MIGRAINE, 08/10/17) ketorolac (Unverified Adverse Reaction, Severe, HEADACHE, 08/10/17) *MDRO Multi-Drug Resistant Organism (Verified Adverse Reaction, Unknown, MRSA, 08/10/17) MRSA (sputum) - 11/09/14 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 POSITIVE - 10/07/2016 MRSA (arm) - 12/24/16 Family History Father with liver cirrhosis alcoholic Social History Used to smoke 1ppd for 30 years quit 1 year ago No illicit drug use or EtOH use. Physical Exam Vital Signs Vital Signs Date Time Temp Pulse Resp B/P (MAP) Pulse Ox O2 Delivery O2 Flow Rate FiO2 09/22/17 08:30 09/22/17 08:04 94 Nasal Cannula 3.00 21 09/22/17 08:00 97.2 82 20 167/81 (109) 95 09/22/17 07:50 22 97 Nasal Cannula 2.00 09/22/17 07:50 97 Nasal Cannula 2.00 09/22/17 07:50 76 22 164/93 (116) 97 Nasal Cannula 2.00 09/22/17 05:41 75 18 115/77 (90) 95 Nasal Cannula 2.00 09/22/17 01:40 98.6 86 18 143/85 (104) 95 Nasal Cannula 2.00 09/21/17 23:31 98.4 106 22 158/95 (116) 97 Nasal Cannula 2.00 09/21/17 22:05 94 Nasal Cannula 2.00 09/21/17 21:56 95 Nasal Cannula 2.00 09/21/17 21:56 95 Nasal Cannula 2.00 09/21/17 21:49 113 32 94 Nasal Cannula 2.00 09/21/17 21:44 101.3 113 32 169/85 (113) 94 Physical Exam GENERAL: This is a well-nourished, well-developed patient, in no apparent distress. SKIN: No rashes, ecchymoses or lesions. Cool and dry. HEAD: Atraumatic. Normocephalic. No temporal or scalp tenderness. EYES: Pupils equal round and reactive. Extraocular motions intact. No scleral icterus. No injection or drainage. ENT: Nose without bleeding, purulent drainage or septal hematoma. Throat without erythema, tonsillar hypertrophy or exudate. Uvula midline. Airway patent. NECK: Trachea midline. No JVD or lymphadenopathy. Supple, nontender, no meningeal signs. CARDIOVASCULAR: Regular rate and rhythm without murmurs, gallops, or rubs. RESPIRATORY: Decreased breath sounds, scattered wheezing. No rales, or rhonchi. GASTROINTESTINAL: Abdomen soft, non-tender, nondistended. No hepato-splenomegaly , or palpable masses. No guarding. MUSCULOSKELETAL: Extremities without clubbing, cyanosis, or edema. No joint tenderness, effusion, or edema noted. No calf tenderness. Negative Homans sign bilaterally. NEUROLOGICAL: Awake and alert. Cranial nerves II through XII intact. Motor and sensory grossly within normal limits. Five out of 5 muscle strength in all muscle groups. Normal speech. Laboratory Laboratory Tests Test 09/21/17 22:10 09/22/17 00:22 White Blood Count 16.0 Red Blood Count 5.15 Hemoglobin 15.9 Hematocrit 47.5 Mean Corpuscular Volume 92.1 Mean Corpuscular Hemoglobin 30.8 Mean Corpuscular Hemoglobin Concent 33.4 Red Cell Distribution Width 14.1 Platelet Count 137 Mean Platelet Volume 6.6 Neutrophils (%) (Auto) 74.9 Lymphocytes (%) (Auto) 15.0 Monocytes (%) (Auto) 8.3 Eosinophils (%) (Auto) 0.3 Basophils (%) (Auto) 1.5 Neutrophils # (Auto) 12.1 Lymphocytes # (Auto) 2.4 Monocytes # (Auto) 1.3 Eosinophils # (Auto) 0.0 Basophils # (Auto) 0.2 CBC Comment DIFF FINAL Differential Comment Prothrombin Time 11.5 Prothromb Time International Ratio 1.1 Activated Partial Thromboplast Time 22.4 Blood Urea Nitrogen 15 Creatinine 0.81 Random Glucose 111 Total Protein 7.5 Albumin 3.0 Calcium Level 8.3 Magnesium Level 1.9 Alkaline Phosphatase 73 Aspartate Amino Transf (AST/SGOT) 159 Alanine Aminotransferase (ALT/SGPT) 172 Total Bilirubin 0.5 Sodium Level 134 Potassium Level 4.4 Chloride Level 102 Carbon Dioxide Level 23.4 Anion Gap 9 Estimat Glomerular Filtration Rate 98 Lactic Acid Level 1.1 Total Creatine Kinase 195 Creatine Kinase MB 1.9 Troponin I LESS THAN 0.02 Lipase 227 Urine Color YELLOW Urine Turbidity CLEAR Urine pH 5.5 Urine Specific Breeding LESS/EQUAL 1.005 Urine Protein NEG Urine Glucose (UA) NEG Urine Ketones NEG Urine Occult Blood NEG Urine Nitrite NEG Urine Bilirubin NEG Urine Urobilinogen 0.2 Urine Leukocyte Esterase NEG Urine RBC 0-2 Urine WBC 0-2 Urine Squamous Epithelial Cells 0-5 Urine Bacteria NONE Microscopic Urinalysis Comment CULT NOT INDICATED Date/Time Source Procedure Growth Status 09/21/17 22:15 Blood Peripheral Aerobic Blood Culture - Preliminary NO GROWTH IN 1 DAY Resulted 09/21/17 22:15 Blood Peripheral Anaerobic Blood Culture - Preliminary NO GROWTH IN 1 DAY Resulted 09/21/17 22:53 Nasal Washing Influenza Types A,B Antigen (BROOK) - Final NEGATIVE FOR FLU A AND B ANTIGEN.... Complete Result Diagram: 09/21/170 09/21/[address] Angiography 09/22/17 0000 Signed Impressions: Service Date/Time: Friday, September 22, 2017 00:59 - CONCLUSION: 1. No evidence of pulmonary embolism. 2. Hyperinflation. 3. New faint reticular nodule opacities in both lower lobes which could represent atypical mycobacterium infection. Vamsi Diaz MD Abdomen/Pelvis CT 09/22/17 0000 Signed Impressions: Service Date/Time: Friday, September 22, 2017 00:59 - CONCLUSION: 1. Mild diverticulosis with no inflammatory change. 2. Status post anterior abdominal wall hernia repair no recurrent hernia. 3. 5 reticulonodular opacities in the lung bases. Please see chest CT for further details. Vamsi Diaz MD Chest X-Ray 09/21/173 Signed Impressions: Service Date/Time: August 21:57 - CONCLUSION: 1. No acute findings. Calcified granuloma upper left lung. Stefnao Mansfield MD Caprini VTE Risk Assessment Caprini VTE Risk Assessment: Mod/High Risk (score >= 2) Caprini Risk Assessment Model Point Value = 1 Point Value = 2 Point Value = 3 Point Value = 5 Age 41-60 Minor surgery BMI > 25 kg/m2 Swollen legs Varicose veins or History of unexplained or recurrent spontaneous Oral contraceptives or hormone replacement Sepsis (< 1 month) Serious lung disease, including pneumonia (< 1 month) Abnormal pulmonary function Acute myocardial infarction Congestive heart failure (< 1 month) History of inflammatory bowel disease Medical patient at bed rest Age 61-74 Arthroscopic surgery Major open surgery (> 45 min) Laparoscopic surgery (> 45 min) Malignancy Confined to bed (> 72 hours) Immobilizing plaster cast Central venous access Age >= 75 History of VTE Family history of VTE Factor V Leiden Prothrombin [id number] Lupus anticoagulant Anticardiolipin antibodies Elevated serum homocysteine Heparin-induced thrombocytopenia Other congenital or acquired thrombophilia Stroke (< 1 month) Elective arthroplasty Hip, pelvis, or leg fracture Acute spinal cord injury (< 1 month) Prophylaxis Regimen Total Risk Factor Score Risk Level Prophylaxis Regimen 0-1 Low Early ambulation 2 Moderate Order ONE of the following: *Sequential Compression Device (SCD) *Heparin 5000 units SQ BID 3-4 Higher Order ONE of the following medications: *Heparin 5000 units SQ TID *Enoxaparin/Lovenox 40 mg SQ daily (WT < 150 kg, CrCl > 30 mL/min) *Enoxaparin/Lovenox 30 mg SQ daily (WT < 150 kg, CrCl > 10-29 mL/min) *Enoxaparin/Lovenox 30 mg SQ BID (WT < 150 kg, CrCl > 30 mL/min) AND/OR *Sequential Compression Device (SCD) 5 or more Highest Order ONE of the following medications: *Heparin 5000 units SQ TID (Preferred with Epidurals) *Enoxaparin/Lovenox 40 mg SQ daily (WT < 150 kg, CrCl > 30 mL/min) *Enoxaparin/Lovenox 30 mg SQ daily (WT < 150 kg, CrCl > 10-29 mL/min) *Enoxaparin/Lovenox 30 mg SQ BID (WT < 150 kg, CrCl > 30 mL/min) AND *Sequential Compression Device (SCD) Assessment and Plan Problem List: (1) Sepsis ICD Code: A41.9 - Sepsis, unspecified organism Status: Acute (2) Bronchitis ICD Code: J40 - Bronchitis, not specified as acute or chronic Status: Acute (3) Acute exacerbation of chronic obstructive pulmonary disease (COPD) ICD Code: J44.1 - Chronic obstructive pulmonary disease with (acute) exacerbation Status: Acute (4) HTN (hypertension) ICD Code: I10 - Essential (primary) hypertension Status: Chronic (5) Hypocalcemia ICD Code: E83.51 - Hypocalcemia Status: Acute (6) Atypical chest pain ICD Code: R07.89 - Other chest pain Status: Acute Assessment and Plan Acute exacerbation of chronic obstructive pulmonary disease (COPD) Bronchitis Sepsis with fever , leukocytosis tachycardia, poss PNA/bronchitis) on admission. LA normal CXR reviewed Obtain blood cx Obtain sputum cultures Started on IV abx Azithro/Rocephin O2 suplement if need Duonebs scheduled and as need Restart home meds as appropriate NO chest pain at this time. trop neg, EKG reviewed sinus tachycardia rate 110 right atrial enlargement no acute ST elevation or injury pattern change occasional PVC Discussed Condition With patient, nurse Physician Certification 2 Midnight Certification Type: Admission for Inpatient Services Order for Inpatient Services The services are ordered in accordance with Medicare regulations or non- Medicare payer requirements, as applicable. In the case of services not specified as inpatient-only, they are appropriately provided as inpatient services in accordance with the 2-midnight benchmark. Estimated LOS (days): 3 days is the estimated time the patient will need to remain in the hospital, assuming treatment plan goals are met and no additional complications. Post-Hospital Plan: Home Sia Goldstein MD Sep 22, 2017 12:43
[2017-09-22] MEDS ORDERED: BUDESONIDE-FORMOTEROL 160/4.5 MCG INHALER INH SCH (13:00)
[2017-09-22] MEDS ORDERED: BISACODYL 10 MG SUPP RECTAL PRN (13:00)
[2017-09-22] MEDS ORDERED: ACETAMINOPHEN 325 MG TAB PO PRN (13:00)
[2017-09-22] MEDS ORDERED: ASPIRIN EC 81 MG TABEC PO SCH (13:00)
[2017-09-22] MEDS ORDERED: ALPRAZolam 1 MG TAB PO PRN (13:00)
[2017-09-22] MEDS ORDERED: MAGNESIUM HYDROXIDE SUSP 30 ML CUP PO PRN (13:00)
[2017-09-22] MEDS ORDERED: LACTULOSE SYRUP 20 GM/30 ML CUP PO PRN (13:00)
[2017-09-22] MEDS ORDERED: SENNOSIDES 8.6 MG TAB PO PRN (13:00)
[2017-09-22] MEDS ORDERED: ENOXAPARIN SODIUM 40 MG/0.4 ML SYRINGE SQ SCH (13:00)
[2017-09-22] MEDS ORDERED: ONDANSETRON HCL 4 MG/2 ML VIAL IVP PRN (13:00)
[2017-09-22] MEDS ORDERED: RESP: ALBUTEROL 2.5 MG/IPRATROPIUM 0.5 MG NEB (SCH) NEB (16:00)
--- NOTE | 2017-09-22 19:58 | EKG ---
Date Performed: 09/21/2017 Time Performed: 21:51:47 PTAGE: 56 years EKG: SINUS TACHYCARDIA WITH OCCASIONAL VENTRICULAR PREMATURE COMPLEXES POSSIBLE RIGHT ATRIAL ENL ARGEMENT POSSIBLE LEFT ATRIAL ENLARGEMENT INDETERMINATE AXIS Since previous tracing, no significant c hange noted ABNORMAL RHYTHM ECG PREVIOUS TRACING : 08/10/2017 11.37 DOCTOR: Vel Foster Interpretating Date/Time 09/22/2017 19:54:58
[2017-09-22] MEDS ORDERED: METOPROLOL TARTRATE 50 MG TAB PO SCH (21:00)
[2017-09-22] MEDS ORDERED: DOCUSATE SODIUM 50 MG/SENNA 8.6 MG TAB PO SCH (21:00)
[2017-09-23] MEDS ORDERED: PNEUMOCOCCAL POLYVALENT INJ 25 MCG/0.5 ML SYR IM ONE (10:00)
[2017-09-23] MEDS ORDERED: INFLUENZA VIRUS VACCINE (QUADRIVALENT) 0.5 ML SYR IM ONE (10:00)
== END 2017-09-22 13:07 | disposition left against medical advice (07) ==
LOC: PHED 21:36 → PHEDA 09-22 01:02 → PHEDH 09-22 05:08 → PH3A 09-22 08:30
PROVIDERS: ADMIT Hospitalist; ATTEND Hospitalist
DX: A41.9 Sepsis, unspecified organism (principal); J44.1 Chronic obstructive pulmonary disease with (acute) exacerbation; J40 Bronchitis, not specified as acute or chronic; I11.0 Hypertensive heart disease with heart failure; I50.9 Heart failure, unspecified; I25.2 Old myocardial infarction; E83.51 Hypocalcemia; G47.30 Sleep apnea, unspecified; K21.9 Gastro-esophageal reflux disease without esophagitis; R10.9 Unspecified abdominal pain; G89.29 Other chronic pain; Z72.0 Tobacco use; Z86.73 Personal history of transient ischemic attack (TIA), and cerebral infarction without residual deficits
CPT/HCPCS: 71045; 71275; 74177; 80053; 81001; 82550; 82552; 83605; 83690; 83735; 84484; 85025; 85610; 85730; 87040; 87070; 87205; 87804; 93005; 94640; 94664; 96365; 96366; 96375; 99285; G0378; J0456; J0696; J2920; J7030; J7050; Q9967